=== PATIENT | male | born 1965 | race Caucasian/White ===

== ENCOUNTER 2021-12-31 11:11 | Inpatient (IN) ==
[2021-12-31] MEDS ORDERED: CEFEPIME 2,000 MG/20 ML VIAL IV STA (11:34)
[2021-12-31] MEDS ORDERED: VANCOMYCIN CONSULT ACTIVE PRN (11:34)
[2021-12-31] MEDS ORDERED: VANCOMYCIN HCL 2,750 MG in SODIUM CHLORIDE 0.9% 500 ML IV STA (11:34)
--- NOTE | 2021-12-31 11:44 | Emergency Department Note ---
History of Present Illness General Chief complaint: Leg Injury/Pain Stated complaint: FEVER, INFECTION IN L LEG Time Seen by Provider: 12/31/21 11:21 History of Present Illness This 56-year-old male patient with significant past medical history of hypertension and sleep apnea presents to the emergency department today for evaluation of redness and infection of the left leg. Patient's states 2 days ago, she noticed some redness in the left extremity and he had an elevated temperature of 99.9 F. He took 2 Advil and symptoms seem to improve. Yesterday, he developed worsening pain and she noticed increased redness, pain, and firmness in the posterior aspect of the left calf. Patient denies any shor tness of breath. He states he has had a mild dry cough for the past 2 days. No known exposures to COVID-19. He is fully vaccinated and boostered. He does not normally wear oxygen but does use a CPAP machine at night for sleep apnea. He denies any associated pain. No chest pain. No open wounds, discharge, or bleeding. Home Medications Medication Instructions Recorded Confirmed Type amlodipine 5 mg tablet 5 mg PO QAM 09/28/19 12/31/21 History aspirin 81 mg tablet,delayed 81 mg PO DAILY 12/31/21 12/31/21 History release atorvastatin 20 mg tablet 20 mg PO QAM 12/31/21 12/31/21 History finasteride 5 mg tablet 5 mg PO QPM 12/31/21 12/31/21 History lisinopril 20 mg tablet 20 mg PO QAM 12/31/21 12/31/21 History tamsulosin 0.4 mg capsule 0.4 mg PO QPM 12/31/21 12/31/21 History Allergies Allergy/AdvReac Type Severity Reaction Status Date / Time No Known Allergies Allergy Unknown NONE Verified 12/31/21 16:17 Past Med/Surg History Medical History (Updated 12/31/21 @ 19:05 by Anisha Preston PA-C) Hypertension Sleep apnea CPAP Surgical History History of colonoscopy Family History Grandmother (Paternal) Family history of diabetes mellitus Social History Smoking Status: Former smoker Cigarettes Per Day: 20; Smoking End Date: 12/30/2021; Second Hand Exposure: Yes (PARENTS SMOKED); Do You Dip or Chew Tobacco: No; Hx Alcohol Use: No Hx Substance Use: No Preferred Language: Maori Communication Ability: Effective Extension Service Agent Required: No Beliefs That Will Affect Care: None Current Living Situation: Spouse Current Living Situation Comment: lives in 2 story home with Feels Safe at Home: Yes Safety Concerns: Feels Safe At This Time Assistive Devices: None Review of Systems A total of 10 systems reviewed and were otherwise negative Physical Exam Vital Signs Vital Signs - 24 hr 12/31/21 11:15 12/31/21 11:25 12/31/21 11:41 Temperature 36.2 C L Temperature Source Temporal Artery Scan Pulse Rate 108 H Pulse Rate [Apical] 100 H Pulse Rate from SpO2 Sensor Pulse Rhythm Regular Pulse Strength Normal Respiratory Rate 20 23 Respiratory Effort / Characteristics Non-Labored Spontaneous Non-Labored Spontaneous Non-Labored Spontaneous Respiratory Depth Normal Normal Respiratory Pattern Regular Blood Pressure 99/57 L Blood Pressure [Right Arm] 105/65 Blood Pressure Mean 71 Blood Pressure Mean [Right Arm] 78 Blood Pressure Position Sitting Blood Pressure Position [Right Arm] Sitting Pulse Oximetry 70 L 93 94 Oxygen Delivery Method Room Air Nasal Cannula Nasal Cannula Oxygen Flow Rate 5 5 Sepsis Recent Fever Within 48 Hours No Sepsis New/Unexplained Change in Mental Status N/A Sepsis Action Taken by Nursing No Action Required 12/31/21 11:42 12/31/21 12:00 12/31/21 12:15 Temperature Temperature Source Pulse Rate Pulse Rate [Apical] 101 H 102 H Pulse Rate from SpO2 Sensor Pulse Rhythm Pulse Strength Respiratory Rate 22 20 Respiratory Effort / Characteristics Non-Labored Spontaneous Non-Labored Spontaneous Respiratory Depth Normal Normal Respiratory Pattern Blood Pressure Blood Pressure [Right Arm] 112/66 100/67 Blood Pressure Mean Blood Pressure Mean [Right Arm] 81 78 Blood Pressure Position Blood Pressure Position [Right Arm] Sitting Pulse Oximetry 94 95 94 Oxygen Delivery Method Nasal Cannula Nasal Cannula Nasal Cannula Oxygen Flow Rate 5 5 5 Sepsis Recent Fever Within 48 Hours Sepsis New/Unexplained Change in Mental Status Sepsis Action Taken by Nursing 12/31/21 12:30 12/31/21 13:00 12/31/21 13:30 Temperature Temperature Source Pulse Rate Pulse Rate [Apical] 110 H 103 H 100 H Pulse Rate from SpO2 Sensor Pulse Rhythm Pulse Strength Respiratory Rate 20 19 18 Respiratory Effort / Characteristics Non-Labored Spontaneous Non-Labored Spontaneous Non-Labored Spontaneous Respiratory Depth Normal Normal Normal Respiratory Pattern Blood Pressure Blood Pressure [Right Arm] 120/70 111/70 Blood Pressure Mean Blood Pressure Mean [Right Arm] 86 83 Blood Pressure Position Blood Pressure Position [Right Arm] Pulse Oximetry 98 97 95 Oxygen Delivery Method Nasal Cannula Nasal Cannula Oxymask Oxygen Flow Rate 6 6 6 Sepsis Recent Fever Within 48 Hours Sepsis New/Unexplained Change in Mental Status Sepsis Action Taken by Nursing 12/31/21 13:45 12/31/21 14:00 12/31/21 14:30 Temperature Temperature Source Pulse Rate Pulse Rate [Apical] 99 H 100 H Pulse Rate from SpO2 Sensor Pulse Rhythm Pulse Strength Respiratory Rate 26 H 14 Respiratory Effort / Characteristics Non-Labored Spontaneous Non-Labored Spontaneous Non-Labored Spontaneous Respiratory Depth Normal Normal Respiratory Pattern Blood Pressure Blood Pressure [Right Arm] 109/63 119/71 Blood Pressure Mean Blood Pressure Mean [Right Arm] 78 87 Blood Pressure Position Blood Pressure Position [Right Arm] Pulse Oximetry 95 99 Oxygen Delivery Method Oxymask Room Air Oxygen Flow Rate 6 Sepsis Recent Fever Within 48 Hours Sepsis New/Unexplained Change in Mental Status Sepsis Action Taken by Nursing 12/31/21 15:21 12/31/21 15:22 12/31/21 15:30 Temperature Temperature Source Pulse Rate 100 H 102 H 102 H Pulse Rate [Apical] Pulse Rate from SpO2 Sensor 103 H 102 H Pulse Rhythm Pulse Strength Respiratory Rate 22 24 20 Respiratory Effort / Characteristics Respiratory Depth Respiratory Pattern Blood Pressure 127/85 119/76 Blood Pressure [Right Arm] Blood Pressure Mean 99 90 Blood Pressure Mean [Right Arm] Blood Pressure Position Blood Pressure Position [Right Arm] Pulse Oximetry 97 99 Oxygen Delivery Method Oxygen Flow Rate Sepsis Recent Fever Within 48 Hours Sepsis New/Unexplained Change in Mental Status Sepsis Action Taken by Nursing 12/31/21 15:45 12/31/21 16:00 12/31/21 16:15 Temperature Temperature Source Pulse Rate 103 H 90 107 H Pulse Rate [Apical] Pulse Rate from SpO2 Sensor 103 H 92 H 107 H Pulse Rhythm Pulse Strength Respiratory Rate 22 22 24 Respiratory Effort / Characteristics Respiratory Depth Respiratory Pattern Blood Pressure 148/88 H 114/64 148/90 H Blood Pressure [Right Arm] Blood Pressure Mean 108 80 109 Blood Pressure Mean [Right Arm] Blood Pressure Position Blood Pressure Position [Right Arm] Pulse Oximetry 99 99 95 Oxygen Delivery Method Oxymask Oxygen Flow Rate 6 Sepsis Recent Fever Within 48 Hours Sepsis New/Unexplained Change in Mental Status Sepsis Action Taken by Nursing 12/31/21 16:30 12/31/21 16:45 Temperature Temperature Source Pulse Rate 108 H 110 H Pulse Rate [Apical] Pulse Rate from SpO2 Sensor 124 H Pulse Rhythm Pulse Strength Respiratory Rate 24 26 H Respiratory Effort / Characteristics Respiratory Depth Respiratory Pattern Blood Pressure 137/80 142/98 H Blood Pressure [Right Arm] Blood Pressure Mean 99 112 Blood Pressure Mean [Right Arm] Blood Pressure Position Blood Pressure Position [Right Arm] Pulse Oximetry Oxygen Delivery Method Oxygen Flow Rate Sepsis Recent Fever Within 48 Hours Sepsis New/Unexplained Change in Mental Status Sepsis Action Taken by Nursing VITALS: Vitals are noted on the nurse's note and reviewed by myself. Vital signs stable. GENERAL: This is a 56-year-old obese white male, in no acute distress, nondiaphoretic, well-developed well-nourished. SKIN: Erythema and edema of the left lower extremity extending from the toes to the proximal thigh. No open wounds or active discharge at this time. The skin was otherwise without rashes, or bruising. There is no tenting of the skin. Capillary refill less than 2 seconds. HEAD: Normocephalic atraumatic. EYES: Conjunctivae without injection, sclerae without icterus. NECK: Supple without nuchal rigidity. No lymphadenopathy. Cervical spine is nontender. No JVD. HEART: Regular rate and rhythm without murmurs gallops or rubs. LUNGS: Clear to auscultation bilaterally without wheezes, rales or rhonchi. No retractions or accessory muscle use. ABDOMEN: Positive bowel sounds x 4. Soft, nontender, without masses or organomegaly. No guarding or rebound tenderness. MUSCULOSKELETAL: No muscle atrophy, erythema, or edema noted. Full range of motion without joint tenderness in all extremities. No tenderness to palpation. Normal gait. Strength 5/5 throughout. NEURO: Patient was alert and oriented to person place and time. No focal neurological deficits. Course Course The patient was seen and evaluated as above. Patient was started on vancomycin and cefepime. Hydrated with IV fluids. An order was placed for continuous cardiac monitoring. The monitor shows a normal sinus rhythm at a rate of 67 bpm. IV access obtained, labs drawn. Labs reviewed by myself. Imaging performed and reviewed by myself and radiologist as noted. I discussed the findings with the patient at bedside. I recommended admission. The patient was agreeable I discussed the case with my attending. He did see and evaluate the patient. I did discuss case with the agronomy location manager. I spoke with GREG Childers with [facility] group. She did agree to see and evaluate the patient for inpatient management. Administered Medications Discontinued Medications Vancomycin HCl 2,750 mg/ (Sodium Chloride) 555 mls @ 200 mls/hr IV NOW STA Stop: 12/31/21 14:32 Last Infusion: 12/31/21 16:48 Dose: 0 mls/hr Documented by: [id number] Admin: 12/31/21 13:13 Dose: 200 mls/hr Documented by: [id number] Sodium Chloride (Nss 1000ml) 1,000 mls @ 999 mls/hr IV .[id number] HERMAN Stop: 12/31/21 12:45 Last Infusion: 12/31/21 13:40 Dose: 0 mls/hr Documented by: [id number] Admin: 12/31/21 12:18 Dose: 999 mls/hr Documented by: [id number] Cefepime HCl (Maxipime) 2,000 mg in 20 mls @ 5 mls/min IV NOW STA; Protocol Stop: 12/31/21 11:37 Last Admin: 12/31/21 12:18 Dose: 5 mls/min Documented by: [id number] Ioversol (Optiray 320 125ml) 120 ml IV ONCE ONE Stop: 12/31/21 14:06 Last Admin: 12/31/21 14:06 Dose: 120 ml Documented by: [id number] Medical Decision Making Differential Diagnosis Cellulitis, abscess, MRSA infection, DVT, necrotizing fasciitis, dermatitis, drug eruption, allergic reaction, CHF, cardiac etiology, pulmonary etiology, pneumonia, PE, as well as other pathologies. Medical Records Attestation: I reviewed the patient's medical records. Home Medications Current Medication List: was personally reviewed by me Laboratory Data Attestation: I reviewed the patient's lab results. Leukocytosis of 16,000. Mild anemia with a hemoglobin of 13.5. No thrombocytopenia. Procalcitonin elevated at 1.26. Influenza, COVID-19, RSV testing negative. INR 1.1. Lactic acid 0.8. Renal, hepatic function and electrolytes without significant abnormality. BNP 84. Result diagrams: 12/31/21 12:00 12/31/21 12:00 Lab Results 12/31/21 12/31/21 12/31/21 Range/Units 11:57 12:00 12:00 WBC 16.01 H (4.8-10.8) K/uL RBC 4.58 L (4.7-6.1) M/uL Hgb 13.5 L (14.0-18.0) g/dL Hct 44.2 (42-52) % MCV 96.5 (80-100) fL MCH 29.5 (25-34) pg MCHC 30.5 L (32-36) g/dL RDW Std Deviation 55.0 H (36.4-46.3) fL RDW Coeff of Azul 15.5 H (11.5-14.5) % Plt Count 216 (130-400) K/uL MPV 10.5 H (7.4-10.4) fL Immature Gran % (Auto) 0.3 % Neut % (Auto) 88.7 % Lymph % (Auto) 9.1 % Guthrie % (Auto) 1.8 % Eos % (Auto) 0.0 % Baso % (Auto) 0.1 % Neut # (Auto) 14.21 H (1.4-6.5) K/uL Lymph # (Auto) 1.45 (1.2-3.4) K/uL Guthrie # (Auto) 0.29 (0.11-0.59) K/uL Eos # (Auto) 0.00 (0-0.5) K/uL Baso # (Auto) 0.01 (0-0.2) K/uL Immature Gran # (Auto) 0.05 H (0.00-0.02) K/uL PT (9.0-12.0) Seconds INR (0.9-1.1) APTT (21.0-31.0) Seconds PTT Ratio Sodium (136-145) mmol/L Potassium (3.5-5.1) mmol/L Chloride (98-107) mmol/L Carbon Dioxide (21-32) mmol/L Anion Gap (3-11) BUN (6-23) mg/dl Creatinine (0.6-1.4) mg/dl Est Cr Clr Drug Dosing ml/min Est GFR ( Amer) ml/min Est GFR (Non-Af Amer) ml/min BUN/Creatinine Ratio (10-20) Glucose (70-99(Fasting)) mg/dl Lactate (0.4-2.0) mmol/L Calcium (8.5-10.1) mg/dl Magnesium (1.7-2.4) mg/dl Total Bilirubin (0.2-1.0) mg/dl AST (13-39) U/L ALT (7-52) U/L Alkaline Phosphatase (34-104) U/L Troponin I High Sens (0-20) pg/ml B-Natriuretic Peptide (0-100) pg/ml Total Protein (6.0-8.3) gm/dl Albumin (3.4-5.0) gm/dl Globulin (2.5-4.0) gm/dl Albumin/Globulin Ratio (0.9-2) Procalcitonin 1.26 H (0-0.5) ng/ml SARS-CoV-2 (PCR) NEGATIVE (Negative) Influenza Type A (PCR) Negative (Neg) Influenza Type B (PCR) Negative (Neg) RSV (RT-PCR) Negative (Neg) 12/31/21 12/31/21 12/31/21 Range/Units 12:00 12:00 12:00 WBC (4.8-10.8) K/uL RBC (4.7-6.1) M/uL Hgb (14.0-18.0) g/dL Hct (42-52) % MCV (80-100) fL MCH (25-34) pg MCHC (32-36) g/dL RDW Std Deviation (36.4-46.3) fL RDW Coeff of Azul (11.5-14.5) % Plt Count (130-400) K/uL MPV (7.4-10.4) fL Immature Gran % (Auto) % Neut % (Auto) % Lymph % (Auto) % Guthrie % (Auto) % Eos % (Auto) % Baso % (Auto) % Neut # (Auto) (1.4-6.5) K/uL Lymph # (Auto) (1.2-3.4) K/uL Guthrie # (Auto) (0.11-0.59) K/uL Eos # (Auto) (0-0.5) K/uL Baso # (Auto) (0-0.2) K/uL Immature Gran # (Auto) (0.00-0.02) K/uL PT 11.2 (9.0-12.0) Seconds INR 1.1 (0.9-1.1) APTT 30.1 (21.0-31.0) Seconds PTT Ratio 1.1 Sodium 140 (136-145) mmol/L Potassium 4.1 (3.5-5.1) mmol/L Chloride 102 (98-107) mmol/L Carbon Dioxide 33 H (21-32) mmol/L Anion Gap 5 (3-11) BUN 24 H (6-23) mg/dl Creatinine 1.33 (0.6-1.4) mg/dl Est Cr Clr Drug Dosing 97.1 ml/min Est GFR ( Amer) 68.3 ml/min Est GFR (Non-Af Amer) 58.9 ml/min BUN/Creatinine Ratio 18.0 (10-20) Glucose 154 H (70-99(Fasting)) mg/dl Lactate 0.8 (0.4-2.0) mmol/L Calcium 9.1 (8.5-10.1) mg/dl Magnesium 2.1 (1.7-2.4) mg/dl Total Bilirubin 0.7 (0.2-1.0) mg/dl AST 25 (13-39) U/L ALT 36 (7-52) U/L Alkaline Phosphatase 50 (34-104) U/L Troponin I High Sens 27.5 H (0-20) pg/ml B-Natriuretic Peptide (0-100) pg/ml Total Protein 6.9 (6.0-8.3) gm/dl Albumin 3.5 (3.4-5.0) gm/dl Globulin 3.4 (2.5-4.0) gm/dl Albumin/Globulin Ratio 1.0 (0.9-2) Procalcitonin (0-0.5) ng/ml SARS-CoV-2 (PCR) (Negative) Influenza Type A (PCR) (Neg) Influenza Type B (PCR) (Neg) RSV (RT-PCR) (Neg) 12/31/21 Range/Units 12:29 WBC (4.8-10.8) K/uL RBC (4.7-6.1) M/uL Hgb (14.0-18.0) g/dL Hct (42-52) % MCV (80-100) fL MCH (25-34) pg MCHC (32-36) g/dL RDW Std Deviation (36.4-46.3) fL RDW Coeff of Azul (11.5-14.5) % Plt Count (130-400) K/uL MPV (7.4-10.4) fL Immature Gran % (Auto) % Neut % (Auto) % Lymph % (Auto) % Guthrie % (Auto) % Eos % (Auto) % Baso % (Auto) % Neut # (Auto) (1.4-6.5) K/uL Lymph # (Auto) (1.2-3.4) K/uL Guthrie # (Auto) (0.11-0.59) K/uL Eos # (Auto) (0-0.5) K/uL Baso # (Auto) (0-0.2) K/uL Immature Gran # (Auto) (0.00-0.02) K/uL PT (9.0-12.0) Seconds INR (0.9-1.1) APTT (21.0-31.0) Seconds PTT Ratio Sodium (136-145) mmol/L Potassium (3.5-5.1) mmol/L Chloride (98-107) mmol/L Carbon Dioxide (21-32) mmol/L Anion Gap (3-11) BUN (6-23) mg/dl Creatinine (0.6-1.4) mg/dl Est Cr Clr Drug Dosing ml/min Est GFR ( Amer) ml/min Est GFR (Non-Af Amer) ml/min BUN/Creatinine Ratio (10-20) Glucose (70-99(Fasting)) mg/dl Lactate (0.4-2.0) mmol/L Calcium (8.5-10.1) mg/dl Magnesium (1.7-2.4) mg/dl Total Bilirubin (0.2-1.0) mg/dl AST (13-39) U/L ALT (7-52) U/L Alkaline Phosphatase (34-104) U/L Troponin I High Sens (0-20) pg/ml B-Natriuretic Peptide 84 (0-100) pg/ml Total Protein (6.0-8.3) gm/dl Albumin (3.4-5.0) gm/dl Globulin (2.5-4.0) gm/dl Albumin/Globulin Ratio (0.9-2) Procalcitonin (0-0.5) ng/ml SARS-CoV-2 (PCR) (Negative) Influenza Type A (PCR) (Neg) Influenza Type B (PCR) (Neg) RSV (RT-PCR) (Neg) Imaging Data Radiologist's Impression: Venous Doppler Study 12/31/21 11:34 US venous doppler LE LT CLINICAL HISTORY: Left leg pain, redness, swelling COMPARISON: None available at the time of this dictation. TECHNIQUE: Left lower extremity real-time compression venous ultrasound with Color Doppler imaging. Utilizing real-time ultrasonic imaging multiple real time high-resolution ultrasonic images with compression and noncompression maneuvers of the deep venous system in addition to color doppler imaging were performed from the common femoral vein through the proximal calf veins. FINDINGS: Currently there is normal compressibility of the deep venous system from the common femoral vein through the proximal calf veins. No current evidence of acute thrombosis is identified. There is an enlarged lymph node in the left groin measuring 4.5 x 1.5 x 3.8 cm. Impression: No evidence of deep venous thrombus. Enlarged left groin lymph node. ACT 112: Negative or not required by law. Electronically signed by: David Ruggiero M.D. 12/31/2021 3:20 PM Chest X-Ray 12/31/21 11:36 XR chest 1V portable CLINICAL HISTORY: SEPSIS. COMPARISON STUDY: No previous studies for comparison. TECHNIQUE: 1 view of the chest FINDINGS: Single frontal view of the chest demonstrates the heart to be enlarged. There is a large confluent alveolar opacity involving the right lower lobe. The findings are characteristic of pneumonia versus mass. CT of the chest with contrast is recommended for further evaluation. The remainder of the lungs are clear of alveolar opacities. There is suspicion of right pleural effusion. No definite left pleural effusion is seen. There is no evidence for vascular congestion. There is no acute osseous pathology. IMPRESSION: 1. Large confluent alveolar opacity the right lung base characteristic of pneumonia versus mass. There is evidence for associated right pleural effusion as well. CT of the chest with contrast is recommended for further evaluation. ACT 112: Negative or not required by law. Electronically signed by: David Ruggiero M.D. 12/31/2021 12:26 PM Chest CTA 12/31/21 11:54 CT ANGIOGRAPHY OF THE CHEST, PULMONARY EMBOLUS PROTOCOL CLINICAL HISTORY: Lower extremity edema, hypoxia COMPARISON STUDY: Chest radiograph performed earlier today. TECHNIQUE: Following IV administration of 120 mL of Optiray, helical axial images of the chest were obtained utilizing the pulmonary embolus protocol. Maximal intensity projections and sagittal and coronal reformats were viewed on an independent 3D workstation. IV contrast was administered without complication. Automated exposure control was utilized for the study. A dose lowering technique was utilized adhering to the principles of ALARA. CT DOSE: 898.42 mGy.cm FINDINGS: No pulmonary emboli are identified although the segmental and subsegmental pulmonary arteries are suboptimally assessed due to respiratory motion and quantum mottle artifact. There is no thoracic aortic dissection. Mild cardiomegaly is noted. There is mild dilatation of the central pulmonary arteries. Moderate coronary artery calcification is noted. Elevation of the right hemidiaphragm is noted. Subpleural opacity represents atelectasis. This accounts for the finding on chest radiograph performed earlier today. No consolidation to suggest pneumonia is present. The central airways are patent. There is no pneumothorax or pleural effusion. Hepatic steatosis is noted. IMPRESSION: 1. No pulmonary emboli identified although segmental and subsegmental pulmonary arteries suboptimally assessed due to artifact, as described above. 2. Elevation of the right hemidiaphragm with adjacent atelectasis which accounts for the finding on prior chest radiograph. 3. Mild cardiomegaly. Mild dilatation of the central pulmonary arteries which raises the possibility of pulmonary arterial hypertension. 4. Hepatic steatosis. ACT 112: Negative or not required by law. Electronically signed by: Hudson Alex M.D. 12/31/2021 2:35 PM ECG Data Attestation: I personally reviewed and interpreted this ECG as follows: Indication: + SOB/dyspnea Rate (beats per minute): 102 Rhythm: + sinus tachycardia ECG Pelzer: + Left axis deviation ECG ST segments: no ST depression, no ST elevation or no T-wave inversions Comparison ECG Date: no prior available Change: no significant change Blood Pressure Blood Pressure Findings: Normal blood pressure MDM Narrative This 56-year-old male patient presents to the emergency department today for evaluation of left lower extremity cellulitis. Upon arrival to the ED, the patient was found to be hypoxic with an O2 saturation of 70% on room air. This did seem to improve with a nasal cannula and subsequently 6 L/min via oxime mask . The patient is not experiencing any chest pain. He did have a dry cough which began about 2 days ago. Labs are consistent with cellulitis with a leukocytosis of 16,000. Initial chest x-ray was concerning for infiltrate versus mass in the right lung, however CT imaging was consistent with elevation of the right hemidiaphragm with adjacent atelectasis. Given the patient's findings on examination, hypoxia, and left lower extremity cellulitis, I did recommend admission to the hospitalist service. The patient will be admitted to the [facility] hospitalist service. He was started on cefepime and vancomycin while here in the emergency department. Please see hospitalist dictation regarding ongoing management care of this patient. The chart was completed utilizing [employer] Speech voice recognition software. Grammatical errors, random word insertions, pronoun errors, and incomplete sentences are an occasional consequence of this system due to software limitations, ambient noise, and hardware issues. Any formal questions or concerns about the content, text, or information contained within the body of this dictation should be directly addressed to the provider for clarification. Impression & Plan Cellulitis of left lower extremity, Hypoxia Discharge Plan Visit Data Chief Complaint: Leg Injury/Pain Stated Complaint: FEVER, INFECTION IN L LEG ED Provider: Ronak Walden ED Midlevel Provider: Anisha Preston Discharge Problem: Cellulitis of left lower extremity, Hypoxia Patient Disposition: Admitted As Inpatient Discharge Instructions Interventions: ED Discharge Assessment Last Done: 12/31/21 18:15
[2021-12-31] MEDS ORDERED: SODIUM CHLORIDE 0.9% 1000ML 1,000 ML IV SCH (11:45)
--- NOTE | 2021-12-31 12:27 | XRay Report ---
XR chest 1V portable CLINICAL HISTORY: SEPSIS. COMPARISON STUDY: No previous studies for comparison. TECHNIQUE: 1 view of the chest FINDINGS: Single frontal view of the chest demonstrates the heart to be enlarged. There is a large confluent al veolar opacity involving the right lower lobe. The findings are characteristic of pneumonia versus ma ss. CT of the chest with contrast is recommended for further evaluation. The remainder of the lungs are clear of alveolar opacities. There is suspicion of right pleural effu sunitha. No definite left pleural effusion is seen. There is no evidence for vascular congestion. There is no acute osseous pathology. IMPRESSION: 1. Large confluent alveolar opacity the right lung base characteristic of pneumonia versus mass. Ther e is evidence for associated right pleural effusion as well. CT of the chest with contrast is recomme nded for further evaluation. ACT 112: Negative or not required by law. Electronically signed by: David Ruggiero M.D. 12/31/2021 12:26 PM
[2021-12-31 12:35] LABS: Basophils # (auto) 0.01 K/uL (0-0.2); Basophils % (auto) 0.1 %; Hematocrit (blood only) 44.2 % (42-52); Hemoglobin 13.5 g/dL (14.0-18.0); Immature Granulocytes # (auto) 0.05 K/uL (0.00-0.02); Immature Granulocytes % (auto) 0.3 %; Lymphocytes # (auto) 1.45 K/uL (1.2-3.4); Lymphocytes % (auto) 9.1 %; Mean Corpuscular Hemoglobin 29.5 pg (25-34); Mean Corpuscular Hgb Conc 30.5 g/dL (32-36); Mean Corpuscular Volume 96.5 fL (80-100); Mean Platelet Volume 10.5 fL (7.4-10.4); Monocytes # (auto) 0.29 K/uL (0.11-0.59); Monocytes % (auto) 1.8 %; Neutrophils # (auto) 14.21 K/uL (1.4-6.5); Neutrophils % (auto) 88.7 %; Platelet Count 216 K/uL (130-400); RDW Coefficient of Variation 15.5 % (11.5-14.5); Red Blood Count 4.58 M/uL (4.7-6.1); White Blood Count 16.01 K/uL (4.8-10.8)
[2021-12-31 12:52] LABS: INR 1.1 (0.9-1.1); Partial Thromboplastin Ratio 1.1; Partial Thromboplastin Time 30.1 Seconds (21.0-31.0); Prothrombin Time 11.2 Seconds (9.0-12.0)
[2021-12-31 13:06] LABS: Influenza A virus by PCR Negative (Neg); Influenza B virus by PCR Negative (Neg); RSV by PCR Negative (Neg); SARS CoV2 RNA(COVID-19) InHosp NEGATIVE (Negative)
[2021-12-31 13:12] LABS: Troponin I High Sensitivity 27.5 pg/ml (0-20)
[2021-12-31 13:21] LABS: Albumin Level 3.5 gm/dl (3.4-5.0); Bilirubin,Total 0.7 mg/dl (0.2-1.0); Calcium 9.1 mg/dl (8.5-10.1); Creatinine Clr Calc Pharmacy 97.1 ml/min; Est GFR (African American) 68.3 ml/min; Est GFR (Non-African American) 58.9 ml/min; Globulin 3.4 gm/dl (2.5-4.0); Magnesium 2.1 mg/dl (1.7-2.4); Potassium 4.1 mmol/L (3.5-5.1); Total Protein 6.9 gm/dl (6.0-8.3)
--- NOTE | 2021-12-31 13:48 | Emergency Department Note ---
ED Visit Note Physician Evaluation Note: Patient was seen in conjunction with the physician print shop assistant. Please see the physician print shop assistant note for full details of the visit. I have personally evaluated and examined this patient. I performed a substantive portion of the patient visit including medical decision making and interpretation of diagnostic studies. On my examination the patient is in no acute distress now on oxime mask for presenting hypoxia. He is also noted to have some cellulitic changes to left lower extremity which he states started just recently. Blood cultures were ordered, patient was started on broad-spectrum antibiotics given significant leukocytosis on CBC, he is noted to have cellulitic changes to left lower extremity on my exam, he has an obese body habitus and there may be an element of obesity hypoventilation syndrome and his presentation. CT imaging of the chest does not show any evidence of pulmonary embolism, no evidence of any obvious pleural effusion. There is elevation of the right hemidiaphragm. Patient will be admitted to the hospitalist service for further management of both his hypoxia and his left lower extremity cellulitis with significant leukocytosis. Blood cultures were drawn in the ED. Patient is in agreement for admission and he was admitted in stable condition. I agree with assessment and plan of VICENTA Jaquez DO .
[2021-12-31] MEDS ORDERED: OPTIRAY 320 125ml IV ONE (14:05)
--- NOTE | 2021-12-31 14:27 | Electrocardiogram Report ---
Test Reason : Blood Pressure : / mmHG Vent. Rate : 102 BPM Atrial Rate : 102 BPM P-R Int : 162 ms QRS Dur : 106 ms QT Int : 328 ms P-R-T Axes : 039 -42 047 degrees QTc Int : 427 ms Sinus tachycardia Left axis deviation Inferior infarct , age undetermined Poor R wave progression, consider anterior IA vs. lead placement vs. LVH Abnormal ECG No previous ECGs available Confirmed by Lexa Langston ([id number]) on 12/31/2021 2:26:58 PM Referred By: Oscar Gutierrez Confirmed By:Lexa Langston
--- NOTE | 2021-12-31 14:36 | CT Scan Report ---
CT ANGIOGRAPHY OF THE CHEST, PULMONARY EMBOLUS PROTOCOL CLINICAL HISTORY: Lower extremity edema, hypoxia COMPARISON STUDY: Chest radiograph performed earlier today. TECHNIQUE: Following IV administration of 120 mL of Optiray, helical axial images of the chest were o btained utilizing the pulmonary embolus protocol. Maximal intensity projections and sagittal and cor onal reformats were viewed on an independent 3D workstation. IV contrast was administered without co mplication. Automated exposure control was utilized for the study. A dose lowering technique was ut ilized adhering to the principles of ALARA. CT DOSE: 898.42 mGy.cm FINDINGS: No pulmonary emboli are identified although the segmental and subsegmental pulmonary arter ies are suboptimally assessed due to respiratory motion and quantum mottle artifact. There is no thor acic aortic dissection. Mild cardiomegaly is noted. There is mild dilatation of the central pulmonary arteries. Moderate coronary artery calcification is noted. Elevation of the right hemidiaphragm is n oted. Subpleural opacity represents atelectasis. This accounts for the finding on chest radiograph pe rformed earlier today. No consolidation to suggest pneumonia is present. The central airways are clark nt. There is no pneumothorax or pleural effusion. Hepatic steatosis is noted. IMPRESSION: 1. No pulmonary emboli identified although segmental and subsegmental pulmonary arteries suboptimally assessed due to artifact, as described above. 2. Elevation of the right hemidiaphragm with adjacent atelectasis which accounts for the finding on p rior chest radiograph. 3. Mild cardiomegaly. Mild dilatation of the central pulmonary arteries which raises the possibility of pulmonary arterial hypertension. 4. Hepatic steatosis. ACT 112: Negative or not required by law. Electronically signed by: Hudson Alex M.D. 12/31/2021 2:35 PM
--- NOTE | 2021-12-31 15:21 | Ultrasound Report ---
US venous doppler LE LT CLINICAL HISTORY: Left leg pain, redness, swelling COMPARISON: None available at the time of this dictation. TECHNIQUE: Left lower extremity real-time compression venous ultrasound with Color Doppler imaging. Utilizing real-time ultrasonic imaging multiple real time high-resolution ultrasonic images with comp ression and noncompression maneuvers of the deep venous system in addition to color doppler imaging w ere performed from the common femoral vein through the proximal calf veins. FINDINGS: Currently there is normal compressibility of the deep venous system from the common femoral vein thro ugh the proximal calf veins. No current evidence of acute thrombosis is identified. There is an enlarged lymph node in the left groin measuring 4.5 x 1.5 x 3.8 cm. Impression: No evidence of deep venous thrombus. Enlarged left groin lymph node. ACT 112: Negative or not required by law. Electronically signed by: David Ruggiero M.D. 12/31/2021 3:20 PM
[2021-12-31] MEDS ORDERED: ACETAMINOPHEN 325 MG TAB PO PRN (18:36)
[2021-12-31 18:49] LABS: Appearance Urine Clear (Clear); Bacteria Urine Automated Negative (Negative); Bilirubin Urine Negative (Negative); Blood Urine 1+ (Negative); Color Urine Yellow; Epithelial Cell Urine Auto 20-30 /lpf (0-5); Glucose Urine UA Negative (Negative); Ketones Urine Negative (Negative); Leukocyte Esterase Urine Negative (Negative); Nitrite Urine Negative (Negative); Protein Urine 1+ (Negative); Specific Gravity Urine > 1.045 (1.000-1.030); Urobilinogen Urine Negative (Negative)
--- NOTE | 2021-12-31 20:04 | History & Physical Report ---
Date of Service December 31, 2021 Assessment & Plan (1) Sepsis: (2) Cellulitis of left lower extremity: Plan: Admit to [facility] with telemetry Patient presenting from home with reports of LLE redness and low-grade fever In the ED, found to have significant erythema extending from the foot up to the mid thigh Meets sepsis criteria with WBC 16 K, tachycardia. Currently afebrile, BP stable, normal lactic acid. Procal 1.26 Suspect strep infection given rapid progression of erythema S/p cefepime and Vanco in the ED, will continue with ceftriaxone Continue IVF resuscitation Doppler negative for DVT Follow blood cultures (3) Hypoxia: Plan: Upon presentation, patient was 70% on room air, currently requiring 6 L via oxy mask CTA chest negative for pulmonary embolism and other acute findings Patient has been complaining of HANSON for the past few months, underwent DSE that was negative for inducible ischemia Likely multifactorial due to morbid obesity, deconditioning, tobacco abuse Initial HS trop 27.5, EKG without acute ST changes. Continue to trend. Wean O2 as able, may need two-step before discharge (4) Hypertension: Plan: Lisinopril had been discontinued due to hyperkalemia however was resumed on 12/29 K+ acceptable at 4.1 today Continue lisinopril, monitor K+ levels (5) Sleep apnea: Plan: CPAP as per home settings (6) Morbid obesity with BMI of 60.0-69.9, adult: Plan: BMI 68.9 Follows with [facility] nutrition and weight management (7) DVT prophylaxis: Plan: SQ Lovenox Admission and Anticipated Discharge Date Admission Date: December 31, 2021 History of Present Illness Chief Complaint: Left leg redness, fever Primary Care Provider: Oscar Gutierrez DO 56-year-old male with PMH of morbid obesity, prediabetes, SARAH on CPAP, nocturnal hypoxemia, tobacco abuse, and other problems listed below who presents the ED for evaluation of left leg redness and fever. Patient's is at the bedside who provides much of the history. States that yesterday she noted the patient's navarrete to be mildly red. Patient also had a low-grade fever. He had taken some Advil and the fever resolved. This morning, the redness extended up to the thigh and it was very warm to touch. Patient also again had a low-grade fever. Patient was then brought to the ED for further evaluation. Patient developed a couple of small blisters on his left anterior navarrete that subsequently opened. No purulent drainage reported. Patient reports shortness of breath with minimal exertion. No chest pain or palpitations. Denies lightheadedness, dizziness, diaphoresis, syncopal events. No abdominal pain, nausea, vomiting, diarrhea. Has been having some urinary issues which will be discussed below. Upon arrival to the ED, patient was found to be hypoxic on room air at 70%, currently requiring oxygen mask at 6 L. CTA chest negative for pulmonary embolism and signs of pneumonia or volume overload. L LE Doppler negative for DVT. Labs show WBC 16 K, procalcitonin 1.26. HS trop mildly elevated 27.5. EKG without acute ST changes. Patient was given IV cefepime, IV Vanco, IVF. Recent medical history: Patient treated for RLE cellulitis 09/2021 with a course of cephalexin. Patient also evaluated by cardiology for complaints of dyspnea on exertion. Underwent dobutamine stress test that was negative for inducible ischemia. Was noted to have mild hyperkalemia and lisinopril was reduced from 20 mg to 10 mg daily and eventually discontinued due to persistent mild hyperkalemia. Patient was also started on Lasix 20 mg daily however developed urinary incontinence and this was subsequently discontinued. Patient treated for UTI twice with courses of Cipro and Macrobid. Urine culture from 11/22/2021 grew Aerococcus urinate and urine culture from 12/14/2021 had no growth. Due to complaints of urinary hesitancy, patient was started on tamsulosin and was referred to urology. Patient felt that his urinary symptoms correlated with the time that the lisinopril was discontinued, therefore PCP resumed lisinopril on 12/29/2021. Allergies Allergy/AdvReac Type Severity Reaction Status Date / Time No Known Allergies Allergy Unknown NONE Verified 12/31/21 16:17 Home Medications Medication Instructions Recorded Confirmed Type amlodipine 5 mg tablet 5 mg PO QAM 09/28/19 12/31/21 History aspirin 81 mg tablet,delayed 81 mg PO DAILY 12/31/21 12/31/21 History release atorvastatin 20 mg tablet 20 mg PO QAM 12/31/21 12/31/21 History finasteride 5 mg tablet 5 mg PO QPM 12/31/21 12/31/21 History lisinopril 20 mg tablet 20 mg PO QAM 12/31/21 12/31/21 History tamsulosin 0.4 mg capsule 0.4 mg PO QPM 12/31/21 12/31/21 History Past Med/Surg History Medical History (Updated 12/31/21 @ 20:19 by GREG Childers) Hypertension Morbid obesity with BMI of 60.0-69.9, adult Nocturnal hypoxemia Prediabetes Sleep apnea CPAP Surgical History History of colonoscopy Family History Grandmother (Paternal) Family history of diabetes mellitus Social History Smoking Status: Former smoker Cigarettes Per Day: 20; Smoking End Date: 12/30/2021; Second Hand Exposure: Yes (PARENTS SMOKED); Do You Dip or Chew Tobacco: No; Hx Alcohol Use: No Hx Substance Use: No Preferred Language: Syrian Communication Ability: Effective Video Coordinator Required: No Beliefs That Will Affect Care: None Current Living Situation: Spouse Current Living Situation Comment: lives in 2 story home with Feels Safe at Home: Yes Safety Concerns: Feels Safe At This Time Assistive Devices: None Review of Systems Review of Systems: ROS per HPI, all other systems reviewed and negative Physical Exam Constitutional: WD/WN, vitals as above + morbidly obese Eyes: PERRL, conjunctivae normal, anicteric sclerae ENMT: external ear and nose normal, oropharynx normal Respiratory: normal respiratory effort; no respiratory distress Auscultation: + diminished lung sounds Cardiovascular: Rate/Rhythm: regular rhythm and + tachycardic Vessels: normal peripheral pulses Extremities: + edema (+2 edema BLE) Gastrointestinal (Abdomen): normal bowel sounds, soft, nontender, no hepatosplenomegaly Musculoskeletal: no cyanosis or clubbing, extremities motor strength 5/5 Skin: no rashes, warm and dry LLE erythema extending from left foot up to the mid thigh, leg warm to touch, a few small scabs noted to left anterior navarrete, no drainage noted Neurologic: PERRL, EOMI, accommodation nl, no face palsy, no dysarthria Psychiatric: A+Ox3, euthymic affect Results & Data Results & Data ([facility]) Vital Signs (Past 12 Hours) Vital Signs Temp Pulse Pulse Pulse Resp BP BP 12/31/21 19:07 124 H 12/31/21 18:36 36.8 C 67 18 109/63 12/31/21 18:01 133 H 23 153/99 H 12/31/21 18:00 135 H 30 H 12/31/21 17:45 114 H 22 161/103 H 12/31/21 17:30 115 H 27 H 160/103 H 12/31/21 17:15 112 H 22 151/88 H 12/31/21 17:00 109 H 26 H 152/98 H 12/31/21 16:45 110 H 26 H 142/98 H 12/31/21 16:30 108 H 24 137/80 12/31/21 16:15 107 H 24 148/90 H 12/31/21 16:00 90 22 114/64 12/31/21 15:45 103 H 22 148/88 H 12/31/21 15:30 102 H 20 119/76 12/31/21 15:22 102 H 24 127/85 12/31/21 15:21 100 H 22 12/31/21 14:30 100 H 14 119/71 12/31/21 13:45 99 H 26 H 109/63 12/31/21 13:30 100 H 18 12/31/21 13:00 103 H 19 111/70 12/31/21 12:30 110 H 20 120/70 12/31/21 12:15 102 H 20 100/67 12/31/21 12:00 101 H 22 112/66 12/31/21 11:42 12/31/21 11:41 12/31/21 11:25 100 H 23 105/65 12/31/21 11:15 36.2 C L 108 H 20 99/57 L Pulse Ox 12/31/21 19:07 12/31/21 18:36 93 12/31/21 18:01 79 L 12/31/21 18:00 93 12/31/21 17:45 99 12/31/21 17:30 99 12/31/21 17:15 98 12/31/21 17:00 12/31/21 16:45 12/31/21 16:30 12/31/21 16:15 95 12/31/21 16:00 99 12/31/21 15:45 99 12/31/21 15:30 99 12/31/21 15:22 97 12/31/21 15:21 12/31/21 14:30 99 12/31/21 13:45 95 12/31/21 13:30 95 12/31/21 13:00 97 12/31/21 12:30 98 12/31/21 12:15 94 12/31/21 12:00 95 12/31/21 11:42 94 12/31/21 11:41 94 12/31/21 11:25 93 12/31/21 11:15 70 L Laboratory Results Short CBC 12/31/21 12/31/21 12/31/21 Range/Units 12:00 12:00 18:44 WBC 16.01 H (4.8-10.8) K/uL Hgb 13.5 L (14.0-18.0) g/dL Hct 44.2 (42-52) % Plt Count 216 (130-400) K/uL Troponin I High Sens 27.5 H Cancelled (0-20) pg/ml BMP 12/31/21 12:00 Sodium 140 Potassium 4.1 Chloride 102 Carbon Dioxide 33 H BUN 24 H Creatinine 1.33 Glucose 154 H Calcium 9.1 Liver Function 12/31/21 Range/Units 12:00 Total Bilirubin 0.7 (0.2-1.0) mg/dl AST 25 (13-39) U/L ALT 36 (7-52) U/L Alkaline Phosphatase 50 (34-104) U/L Albumin 3.5 (3.4-5.0) gm/dl Urine 12/31/21 Range/Units 15:15 Urine Color Yellow Urine Appearance Clear (Clear) Urine pH 5.0 (4.5-7.5) Ur Specific [place] > 1.045 H (1.000-1.030) Urine Protein 1+ H (Negative) Urine Glucose (UA) Negative (Negative) Diagnostic Findings Venous Doppler Study 12/31/21 11:34 US venous doppler LE LT CLINICAL HISTORY: Left leg pain, redness, swelling COMPARISON: None available at the time of this dictation. TECHNIQUE: Left lower extremity real-time compression venous ultrasound with Color Doppler imaging. Utilizing real-time ultrasonic imaging multiple real time high-resolution ultr asonic images with compression and noncompression maneuvers of the deep venous system in addition to color doppler imaging were performed from the common femoral vein through the proximal calf veins. FINDINGS: Currently there is normal compressibility of the deep venous system from the common femoral vein through the proximal calf veins. No current evidence of acute thrombosis is identified. There is an enlarged lymph node in the left groin measuring 4.5 x 1.5 x 3.8 cm. Impression: No evidence of deep venous thrombus. Enlarged left groin lymph node. ACT 112: Negative or not required by law. Electronically signed by: David Ruggiero M.D. 12/31/2021 3:20 PM Chest X-Ray 12/31/21 11:36 XR chest 1V portable CLINICAL HISTORY: SEPSIS. COMPARISON STUDY: No previous studies for comparison. TECHNIQUE: 1 view of the chest FINDINGS: Single frontal view of the chest demonstrates the heart to be enlarged. There is a large confluent alveolar opacity involving the right lower lobe. The findings are characteristic of pneumonia versus mass. CT of the chest with contrast is recommended for further evaluation. The remainder of the lungs are clear of alveolar opacities. There is suspicion of right pleural effusion. No definite left pleural effusion is seen. There is no evidence for vascular congestion. There is no acute osseous pathology. IMPRESSION: 1. Large confluent alveolar opacity the right lung base characteristic of pneumonia versus mass. There is evidence for associated right pleural effusion as well. CT of the chest with contrast is recommended for further evaluation. ACT 112: Negative or not required by law. Electronically signed by: David Ruggiero M.D. 12/31/2021 12:26 PM Chest CTA 12/31/21 11:54 CT ANGIOGRAPHY OF THE CHEST, PULMONARY EMBOLUS PROTOCOL CLINICAL HISTORY: Lower extremity edema, hypoxia COMPARISON STUDY: Chest radiograph performed earlier today. TECHNIQUE: Following IV administration of 120 mL of Optiray, helical axial images of the chest were obtained utilizing the pulmonary embolus protocol. Maximal intensity projections and sagittal and coronal reformats were viewed on an independent 3D workstation. IV contrast was administered without complication. Automated exposure control was utilized for the study. A dose lowering technique was utilized adhering to the principles of ALARA. CT DOSE: 898.42 mGy.cm FINDINGS: No pulmonary emboli are identified although the segmental and subsegmental pulmonary arteries are suboptimally assessed due to respiratory motion and quantum mottle artifact. There is no thoracic aortic dissection. Mild cardiomegaly is noted. There is mild dilatation of the central pulmonary arteries. Moderate coronary artery calcification is noted. Elevation of the right hemidiaphragm is noted. Subpleural opacity represents atelectasis. This accounts for the finding on chest radiograph performed earlier today. No consolidation to suggest pneumonia is present. The central airways are patent. There is no pneumothorax or pleural effusion. Hepatic steatosis is noted. IMPRESSION: 1. No pulmonary emboli identified although segmental and subsegmental pulmonary arteries suboptimally assessed due to artifact, as described above. 2. Elevation of the right hemidiaphragm with adjacent atelectasis which accounts for the finding on prior chest radiograph. 3. Mild cardiomegaly. Mild dilatation of the central pulmonary arteries which raises the possibility of pulmonary arterial hypertension. 4. Hepatic steatosis. ACT 112: Negative or not required by law. Electronically signed by: Hudson Alex M.D. 12/31/2021 2:35 PM Code Status & VTE Plan Code Status Patient is a full code as per my discussion with him. VTE Prophylaxis Plan VTE Prophylaxis will be ordered: Yes Supervising Physician Co-Signing Physician Notes I have seen and examined the patient and have discussed the case with the provider above. I agree with the assessment and plan as stated. 56 yo morbidly obese patient presents with sepsis 2/2 LLE cellulitis that developed in 24 hours. No overt wound. Patient is very deconditioned and easily winded. Workup reveals leukocytosis with left shift, elevated procalcitonin and normal lactic acid. He is tachycardic and normotensive with some hypoxia. CXR is c lear and CTA chest without evidence of PE. No DVT on lower extremity doppler. Likely strep pathogen given clinical history. Agree with empiric coverage with Rocephin (check with pharmacy for correct dosing given morbid obesity) and continue pending clinical improvement and culture results. Of note, we did discuss the importance of changing his lifestyle to achieve a lower percent body fat and a higher lean muscle mass for overall good health. He verbalized understanding with intent to comply and informed me that he also quit smoking yesterday. He was praised for this and declines nicotine patch at this time. [place],
[2021-12-31] MEDS: cefTRIAXone SODIUM 2,000 MG in DEXTROSE 5% 50 ML IV SCH (20:23)
[2021-12-31] MEDS: SODIUM CHLORIDE 0.9% 1000ML 1,000 ML IV SCH (20:23)
[2021-12-31] MEDS: FINASTERIDE 5 MG TAB PO SCH (20:33)
[2021-12-31] MEDS: TAMSULOSIN HCL 0.4 MG CAP PO SCH (20:33)
[2021-12-31] MEDS: ENOXAPARIN INJ 40 MG/0.4 ML SYR SQ SCH (20:34)
[2022-01-01] MEDS: SODIUM CHLORIDE 0.9% 1000ML 1,000 ML IV SCH (05:40)
[2022-01-01] MEDS: ENOXAPARIN INJ 40 MG/0.4 ML SYR SQ SCH (06:23)
[2022-01-01] MEDS: ASPIRIN 81 MG ECTAB PO SCH (09:00)
[2022-01-01] MEDS ORDERED: lisinopril 20 MG TAB PO SCH (09:00)
[2022-01-01] MEDS ORDERED: amLODIPine BESYLATE 5 MG TAB PO SCH (09:00)
[2022-01-01] MEDS: ATORVASTATIN 20 MG TAB PO SCH (09:00)
[2022-01-01 09:24] LABS: Hemoglobin 13.7 g/dL (14.0-18.0); Mean Corpuscular Hgb Conc 29.1 g/dL (32-36); Mean Corpuscular Volume 99.4 fL (80-100); Mean Platelet Volume 10.4 fL (7.4-10.4); Platelet Count 152 K/uL (130-400); RDW Coefficient of Variation 15.9 % (11.5-14.5); RDW Standard Deviation 58.1 fL (36.4-46.3); Red Blood Count 4.73 M/uL (4.7-6.1); White Blood Count 14.47 K/uL (4.8-10.8)
[2022-01-01 09:38] LABS: Anion Gap 6 (3-11); BUN Creatinine Ratio 23.9 (10-20); Blood Urea Nitrogen 37 mg/dl (6-23); Calcium 8.6 mg/dl (8.5-10.1); Carbon Dioxide 30 mmol/L (21-32); Chloride 104 mmol/L (98-107); Creatinine Clr Calc Pharmacy 83.8 ml/min; Est GFR (African American) 56.8 ml/min; Glucose 114 mg/dl (70-99(Fasting)); Sodium 140 mmol/L (136-145)
[2022-01-01] MEDS ORDERED: SODIUM CHLORIDE 0.9% 1000ML 1,000 ML IV ONE (11:45)
--- NOTE | 2022-01-01 11:48 | Hospitalist Progress Note ---
Date of Service January 01, 2022 Assessment & Plan (1) Sepsis: Plan: resuscitated, however, now in afib so tachycardic. Plan as outlined below. (2) Cellulitis of left lower extremity: Plan: Admit to [facility] with telemetry Patient presenting from home with reports of LLE redness and low-grade fever In the ED, found to have significant erythema extending from the foot up to the mid thigh Meets sepsis criteria with WBC 16 K, tachycardia. Currently afebrile, BP stable, normal lactic acid. Procal 1.26 Suspect strep infection given rapid progression of erythema S/p cefepime and Vanco in the ED, will continue with ceftriaxone Improved today, IVF held in setting of pulm vascular congestion on CXR and persistent hypoxia. Doppler negative for DVT (3) New onset atrial fibrillation: Plan: Cardiology consulted and started heparin drip and amiodarone. Patient and rapid ventricular response. Small amount of fluid given. Later evaluated and was hypotensive with heart rates into the 120s and 130s. Discussed with canine service teacher who will give digoxin for some heart rate control overnight. Limited on additional fluid we can give because of pulmonary vascular congestion on chest x-ray and persistent hypoxia. Continue to monitor in PCU. (4) PRIYANKA (acute kidney injury): (5) Hypoxia: Plan: Upon presentation, patient was 70% on room air, currently requiring 6 L via oxy mask CTA chest negative for pulmonary embolism and other acute findings Patient has been complaining of HANSON for the past few months, underwent DSE that was negative for inducible ischemia Likely multifactorial due to morbid obesity, deconditioning, tobacco abuse, now pulm vascular congestion 2/2 IVF resuscitation in sepsis. Held IVF. Initial HS trop 27.5, EKG without acute ST changes. Continue to trend. Wean O2 as able, may need two-step before discharge (6) Hypertension: Plan: Lisinopril had been discontinued due to hyperkalemia by cardiology, however, was resumed on 12/29 by PCP. Held in setting of PRIYANKA. (7) Sleep apnea: Plan: CPAP as per home settings (8) Morbid obesity with BMI of 60.0-69.9, adult: Plan: BMI 68.9 Follows with [facility] nutrition and weight management Counseled on the importance of weight loss and quitting smoking. (9) Smoking: Plan: 1ppd smoker, quit on admission. Contemplative phase. Declined nicotine patch. (10) DVT prophylaxis: Plan: SQ Lovenox Admission and Anticipated Discharge Date Admission Date: December 31, 2021 Subjective 56-year-old man presents with sepsis secondary to left lower extremity cellulitis Patient went into atrial fibrillation with RVR this is new onset Denies chest pain or shortness of breath but still hypoxic with 6 L/min via oxygen mask Repeat chest x-ray reveals pulmonary vascular congestion and IV fluids were stopped Amiodarone started per cardiology Heparin started Patient transferred to PCU Reassessed patient around 8:30 PM. Last vitals were 89/53 heart rate 123. Patient reports feeling well with no shortness of breath or chest pain. Discussed plan with nurse at bedside. Review of Systems Review of Systems: All systems reviewed negative except as indicated above. Physical Exam Physical Exam: CONSTITUTIONAL: morbid obesity, vitals as above, generally we ll-appearing, NAD EYES: normal conjunctivae, no scleral icterus ENT: external ear and nose normal, NECK: trachea midline, RESPIRATORY: clear to auscultation bilaterally, no crackles, rales or wheezes, normal respiratory effort CARDIOVASCULAR: regular rate and rhythm, S1 and 2 heard without murmurs, gallops or rubs, no JVD, no peripheral edema, CHEST: inspection of chest was normal GASTROINTESTINAL: , soft, nontender, no hepatomegaly, no guarding MUSCULOSKELETAL: generalized weakness without focal deficit. Head is normocephalic and atraumatic, neck supple, normal palpation of chest wall without tenderness SKIN: warm and dry, no rashes NEUROLOGIC: patellar DTRs 2+ bilat. PERRL, EOMI, no facial palsy, no dysarthria. Touch, pain and proprioception normal. CN 2-12 grossly intact, no sensory deficit, normal cognition, normal speech, no tremor PSYCHIATRIC: alert cooperative and oriented to person, place and time. Euthymic mood, makes good eye contact, language grossly intact, recent and remote memory grossly intact. LYMPHATIC: no LAD Results & Data Results & Data ([facility]) Vital Signs (Past 12 Hours) Vital Signs Temp Pulse Pulse Resp BP BP Pulse Ox 01/01/22 11:33 99 H 18 98/59 L 96 01/01/22 07:30 36.2 C L 94 H 18 106/69 95 01/01/22 07:17 97 H 01/01/22 03:18 36.7 C 79 20 102/67 92 01/01/22 03:10 90 27 H 90 01/01/22 01:15 91 H 25 H 95 01/01/22 00:26 38.9 C H 118 H 24 143/76 H 90 Laboratory Results Short CBC 01/01/22 01/01/22 Range/Units 08:47 14:36 WBC 14.47 H 12.54 H (4.8-10.8) K/uL Hgb 13.7 L 13.4 L (14.0-18.0) g/dL Hct 47.0 45.4 (42-52) % Plt Count 152 169 (130-400) K/uL BMP 01/01/22 01/01/22 08:47 10:11 Sodium 140 Potassium TNP 5.3 H D Chloride 104 Carbon Dioxide 30 BUN 37 H Creatinine 1.55 H Glucose 114 H Calcium 8.6 Diagnostic Findings Chest X-Ray 01/01/22 13:26 XR chest 1V portable CLINICAL HISTORY: Hypoxia. COMPARISON STUDY: Chest radiograph and chest CT December 31, 2021. FINDINGS: This exam is compromised by suboptimal penetration. Cardiomegaly is noted. There is persistent pulmonary vascular congestion. Elevation of the right hemidiaphragm is noted. There is persistent right basilar opacity. Trace left pleural effusion. IMPRESSION: 1. Elevation of the right hemidiaphragm. Adjacent airspace opacity likely reflects atelectasis although pneumonia could appear similar. 2. Cardiomegaly. Pulmonary vascular congestion. ACT 112: Negative or not required by law. Electronically signed by: Hudson Alex M.D. 01/01/2022 1:46 PM Medications Administered Current Inpatient Medications Acetaminophen (Acetaminophen 325 Mg Tab) 650 mg PO Q4H PRN PRN Reason: pain/fever Stop: 01/30/22 18:35 Last Admin: 12/31/21 23:49 Dose: 650 mg Documented by: Amlodipine Besylate (Amlodipine Besylate 5 Mg Tab) 5 mg PO QAM [facility] Stop: 01/31/22 08:59 Last Admin: 01/01/22 09:00 Dose: 5 mg Documented by: Aspirin (Aspirin 81 Mg Ectab) 81 mg PO DAILY [facility] Stop: 01/31/22 08:59 Last Admin: 01/01/22 09:00 Dose: 81 mg Documented by: Atorvastatin Calcium (Atorvastatin 20 Mg Tab) 20 mg PO QAM [facility] Stop: 01/31/22 08:59 Last Admin: 01/01/22 09:00 Dose: 20 mg Documented by: Finasteride (Finasteride 5 Mg Tab) 5 mg PO QPM [facility]MAN Stop: 01/30/22 20:59 Last Admin: 12/31/21 20:33 Dose: 5 mg Documented by: Ceftriaxone Sodium 2,000 mg/ (Dextrose) 70 mls @ 100 mls/hr IV Q24H HERMAN; Protocol Stop: 01/07/22 19:59 Last Infusion: 12/31/21 21:06 Dose: Infused Documented by: Heparin Sodium/Dextrose (Heparin Sodium/Dextrose) 25,000 units in 500 mls @ 41 mls/hr IV .[id number] HERMAN; Protocol Stop: 01/31/22 13:29 Last Admin: 01/01/22 17:17 Dose: 2,050 units/hr, 41 mls/hr Documented by: Amiodarone HCl/Dextrose (Nexterone / D5w) 360 mg in 200 mls @ 16.667 mls/hr IV .Q12H HERMAN Stop: 01/31/22 19:14 Tamsulosin HCl (Tamsulosin Hcl 0.4 Mg Cap) 0.4 mg PO QPM HERMAN Stop: 01/30/22 20:59 Last Admin: 12/31/21 20:33 Dose: 0.4 mg Documented by:
--- NOTE | 2022-01-01 12:27 | Cardiology Consultation ---
Date of Consultation January 01, 2022 Assessment & Plan (1) New onset atrial fibrillation: (2) Sepsis: (3) Hypertension: (4) Morbid obesity with BMI of 60.0-69.9, adult: (5) Hyperkalemia: Patient developed new onset afib RVR this morning in setting of sepsis, cellulitis. Start IV heparin for anticoagulation. D/C SQ lovenox BP has been borderline low. Stop amlodipine. Stop lisinopril. Start IV amiodarone to hopefully convert to NSR. Normal LFT's on admission. TSH is pending Continue to monitor on telemetry. Recommend discontinuation of lisinopril due to hyperkalemia. He had recurrent hyperkalemia as an outpatient and lisinopril had been stopped. Continue antibiotics for cellulitis and sepsis. Prelim blood cultures are negative Recommend compliance with CPAP therapy. He had a dobutamine stress echo 2 months ago as an outpatient without acute findings. No indication to repeat echo at this time unless blood cultures return positive. Case discussed with Dr. Zavala. Will follow. Supervising Physician Co-Signing Physician Notes Patient seen and examined with Geetha Isbell PA-C. Agree with findings and assessment as above. Patient lapsed into atrial fibrillation while on telemetry monitoring. We will attempt chemical cardioversion with IV amiodarone. Continue to monitor on telemetry. Other recommendations as above. History of Present Illness Reason for Consultation: New onset afib; Sepsis Requesting Physician: Dr. Guthrie Attending Physician: Dr. Zavala History of Present Illness Patient is a 56 year old male who was admitted with left lower extremity cellulitis with sepsis. Also found to be hypoxic on arrival. Chest CT limited due to body habitus but no evidence of PE. New onset atrial fibrillation noted this morning. Cardiology was consulted for evaluation and treatment of afib. Patient recently evaluated in Cardiology clinic in September [address] Ware for evaluation of SOB with activity. He was started on low dose furosemide at that time to aid with edema/SOB. However, per patient/, furosemide was stopped due to urination issues. He was found to have recurrent hyperkalemia and lisinopril dose was reduced and then stopped. Patient reports he recently was told to resume lisinopril. He underwent dobutamine stress echo in October 2021 as an outpatient which was negative for inducible ischemia. He failed to keep f/u appt. Patient reports worsening LE edema, left leg erythema and drainage and increased SOB, lethargy and chills x several days. No chest pain. No palpitations. Came to ER. Started on antibiotics, High flow oxygen mask. Around 8:30 this morning, patient developed afib RVR with rates ranging 120-140's. He has been mildly hypotensive as well. At time of consult, patient resting out of bed comfortably. Wearing oxygen mask. He is unaware of palpitations or tachypalpitations. Denies chest pain. No dizziness or lightheadedness. No history of anemia or GI bleeding. He denies history of PAF or other cardiac issues. History includes: 1. Hypertension 2. dyslipidemia 3. Morbid obesity 4. Hyperkalemia 5. SARAH Allergies Allergy/AdvReac Type Severity Reaction Status Date / Time No Known Allergies Allergy Unknown NONE Verified 12/31/21 16:17 Home Medications Medication Instructions Recorded Confirmed Type amlodipine 5 mg tablet 5 mg PO QAM 09/28/19 12/31/21 History aspirin 81 mg tablet,delayed 81 mg PO DAILY 12/31/21 12/31/21 History release atorvastatin 20 mg tablet 20 mg PO QAM 12/31/21 12/31/21 History finasteride 5 mg tablet 5 mg PO QPM 12/31/21 12/31/21 History lisinopril 20 mg tablet 20 mg PO QAM 12/31/21 12/31/21 History tamsulosin 0.4 mg capsule 0.4 mg PO QPM 12/31/21 12/31/21 History Patient History Medical History (Updated 01/01/22 @ 20:48 by Roxana Guthrie DO) Hypertension Morbid obesity with BMI of 60.0-69.9, adult Nocturnal hypoxemia Prediabetes Sleep apnea CPAP Surgical History History of colonoscopy Family History Grandmother (Paternal) Family history of diabetes mellitus Social History Smoking Status: Former smoker Cigarettes Per Day: 20; Smoking End Date: 12/30/2021; Second Hand Exposure: Yes (PARENTS SMOKED); Do You Dip or Chew Tobacco: No; Hx Alcohol Use: No Hx Substance Use: No Preferred Language: Wolof Communication Ability: Effective Outboard Technician Required: No Beliefs That Will Affect Care: None Current Living Situation: Spouse Current Living Situation Comment: lives in 2 story home with Feels Safe at Home: Yes Safety Concerns: Feels Safe At This Time Assistive Devices: CPAP and Glasses Review of Systems Review of Systems: All systems reviewed & are unremarkable except as noted in HPI & below Physical Exam Constitutional: WD/WN, vitals as above + morbidly obese Neck: + thick neck Respiratory: normal respiratory effort Auscultation: + diminished lung sounds Cardiovascular: Rate/Rhythm: + tachycardic and + irregularly irregular Heart Sounds: + murmur (No audible murmur. distant heart sounds) Extremities: + edema (2+ edema b/l with chronic stasis changes, ulceration on the left leg ) Neurologic: PERRL, EOMI, accommodation nl, no face palsy, no dysarthria Psychiatric: A+Ox3, euthymic affect Results & Data ([facility]) Vital Signs (Past 12 Hours) Vital Signs Temp Pulse Pulse Resp BP BP Pulse Ox 01/01/22 11:33 99 H 18 98/59 L 96 01/01/22 07:30 36.2 C L 94 H 18 106/69 95 01/01/22 07:17 97 H 01/01/22 03:18 36.7 C 79 20 102/67 92 01/01/22 03:10 90 27 H 90 01/01/22 01:15 91 H 25 H 95 01/01/22 00:26 38.9 C H 118 H 24 143/76 H 90 Laboratory Results Cardiac Enzymes 12/31/21 12/31/21 12/31/21 Range/Units 12:00 12:29 18:44 AST 25 (13-39) U/L Troponin I High Sens 27.5 H Cancelled (0-20) pg/ml B-Natriuretic Peptide 84 (0-100) pg/ml 12/31/21 01/01/22 Range/Units 19:51 00:34 AST (13-39) U/L Troponin I High Sens 19.1 D 22.2 H (0-20) pg/ml B-Natriuretic Peptide (0-100) pg/ml Coagulation 12/31/21 12/31/21 Range/Units 12:00 12:29 PT 11.2 (9.0-12.0) Seconds APTT 30.1 (21.0-31.0) Seconds B-Natriuretic Peptide 84 (0-100) pg/ml CBC 12/31/21 01/01/22 Range/Units 12:00 08:47 WBC 16.01 H 14.47 H (4.8-10.8) K/uL RBC 4.58 L 4.73 (4.7-6.1) M/uL Hgb 13.5 L 13.7 L (14.0-18.0) g/dL Hct 44.2 47.0 (42-52) % Plt Count 216 152 (130-400) K/uL Neut # (Auto) 14.21 H (1.4-6.5) K/uL Lymph # (Auto) 1.45 (1.2-3.4) K/uL [place] # (Auto) 0.29 (0.11-0.59) K/uL Eos # (Auto) 0.00 (0-0.5) K/uL Baso # (Auto) 0.01 (0-0.2) K/uL Comprehensive Metabolic Panel 12/31/21 01/01/22 01/01/22 Range/Units 12:00 08:47 10:11 Sodium 140 140 (136-145) mmol/L Potassium 4.1 TNP 5.3 H D (3.5-5.1) mmol/L Chloride 102 104 (98-107) mmol/L Carbon Dioxide 33 H 30 (21-32) mmol/L BUN 24 H 37 H (6-23) mg/dl Creatinine 1.33 1.55 H (0.6-1.4) mg/dl Glucose 154 H 114 H (70-99(Fasting)) mg/dl Calcium 9.1 8.6 (8.5-10.1) mg/dl AST 25 (13-39) U/L ALT 36 (7-52) U/L Alkaline Phosphatase 50 (34-104) U/L Total Protein 6.9 (6.0-8.3) gm/dl Albumin 3.5 (3.4-5.0) gm/dl Intake and Output 12/31/21 01/01/22 01/01/22 22:59 06:59 14:59 Intake Total 625 / 2813.333 1188.333 / 2813.333 Output Total 550 / 550 Balance 625 / 2263.333 638.333 / 2263.333 Intake: IV 625 / 2553.333 928.333 / 2553.333 Sodium Chloride 0.9% 1000ML 1, 928.333 / 928.333 000 ml @ 100 mls/hr IV .Q10H [facility] Rx#:[id number] Vancomycin HCl 2,750 mg In 555 / 555 Sodium Chloride 0.9% 500 ml @ 200 mls/hr IV NOW STA Rx#: [id number] cefTRIAXone SODIUM 2,000 mg In 70 / 70 Dextrose 5% 50 ml @ 100 mls/hr IV Q24H [facility] Rx#:[id number] Oral 260 / 260 Output: Urine 550 / 550 Other: # Unmeasured Voids 1 Weight 187.8 kg 189.4 kg 189.4 kg Weight Measurement Method [facility] Built in [facility] Patient Weight 01/02/22 06:59 Weight 189.4 kg Diagnostic Findings telemetry reviewed - New on set atrial fibrillation with RVR, starting around 8:36 AM EKG reviewed from admission: sinus tachycardia at 102 bpm Left axis deviation Inferior infarct , age undetermined Poor R wave progression, consider anterior DC vs. lead placement vs. LVH repeat EKG from 01/01/22; Atrial fibrillation with rapid ventricular response Inferior infarct (cited on or before 31-DEC-2021) When compared with ECG of 31-DEC-2021 11:55, Atrial fibrillation has replaced Sinus rhythm Dobutamine stress echo report reviewed dated September 2021: Interpretation Summary The examination is adequate to evaluate the referral indication. Images without Definity contrast were limited in quality The stress echo is negative for inducible ischemia. There was an adequate an appropriate heart rate response to the dobutamine/atropine stress protocol. Peak blood pressure response was diminished secondary to hyperdynamic function and improved with metoprolol post-stress. The stress EKG response was normal. The left ventricular wall motion is normal. The left ventricular wall motion with stress is normal. The left ventricular ejection fraction increases normally with stress. The left ventricular systolic function is normal. The qualitative LV ejection fraction is 60-64% (normal). The left ventricular diastolic function is mildly abnormal (grade I). Moderate aortic valve sclerosis is present. WBC 14.47 K/uL (4.8-10.8) H 01/01/22 08:47 RBC 4.73 M/uL (4.7-6.1) 01/01/22 08:47 Hgb 13.7 g/dL (14.0-18.0) L 01/01/22 08:47 Hct 47.0 % (42-52) 01/01/22 08:47 MCV 99.4 fL (80-100) 01/01/22 08:47 MCH 29.0 pg (25-34) 01/01/22 08:47 MCHC 29.1 g/dL (32-36) L 01/01/22 08:47 RDW Std Deviation 58.1 fL (36.4-46.3) H 01/01/22 08:47 RDW Coeff of Azul 15.9 % (11.5-14.5) H 01/01/22 08:47 Plt Count 152 K/uL (130-400) 01/01/22 08:47 MPV 10.4 fL (7.4-10.4) 01/01/22 08:47 Immature Gran % (Auto) 0.3 % 12/31/21 12:00 Neut % (Auto) 88.7 % 12/31/21 12:00 Lymph % (Auto) 9.1 % 12/31/21 12:00 [place] % (Auto) 1.8 % 12/31/21 12:00 Eos % (Auto) 0.0 % 12/31/21 12:00 Baso % (Auto) 0.1 % 12/31/21 12:00 Neut # (Auto) 14.21 K/uL (1.4-6.5) H 12/31/21 12:00 Lymph # (Auto) 1.45 K/uL (1.2-3.4) 12/31/21 12:00 [place] # (Auto) 0.29 K/uL (0.11-0.59) 12/31/21 12:00 Eos # (Auto) 0.00 K/uL (0-0.5) 12/31/21 12:00 Baso # (Auto) 0.01 K/uL (0-0.2) 12/31/21 12:00 Immature Gran # (Auto) 0.05 K/uL (0.00-0.02) H 12/31/21 12:00 PT 11.2 Seconds (9.0-12.0) 12/31/21 12:00 INR 1.1 (0.9-1.1) 12/31/21 12:00 APTT 30.1 Seconds (21.0-31.0) 12/31/21 12:00 PTT Ratio 1.1 12/31/21 12:00 Sodium 140 mmol/L (136-145) 01/01/22 08:47 Potassium 5.3 mmol/L (3.5-5.1) H D 01/01/22 10:11 Chloride 104 mmol/L (98-107) 01/01/22 08:47 Carbon Dioxide 30 mmol/L (21-32) 01/01/22 08:47 Anion Gap 6 (3-11) 01/01/22 08:47 BUN 37 mg/dl (6-23) H 01/01/22 08:47 Creatinine 1.55 mg/dl (0.6-1.4) H 01/01/22 08:47 Est Cr Clr Drug Dosing 83.8 ml/min 01/01/22 08:47 Est GFR ( Amer) 56.8 ml/min 01/01/22 08:47 Est GFR (Non-Af Amer) 49.0 ml/min 01/01/22 08:47 BUN/Creatinine Ratio 23.9 (10-20) H 01/01/22 08:47 Glucose 114 mg/dl (70-99(Fasting)) H 01/01/22 08:47 Lactate 0.8 mmol/L (0.4-2.0) 12/31/21 12:00 Calcium 8.6 mg/dl (8.5-10.1) 01/01/22 08:47 Magnesium 2.1 mg/dl (1.7-2.4) 12/31/21 12:00 Total Bilirubin 0.7 mg/dl (0.2-1.0) 12/31/21 12:00 AST 25 U/L (13-39) 12/31/21 12:00 ALT 36 U/L (7-52) 12/31/21 12:00 Alkaline Phosphatase 50 U/L (34-104) 12/31/21 12:00 Troponin I High Sens 22.2 pg/ml (0-20) H 01/01/22 00:34 B-Natriuretic Peptide 84 pg/ml (0-100) 12/31/21 12:29 Total Protein 6.9 gm/dl (6.0-8.3) 12/31/21 12:00 Albumin 3.5 gm/dl (3.4-5.0) 12/31/21 12:00 Globulin 3.4 gm/dl (2.5-4.0) 12/31/21 12:00 Albumin/Globulin Ratio 1.0 (0.9-2) 12/31/21 12:00 Procalcitonin 1.26 ng/ml (0-0.5) H 12/31/21 12:00 Urine Color Yellow 12/31/21 15:15 Urine Appearance Clear (Clear) 12/31/21 15:15 Urine pH 5.0 (4.5-7.5) 12/31/21 15:15 Ur Specific [place] > 1.045 (1.000-1.030) H 12/31/21 15:15 Urine Protein 1+ (Negative) H 12/31/21 15:15 Urine Glucose (UA) Negative (Negative) 12/31/21 15:15 Urine Ketones Negative (Negative) 12/31/21 15:15 Urine Blood 1+ (Negative) H 12/31/21 15:15 Urine Nitrite Negative (Negative) 12/31/21 15:15 Urine Bilirubin Negative (Negative) 12/31/21 15:15 Urine Urobilinogen Negative (Negative) 12/31/21 15:15 Ur Leukocyte Esterase Negative (Negative) 12/31/21 15:15 Urine WBC (Auto) 5-10 /hpf (0-5) H 12/31/21 15:15 Urine RBC (Auto) 5-10 /hpf (0-4) H 12/31/21 15:15 U Hyaline Cast (Auto) 1-5 /lpf (0-5) 12/31/21 15:15 U Epithel Cells (Auto) 20-30 /lpf (0-5) H 12/31/21 15:15 Urine Bacteria (Auto) Negative (Negative) 12/31/21 15:15 SARS-CoV-2 (PCR) NEGATIVE (Negative) 12/31/21 11:57 Influenza Type A (PCR) Negative (Neg) 12/31/21 11:57 Influenza Type B (PCR) Negative (Neg) 12/31/21 11:57 RSV (RT-PCR) Negative (Neg) 12/31/21 11:57 Impressions Venous Doppler Study 12/31/21 11:34 US venous doppler LE LT CLINICAL HISTORY: Left leg pain, redness, swelling COMPARISON: None available at the time of this dictation. TECHNIQUE: Left lower extremity real-time compression venous ultrasound with Color Doppler imaging. Utilizing real-time ultrasonic imaging multiple real time high-resolution ultrasonic images with compression and noncompression maneuvers of the deep venous system in addition to color doppler imaging were performed from the common femoral vein through the proximal calf veins. FINDINGS: Currently there is normal compressibility of the deep venous system from the common femoral vein through the proximal calf veins. No current evidence of acute thrombosis is identified. There is an enlarged lymph node in the left groin measuring 4.5 x 1.5 x 3.8 cm. Impression: No evidence of deep venous thrombus. Enlarged left groin lymph node. ACT 112: Negative or not required by law. Electronically signed by: David Ruggiero M.D. 12/31/2021 3:20 PM Chest CTA 12/31/21 11:54 CT ANGIOGRAPHY OF THE CHEST, PULMONARY EMBOLUS PROTOCOL CLINICAL HISTORY: Lower extremity edema, hypoxia COMPARISON STUDY: Chest radiograph performed earlier today. TECHNIQUE: Following IV administration of 120 mL of Optiray, helical axial images of the chest were obtained utilizing the pulmonary embolus protocol. Maximal intensity projections and sagittal and coronal reformats were viewed on an independent 3D workstation. IV contrast was administered without complication. Automated exposure control was utilized for the study. A dose lowering technique was utilized adhering to the principles of ALARA. CT DOSE: 898.42 mGy.cm FINDINGS: No pulmonary emboli are identified although the segmental and subsegmental pulmonary arteries are suboptimally assessed due to respiratory motion and quantum mottle artifact. There is no thoracic aortic dissection. Mild cardiomegaly is noted. There is mild dilatation of the central pulmonary arteries. Moderate coronary artery calcification is noted. Elevation of the right hemidiaphragm is noted. Subpleural opacity represents atelectasis. This accounts for the finding on chest radiograph performed earlier today. No consolidation to suggest pneumonia is present. The central airways are patent. There is no pneumothorax or pleural effusion. Hepatic steatosis is noted. IMPRESSION: 1. No pulmonary emboli identified although segmental and subsegmental pulmonary arteries suboptimally assessed due to artifact, as described above. 2. Elevation of the right hemidiaphragm with adjacent atelectasis which accounts for the finding on prior chest radiograph. 3. Mild cardiomegaly. Mild dilatation of the central pulmonary arteries which raises the possibility of pulmonary arterial hypertension. 4. Hepatic steatosis. ACT 112: Negative or not required by law. Electronically signed by: Hudson Alex M.D. 12/31/2021 2:35 PM Chest X-Ray 01/01/22 13:26 XR chest 1V portable CLINICAL HISTORY: Hypoxia. COMPARISON STUDY: Chest radiograph and chest CT December 31, 2021. FINDINGS: This exam is compromised by suboptimal penetration. Cardiomegaly is noted. There is persistent pulmonary vascular congestion. Elevation of the right hemidiaphragm is noted. There is persistent right basilar opacity. Trace left pleural effusion. IMPRESSION: 1. Elevation of the right hemidiaphragm. Adjacent airspace opacity likely refl ects atelectasis although pneumonia could appear similar. 2. Cardiomegaly. Pulmonary vascular congestion. ACT 112: Negative or not required by law. Electronically signed by: Hudson Alex M.D. 01/01/2022 1:46 PM Medications Administered Current Inpatient Medications Acetaminophen (Acetaminophen 325 Mg Tab) 650 mg PO Q4H PRN PRN Reason: pain/fever Stop: 01/30/22 18:35 Last Admin: 12/31/21 23:49 Dose: 650 mg Documented by: Amlodipine Besylate (Amlodipine Besylate 5 Mg Tab) 5 mg PO QAM [facility] Stop: 01/31/22 08:59 Last Admin: 01/01/22 09:00 Dose: 5 mg Documented by: Aspirin (Aspirin 81 Mg Ectab) 81 mg PO DAILY [facility] Stop: 01/31/22 08:59 Last Admin: 01/01/22 09:00 Dose: 81 mg Documented by: Atorvastatin Calcium (Atorvastatin 20 Mg Tab) 20 mg PO QAM [facility] Stop: 01/31/22 08:59 Last Admin: 01/01/22 09:00 Dose: 20 mg Documented by: Finasteride (Finasteride 5 Mg Tab) 5 mg PO QPM [facility] Stop: 01/30/22 20:59 Last Admin: 12/31/21 20:33 Dose: 5 mg Documented by: Ceftriaxone Sodium 2,000 mg/ (Dextrose) 70 mls @ 100 mls/hr IV Q24H [facility]; Protocol Stop: 01/07/22 19:59 Last Infusion: 12/31/21 21:06 Dose: Infused Documented by: Heparin Sodium/Dextrose (Heparin Sodium/Dextrose) 25,000 units in 500 mls @ 41 mls/hr IV .[id number] [facility]; Protocol Stop: 01/31/22 13:29 Amiodarone HCl/Dextrose (Nexterone / D5w) 360 mg in 200 mls @ 33.333 mls/hr IV ONE ONE Stop: 01/01/22 19:10 Amiodarone HCl/Dextrose (Nexterone / D5w) 360 mg in 200 mls @ 16.667 mls/hr IV .Q12H [facility] Stop: 01/31/22 19:14 Tamsulosin HCl (Tamsulosin Hcl 0.4 Mg Cap) 0.4 mg PO QPM [facility] Stop: 01/30/22 20:59 Last Admin: 12/31/21 20:33 Dose: 0.4 mg Documented by:
[2022-01-01] MEDS ORDERED: STAT IV Infusion **Titration per Protocol STA (13:00)
[2022-01-01] MEDS ORDERED: AMIODARONE IV BOLUS & DRIP IV STA (13:00)
[2022-01-01] MEDS ORDERED: 0.2 MICRON FILTER SET 1 EA IV ONE ×2 (13:00→13:30)
[2022-01-01] MEDS ORDERED: AMIODARONE / D5W 150 MG/100 ML BAG IV STA (13:00)
[2022-01-01] MEDS ORDERED: AMIODARONE / D5W 360 MG/200 ML BAG IV ONE (13:11)
[2022-01-01] MEDS ORDERED: Heparin IV Adult Wt-Based Standard WITH Bolus Protocol IV SCH (13:15)
[2022-01-01] MEDS ORDERED: HEPARIN SOD (PORCINE) 1000 UNIT/ML IV ONE (13:30)
--- NOTE | 2022-01-01 13:47 | XRay Report ---
XR chest 1V portable CLINICAL HISTORY: Hypoxia. COMPARISON STUDY: Chest radiograph and chest CT December 31, 2021. FINDINGS: This exam is compromised by suboptimal penetration. Cardiomegaly is noted. There is persist ent pulmonary vascular congestion. Elevation of the right hemidiaphragm is noted. There is persistent right basilar opacity. Trace left pleural effusion. IMPRESSION: 1. Elevation of the right hemidiaphragm. Adjacent airspace opacity likely reflects atelectasis althou gh pneumonia could appear similar. 2. Cardiomegaly. Pulmonary vascular congestion. ACT 112: Negative or not required by law. Electronically signed by: Hudson Alex M.D. 01/01/2022 1:46 PM
--- NOTE | 2022-01-01 14:23 | Electrocardiogram Report ---
Test Reason : Blood Pressure : / mmHG Vent. Rate : 124 BPM Atrial Rate : 108 BPM P-R Int : 000 ms QRS Dur : 094 ms QT Int : 300 ms P-R-T Axes : 000 -28 042 degrees QTc Int : 431 ms Atrial fibrillation with rapid ventricular response Inferior infarct (cited on or before 31-DEC-2021) Abnormal ECG When compared with ECG of 31-DEC-2021 11:55, Atrial fibrillation has replaced Sinus rhythm Criteria for Anterior infarct are no longer Present Confirmed by Lexa Langston ([id number]) on 01/01/2022 2:22:42 PM Referred By: Oscar Gutierrez Confirmed By:Lexa Langston
[2022-01-01 15:03] LABS: Basophils # (auto) 0.01 K/uL (0-0.2); Basophils % (auto) 0.1 %; Eosinophils # (auto) 0.01 K/uL (0-0.5); Eosinophils % (auto) 0.1 %; Hematocrit (blood only) 45.4 % (42-52); Hemoglobin 13.4 g/dL (14.0-18.0); Immature Granulocytes # (auto) 0.06 K/uL (0.00-0.02); Immature Granulocytes % (auto) 0.5 %; Lymphocytes # (auto) 0.56 K/uL (1.2-3.4); Lymphocytes % (auto) 4.5 %; Mean Corpuscular Hemoglobin 29.3 pg (25-34); Mean Corpuscular Volume 99.1 fL (80-100); Mean Platelet Volume 10.5 fL (7.4-10.4); Monocytes # (auto) 1.13 K/uL (0.11-0.59); Neutrophils # (auto) 10.77 K/uL (1.4-6.5); Neutrophils % (auto) 85.8 %; Nucleated RBC # (auto) 0.03 K/uL (0-0); Nucleated RBC % (auto) 0.2 %; Platelet Count 169 K/uL (130-400); RDW Coefficient of Variation 15.9 % (11.5-14.5); RDW Standard Deviation 57.3 fL (36.4-46.3); Red Blood Count 4.58 M/uL (4.7-6.1); White Blood Count 12.54 K/uL (4.8-10.8)
[2022-01-01 15:26] LABS: INR 0.9 (0.9-1.1); Partial Thromboplastin Time 28.1 Seconds (21.0-31.0); Prothrombin Time 10.1 Seconds (9.0-12.0)
[2022-01-01 15:34] LABS: Mean Corpuscular Hgb Conc 29.5 g/dL (32-36)
[2022-01-01] MEDS: HEPARIN SODIUM/DEXTROSE 25,000 UNITS/500 ML BAG IV SCH (17:17)
[2022-01-01] MEDS ORDERED: DIGOXIN 250 MCG in SYRINGE 9 ML IV STA (20:47)
--- NOTE | 2022-01-01 20:50 | Communication Note ---
Date of Service: January 01, 2022 Made aware of uncontrolled A. fib rate, cardiac rate 110s to 120s SBP 90s. AP Rapid A. fib on IV amiodarone Hypotension Additional digoxin dose Add doxycycline to ceftriaxone for MRSA coverage for cellulitis IV albumin 1 dose for hypotension (colloid preferred over crystalloid pulmonary congestion on CXR)
[2022-01-01] MEDS ORDERED: DOXYCYCLINE HYCLATE 100 MG in DEXTROSE 5% 100 ML IV STA (20:54)
[2022-01-01] MEDS ORDERED: ALBUMIN 25% 12.5 GM/50 ML VIAL IV ONE (21:00)
[2022-01-01] MEDS: AMIODARONE / D5W 360 MG/200 ML BAG IV SCH (21:38)
[2022-01-01] MEDS: TAMSULOSIN HCL 0.4 MG CAP PO SCH (22:16)
[2022-01-01] MEDS: cefTRIAXone SODIUM 2,000 MG in DEXTROSE 5% 50 ML IV SCH (22:16)
[2022-01-01] MEDS: FINASTERIDE 5 MG TAB PO SCH (22:16)
[2022-01-01 22:38] LABS: BUN Creatinine Ratio 17.9 (10-20); Calcium 8.7 mg/dl (8.5-10.1); Creatinine Clr Calc Pharmacy 43.9 ml/min; Est GFR (Non-African American) 22.4 ml/min; Magnesium 2.5 mg/dl (1.7-2.4); Potassium 4.6 mmol/L (3.5-5.1)
[2022-01-02] MEDS ORDERED: DIGOXIN 250 MCG in SYRINGE 9 ML IV STA (00:04)
[2022-01-02 00:14] LABS: Partial Thromboplastin Time 53.9 Seconds (21.0-31.0)
[2022-01-02] MEDS: HEPARIN SODIUM/DEXTROSE 25,000 UNITS/500 ML BAG IV SCH ×2 (04:18→17:37)
[2022-01-02 06:57] LABS: Hematocrit (blood only) 42.8 % (42-52); Hemoglobin 12.7 g/dL (14.0-18.0); Mean Corpuscular Hemoglobin 29.3 pg (25-34); Mean Corpuscular Hgb Conc 29.7 g/dL (32-36); Mean Corpuscular Volume 98.6 fL (80-100); Mean Platelet Volume 10.7 fL (7.4-10.4); Nucleated RBC # (auto) 0.04 K/uL (0-0); Nucleated RBC % (auto) 0.3 %; Platelet Count 219 K/uL (130-400); RDW Coefficient of Variation 15.9 % (11.5-14.5); RDW Standard Deviation 57.8 fL (36.4-46.3); Red Blood Count 4.34 M/uL (4.7-6.1)
[2022-01-02 07:21] LABS: BUN Creatinine Ratio 19.7 (10-20); Calcium 8.4 mg/dl (8.5-10.1); Creatinine Clr Calc Pharmacy 41.2 ml/min; Est GFR (African American) 24.1 ml/min; Est GFR (Non-African American) 20.8 ml/min; Potassium 4.7 mmol/L (3.5-5.1)
[2022-01-02 07:35] LABS: Partial Thromboplastin Ratio 1.6; Partial Thromboplastin Time 44.7 Seconds (21.0-31.0)
[2022-01-02] MEDS: DOXYCYCLINE HYCLATE 100 MG CAP PO SCH ×2 (09:33→20:17)
[2022-01-02] MEDS: ASPIRIN 81 MG ECTAB PO SCH (09:33)
--- NOTE | 2022-01-02 10:01 | Cardiology Progress Note ---
Date of Service January 02, 2022 Assessment & Plan (1) New onset atrial fibrillation: (2) Sepsis: (3) Hypertension: (4) Morbid obesity with BMI of 60.0-69.9, adult: (5) Hyperkalemia: (6) Hypoxia: (7) PRIYANKA (acute kidney injury): Plan: Patient developed new onset afib RVR during this admission in setting of sepsis, cellulitis, hypoxia. IV heparin initiated for stroke prophylaxis. 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 He is not a candidate for DOAC given morbid obesity with BMI close to 70. he would need to be anticoagulated with Coumadin but I question his compliance upon discharge for INR. CHADSVASC score of 2 (hypertension, likely HFpEF). However he is also high risk for likely DVT/PE given obesity and sedentary lifestyle so may benefit from anticoagulation as well from that standpoint. Currently he is NSR, converting last evening. Stop IV amiodarone and transition to oral amiodarone 400 mg BID for now. Repeat EKG this morning, pending. Unfortunately his creatinine is rising > 3.0 with PRIYANKA likely multifactorial with sepsis, hypotension, and multifactorial volume overload. IV Fluids were stopped yesterday with the exception of IV heparin and antibiotic therapy He would likely benefit from diuretic therapy given significant edema/hypoxia on exam. Per nursing staff, patient has poor urine output. ? Obstructive Consult nephrology for PRIYANKA. May need to consult urology as well. BP remains low. Remain off lisinopril (due to history of hyperkalemia) Amlodipine discontinued as well due to LE edema and hypotension. Would benefit from alternative antihypertensive if needed. Consider carvedilol vs metoprolol as BP allows. Continue antibiotics for cellulitis and sepsis. Prelim blood cultures are negative Recommend compliance with CPAP therapy. He had a dobutamine stress echo 2 months ago as an outpatient without acute findings. No indication to repeat echo at this time unless blood cultures return positive. Case discussed with Dr. Zavala. Will follow. Admission and Anticipated Discharge Date Admission Date: December 31, 2021 Supervising Physician Co-Signing Physician Notes Patient seen and examined with Geetha Isbell PA-C. Agree with findings and assessment as above. Patient lapsed into atrial fibrillation while on telemetry monitoring and was successfully converted to normal sinus rhythm. Patient is not a candidate for direct oral anticoagulant given his renal function and elevated BMI. We will need to determine candidacy for Coumadin therapy with need for outpatient INR monitoring. Subjective Patient resting out of bed comfortably. Denies symptoms, but has conversational dyspnea and still requiring high flow oxy mask. IV fluids stopped yesterday. Still has significant edema b/l with seeping b/l. He denies chest pain. No palpitations. No dizziness. Converted to NSR around 2:35 AM. Review of Systems Review of Systems: All systems reviewed & are unremarkable except as noted in HPI & below Physical Exam Constitutional: WD/WN, vitals as above + morbidly obese Neck: + thick neck Respiratory: normal respiratory effort Auscultation: + diminished lung sounds Cardiovascular: Rate/Rhythm: regular rate and regular rhythm Heart Sounds: no murmur (No audible murmur. Distant heart sounds) Extremities: + edema (2+ edema b/l with chronic stasis changes, seeping/drainage b/l ) Gastrointestinal (Abdomen): normal bowel sounds, soft, nontender, no hepatosplenomegaly Neurologic: PERRL, EOMI, accommodation nl, no face palsy, no dysarthria Psychiatric: A+Ox3, euthymic affect Results & Data ([facility]) Vital Signs (Past 12 Hours) Vital Signs Temp Pulse Pulse Resp BP Pulse Ox 01/02/22 04:00 37.0 C 72 24 94/64 L 96 01/02/22 00:30 115 H 01/01/22 23:39 110 H 24 95 01/01/22 23:37 117 H 01/01/22 23:12 36.8 C 103 H 20 93/46 L 96 Laboratory Results Coagulation 01/01/22 01/01/22 01/02/22 Range/Units 14:36 22:55 06:17 PT 10.1 (9.0-12.0) Seconds APTT 28.1 53.9 H* 44.7 H (21.0-31.0) Seconds CBC 01/01/22 01/02/22 Range/Units 14:36 06:17 WBC 12.54 H 13.60 H (4.8-10.8) K/uL RBC 4.58 L 4.34 L (4.7-6.1) M/uL Hgb 13.4 L 12.7 L (14.0-18.0) g/dL Hct 45.4 42.8 (42-52) % Plt Count 169 219 (130-400) K/uL Neut # (Auto) 10.77 H (1.4-6.5) K/uL Lymph # (Auto) 0.56 L (1.2-3.4) K/uL [place] # (Auto) 1.13 H (0.11-0.59) K/uL Eos # (Auto) 0.01 (0-0.5) K/uL Baso # (Auto) 0.01 (0-0.2) K/uL Comprehensive Metabolic Panel 01/01/22 01/01/22 01/02/22 Range/Units 10:11 21:17 06:17 Sodium 137 135 L (136-145) mmol/L Potassium 5.3 H D 4.6 4.7 (3.5-5.1) mmol/L Chloride 100 98 (98-107) mmol/L Carbon Dioxide 32 31 (21-32) mmol/L BUN 53 H 62 H (6-23) mg/dl Creatinine 2.96 H D 3.15 H (0.6-1.4) mg/dl Glucose 134 H 126 H (70-99(Fasting)) mg/dl Calcium 8.7 8.4 L (8.5-10.1) mg/dl Intake and Output 01/01/22 01/02/22 01/02/22 22:59 06:59 14:59 Intake Total 300 / 2666.683 681.683 / 2666.683 Output Total 100 / 100 Balance 300 / 2566.683 581.683 / 2566.683 Intake: IV 300 / 2666.683 681.683 / 2666.683 Albumin 25% 12.5 gm In 50 ml @ 50 / 50 50 mls/hr IV 2100 ONE Rx#: [id number] Amiodarone / D5w 150 mg In 100 100 / 100 ml @ 600 mls/hr IV NOW STA Rx#: [id number] Amiodarone / D5w 360 mg In 200 200 / 200 ml @ 33.333 mls/hr IV ONE ONE Rx#:[id number] Doxycycline Hyclate 100 mg In 110 / 110 Dextrose 5% 100 ml @ 50 mls/hr IV NOW STA Rx#:[id number] Heparin Sodium/Dextrose 25,000 451.683 / 451.683 units In 500 ml @ 2,050 UNITS/ HR 41 mls/hr IV .[id number] [facility] Rx #:[id number] cefTRIAXone SODIUM 2,000 mg In 70 / 70 Dextrose 5% 50 ml @ 100 mls/hr IV Q24H [facility] Rx#:[id number] Output: Urine 100 / 100 Diagnostic Findings Telemetry reviewed: Currently NSR, converting from afib at 2:35 AM. EKG pending Medications Administered Current Inpatient Medications Acetaminophen (Acetaminophen 325 Mg Tab) 650 mg PO Q4H PRN PRN Reason: pain/fever Stop: 01/30/22 18:35 Last Admin: 12/31/21 23:49 Dose: 650 mg Documented by: Amiodarone HCl (Amiodarone 200 Mg Tab) 400 mg PO BIDM [facility] Stop: 02/01/22 09:29 Amlodipine Besylate (Amlodipine Besylate 5 Mg Tab) 5 mg PO QAM [facility] Stop: 01/31/22 08:59 Last Admin: 01/01/22 09:00 Dose: 5 mg Documented by: Aspirin (Aspirin 81 Mg Ectab) 81 mg PO DAILY [facility] Stop: 01/31/22 08:59 Last Admin: 01/02/22 09:33 Dose: 81 mg Documented by: Atorvastatin Calcium (Atorvastatin 20 Mg Tab) 20 mg PO QAM [facility] Stop: 01/31/22 08:59 Last Admin: 01/01/22 09:00 Dose: 20 mg Documented by: Doxycycline Hyclate (Doxycycline Hyclate 100 Mg Cap) 100 mg PO BID [facility] Stop: 01/09/22 08:59 Last Admin: 01/02/22 09:33 Dose: 100 mg Documented by: Finasteride (Finasteride 5 Mg Tab) 5 mg PO QPM [facility] Stop: 01/30/22 20:59 Last Admin: 01/01/22 22:16 Dose: 5 mg Documented by: Ceftriaxone Sodium 2,000 mg/ (Dextrose) 70 mls @ 100 mls/hr IV Q24H [facility]; Protocol Stop: 01/07/22 19:59 Last Infusion: 01/01/22 23:06 Dose: Infused Documented by: Heparin Sodium/Dextrose (Heparin Sodium/Dextrose) 25,000 units in 500 mls @ 41 mls/hr IV .[id number] [facility]; Protocol Stop: 01/31/22 13:29 Last Admin: 01/02/22 04:18 Dose: 2,050 units/hr, 41 mls/hr Documented by: Tamsulosin HCl (Tamsulosin Hcl 0.4 Mg Cap) 0.4 mg PO QPM [facility] Stop: 01/30/22 20:59 Last Admin: 01/01/22 22:16 Dose: 0.4 mg Documented by:
[2022-01-02] MEDS: ATORVASTATIN 20 MG TAB PO SCH (10:18)
[2022-01-02] MEDS: AMIODARONE 200 MG TAB PO SCH ×2 (10:18→17:43)
[2022-01-02] MEDS: AMIODARONE / D5W 360 MG/200 ML BAG IV SCH (10:30)
--- NOTE | 2022-01-02 11:07 | Nephrology Consultation ---
Date of Consultation January 02, 2022 Assessment & Plan (1) PRIYANKA (acute kidney injury): Patient with acute renal failure likely due to contrast-induced nephropathy and sepsis. Patient also with the rapid A. fib and hypotension. Patient is now anuric. He also has tenuous respiratory status. Patient will need dialysis. He will hopefully recover renal function but is going to need dialysis in the meantime. He has consented to dialysis. We will run him for 3 hours with target UF of 2 L after he gets a temporary dialysis catheter. (2) Cellulitis of left lower extremity: He will continue ceftriaxone renally dosed per primary team. (3) Hypoxia: Likely multifactorial including volume overload, sepsis and possibly CHF. Echo is pending. We will attempt fluid removal with dialysis. History of Present Illness Reason for Consultation: Acute renal failure Requesting Physician: Roxana Guthrie DO Attending Physician: Roxana Guthrie DO History of Present Illness This is 56-year-old morbidly obese male with history of hypertension, obstructive sleep apnea on CPAP, smoking, new onset A. fib who was admitted on 12/31/2021 with left leg cellulitis and sepsis. He has had hypotension throughout hospital course. He had CTA PE protocol admission. Admission creatinine was 1.3 which is baseline. The next day creatinine increased to 2.9 and today is up to 3.2. Patient is now anuric with urine output of 100 mL in 24 hours. He complains of shortness of breath and is requiring up to 6 L of oxygen. He has leg swelling. No nausea or vomiting. Patient is on amiodarone d rip for A. fib with RVR. Chest x-ray showed cardiomegaly and pulmonary congestion. UA showed 5-10 RBCs per high-power field. Patient's older sister is on dialysis for the past 4 years. Allergies Allergy/AdvReac Type Severity Reaction Status Date / Time No Known Allergies Allergy Unknown NONE Verified 12/31/21 16:17 Home Medications Medication Instructions Recorded Confirmed Type amlodipine 5 mg tablet 5 mg PO QAM 09/28/19 12/31/21 History aspirin 81 mg tablet,delayed 81 mg PO DAILY 12/31/21 12/31/21 History release atorvastatin 20 mg tablet 20 mg PO QAM 12/31/21 12/31/21 History finasteride 5 mg tablet 5 mg PO QPM 12/31/21 12/31/21 History lisinopril 20 mg tablet 20 mg PO QAM 12/31/21 12/31/21 History tamsulosin 0.4 mg capsule 0.4 mg PO QPM 12/31/21 12/31/21 History Patient History Medical History (Updated 01/01/22 @ 20:48 by Roxana Guthrie, DO) Hypertension Morbid obesity with BMI of 60.0-69.9, adult Nocturnal hypoxemia Prediabetes Sleep apnea CPAP Surgical History History of colonoscopy Family History Grandmother (Paternal) Family history of diabetes mellitus Social History Smoking Status: Former smoker Cigarettes Per Day: 20; Smoking End Date: 12/30/2021; Second Hand Exposure: Yes (PARENTS SMOKED); Do You Dip or Chew Tobacco: No; Hx Alcohol Use: No Hx Substance Use: No Preferred Language: Malay Communication Ability: Effective Tag Machine Operator Required: No Beliefs That Will Affect Care: None Current Living Situation: Spouse Current Living Situation Comment: lives in 2 story home with Feels Safe at Home: Yes Safety Concerns: Feels Safe At This Time Assistive Devices: CPAP and Glasses Review of Systems Review of Systems: All other systems were reviewed and negative except as noted in HPI Physical Exam Physical Exam: General exam: Appears comfortable, no acute distress HEENT: Pupils are equal and reactive to light Neck: No JVD, neck is supple trachea is midline Respiratory system: wheezing bilaterally. Gastrointestinal: Abdomen is soft, non distended, non tender, bowel sounds are present CVS: Regular rate and rhythm. No murmurs, rubs or gallops Musculoskeletal: No joint or muscle tenderness Extremities: left leg swollen and erythematous, 1+ edema Neuro: Oriented, no tremors, no focal neurological deficits Skin: No rashes Results & Data ([facility]) Vital Signs (Past 12 Hours) Vital Signs Temp Pulse Pulse Resp BP Pulse Ox 01/02/22 08:00 85 01/02/22 04:00 37.0 C 72 24 94/64 L 96 01/02/22 00:30 115 H 01/01/22 23:39 110 H 24 95 01/01/22 23:37 117 H 01/01/22 23:12 36.8 C 103 H 20 93/46 L 96 Laboratory Results 01/02/22 06:17 01/01/22 01/02/22 14:36 06:17 WBC 12.54 H 13.60 H RBC 4.58 L 4.34 L MCV 99.1 98.6 MCH 29.3 29.3 MCHC 29.5 L 29.7 L RDW Std Deviation 57.3 H 57.8 H RDW Coeff of Azul 15.9 H 15.9 H Plt Count 169 219 MPV 10.5 H 10.7 H
--- NOTE | 2022-01-02 12:23 | Consultation ---
Date of Consultation January 02, 2022 Assessment & Plan (1) PRIYANKA (acute kidney injury): Pt admitted with new onset a fib/sepsis, and now with PRIYANKA requiring HD. At nephrology's request, planning on temporary HD line placement this afternoon. Procedure, risks, benefits, and alternatives discussed with pt and at Dr Acevedo's request. Pt wished his , Lyudmila, to sign his consent form. History of Present Illness Reason for Consultation: PRIYANKA, need HD access Attending Physician: Roxana Guthrie DO History of Present Illness 56 yo m with multiple medical problems, including morbid obesity, HTN, SARAH, BPH, hyperlipidemia, admitted with new onset a fib and sepsis, seen in consultation today for placement of temporary HD catheter for HD initiation d/t PRIYANKA/anuria. Pt sitting in chair and is sleepy. Answers questions, but only simple questions. Admits HANSON, edema, orthopnea. Denies COHEN, fever, chest pain, SOB at rest(on oxygen), abd pain, N/V, rest pain, claudication, other complaints. present today as well. Allergies Allergy/AdvReac Type Severity Reaction Status Date / Time No Known Allergies Allergy Unknown NONE Verified 12/31/21 16:17 Home Medications Medication Instructions Recorded Confirmed Type amlodipine 5 mg tablet 5 mg PO QAM 09/28/19 12/31/21 History aspirin 81 mg tablet,delayed 81 mg PO DAILY 12/31/21 12/31/21 History release atorvastatin 20 mg tablet 20 mg PO QAM 12/31/21 12/31/21 History finasteride 5 mg tablet 5 mg PO QPM 12/31/21 12/31/21 History lisinopril 20 mg tablet 20 mg PO QAM 12/31/21 12/31/21 History tamsulosin 0.4 mg capsule 0.4 mg PO QPM 12/31/21 12/31/21 History Patient History Medical History Hypertension Morbid obesity with BMI of 60.0-69.9, adult Nocturnal hypoxemia Prediabetes Sleep apnea CPAP Surgical History History of colonoscopy Family History Grandmother (Paternal) Family history of diabetes mellitus Social History Smoking Status: Former smoker Cigarettes Per Day: 20; Smoking End Date: 12/30/2021; Second Hand Exposure: Yes (PARENTS SMOKED); Do You Dip or Chew Tobacco: No; Hx Alcohol Use: No Hx Substance Use: No Preferred Language: Icelandic Communication Ability: Effective 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 Beliefs That Will Affect Care: None Current Living Situation: Spouse Current Living Situation Comment: lives in 2 story home with Feels Safe at Home: Yes Safety Concerns: Feels Safe At This Time Assistive Devices: CPAP and Glasses Review of Systems Review of Systems: All systems reviewed & are unremarkable except as noted in HPI & below (but difficult to elicit d/t cognitive status) Physical Exam Constitutional: + ill appearing, + morbidly obese, cooperative and comfortable; not in distress ENMT: Ears: no hearing impairment Neck: trachea midline Respiratory: normal respiratory effort (on 6L O2) Auscultation: + diminished lung sounds and + rales (basilar) Cardiovascular: Rate/Rhythm: + irregularly irregular Vessels: dorsalis pedis pulses present and radial pulses present; + abnormal peripheral pulses Extremities: normal capillary refill and + edema Gastrointestinal (Abdomen): Inspection/Auscultation: abdomen normal to inspection and + significant pannus Musculoskeletal: no cyanosis or clubbing, extremities motor strength 5/5 Skin: no rashes, warm and dry Neurologic: moves all extremities, awake and + confused (mildly confused, sleepy); no focal motor deficits Psychiatric: Orientation: alert, oriented x 3 and cooperative Affect: + blunted affect Results & Data ([facility]) Vital Signs (Past 12 Hours) Vital Signs Temp Pulse Pulse Resp BP Pulse Ox 01/02/22 11:35 36.6 C 85 22 114/71 95 01/02/22 08:00 85 01/02/22 04:00 37.0 C 72 24 94/64 L 96 01/02/22 00:30 115 H
--- NOTE | 2022-01-02 12:45 | Electrocardiogram Report ---
Test Reason : Blood Pressure : / mmHG Vent. Rate : 072 BPM Atrial Rate : 072 BPM P-R Int : 170 ms QRS Dur : 124 ms QT Int : 370 ms P-R-T Axes : 025 -35 049 degrees QTc Int : 405 ms Poor data quality, interpretation may be adversely affected Normal sinus rhythm Left axis deviation Inferior infarct (cited on or before 31-DEC-2021) Abnormal ECG When compared with ECG of 01-JAN-2022 11:22, Sinus rhythm has replaced Atrial fibrillation Vent. rate has decreased BY 52 BPM Confirmed by Lexa Langston ([id number]) on 01/02/2022 12:44:35 PM Referred By: Oscar Gutierrez Confirmed By:Lexa Langston
--- NOTE | 2022-01-02 13:14 | Hospitalist Progress Note ---
Date of Service January 02, 2022 Assessment & Plan (1) Sepsis: Plan: resuscitated, plan as outlined below. (2) Cellulitis of left lower extremity: Plan: Admit to [facility] with telemetry Patient presenting from home with reports of LLE redness and low-grade fever In the ED, found to have significant erythema extending from the foot up to the mid thigh Meets sepsis criteria with WBC 16 K, tachycardia. Currently afebrile, BP stable, normal lactic acid. Procal 1.26 Suspect strep infection given rapid progression of erythema S/p cefepime and Vanco in the ED, Continued improvement on ceftriaxone monotherapy for two days in a row. Overnight became more hypervolemic, kidney function worsened and no needs TDC for temporary dialysis. Doxycycline was added overnight. (3) New onset atrial fibrillation: Plan: Cardiology consulted and started heparin drip and amiodarone. Patient and rapid ventricular response. Small amount of fluid given. Later evaluated and was hypotensive with heart rates into the 120s and 130s. Discussed with industrial chemistry teacher who will give digoxin for some heart rate control overnight. Limited on additional fluid we can give because of pulmonary vascular congestion on chest x-ray and persistent hypoxia. Continue to monitor in PCU. (4) PRIYANKA (acute kidney injury): Plan: worsening overnight--nephrology consulted and recommends dialysis. TDC to be placed by vascular today/tmrw. (5) Hypoxia: Plan: Upon presentation, patient was 70% on room air, currently requiring 6 L via oxy mask CTA chest negative for pulmonary embolism and other acute findings Patient has been complaining of HANSON for the past few months, underwent DSE that was negative for inducible ischemia Likely multifactorial due to morbid obesity, deconditioning, tobacco abuse, now pulm vascular congestion 2/2 IVF resuscitation in sepsis. Held IVF. Hemodialysis to ensue today/tomorrow. Initial HS trop 27.5, EKG without acute ST changes. Continue to trend. Wean O2 as able, may need two-step before discharge (6) Hypertension: Plan: Lisinopril had been discontinued due to hyperkalemia by cardiology, however, was resumed on 12/29 by PCP. Held in setting of PRIYANKA. (7) Sleep apnea: Plan: CPAP as per home settings (8) Morbid obesity with BMI of 60.0-69.9, adult: Plan: BMI 68.9 Follows with Sarah nutrition and weight management Counseled on the importance of weight loss and quitting smoking. (9) Smoking: Plan: 1ppd smoker, quit on admission. Contemplative phase. Declined nicotine patch. (10) DVT prophylaxis: Plan: heparin drip Full Code Dispo-remains in PCU. DO Sarah Geronimo Hospitalist Admission and Anticipated Discharge Date Admission Date: December 31, 2021 Subjective 56-year-old man presents with sepsis secondary to left lower extremity cellulitis Patient went into atrial fibrillation with RVR this is new onset-->converted back to sinus overnight with amiodarone. Received digoxin for heart rate control prior to that. Fluid overloaded today and renal function has worsened Needs temporary hemodialysis and catheter being placed by vascular team given patient size. Denies chest pain or shortness of breath but still hypoxic with 6 L/min via oxygen mask He reports his bottom is hurting and he would like to get up and move around somewhat. some confusion this am per nurse Review of Systems Review of Systems: All systems reviewed negative except as indicated above. Physical Exam Physical Exam: CONSTITUTIONAL: morbid obesity, vitals as above, generally well-appearing, NAD EYES: normal conjunctivae, no scleral icterus ENT: external ear and nose normal, NECK: trachea midline, RESPIRATORY: clear to auscultation bilaterally, no crackles, rales or wheezes, normal respiratory effort CARDIOVASCULAR: regular rate and rhythm, S1 and 2 heard without murmurs, gallops or rubs, no JVD, 1+ pitting edema peripherally, CHEST: inspection of chest was normal GASTROINTESTINAL: , soft, nontender, no hepatomegaly, no guarding MUSCULOSKELETAL: generalized weakness without focal deficit. Head is normocephalic and atraumatic, SKIN: warm and dry, no rashes NEUROLOGIC: CN 2-12 grossly intact, no sensory deficit, normal cognition, normal speech, no tremor PSYCHIATRIC: alert cooperative and oriented to person, place and time. Euthymic mood, makes good eye contact, language grossly intact, recent and remote memory grossly intact. Results & Data Results & Data ([facility]) Vital Signs (Past 12 Hours) Vital Signs Temp Pulse Pulse Resp BP Pulse Ox 01/02/22 11:35 36.6 C 85 22 114/71 95 01/02/22 08:00 85 01/02/22 04:00 37.0 C 72 24 94/64 L 96 Laboratory Results Short CBC 01/01/22 01/02/22 Range/Units 14:36 06:17 WBC 12.54 H 13.60 H (4.8-10.8) K/uL Hgb 13.4 L 12.7 L (14.0-18.0) g/dL Hct 45.4 42.8 (42-52) % Plt Count 169 219 (130-400) K/uL BMP 01/01/22 01/02/22 21:17 06:17 Sodium 137 135 L Potassium 4.6 4.7 Chloride 100 98 Carbon Dioxide 32 31 BUN 53 H 62 H Creatinine 2.96 H D 3.15 H Glucose 134 H 126 H Calcium 8.7 8.4 L Medications Administered Current Inpatient Medications Acetaminophen (Acetaminophen 325 Mg Tab) 650 mg PO Q4H PRN PRN Reason: pain/fever Stop: 01/30/22 18:35 Last Admin: 12/31/21 23:49 Dose: 650 mg Documented by: Amiodarone HCl (Amiodarone 200 Mg Tab) 400 mg PO BIDM [facility] Stop: 02/01/22 09:29 Last Admin: 01/02/22 10:18 Dose: 400 mg Documented by: Aspirin (Aspirin 81 Mg Ectab) 81 mg PO DAILY [facility] Stop: 01/31/22 08:59 Last Admin: 01/02/22 09:33 Dose: 81 mg Documented by: Atorvastatin Calcium (Atorvastatin 20 Mg Tab) 20 mg PO QAM [facility] Stop: 01/31/22 08:59 Last Admin: 01/02/22 10:18 Dose: 20 mg Documented by: Doxycycline Hyclate (Doxycycline Hyclate 100 Mg Cap) 100 mg PO BID [facility] Stop: 01/09/22 08:59 Last Admin: 01/02/22 09:33 Dose: 100 mg Documented by: Finasteride (Finasteride 5 Mg Tab) 5 mg PO QPM [facility] Stop: 01/30/22 20:59 Last Admin: 01/01/22 22:16 Dose: 5 mg Documented by: Ceftriaxone Sodium 2,000 mg/ (Dextrose) 70 mls @ 100 mls/hr IV Q24H [facility]; Protocol Stop: 01/07/22 19:59 Last Infusion: 01/01/22 23:06 Dose: Infused Documented by: Heparin Sodium/Dextrose (Heparin Sodium/Dextrose) 25,000 units in 500 mls @ 41 mls/hr IV .[id number] [facility]; Protocol Stop: 01/31/22 13:29 Last Admin: 01/02/22 04:18 Dose: 2,050 units/hr, 41 mls/hr Documented by: Tamsulosin HCl (Tamsulosin Hcl 0.4 Mg Cap) 0.4 mg PO QPM [facility] Stop: 01/30/22 20:59 Last Admin: 01/01/22 22:16 Dose: 0.4 mg Documented by:
[2022-01-02] MEDS ORDERED: HEPARIN SOD (PORCINE) 5,000 UNITS/ML VIAL ONE (15:14)
[2022-01-02] MEDS ORDERED: MIDAZOLAM HCL 1 MG/ML 2ML VIAL ONE ×2 (15:33)
--- NOTE | 2022-01-02 15:37 | Anesthesiology Consultation ---
Date of Service January 02, 2022 Assessment & Plan (1) Encounter for pre-operative examination: Chart Review Chart Review: Acceptable Risk for Surgery History Surgery Operation Date: 01/02/22 13:35 Proposed Procedures p Insertion Temporary Dialysis Catheter. - Sherman Acevedo MD Height/Weight Height: 5 ft 5 in Weight: 189.4 kg Allergies Allergy/AdvReac Type Severity Reaction Status Date / Time No Known Allergies Allergy Unknown NONE Verified 12/31/21 16:17 Medications Home Medications Medication Instructions Recorded Confirmed Last Taken amlodipine 5 mg tablet 5 mg PO QAM 09/28/19 12/31/21 11/22/19 16:00 aspirin 81 mg tablet,delayed 81 mg PO DAILY 12/31/21 12/31/21 Unknown release atorvastatin 20 mg tablet 20 mg PO QAM 12/31/21 12/31/21 Unknown finasteride 5 mg tablet 5 mg PO QPM 12/31/21 12/31/21 Unknown lisinopril 20 mg tablet 20 mg PO QAM 12/31/21 12/31/21 Unknown tamsulosin 0.4 mg capsule 0.4 mg PO QPM 12/31/21 12/31/21 Unknown Active Medications Generic Name Dose Route Start Last Admin Trade Name Freq PRN Reason Stop Dose Admin Acetaminophen 650 mg 12/31/21 18:36 12/31/21 23:49 Acetaminophen 325 Mg Tab PO 01/30/22 18:35 650 mg Q4H PRN Administration pain/fever Amiodarone HCl 400 mg 01/02/22 09:30 01/02/22 10:18 Amiodarone 200 Mg Tab PO 02/01/22 09:29 400 mg BIDM HERMAN Administration Aspirin 81 mg 01/01/22 09:00 01/02/22 09:33 Aspirin 81 Mg Ectab PO 01/31/22 08:59 81 mg DAILY HERMAN Administration Atorvastatin Calcium 20 mg 01/01/22 09:00 01/02/22 10:18 Atorvastatin 20 Mg Tab PO 01/31/22 08:59 20 mg QAM HERMAN Administration Doxycycline Hyclate 100 mg 01/02/22 09:00 01/02/22 09:33 Doxycycline Hyclate 100 Mg Cap PO 01/09/22 08:59 100 mg BID HERMAN Administration Finasteride 5 mg 12/31/21 21:00 01/01/22 22:16 Finasteride 5 Mg Tab PO 01/30/22 20:59 5 mg QPM HERMAN Administration Ceftriaxone Sodium 2,000 mg/ 70 mls @ 100 mls/hr 12/31/21 20:00 01/01/22 23:06 Dextrose IV 01/07/22 19:59 Infused Q24H HERMAN Infusion Protocol Heparin Sodium/Dextrose 25,000 units in 500 mls @ 41 mls/hr 01/01/22 13:30 01/02/22 04:18 Heparin Sodium/Dextrose IV 01/31/22 13:29 2,050 units/hr .[id number] HERMAN 41 mls/hr Administration Protocol 2,050 UNITS/HR Tamsulosin HCl 0.4 mg 12/31/21 21:00 01/01/22 22:16 Tamsulosin Hcl 0.4 Mg Cap PO 01/30/22 20:59 0.4 mg QPM HERMAN Administration NPO Date Last Intake of Fluids: 01/02/22 Time Last Intake of Fluids: 09:00 Date Last Intake of Solids: 01/02/22 Time Last Intake of Solids: 09:00 Past Medical History Medical History Hypertension Morbid obesity with BMI of 60.0-69.9, adult Nocturnal hypoxemia Prediabetes Sleep apnea CPAP Exercise / Class Metabolic Activity IV < 2 Limit ADL/Bedbound Past Family History Family History Grandmother (Paternal) Family history of diabetes mellitus Past Surgical History Surgical History History of colonoscopy Past Anesthesia History Difficult Airway History of PONV No Hx of PONV and No Hx of Motion Sickness Social History Smoking Status: Former smoker tobacco type: cigarettes Smoking cigarettes per day: 20 Do You Dip or Chew Tobacco: No Smoking End Date: 12/30/2021 Hx Alcohol Use: No Hx Substance Use: No substance use type: does not use Physical Exam Vital Signs Last Vital Signs Temp 36.8 C 01/02/22 15:21 Pulse 87 01/02/22 15:21 Resp 24 01/02/22 15:21 BP 104/60 01/02/22 15:21 Pulse Ox 95 01/02/22 15:21 Testing Laboratory Results 01/02/22 06:17 01/02/22 06:17 PT 10.1 Seconds (9.0-12.0) 01/01/22 14:36 INR 0.9 (0.9-1.1) 01/01/22 14:36 APTT 44.7 Seconds (21.0-31.0) H 01/02/22 06:17 Urine Color Yellow 12/31/21 15:15 Urine Appearance Clear (Clear) 12/31/21 15:15 Urine pH 5.0 (4.5-7.5) 12/31/21 15:15 Ur Specific [place] > 1.045 (1.000-1.030) H 12/31/21 15:15 Urine Protein 1+ (Negative) H 12/31/21 15:15 Urine Glucose (UA) Negative (Negative) 12/31/21 15:15 Urine Ketones Negative (Negative) 12/31/21 15:15 Urine Nitrite Negative (Negative) 12/31/21 15:15 Ur Leukocyte Esterase Negative (Negative) 12/31/21 15:15 Urine WBC (Auto) 5-10 /hpf (0-5) H 12/31/21 15:15 Urine RBC (Auto) 5-10 /hpf (0-4) H 12/31/21 15:15 U Hyaline Cast (Auto) 1-5 /lpf (0-5) 12/31/21 15:15 U Epithel Cells (Auto) 20-30 /lpf (0-5) H 12/31/21 15:15 Urine Bacteria (Auto) Negative (Negative) 12/31/21 15:15 12/31/21 12:29 Aerobic Blood Culture - Preliminary Blood No growth in Aerobic bottle after 48 hours. Anaerobic Blood Culture - Preliminary No growth in Anaerobic bottle after 48 hours. 12/31/21 12:00 Aerobic Blood Culture - Preliminary Blood No growth in Aerobic bottle after 48 hours. Anaerobic Blood Culture - Preliminary No growth in Anaerobic bottle after 48 hours. 12/31/21 22:28 Urine Culture - Preliminary Urine,Clean Catch No growth - Less than 1,000 colonies/mL, Final report to follow.
[2022-01-02] MEDS ORDERED: ATROPINE SULFATE 0.1 MG/ML 10ML SYR IV PRN (15:39)
[2022-01-02] MEDS ORDERED: ONDANSETRON INJ 2 MG/ML 2 ML VIAL IV PRN (15:39)
--- NOTE | 2022-01-02 16:18 | Operative Report ---
Post Operative Report Pre & Post Diagnosis Operation Date: 01/02/22 13:35 Pre-Op Diagnosis: Acute Kidney Injury Post-Op Diagnosis: Acute Kidney Injury I identified the patient and participated in the time-out.: Yes Procedure Operation Date: 01/02/22 13:35 Actual Procedures p Insertion Temporary Dialysis Catheter Right Internal Jugular Approach, Ultrasound Localization of RIght Internal Jugular Vein, FLuroscopy for Positioning(Right) - Sherman Acevedo MD Surgeon Sherman Acevedo MD Funeral Sales Manager none Estimated Blood Loss 10 Findings Consistent with Post-Op Diagnosis Specimens none Anesthesia Type MAC Complications none Disposition Accompanied Patient To Recovery: No Disposition: Recovery Room Indications This is a 56yo male with acute kidney injury in need of dialysis. A temporary dialysis catheter was recommended. I have discussed the risks options and benefits of the procedure with the patient's . The patient's understands the risks options and benefits and agrees to the procedure. Description of Procedure Patient was taken to the angio suite and placed in the supine position. The right side of the neck was prepped and draped in a sterile manner. The patient was identified and a timeout performed. Local anesthesia was then administered to the appropriate area of the neck. Ultrasound was then used to locate the right internal jugular vein. The vein compressed easily, had no filing defects, and was patent. The vein was then punctured under direct ultrasound imaging. A guidewire was then passed centrally under fluoroscopic imaging. The 24cm temporary dialysis catheter was then inserted to a central position in the distal superior vena cava. The catheter was then sutured in place using nylon sutures. Both ports aspirated and flushed easily and were then packed with heparin. A sterile dressing was applied to the catheter. The patient left the operation room in satisfactory condition and tolerated the procedure well. All needle and sponge counts were correct at the end of the procedure. I attest to the content of the Intraoperative Record and any orders documented therein. Any exceptions are noted below.
[2022-01-02] MEDS ORDERED: LIDOCAINE 1% LOCAL 20 ML VIAL INJ ONE (16:31)
--- NOTE | 2022-01-02 17:04 | Anesthesiology Progress Note ---
Date of Service January 02, 2022 Anesthesia Post Procedure Vital Signs Vital Signs: Temp Pulse Pulse Pulse Resp BP BP 01/02/22 16:40 89 18 102/64 01/02/22 16:30 90 20 123/73 01/02/22 16:22 36.6 C 94 H 15 109/67 01/02/22 16:00 87 01/02/22 15:21 36.8 C 87 85 24 104/60 01/02/22 14:49 37.2 C 82 24 103/57 L 01/02/22 11:35 36.6 C 85 22 114/71 01/02/22 08:00 85 01/02/22 04:00 37.0 C 72 24 94/64 L 01/02/22 00:30 115 H 01/01/22 23:39 110 H 24 01/01/22 23:37 117 H 01/01/22 23:12 36.8 C 103 H 20 93/46 L 01/01/22 19:48 37.2 C 123 H 24 89/53 L 01/01/22 17:30 24 87/49 L Pulse Ox 01/02/22 16:40 96 01/02/22 16:30 94 01/02/22 16:22 96 01/02/22 16:00 01/02/22 15:21 95 01/02/22 14:49 95 01/02/22 11:35 95 01/02/22 08:00 01/02/22 04:00 96 01/02/22 00:30 01/01/22 23:39 95 01/01/22 23:37 01/01/22 23:12 96 01/01/22 19:48 95 01/01/22 17:30 93 Transfer of Care Handoff Completed per policy Notes Mental Status: alert / awake / arousable Patient Amnestic to Procedure: Yes Nausea / Vomiting: adequately controlled Pain: adequately controlled Airway Patency, RR, SpO2: stable & adequate BP & HR: stable & adequate Hydration State: stable & adequate Anesthetic Complications: no major complications apparent
[2022-01-02] MEDS: TAMSULOSIN HCL 0.4 MG CAP PO SCH (20:17)
[2022-01-02] MEDS: FINASTERIDE 5 MG TAB PO SCH (20:17)
[2022-01-02] MEDS: cefTRIAXone SODIUM 2,000 MG in DEXTROSE 5% 50 ML IV SCH (21:22)
[2022-01-02] MEDS ORDERED: OLANZapine 10 MG/2.1 ML SDV IM STA (23:58)
[2022-01-03] MEDS ORDERED: OLANZapine 10 MG/2.1 ML SDV IM STA (02:16)
[2022-01-03] MEDS ORDERED: XOPENEX/ATROVENT 1.25mg/0.5MG NEB COMBO NEB STA (02:21)
[2022-01-03] MEDS ORDERED: LEVALBUTEROL 1.25MG/0.5ML NEB INH STA (02:34)
[2022-01-03] MEDS ORDERED: IPRATROPIUM BROMIDE NEB SOLN 0.02% 2.5 ML VIAL INH STA (02:34)
[2022-01-03] MEDS ORDERED: diphenhydrAMINE 50 MG/ML VIAL IV STA (02:42)
[2022-01-03 03:31] LABS: Appearance Urine Turbid (Clear); Bilirubin Urine Negative (Negative); Blood Urine Negative (Negative); Color Urine Dark Yellow; Epithelial Cell Urine Auto >30 /lpf (0-5); Glucose Urine UA Negative (Negative); Ketones Urine Trace (Negative); Leukocyte Esterase Urine Trace (Negative); Nitrite Urine Negative (Negative); Protein Urine 1+ (Negative); RBC Urine Automated 0-4 /hpf (0-4); Specific Gravity Urine 1.017 (1.000-1.030); Urobilinogen Urine Negative (Negative)
[2022-01-03 04:10] LABS: Basophils # (auto) 0.02 K/uL (0-0.2); Basophils % (auto) 0.1 %; Eosinophils # (auto) 0.01 K/uL (0-0.5); Eosinophils % (auto) 0.1 %; Hematocrit (blood only) 41.3 % (42-52); Hemoglobin 12.6 g/dL (14.0-18.0); Immature Granulocytes # (auto) 0.22 K/uL (0.00-0.02); Immature Granulocytes % (auto) 1.5 %; Lymphocytes # (auto) 0.61 K/uL (1.2-3.4); Lymphocytes % (auto) 4.2 %; Mean Corpuscular Hgb Conc 30.5 g/dL (32-36); Mean Corpuscular Volume 98.3 fL (80-100); Mean Platelet Volume 10.6 fL (7.4-10.4); Monocytes # (auto) 1.66 K/uL (0.11-0.59); Monocytes % (auto) 11.3 %; Neutrophils # (auto) 12.11 K/uL (1.4-6.5); Neutrophils % (auto) 82.8 %; Nucleated RBC # (auto) 0.06 K/uL (0-0); Nucleated RBC % (auto) 0.4 %; Platelet Count 224 K/uL (130-400); RDW Coefficient of Variation 15.3 % (11.5-14.5); RDW Standard Deviation 55.7 fL (36.4-46.3); White Blood Count 14.63 K/uL (4.8-10.8)
[2022-01-03 04:28] LABS: Partial Thromboplastin Ratio 1.6; Partial Thromboplastin Time 44.4 Seconds (21.0-31.0)
[2022-01-03 04:29] LABS: Albumin Level 3.5 gm/dl (3.4-5.0); BUN Creatinine Ratio 25.5 (10-20); Bilirubin,Total 0.4 mg/dl (0.2-1.0); Calcium 8.2 mg/dl (8.5-10.1); Creatinine Clr Calc Pharmacy 60.8 ml/min; Est GFR (African American) 38.9 ml/min; Est GFR (Non-African American) 33.5 ml/min; Globulin 3.6 gm/dl (2.5-4.0); Magnesium 2.1 mg/dl (1.7-2.4); Potassium 4.7 mmol/L (3.5-5.1); Total Protein 7.1 gm/dl (6.0-8.3)
[2022-01-03 04:32] LABS: Bacteria Urine Automated 1+ (Negative); Cast Urine Automated >30 /lpf (0-5)
[2022-01-03 04:33] LABS: Granular Casts Urine 20-30 /lpf (0)
[2022-01-03] MEDS ORDERED: LEVALBUTEROL HCL 1.25 MG/3 ML NEB ONE (04:35)
[2022-01-03 04:42] LABS: iSTAT Allen Test Pass; iSTAT Art Bld Gas pCO2 Correct 91 mmHg (35-46); iSTAT Art Bld Gas pH Corrected 7.142 (7.35-7.45); iSTAT Arterial Blood Gas HCO3 31 meg/L (19-24); iSTAT Arterial Blood Gas pCO2 91 mmHg (35-46); iSTAT Arterial Blood Gas pH 7.14 (7.35-7.45); iSTAT Arterial Blood Gas pO2 71 mmHg (80-95); iSTAT Arterial Blood Gas pO2 C 71; iSTAT Carbon Dioxide 34 mmol/L (24-31); iSTAT Hematocrit 41 % (42-52); iSTAT Hemoglobin 13.9 g/dl (14.0-18.0); iSTAT Potassium 4.7 mmol/L (3.3-5.0); iSTAT Site R Radial; iSTAT Sodium 136 mmol/L (135-144)
[2022-01-03 04:56] LABS: Calcium Oxalate Crystals Urine Present (None Prsent)
[2022-01-03] MEDS ORDERED: FUROSEMIDE 40 MG/4 ML VIAL IV STA (05:07)
[2022-01-03] MEDS ORDERED: ALBUMIN 25% 12.5 GM/50 ML VIAL IV ONE (05:07)
[2022-01-03] MEDS: HEPARIN SODIUM/DEXTROSE 25,000 UNITS/500 ML BAG IV SCH ×3 (05:19→20:41)
[2022-01-03] MEDS ORDERED: ETOMIDATE 2 MG/ML 20 ML VIAL IV ONE (06:22)
[2022-01-03] MEDS ORDERED: SODIUM BICARB 8.4% INJ 50 MEQ/50 ML SYR IV ONE (06:22)
[2022-01-03] MEDS ORDERED: SUCCINYLCHOLINE CHLORIDE 20 MG/ML 10 ML VIAL IV ONE (06:22)
--- NOTE | 2022-01-03 06:25 | Communication Note ---
Date of Service: January 03, 2022 Overnight developments 01/02 1155PM Patient agitated and confused as per RN, trying to get out of bed. Bladder residual of greater than 450 cc as per RN. AP Agitation, urinary retention Zyprexa as needed agitation Rutledge catheter placement 01/03 220 AM Patient still restless and agitated. Breathing not looking great as per RN. Patient denies chest pain, SOB, headache, abdominal pain PPE Disoriented, restless Bilateral chemosis Decreased breath sounds, occasional expiratory wheezes Chest x-ray as per my interpretation : atelectasis, congestion, cardiomegaly ABG pH 7.1, PCO2 92, pO2 71, O2 sats 87% on 6 L AP Hypoxemic hypercapnic respiratory failure Underlying SARAH Cardiorenal syndrome Bilateral chemosis ? Hypersensitivity reaction BiPAP Recheck ABG Lasix albumin, neb treatment Benadryl 1 dose for bilateral chemosis possible allergic reaction 6:15 AM Made aware by RT that i-STAT isnt running patient's repeat ABG specimen (pH of 6.9, PCO2 greater than 130 on one determination as per RT) Patient more obtunded as per RT. AP Worsening hypercapnic respiratory failure ICU transfer for possible endotracheal intubation to facilitate mechanical ventilation. Patient updated of developments over the phone. Will relay to AM provider.
[2022-01-03] MEDS ORDERED: RAPID SEQUENCE INDUCTION BAG ONE (06:26)
[2022-01-03] MEDS ORDERED: PROPOFOL IV EMULSION 10 MG/ML 100 ML VIAL IV ONE ×2 (06:40)
--- NOTE | 2022-01-03 06:44 | Emergency Department Note ---
ED Visit Note Called to the ICU by the ICU physician assistant professor of forestry for emergent intubation. This patient is in respiratory failure due to hypercarbic respiratory failure as a class IV airway is significantly large neck. Initial visualization was done without sedation with a glide scope and I could visualize the cords. The procedure then was accomplished using RSI medications Endotracheal Intubation Indication respiratory failure. The patient was on 100% oxygen via NRB prior to the procedure. Suction, airway equipment, RSI drugs, respiratory equipment, and appropriate personnel were prepared prior to the initiation of the procedure. A time out was taken. Induction was performed with etomidate and succinylcholine. After observing the clinical benefit of the medications, the airway was easily visualized utilizing a 4 glide scope. A 7.5 size ETT tube was placed atraumatically to 22 cm using standard technique. The cuff inflated without signs of malfunction. There were bilateral breath sounds, positive colormetric change, no gastric sounds, a good capnography waveform, and post procedure pulse oximetry was 91%. . There were no complications. .
[2022-01-03] MEDS ORDERED: PROPOFOL BOLUS FROM BAG IV PRN (06:50)
[2022-01-03] MEDS ORDERED: STAT IV Infusion **Titration per Protocol STA ×4 (06:50→08:52)
[2022-01-03] MEDS ORDERED: ICU PROTOCOL FOR HYPERGLYCEMIA PRN (06:52)
[2022-01-03] MEDS ORDERED: propofoL 1,000 MG/100 ML VIAL IV SCH (07:00)
--- NOTE | 2022-01-03 07:04 | XRay Report ---
XR chest 1V portable supine CLINICAL HISTORY: intubation COMPARISON STUDY: Chest CT December 31, 2021. Chest radiograph January 03, 2022 at 2:37 AM. FINDINGS: On the initial image obtained at 6:45 AM, the tip of endotracheal tube is at the abigail. On the second image, obtained at 6:47 AM, tip of endotracheal tube is approximately 1.7 cm above the ca lynne. Exam is compromised by portable technique and suboptimal penetration. There is no pneumothorax on supine exam. Elevation of the right hemidiaphragm is noted. Perihilar and bibasilar opacities have increased. Interstitial thickening has progressed. Cardiomegaly is unchanged. Right internal jugular introducer is in place. IMPRESSION: 1. Tip of endotracheal tube approximately 1.7 cm above the abigail. Exam compromised by suboptimal pen etration. 2. Progression of perihilar and bibasilar airspace opacities which could reflect pneumonia, alveolar edema or atelectasis. 2. Increase in interstitial thickening suggestive of pulmonary edema. ACT 112: Negative or not required by law. Electronically signed by: Hudson Alex M.D. 01/03/2022 7:01 AM
[2022-01-03] MEDS ORDERED: fentaNYL citrate 2,500 MCG/250 ML BAG IV ONE (07:28)
--- NOTE | 2022-01-03 07:35 | XRay Report ---
XR chest 1V portable CLINICAL HISTORY: low o2 TECHNIQUE: Single frontal radiograph of the chest was obtained. Comparison: Comparison is made to chest radiograph 01/01/2022 FINDINGS: No lines and tubes are seen. Cardiomegaly is noted. Elevation of the right hemidiaphragm is seen. The re is prominence of pulmonary vasculature. No evidence of pleural effusion or pneumothorax. IMPRESSION: Mild pulmonary edema. Stable cardiomegaly. Redemonstration of right hemidiaphragmatic elevation with associated atelectasis. ACT 112: Negative or not required by law. Electronically signed by: Zohaib Lagos M.D. 01/03/2022 7:34 AM
[2022-01-03] MEDS ORDERED: VECURONIUM BROMIDE 10 MG VIAL IV ONE (07:37)
[2022-01-03] MEDS ORDERED: VECURONIUM BROMIDE 10 MG VIAL IV STA (08:00)
[2022-01-03] MEDS: fentaNYL citrate 2,500 MCG/250 ML BAG IV SCH (08:00)
--- NOTE | 2022-01-03 08:09 | Procedure Note ---
Procedure Note Date of Service January 03, 2022 Note ARTERIAL LINE PROCEDURE NOTE: Procedure: Arterial Line Placement Indication: Monitoring on Pressors Anesthesia: Continuous propofol and fentanyl infusing/5 mL lidocaine 1% Procedure was done emergently due to need for hemodynamic monitoring and unreliable noninvasive blood pressures. A time-out was completed verifying correct patient, procedure, site, positioning, and implant(s) or special equipment if applicable. Patients right wrist was prepped and draped in the usual sterile fashion. Ultrasound guidance was used to aid needle placement. A 20g Arrow arterial line was introduced into the right radial artery. Catheter was threaded, and the needle was removed with appropriate blood return. Good waveform was observed. The patient tolerated the procedure well. Blood Loss: Minimal Complications: None Coding CPT Codes Tubes, Drains, and Vasc Access - Tubes, Drains, and Vasc Access: [id number] Ultrasound Guidance For Vascular ([id number]) Tubes, Drains, and Vasc Access - Tubes, Drains, and Vasc Access: [id number] Insertion Catheter, Artery ([id number]) [facility] [place] Procedure Codes (Charges) Tubes, Drains, and Vasc Access Procedure 1: Tubes, Drains, and Vasc Access: [id number] Ultrasound Guidance For Vascular Procedure 2: Tubes, Drains, and Vasc Access: [id number] Insertion Catheter, Artery
--- NOTE | 2022-01-03 08:14 | Critical Care Consultation ---
Date of Consultation January 03, 2022 History of Present Illness Reason for Consultation: Acute hypoxemic and hypercapnic respiratory failure requiring intubation Attending Physician: Roxana Guthrie DO History of Present Illness 56-year-old male with a past medical history of morbid obesity, obstructive sleep apnea, tobacco abuse and new onset A. fib who was admitted on 12/31/2021 du e to cellulitis in his left leg and sepsis. He was hypotensive earlier this hospital course. He had worsening renal failure. He had a CTA of his chest to rule out PE. His creatinine has been steadily increasing and he was found to be anuric. He underwent placement of a dialysis catheter yesterday afternoon by vascular surgery and subsequently underwent hemodialysis with removal of 2 L of fluid. Overnight, he became progressively hypoxemic and blood gases also revealed acute hypercapnic respiratory failure. He was ultimately moved to the ICU early this morning and intubated by the anesthesia staff. He was hypotensive this morning postintubation and I urgently placed a right radial arterial line. He was also found to be profoundly hypoxemic and is requiring a PEEP of 16 FiO2 of 75%. He received a dose of 10 mg vecuronium. He is currently on propofol, Versed and fentanyl. I discussed the case with patient's technical services rep who is going to place orders for urgent dialysis given his hypoxemia and volume overload. Allergies Allergy/AdvReac Type Severity Reaction Status Date / Time No Known Allergies Allergy Unknown NONE Verified 12/31/21 16:17 Home Medications Medication Instructions Recorded Confirmed Type amlodipine 5 mg tablet 5 mg PO QAM 09/28/19 12/31/21 History aspirin 81 mg tablet,delayed 81 mg PO DAILY 12/31/21 12/31/21 History release atorvastatin 20 mg tablet 20 mg PO QAM 12/31/21 12/31/21 History finasteride 5 mg tablet 5 mg PO QPM 12/31/21 12/31/21 History lisinopril 20 mg tablet 20 mg PO QAM 12/31/21 12/31/21 History tamsulosin 0.4 mg capsule 0.4 mg PO QPM 12/31/21 12/31/21 History Patient History Medical History Hypertension Morbid obesity with BMI of 60.0-69.9, adult Nocturnal hypoxemia Prediabetes Sleep apnea CPAP Surgical History History of colonoscopy Family History Grandmother (Paternal) Family history of diabetes mellitus Social History Smoking Status: Former smoker Cigarettes Per Day: 20; Second Hand Exposure: Yes (PARENTS SMOKED); Hx Alcohol Use: No Hx Substance Use: No Preferred Language: [place] Communication Ability: Effective Solid Waste Engineer Required: No Beliefs That Will Affect Care: None Current Living Situation: Spouse Current Living Situation Comment: lives in 2 story home with Feels Safe at Home: Yes Assistive Devices: CPAP and Glasses Review of Systems Review of Systems: Unobtainable due to cognitive status and Unobtainable due to endotracheal tube Physical Exam Physical Exam: 56-year-old with a past medical history of morbid obesity, hypertension, SARAH on CPAP abuse presenting to the hospital due to sepsis, cellulitis now presenting to the ICU due to acute hypoxemic and hypercapnic respiratory failure. Neurologic: Will transition patient off propofol to Versed given his hypertension. Continue fentanyl for pain control. We will utilize as needed paralytics for refractory hypoxemia. Pulmonary: Patient presenting with ARDS. We will continue lung anticoagulation strategy. Suspect that dialysis will help with your fluid and improve oxygenation. Patient with also significant atelectasis with right hemidiaphragm elevation which is causing intrapulmonary shunt. Cardiovascular: Maintain mean arterial pressures above 65 mmHg. Hold antihypertensives. Currently on heparin infusion due to atrial fibrillation earlier this admission. Patient also on amiodarone. Gastrointestinal: NPO. OG tube placed. Will initiate pantoprazole. Renal: Acute renal failure likely due to ischemic ATN. Patient states undergoing dialysis this morning due to hypervolemia. Infectious disease: Patient with extensive cellulitis of the lower extremity. Blood cultures negative. Urine cultures unremarkable. Patient currently on Rocephin and doxycycline. Hematologic: Hemoglobin and platelets stable. Continue heparin infusion at this time. Endocrine: Maintain euglycemia. TSH checked 01/01 within normal limits Lines and tubes: Right tunneled HD catheter placed in the IJ 01/02/2022. Peripheral IVs in place. Rutledge catheter in place. ET tube placed 01/03 VTE prophylaxis: Heparin infusion CODE STATUS: Full code Family at bedside: Not available bedside Disposition: ICU I have personally spent 59 minutes of critical care time in the direct management of this patient. This is a life/limb threatening event. This includes time spent evaluating patient, direct bedside care, chart review, placing orders, interpretation of diagnostic studies, discussion with consultants, patient, and family members, as well as other required patient management activities. This time is exclusive of all separately billable procedures, and teaching time and separate from and in addition to any other critical care service time. Thank you for allowing us to participate in the care of this patient. Results & Data Results & Data ([facility]) Vital Signs (Past 12 Hours) Vital Signs Temp Pulse Pulse Resp BP BP BP 01/03/22 04:38 97 H 25 H 01/03/22 03:22 106 H 22 01/03/22 02:57 37.0 C 101 H 20 102/71 01/02/22 23:59 95 H 01/02/22 23:00 36.8 C 98 H 22 123/59 L 01/02/22 21:22 94 H 22 90/63 L 01/02/22 21:05 36.6 C 90 22 104/81 01/02/22 21:00 91 H 99/55 L 01/02/22 20:30 92 H 111/55 L Pulse Ox 01/03/22 04:38 90 01/03/22 03:22 92 01/03/22 02:57 91 01/02/22 23:59 01/02/22 23:00 93 01/02/22 21:22 93 01/02/22 21:05 93 01/02/22 21:00 01/02/22 20:30 Coding Level of Care Code Critical Care 1st 30-74 mins Time Spent (min) 59
[2022-01-03] MEDS: MIDAZOLAM HCL 125 MG/250 ML BAG IV SCH (08:18)
[2022-01-03] MEDS ORDERED: Nursing to Pharmacy Communication SCH ×2 (08:30→19:15)
[2022-01-03 08:42] LABS: iSTAT Art Bld Gas pCO2 Correct 70 mmHg (35-46); iSTAT Art Bld Gas pH Corrected 7.254 (7.35-7.45); iSTAT Arterial Blood Gas HCO3 31 meg/L (19-24); iSTAT Arterial Blood Gas pCO2 70 mmHg (35-46); iSTAT Arterial Blood Gas pH 7.25 (7.35-7.45); iSTAT Arterial Blood Gas pO2 70 mmHg (80-95); iSTAT Arterial Blood Gas pO2 C 70; iSTAT Carbon Dioxide 33 mmol/L (24-31); iSTAT FiO2 100 %; iSTAT Hematocrit 37 % (42-52); iSTAT Hemoglobin 12.6 g/dl (14.0-18.0); iSTAT Potassium 4.7 mmol/L (3.3-5.0); iSTAT Site Art Line; iSTAT Sodium 135 mmol/L (135-144)
[2022-01-03] MEDS ORDERED: NOREPINEPHRINE/D5W 4 MG/250 ML IV ONE (08:52)
--- NOTE | 2022-01-03 08:54 | XRay Report ---
XR KUB/Abdomen 1 view CLINICAL HISTORY: confirm OGT placement. COMPARISON STUDY: No previous studies for comparison. TECHNIQUE: Single upright view was obtained of the upper abdomen FINDINGS: The bowel gas pattern is within normal limits without evidence for dilatation or obstruction. The dis elham end of an OG tube is noted extending just past the GE junction into the gastric fundus. It should be further advanced. There is no evidence for organomegaly or gross intra-abdominal mass. No abnorma l calcifications are seen along the course of the urinary tracts bilaterally. No acute osseous pathol ogy. IMPRESSION: 1. No acute intra-abdominal abnormality. 2. Tip of OG tube extends just past the GE junction into the gastric fundus and should be advanced. ACT 112: Negative or not required by law. Electronically signed by: David Ruggiero M.D. 01/03/2022 8:53 AM
[2022-01-03] MEDS: NOREPINEPHRINE/D5W 4 MG/250 ML PLCT IV SCH ×2 (09:05→17:35)
[2022-01-03] MEDS: CISATRACURIUM BESYLATE 40 MG in DEXTROSE 5% 80 ML IV SCH ×9 (09:05→22:38)
--- NOTE | 2022-01-03 09:44 | Cardiology Progress Note ---
Date of Service January 03, 2022 Assessment & Plan (1) New onset atrial fibrillation: (2) Sepsis: (3) Hypertension: (4) Morbid obesity with BMI of 60.0-69.9, adult: (5) Hyperkalemia: (6) Hypoxia: (7) PRIYANKA (acute kidney injury): (8) Acute hypercapnic respiratory failure: Plan: Patient developed new onset afib RVR during this admission in setting of sepsis, cellulitis, hypoxia. IV heparin initiated for stroke prophylaxis. Will need to discuss detention anticoagulation prior to discharge. He is not a candidate for DOAC given morbid obesity with BMI close to 70. he would need to be anticoagulated with Coumadin but I question his compliance upon discharge for INR. CHADSVASC score of 2 (hypertension, likely HFpEF). However he is also high risk for likely DVT/PE given obesity and sedentary lifestyle so may benefit from anticoagulation as well from that standpoint. Currently he is NSR. Continue amiodarone and IV heparin for now. Unfortunately yesterday he developed ARF with anuria requiring urgent dialysis. He also developed acute hypercapnic respiratory failure and now intubated and in the ICU. Currently receiving dialysis. Appreciate nephrology consult. Hold antihypertensives. Remain off lisinopril (due to history of hyperkalemia) Amlodipine discontinued as well due to LE edema and hypotension. Would benefit from alternative antihypertensive if needed. Consider carvedilol vs metoprolol as BP allows in the future. Continue antibiotics for cellulitis and sepsis. He had a dobutamine stress echo 2 months ago as an outpatient without acute findings. Case discussed with Dr. Zavala. Will follow. Admission and Anticipated Discharge Date Admission Date: December 31, 2021 Supervising Physician Co-Signing Physician Notes Patient seen and examined with Geetha Isbell PA-C. Agree with findings and assessment as above. Patient lapsed into atrial fibrillation while on telemetry monitoring and was successfully converted to normal sinus rhythm. Patient is not a candidate for direct oral anticoagulant given his renal function and elevated BMI. We will need to determine candidacy for Coumadin therapy with need for outpatient INR monitoring. Events of last p.m. reviewed with bedside nursing. No further cardiac testing or invention necessary at this time. Subjective Patient admitted for sepsis/cellulitis, developed afib RVR. Converted to NSR on amiodarone. Started on IV heparin. Received IV fluids on admission. Yesterday developed PRIYANKA with anuria. Nephrology consulted and he underwent placement of a dialysis catheter with subsequent hemodialysis with removal of 2 L of fluid. Unfortunately last night he became progressively hypoxemic and blood gases demonstrated hypercapnic respiratory failure. He was transferred to the ICU and intubated. Receiving dialysis this morning. Review of Systems Review of Systems: Unobtainable due to endotracheal tube Physical Exam Constitutional: WD/WN, vitals as above + morbidly obese Neck: + thick neck Respiratory: Patient mechanically ventilated. Cardiovascular: Rate/Rhythm: regular rate and regular rhythm Heart Sounds: no murmur (No audible murmur. Distant heart sounds) Extremities: + edema (2+ edema b/l with chronic stasis changes, seeping/drainage b/l ) Results & Data ([facility]) Vital Signs (Past 12 Hours) Vital Signs Temp Pulse Pulse Resp BP BP Pulse Ox 01/03/22 09:00 66 120/58 L 01/03/22 08:45 36.5 C 67 01/03/22 08:20 68 31 H 90 01/03/22 04:38 97 H 25 H 90 01/03/22 03:22 106 H 22 92 01/03/22 02:57 37.0 C 101 H 20 102/71 91 01/02/22 23:59 95 H 01/02/22 23:00 36.8 C 98 H 22 123/59 L 93 Laboratory Results Cardiac Enzymes 01/03/22 Range/Units 03:57 AST 22 (13-39) U/L Coagulation 01/03/22 Range/Units 03:57 APTT 44.4 H (21.0-31.0) Seconds CBC 01/03/22 Range/Units 03:57 WBC 14.63 H (4.8-10.8) K/uL RBC 4.20 L (4.7-6.1) M/uL Hgb 12.6 L (14.0-18.0) g/dL Hct 41.3 L (42-52) % Plt Count 224 (130-400) K/uL Neut # (Auto) 12.11 H (1.4-6.5) K/uL Lymph # (Auto) 0.61 L (1.2-3.4) K/uL Rock # (Auto) 1.66 H (0.11-0.59) K/uL Eos # (Auto) 0.01 (0-0.5) K/uL Baso # (Auto) 0.02 (0-0.2) K/uL Comprehensive Metabolic Panel 01/03/22 Range/Units 03:57 Sodium 134 L (136-145) mmol/L Potassium 4.7 (3.5-5.1) mmol/L Chloride 99 (98-107) mmol/L Carbon Dioxide 30 (21-32) mmol/L BUN 54 H (6-23) mg/dl Creatinine 2.12 H D (0.6-1.4) mg/dl Glucose 142 H (70-99(Fasting)) mg/dl Calcium 8.2 L (8.5-10.1) mg/dl AST 22 (13-39) U/L ALT 37 (7-52) U/L Alkaline Phosphatase 56 (34-104) U/L Total Protein 7.1 (6.0-8.3) gm/dl Albumin 3.5 (3.4-5.0) gm/dl Intake and Output 01/02/22 01/03/22 01/03/22 22:59 06:59 14:59 Intake Total 620 / 1251.134 531.134 / 1251.134 160.390 / 160.390 Output Total 10 / 385 375 / 385 Balance 610 / 866.134 156.134 / 866.134 160.390 / 160.390 Intake: IV 570 / 1201.134 531.134 / 1201.134 160.390 / 160.390 Albumin 25% 12.5 gm In 50 ml @ 50 / 50 50 mls/hr IV ONE ONE Rx#: [id number] Heparin Sodium/Dextrose 25,000 500 / 981.134 481.134 / 981.134 128.283 / 128.283 units In 500 ml @ 2,150 UNITS/ HR 43 mls/hr IV .[id number] [facility] Rx #:[id number] cefTRIAXone SODIUM 2,000 mg In 70 / 70 Dextrose 5% 50 ml @ 100 mls/hr IV Q24H [facility] Rx#:[id number] propofoL 1,000 mg In 100 ml @ 32.107 / 32.107 20 MCG/KG/MIN 22.44 mls/hr IV . Q4H28M [facility] Rx#:[id number] IV Perioperative 50 / 50 Output: Estimated Blood Loss 10 10 Urine Amount (Catheter) 375 / 375 [place]/Indwelling 375 / 375 Other: Hemodialysis Ultrafiltration 2,000 Amount # Unmeasured Voids 0 Weight 187.4 kg 187 kg 187 kg Weight Measurement Method Built in [facility] Built in [facility] Built in [facility] Patient Weight 01/04/22 06:59 Weight 187 kg Diagnostic Findings Telemetry reviewed: NSR in the 60-80 bpm. No recurrent afib noted. Chest X-Ray 01/03/22 06:50 XR chest 1V portable supine CLINICAL HISTORY: intubation COMPARISON STUDY: Chest CT December 31, 2021. Chest radiograph January 03, 2022 at 2:37 AM. FINDINGS: On the initial image obtained at 6:45 AM, the tip of endotracheal tube is at the abigail. On the second image, obtained at 6:47 AM, tip of endotracheal tube is approximately 1.7 cm above the abigail. Exam is compromised by portable technique and suboptimal penetration. There is no pneumothorax on supine exam. Elevation of the right hemidiaphragm is noted. Perihilar and bibasilar opacities have increased. Interstitial thickening has progressed. Cardiomegaly is unch anged. Right internal jugular introducer is in place. IMPRESSION: 1. Tip of endotracheal tube approximately 1.7 cm above the abigail. Exam compromised by suboptimal penetration. 2. Progression of perihilar and bibasilar airspace opacities which could reflect pneumonia, alveolar edema or atelectasis. 2. Increase in interstitial thickening suggestive of pulmonary edema. ACT 112: Negative or not required by law. Medications Administered Current Inpatient Medications Acetaminophen (Acetaminophen 325 Mg Tab) 650 mg PO Q4H PRN PRN Reason: pain/fever Stop: 01/30/22 18:35 Last Admin: 12/31/21 23:49 Dose: 650 mg Documented by: Amiodarone HCl (Amiodarone 200 Mg Tab) 400 mg PO BIDM [facility] Stop: 02/01/22 09:29 Last Admin: 01/02/22 17:43 Dose: 400 mg Documented by: Aspirin (Aspirin 81 Mg Ectab) 81 mg PO DAILY [facility] Stop: 01/31/22 08:59 Last Admin: 01/02/22 09:33 Dose: 81 mg Documented by: Atorvastatin Calcium (Atorvastatin 20 Mg Tab) 20 mg PO QAM [facility] Stop: 01/31/22 08:59 Last Admin: 01/02/22 10:18 Dose: 20 mg Documented by: Doxycycline Hyclate (Doxycycline Hyclate 100 Mg Cap) 100 mg PO BID [facility] Stop: 01/09/22 08:59 Last Admin: 01/02/22 20:17 Dose: 100 mg Documented by: Fentanyl Citrate (Fentanyl Bolus From Bag) 50 mcg IV Q60M PRN PRN Reason: Pain or Agitation Stop: 01/17/22 07:59 Finasteride (Finasteride 5 Mg Tab) 5 mg PO QPM [facility] Stop: 01/30/22 20:59 Last Admin: 01/02/22 20:17 Dose: 5 mg Documented by: Ceftriaxone Sodium 2,000 mg/ (Dextrose) 70 mls @ 100 mls/hr IV Q24H [facility]; Protocol Stop: 01/07/22 19:59 Last Infusion: 01/02/22 22:24 Dose: Infused Documented by: Heparin Sodium/Dextrose (Heparin Sodium/Dextrose) 25,000 units in 500 mls @ 43 mls/hr IV .[id number] [facility]; Protocol Stop: 01/31/22 13:29 Last Titration: 01/03/22 08:18 Dose: 0 units/hr, 0 mls/hr Documented by: Propofol (Diprivan) 1,000 mg in 100 mls @ 22.44 mls/hr IV .Q4H28M [facility]; Protocol Stop: 01/06/22 06:59 Last Titration: 01/03/22 08:28 Dose: 0 mcg/kg/min, 0 mls/hr Documented by: Midazolam HCl (Versed) 125 mg in 250 mls @ 2 mls/hr IV .Q96H [facility]; Protocol Stop: 02/02/22 07:59 Last Admin: 01/03/22 08:18 Dose: 1 mg/hr, 2 mls/hr Documented by: Fentanyl Citrate (Fentanyl Citrate) 2,500 mcg in 250 mls @ 5 mls/hr IV .Q50H [facility]; Protocol Stop: 01/17/22 07:59 Last Admin: 01/03/22 08:00 Dose: 50 mcg/hr, 5 mls/hr Documented by: Cisatracurium Besylate 40 mg/ (Dextrose) 100 mls @ 9.225 mls/hr IV .[id number] [facility]; Protocol Stop: 02/02/22 08:44 Last Admin: 01/03/22 09:05 Dose: 1 mcg/kg/min, 9.2 mls/hr Documented by: Pantoprazole Sodium 40 mg/ (Syringe) 10 mls @ 5 mls/min IV DAILY@1100 [facility] Stop: 02/02/22 10:59 Norepinephrine Bitartrate (Levophed/D5w) 4 mg in 250 mls @ 35.063 mls/hr IV .Q7H8M [facility]; Protocol Stop: 02/02/22 08:59 Last Admin: 01/03/22 09:05 Dose: 0.05 mcg/kg/min, 35.1 mls/hr Documented by: Midazolam HCl (Midazolam Bolus From Bag) 2 mg IV Q60M PRN PRN Reason: Sedation Stop: 02/02/22 07:59 Miscellaneous (Icu Protocol For Hyperglycemia) 1 ea N/A PRN PRN; Protocol PRN Reason: Hyperglycemia Protocol Stop: 01/05/22 06:51 Multi-Ingredient Cream (Artificial Tears Op Oint 3.5 Gm Tube) 1 appln OP Q4H [facility] Stop: 02/02/22 08:44 Propofol (Propofol Bolus From Bag) 20 mg IV Q5M PRN PRN Reason: Sedation Stop: 01/06/22 06:49 Tamsulosin HCl (Tamsulosin Hcl 0.4 Mg Cap) 0.4 mg PO QPM [facility] Stop: 01/30/22 20:59 Last Admin: 01/02/22 20:17 Dose: 0.4 mg Documented by:
--- NOTE | 2022-01-03 10:29 | Nephrology Progress Note ---
Date of Service January 03, 2022 Assessment & Plan (1) PRIYANKA (acute kidney injury): Plan: Patient with acute renal failure likely due to contrast-induced nephropathy and sepsis. Patient also with the rapid A. fib and hypotension. Patient is now anuric. Patient is now intubated on mechanical ventilation. He is also in shock requiring pressors. Patient was dialyzed yesterday for 3 hours and target UF 2 L. Patient is being dialyzed today for 3 hours and target UF 3 L. will assess tomorrow for possible isolated UF (2) Cellulitis of left lower extremity: Plan: Patient is now septic requiring pressors and IV antibiotics per ICU team. (3) Hypoxia: Plan: Likely multifactorial including volume overload, sepsis and possibly CHF. Echo is pending. We will attempt fluid removal with dialysis. Admission and Anticipated Discharge Date Admission Date: December 31, 2021 Subjective Seen for acute renal failure on dialysis. Patient was seen and examined while on dialysis. Patient is now intubated on mechanical ventilation. He is hypotensive on pressors. Patient is unable to give history Review of Systems Review of Systems: Unable to obtain due to intubation Physical Exam Physical Exam: General exam: Intubated and sedated, no acute distress HEENT: Pupils are equal and reactive to light Neck: No JVD, neck is supple trachea is midline Respiratory system: wheezing bilaterally. Gastrointestinal: Abdomen is soft, non distended, non tender, bowel sounds are present CVS: Regular rate and rhythm. No murmurs, rubs or gallops Musculoskeletal: No joint or muscle tenderness Extremities: left leg swollen and erythematous, 1+ edema Neuro: Sedated, no tremors, no focal neurological deficits Skin: No rashes Results & Data ([facility]) Vital Signs (Past 12 Hours) Vital Signs Temp Pulse Pulse Resp BP BP Pulse Ox 01/03/22 09:30 69 166/77 H 01/03/22 09:00 66 120/58 L 01/03/22 08:45 36.5 C 67 01/03/22 08:20 68 31 H 90 01/03/22 04:38 97 H 25 H 90 01/03/22 03:22 106 H 22 92 01/03/22 02:57 37.0 C 101 H 20 102/71 91 01/02/22 23:59 95 H 01/02/22 23:00 36.8 C 98 H 22 123/59 L 93 Laboratory Results 01/03/22 03:57 01/03/22 01/03/22 03:57 03:57 WBC 14.63 H RBC 4.20 L MCV 98.3 MCH 30.0 MCHC 30.5 L RDW Std Deviation 55.7 H RDW Coeff of Azul 15.3 H Plt Count 224 MPV 10.6 H Albumin 3.5
[2022-01-03 10:52] LABS: Partial Thromboplastin Ratio 1.1; Partial Thromboplastin Time 31.3 Seconds (21.0-31.0)
[2022-01-03] MEDS ORDERED: PANTOprazole 40 MG in SYRINGE 0 ML IV SCH (11:00)
[2022-01-03] MEDS: DOXYCYCLINE HYCLATE 100 MG in DEXTROSE 5% 100 ML IV SCH ×2 (11:31→22:37)
[2022-01-03] MEDS: ASPIRIN 81 MG ECTAB PO SCH (11:54)
[2022-01-03] MEDS: DOXYCYCLINE HYCLATE 100 MG CAP PO SCH (11:54)
--- NOTE | 2022-01-03 12:39 | XRay Report ---
XR KUB/Abdomen 1 view CLINICAL HISTORY: Confirm OGT placement after advancement TECHNIQUE: 1 view of the abdomen was obtained. Comparison: Comparison is made to abdomen radiograph 01/03/2022 at 0833 hours FINDINGS: The enteric tube has been advanced, the side-port now projects over the presumed location of the stom ach. IMPRESSION: Satisfactory position of the enteric tube status post advancement. ACT 112: Negative or not required by law. Electronically signed by: Zohaib Lagos M.D. 01/03/2022 12:37 PM
[2022-01-03 13:28] LABS: iSTAT Art Bld Gas pCO2 Correct 45 mmHg (35-46); iSTAT Art Bld Gas pH Corrected 7.398 (7.35-7.45); iSTAT Arterial Blood Gas HCO3 28 meg/L (19-24); iSTAT Arterial Blood Gas pCO2 44 mmHg (35-46); iSTAT Arterial Blood Gas pO2 37 mmHg (80-95); iSTAT Arterial Blood Gas pO2 C 38; iSTAT Carbon Dioxide 29 mmol/L (24-31); iSTAT FiO2 50 %; iSTAT Hematocrit 37 % (42-52); iSTAT Hemoglobin 12.6 g/dl (14.0-18.0); iSTAT Potassium 3.7 mmol/L (3.3-5.0); iSTAT Site Art Line; iSTAT Sodium 136 mmol/L (135-144)
[2022-01-03 13:29] LABS: iSTAT Arterial Blood Gas HCO3 26 meg/L (19-24); iSTAT Arterial Blood Gas pCO2 44 mmHg (35-46); iSTAT Arterial Blood Gas pH 7.39 (7.35-7.45); iSTAT Arterial Blood Gas pO2 42 mmHg (80-95); iSTAT Carbon Dioxide 28 mmol/L (24-31); iSTAT FiO2 50 %; iSTAT Site Art Line
[2022-01-03] MEDS: ARTIFICIAL TEARS OP OINT 3.5 GM TUBE OP SCH ×4 (13:31→19:36)
[2022-01-03] MEDS: AMIODARONE 200 MG TAB PO SCH ×2 (13:39→19:36)
[2022-01-03] MEDS: ASPIRIN 81 MG CHEW PO SCH (13:48)
[2022-01-03] MEDS: ATORVASTATIN 20 MG TAB PO SCH (13:48)
[2022-01-03 16:24] LABS: Partial Thromboplastin Ratio 1.4; Partial Thromboplastin Time 38.2 Seconds (21.0-31.0)
--- NOTE | 2022-01-03 17:37 | Hospitalist Progress Note ---
Date of Service January 03, 2022 Assessment & Plan (1) Acute hypercapnic respiratory failure: Plan: smoker with morbid obesity Upon presentation, patient was 70% on room air, and re 6 L via oxy mask initially CTA chest negative for pulmonary embolism and other acute findings Patient has been complaining of HANSON for the past few months, underwent DSE that was negative for inducible ischemia volume overload after IVF for sepsis resuscitation. Now intubated and in ICU, undergoing hemodialysis for acute hypervolemia. (2) Sepsis: Plan: resuscitated, plan as outlined below. (3) Cellulitis of left lower extremity: Plan: Admit to [facility] with telemetry Patient presenting from home with reports of LLE redness and low-grade fever In the ED, found to have significant erythema extending from the foot up to the mid thigh Meets sepsis criteria with WBC 16 K, tachycardia. Initially he was afebrile, BP stable, normal lactic acid. Procal 1.26 Suspect strep infection given rapid progression of erythema S/p cefepime and Vanco in the ED, Continued improvement on ceftriaxone monotherapy for two days in a row. Overnight became more hypervolemic, kidney function worsened and no needs TDC for temporary dialysis. Doxycycline was added overnight. Cont current abx (4) New onset atrial fibrillation: Plan: Cardiology consulted and started heparin drip and amiodarone. Patient and rapid ventricular response. Small amount of fluid given. Later evaluated and was hypotensive with heart rates into the 120s and 130s. \ Limited on additional fluid we can give because of pulmonary vascular congestion on chest x-ray and persistent hypoxia. digoxin for some heart rate control overnight. heparin drip per cardiology placed on iv amio, now on PO amio (5) PRIYANKA (acute kidney injury): Plan: pt had contrast with poss ATN from sepsis kidneys expected to recover and have improved, however, there is fluid overload that is severe TDC to be placed by vascular on 01/02 with first HD session performed then additional session this am with 4L fluid removed cont daily sessions under nephrology guidance renally dose meds as needed. (6) Hypertension: Plan: chronic, controlled, Lisinopril had been discontinued due to hyperkalemia by cardiology, however, was resumed on 12/29 by PCP. Held in setting of PRIYANKA. (7) Sleep apnea: Plan: CPAP as per home settings (8) Morbid obesity with BMI of 60.0-69.9, adult: Plan: BMI 68.9 Follows with [facility] nutrition and weight management Counseled on the importance of weight loss and quitting smoking. (9) Smoking: Plan: 1ppd smoker, quit on admission. Contemplative phase. Declined nicotine patch. (10) DVT prophylaxis: Plan: heparin drip Full Code Dispo-remains in PCU. DO [facility] Hospital[facility] Admission and Anticipated Discharge Date Admission Date: December 31, 2021 Subjective 56 yo M presented wt sepsis 2/2 LLE cellulitis given IVF for resuscitation with improvement in LLE cellultiis developed hypervolemia and acute respiratory failure with subsequent intubation overnight TDC placed yesterday and he continues on HD sessions, yeseterday and again this morning, requiring pressors during htis morning's session On cisatricurium and sedated. at bedside and case was reviewed with her--all questions were answered Review of Systems Review of Systems: Unobtainable due to endotracheal tube Physical Exam Physical Exam: CONSTITUTIONAL: morbid obesity, vitals as above, intubated, sedated, paralyzed EYES: normal conjunctivae, no scleral icterus ENT: external ear and nose normal, NECK: trachea midline, RESPIRATORY: clear to auscultation bilaterally, no crackles, rales or wheezes, normal respiratory effort CARDIOVASCULAR: regular rate and rhythm, S1 and 2 heard without murmurs, gallops or rubs, no JVD, 1+ pitting edema peripherally, CHEST: inspection of chest was normal GASTROINTESTINAL: , soft, nontender, ND, no guarding MUSCULOSKELETAL: generalized weakness without focal deficit. Head is normocephalic and atraumatic, SKIN: warm and dry, NEUROLOGIC: CN 2-12 grossly intact, no sensory deficit, normal cognition, normal speech, no tremor PSYCHIATRIC: alert cooperative and oriented to person, place and time. Euthymic mood, makes good eye contact, language grossly intact, recent and remote memory grossly intact. Results & Data Results & Data ([facility]) Vital Signs (Past 12 Hours) Vital Signs Temp Pulse Pulse Resp BP BP Pulse Ox 01/03/22 15:08 77 26 H 94 01/03/22 12:05 36.6 C 78 114/62 01/03/22 11:30 77 125/60 06/23/22 11:05 80 30 H 91 01/03/22 11:00 79 114/57 L 01/03/22 10:30 81 151/70 H 01/03/22 10:00 70 165/76 H 01/03/22 09:30 69 166/77 H 01/03/22 09:00 66 120/58 L 01/03/22 08:45 36.5 C 67 01/03/22 08:20 68 31 H 90 Laboratory Results Short CBC 01/03/22 Range/Units 03:57 WBC 14.63 H (4.8-10.8) K/uL Hgb 12.6 L (14.0-18.0) g/dL Hct 41.3 L (42-52) % Plt Count 224 (130-400) K/uL BMP 01/03/22 03:57 Sodium 134 L Potassium 4.7 Chloride 99 Carbon Dioxide 30 BUN 54 H Creatinine 2.12 H D Glucose 142 H Calcium 8.2 L Liver Function 01/03/22 Range/Units 03:57 Total Bilirubin 0.4 (0.2-1.0) mg/dl AST 22 (13-39) U/L ALT 37 (7-52) U/L Alkaline Phosphatase 56 (34-104) U/L Albumin 3.5 (3.4-5.0) gm/dl Urine 01/03/22 Range/Units Unknown Urine Color Dark Yellow Urine Appearance Turbid A (Clear) Urine pH 5.0 (4.5-7.5) Ur Specific [place] 1.017 (1.000-1.030) Urine Protein 1+ H (Negative) Urine Glucose (UA) Negative (Negative) Diagnostic Findings Chest X-Ray 01/03/22 02:19 XR chest 1V portable CLINICAL HISTORY: low o2 TECHNIQUE: Single frontal radiograph of the chest was obtained. Comparison: Comparison is made to chest radiograph 01/01/2022 FINDINGS: No lines and tubes are seen. Cardiomegaly is noted. Elevation of the right hemidiaphragm is seen. There is prominence of pulmonary vasculature. No evidence of pleural effusion or pneumothorax. IMPRESSION: Mild pulmonary edema. Stable cardiomegaly. Redemonstration of right hemidiaphragmatic elevation with associated atelectasis. ACT 112: Negative or not required by law. Electronically signed by: Zohaib Lagos M.D. 01/03/2022 7:34 AM Chest X-Ray 01/03/22 06:50 XR chest 1V portable supine CLINICAL HISTORY: intubation COMPARISON STUDY: Chest CT December 31, 2021. Chest radiograph January 03, 2022 at 2:37 AM. FINDINGS: On the initial image obtained at 6:45 AM, the tip of endotracheal tube is at the abigail. On the second image, obtained at 6:47 AM, tip of endotracheal tube is approximately 1.7 cm above the abigail. Exam is compromised by portable technique and suboptimal penetration. There is no pneumothorax on supine exam. Elevation of the right hemidiaphragm is noted. Perihilar and bibasilar opacities have increased. Interstitial thickening has progressed. Cardiomegaly is unchanged. Right internal jugular introducer is in place. IMPRESSION: 1. Tip of endotracheal tube approximately 1.7 cm above the abigail. Exam compromised by suboptimal penetration. 2. Progression of perihilar and bibasilar airspace opacities which could reflect pneumonia, alveolar edema or atelectasis. 2. Increase in interstitial thickening suggestive of pulmonary edema. ACT 112: Negative or not required by law. Electronically signed by: Hudson Alex M.D. 01/03/2022 7:01 AM KUB X-Ray 01/03/22 08:21 XR KUB/Abdomen 1 view CLINICAL HISTORY: confirm OGT placement. COMPARISON STUDY: No previous studies for comparison. TECHNIQUE: Single upright view was obtained of the upper abdomen FINDINGS: The bowel gas pattern is within normal limits without evidence for dilatation or obstruction. The distal end of an OG tube is noted extending just past the GE junction into the gastric fundus. It should be further advanced. There is no evidence for organomegaly or gross intra-abdominal mass. No abnormal calcifications are seen along the course of the urinary tracts bilaterally. No acute osseous pathology. IMPRESSION: 1. No acute intra-abdominal abnormality. 2. Tip of OG tube extends just past the GE junction into the gastric fundus and should be advanced. ACT 112: Negative or not required by law. Electronically signed by: David Ruggiero M.D. 01/03/2022 8:53 AM KUB X-Ray 01/03/22 11:51 XR KUB/Abdomen 1 view CLINICAL HISTORY: Confirm OGT placement after advancement TECHNIQUE: 1 view of the abdomen was obtained. Comparison: Comparison is made to abdomen radiograph 01/03/2022 at 0833 hours FINDINGS: The enteric tube has been advanced, the side-port now projects over the presumed location of the stomach. IMPRESSION: Satisfactory position of the enteric tube status post advancement. ACT 112: Negative or not required by law. Electronically signed by: Zohaib Lagos M.D. 01/03/2022 12:37 PM Medications Administered Current Inpatient Medications Acetaminophen (Acetaminophen 325 Mg Tab) 650 mg PO Q4H PRN PRN Reason: pain/fever Stop: 01/30/22 18:35 Last Admin: 12/31/21 23:49 Dose: 650 mg Documented by: Amiodarone HCl (Amiodarone 200 Mg Tab) 400 mg PO BIDM [facility] Stop: 02/01/22 09:29 Last Admin: 01/03/22 13:39 Dose: 400 mg Documented by: Aspirin (Aspirin 81 Mg Chew) 81 mg PO DAILY [facility] Stop: 02/02/22 10:59 Last Admin: 01/03/22 13:48 Dose: 81 mg Documented by: Atorvastatin Calcium (Atorvastatin 20 Mg Tab) 20 mg PO QAM [facility] Stop: 01/31/22 08:59 Last Admin: 01/03/22 13:48 Dose: 20 mg Documented by: Fentanyl Citrate (Fentanyl Bolus From Bag) 50 mcg IV Q60M PRN PRN Reason: Pain or Agitation Stop: 01/17/22 07:59 Finasteride (Finasteride 5 Mg Tab) 5 mg PO QPM [facility] Stop: 01/30/22 20:59 Last Admin: 01/02/22 20:17 Dose: 5 mg Documented by: Ceftriaxone Sodium 2,000 mg/ (Dextrose) 70 mls @ 100 mls/hr IV Q24H [facility]; Protocol Stop: 01/07/22 19:59 Last Infusion: 01/02/22 22:24 Dose: Infused Documented by: Heparin Sodium/Dextrose (Heparin Sodium/Dextrose) 25,000 units in 500 mls @ 45 mls/hr IV .Q11H7M [facility]; Protocol Stop: 01/31/22 13:29 Last Admin: 01/03/22 17:13 Dose: Not Given Documented by: Midazolam HCl (Versed) 125 mg in 250 mls @ 6 mls/hr IV .[id number] [facility]; Protocol Stop: 02/02/22 07:59 Last Titration: 01/03/22 11:05 Dose: 3 mg/hr, 6 mls/hr Documented by: Fentanyl Citrate (Fentanyl Citrate) 2,500 mcg in 250 mls @ 12.5 mls/hr IV .Q20H [facility]; Protocol Stop: 01/17/22 07:59 Last Titration: 01/03/22 11:05 Dose: 125 mcg/hr, 12.5 mls/hr Documented by: Cisatracurium Besylate 40 mg/ (Dextrose) 100 mls @ 55.35 mls/hr IV .Q1H49M [facility]; Protocol Stop: 02/02/22 08:44 Last Admin: 01/03/22 16:53 Dose: 6 mcg/kg/min, 55.4 mls/hr Documented by: Pantoprazole Sodium 40 mg/ (Syringe) 10 mls @ 5 mls/min IV DAILY@1100 [facility] Stop: 02/02/22 10:59 Last Admin: 01/03/22 13:48 Dose: 5 mls/min Documented by: Norepinephrine Bitartrate (Levophed/D5w) 4 mg in 250 mls @ 35.063 mls/hr IV .Q7H8M [facility]; Protocol Stop: 02/02/22 08:59 Last Titration: 01/03/22 11:04 Dose: 0 mcg/kg/min, 0 mls/hr Documented by: Doxycycline Hyclate 100 mg/ (Dextrose) 110 mls @ 55 mls/hr IV Q12H [facility] Stop: 01/09/22 10:59 Last Infusion: 01/03/22 13:35 Dose: Infused Documented by: Midazolam HCl (Midazolam Bolus From Bag) 2 mg IV Q60M PRN PRN Reason: Sedation Stop: 02/02/22 07:59 Miscellaneous (Icu Protocol For Hyperglycemia) 1 ea N/A PRN PRN; Protocol PRN Reason: Hyperglycemia Protocol Stop: 01/05/22 06:51 Multi-Ingredient Cream (Artificial Tears Op Oint 3.5 Gm Tube) 1 appln OP Q4H [facility] Stop: 02/02/22 08:44 Last Admin: 01/03/22 13:48 Dose: 1 appln Documented by: Tamsulosin HCl (Tamsulosin Hcl 0.4 Mg Cap) 0.4 mg PO QPM [facility] Stop: 01/30/22 20:59 Last Admin: 01/02/22 20:17 Dose: 0.4 mg Documented by:
[2022-01-03] MEDS: cefTRIAXone SODIUM 2,000 MG in DEXTROSE 5% 50 ML IV SCH (19:36)
[2022-01-03 23:45] LABS: Partial Thromboplastin Ratio 1.7
[2022-01-04] MEDS: CISATRACURIUM BESYLATE 40 MG in DEXTROSE 5% 80 ML IV SCH ×8 (00:54→12:13)
[2022-01-04] MEDS: fentaNYL citrate 2,500 MCG/250 ML BAG IV SCH ×6 (02:07→18:45)
[2022-01-04] MEDS: ARTIFICIAL TEARS OP OINT 3.5 GM TUBE OP SCH ×6 (02:07→22:01)
[2022-01-04] MEDS: NOREPINEPHRINE/D5W 4 MG/250 ML PLCT IV SCH ×4 (04:13→22:01)
[2022-01-04 04:49] LABS: iSTAT Art Bld Gas pCO2 Correct 45 mmHg (35-46); iSTAT Art Bld Gas pH Corrected 7.414 (7.35-7.45); iSTAT Arterial Blood Gas HCO3 29 meg/L (19-24); iSTAT Arterial Blood Gas pCO2 45 mmHg (35-46); iSTAT Arterial Blood Gas pH 7.42 (7.35-7.45); iSTAT Arterial Blood Gas pO2 66 mmHg (80-95); iSTAT Arterial Blood Gas pO2 C 68; iSTAT Carbon Dioxide 30 mmol/L (24-31); iSTAT FiO2 60 %; iSTAT Hematocrit 35 % (42-52); iSTAT Hemoglobin 11.9 g/dl (14.0-18.0); iSTAT Potassium 3.5 mmol/L (3.3-5.0); iSTAT Site Art Line; iSTAT Sodium 135 mmol/L (135-144)
[2022-01-04 06:11] LABS: Partial Thromboplastin Ratio 1.7
[2022-01-04 06:14] LABS: BUN Creatinine Ratio 29.5 (10-20); Calcium 7.9 mg/dl (8.5-10.1); Creatinine Clr Calc Pharmacy 76.5 ml/min; Est GFR (African American) 52.2 ml/min; Est GFR (Non-African American) 45.1 ml/min; Phosphorus 1.5 mg/dl (2.5-4.9); Potassium 3.5 mmol/L (3.5-5.1)
[2022-01-04 06:19] LABS: Partial Thromboplastin Time 47.6 Seconds (21.0-31.0)
[2022-01-04 06:30] LABS: Basophils # (auto) 0.03 K/uL (0-0.2); Basophils % (auto) 0.3 %; Eosinophils # (auto) 0.06 K/uL (0-0.5); Eosinophils % (auto) 0.5 %; Hemoglobin 11.3 g/dL (14.0-18.0); Immature Granulocytes # (auto) 0.43 K/uL (0.00-0.02); Immature Granulocytes % (auto) 3.9 %; Lymphocytes # (auto) 1.62 K/uL (1.2-3.4); Lymphocytes % (auto) 14.6 %; Mean Corpuscular Hemoglobin 28.5 pg (25-34); Mean Corpuscular Hgb Conc 31.4 g/dL (32-36); Mean Corpuscular Volume 90.9 fL (80-100); Mean Platelet Volume 10.2 fL (7.4-10.4); Monocytes # (auto) 1.09 K/uL (0.11-0.59); Monocytes % (auto) 9.8 %; Neutrophils # (auto) 7.88 K/uL (1.4-6.5); Neutrophils % (auto) 70.9 %; Platelet Count 219 K/uL (130-400); RDW Coefficient of Variation 15.1 % (11.5-14.5); RDW Standard Deviation 50.7 fL (36.4-46.3); Red Blood Count 3.96 M/uL (4.7-6.1); White Blood Count 11.11 K/uL (4.8-10.8)
[2022-01-04] MEDS: HEPARIN SODIUM/DEXTROSE 25,000 UNITS/500 ML BAG IV SCH ×2 (06:48→18:27)
--- NOTE | 2022-01-04 07:48 | XRay Report ---
XR chest 1V portable HISTORY: 56 years-old Male f/u up acute respiratory failure COMPARISON: Chest radiograph 01/03/2022 TECHNIQUE: Portable semiupright AP view of the chest FINDINGS: Endotracheal tube overlies the midline, 3.5 cm superior to the abigail. Right IJ dual-lumen hemodialys is catheter is noted with distal tip not well visualized, likely overlying the distal SVC or right at rium. An enteric tube is present with distal tip extending outside the lmeto-er-mona, likely extendin g into the stomach. The study is limited secondary to patient body habitus. Cardiomegaly. No pneumothorax identified. Left greater than right layering pleural effusions with pul monary vascular congestion. There is progressively worsened opacification of the left lung with persi stent right basilar predominant opacities. Bones appear grossly intact. IMPRESSION: 1. Lines and tubes as above. 2. Cardiomegaly with pulmonary edema. 3. Left greater than right pleural effusions with progressive volume loss/consolidation of the left l catracho. ACT 112: Negative or not required by law. The above report was generated using voice recognition software. It may contain grammatical, syntax o r spelling errors. Electronically signed by: Simón Woods M.D. 01/04/2022 7:45 AM
[2022-01-04] MEDS ORDERED: SODIUM PHOSPHATE 3 MMOL/1 ML 5 ML VIAL IV ONE (07:55)
--- NOTE | 2022-01-04 08:47 | Critical Care Progress Note ---
Date of Service January 04, 2022 Assessment & Plan (1) Acute hypercapnic respiratory failure: (2) Morbid obesity: (3) New onset atrial fibrillation: (4) PRIYANKA (acute kidney injury): (5) Hypervolemia: Plan: 56-year-old with a past medical history of morbid obesity, hypertension, SARAH on CPAP abuse presenting to the hospital due to sepsis, cellulitis now presenting to the ICU due to acute hypoxemic and hypercapnic respiratory failure. Neurologic: Continue Versed and fentanyl to maintain RASS of -1. We will start to wean Nimbex and try to utilize as needed paralytics. Pulmonary: Patient presenting with ARDS. We will continue lung protective strategy. There is a significant element of CHF/volume overload. Patient with also significant atelectasis with right hemidiaphragm elevation which is causing intrapulmonary shunt. We will discontinue amiodarone due to concerns of pulmonary toxicity. We will also start patient on prednisone 40 mg daily. Cardiovascular: Maintain mean arterial pressures above 65 mmHg. Hold antihypertensives. Currently on heparin infusion due to atrial fibrillation earlier this admission. Patient also on amiodarone. Echo ordered. Trop ordered. Gastrointestinal: NPO. OG tube placed. Continue pantoprazole. Start docusate, senna and MiraLAX daily. LFTs to be checked given that he is on amiodarone. Renal: Acute renal failure likely due to ischemic ATN. Patient will need an additional dialysis session today to remove excess volume. He has a tunneled dialysis catheter on the right upper chest wall. Infectious disease: Patient with extensive cellulitis of the lower extremity. Blood cultures negative. Urine cultures unremarkable. Antibiotics escalated to cefepime today. MRSA screen negative. Continue doxycycline sputum cultures ordered. Hematologic: Mild decrease in hemoglobin. Continue to monitor. Continue heparin infusion at this time. Endocrine: Maintain euglycemia. TSH checked 01/01 within normal limits Lines and tubes: Right tunneled HD catheter placed in the IJ 01/02/2022. Peripheral IVs in place. Rutledge catheter in place. ET tube placed 01/03 VTE prophylaxis: Heparin infusion CODE STATUS: Full code Family at bedside: Not available at bedside currently Disposition: ICU I have personally spent 46 minutes of critical care time in the direct management of this patient. This is a life/limb threatening event. This includes time spent evaluating patient, direct bedside care, chart review, placing orders, interpretation of diagnostic studies, discussion with consultants, patient, and family members, as well as other required patient management activities. This time is exclusive of all separately billable procedures, and teaching time and separate from and in addition to any other critical care service time. Thank you for allowing us to participate in the care of this patient. Admission and Anticipated Discharge Date Admission Date: December 31, 2021 Subjective Patient seen and examined. Remains on Versed, fentanyl and Nimbex. Unresponsive to commands as expected. Hemodynamically stable and not requiring pressors. Remains profoundly hypoxic requiring a PEEP of 14 and FiO2 60%. Review of Systems Review of Systems: Unobtainable due to cognitive status and Unobtainable due to endotracheal tube Physical Exam Constitutional: Intubated and sedated Eyes: PERRL, conjunctivae normal, anicteric sclerae ENMT: Endotracheal tube in place Neck: Neck neck Respiratory: Coarse breath sounds bilaterally. No wheezes. Cardiovascular: Regular rate and rhythm. 2-3+ pitting edema in the lower extremities bilaterally. Gastrointestinal (Abdomen): normal bowel sounds, soft, nontender, no hepatosplenomegaly Musculoskeletal: no cyanosis or clubbing, extremities motor strength 5/5 Skin: Large area of cellulitis noted in the left lower extremity extending from mid thigh to the foot. Neurologic: Unable to assess Psychiatric: Unable to assess Results & Data Results & Data ([facility]) Vital Signs (Past 12 Hours) Vital Signs Temp Pulse Resp BP Pulse Ox 01/04/22 08:25 87 27 H 92 01/04/22 06:11 73 26 H 147/55 H 95 01/04/22 06:06 75 26 H 137/68 95 01/04/22 06:01 73 26 H 135/68 96 01/04/22 06:00 73 26 H 96 01/04/22 05:56 71 26 H 132/68 96 01/04/22 05:51 73 26 H 137/69 95 01/04/22 05:46 70 26 H 134/68 95 01/04/22 05:41 72 26 H 124/64 96 01/04/22 05:36 73 26 H 118/66 95 01/04/22 05:31 70 26 H 131/50 L 96 01/04/22 05:30 71 26 H 96 01/04/22 05:26 72 26 H 125/63 96 01/04/22 05:21 73 26 H 136/48 L 93 01/04/22 05:16 71 26 H 122/62 96 01/04/22 05:11 73 26 H 126/49 L 96 01/04/22 05:06 74 26 H 130/65 92 01/04/22 05:01 75 26 H 127/67 93 01/04/22 05:00 72 26 H 93 01/04/22 04:56 73 26 H 124/63 92 01/04/22 04:51 73 26 H 122/67 93 01/04/22 04:46 75 23 132/50 L 89 L 01/04/22 04:41 76 26 H 126/52 L 89 L 01/04/22 04:36 74 26 H 134/54 L 91 01/04/22 04:31 73 23 136/48 L 93 01/04/22 04:30 71 26 H 94 01/04/22 04:26 72 26 H 130/68 95 01/04/22 04:21 67 26 H 110/57 L 96 01/04/22 04:00 37 C 64 27 H 104/46 L 96 01/04/22 03:56 67 26 H 109/60 96 01/04/22 03:51 67 26 H 118/61 96 01/04/22 03:50 65 26 H 97 01/04/22 03:46 67 26 H 129/64 100 01/04/22 03:41 64 26 H 112/62 97 01/04/22 03:36 65 26 H 109/57 L 97 01/04/22 03:31 64 26 H 110/58 L 97 01/04/22 03:30 64 26 H 97 01/04/22 03:26 65 26 H 108/57 L 97 01/04/22 03:21 66 26 H 110/58 L 97 01/04/22 03:16 66 26 H 107/57 L 97 01/04/22 03:11 66 26 H 106/60 97 01/04/22 03:06 66 26 H 106/57 L 96 01/04/22 03:01 66 26 H 110/57 L 96 01/04/22 03:00 65 26 H 97 01/04/22 02:56 64 26 H 105/58 L 96 01/04/22 02:51 66 26 H 106/55 L 96 01/04/22 02:46 67 26 H 105/57 L 96 01/04/22 02:41 68 26 H 109/57 L 95 01/04/22 02:36 67 26 H 106/57 L 95 01/04/22 02:31 69 26 H 104/52 L 95 01/04/22 02:30 69 26 H 95 01/04/22 02:26 69 26 H 106/45 L 95 01/04/22 02:21 73 26 H 115/53 L 95 01/04/22 02:16 74 26 H 119/50 L 95 01/04/22 02:11 75 26 H 111/45 L 95 01/04/22 02:06 74 26 H 121/64 95 01/04/22 00:11 72 26 H 151/73 H 93 01/04/22 00:06 73 26 H 143/76 H 93 01/04/22 00:01 71 26 H 151/69 H 93 01/04/22 00:00 71 26 H 148/60 H 93 01/03/22 23:56 69 26 H 139/70 93 01/03/22 23:51 68 26 H 137/67 94 01/03/22 23:46 70 26 H 125/69 94 01/03/22 23:41 70 26 H 156/74 H 94 01/03/22 23:36 68 26 H 156/73 H 95 01/03/22 23:31 64 26 H 137/60 96 01/03/22 23:30 64 26 H 96 01/03/22 23:26 69 26 H 104/47 L 96 01/03/22 23:21 67 26 H 95/50 L 96 01/03/22 23:16 68 26 H 99/47 L 96 01/03/22 23:11 38.0 C H 69 26 H 108/47 L 96 01/03/22 23:06 68 26 H 94/53 L 96 01/03/22 23:01 68 26 H 100/58 L 98 01/03/22 23:00 69 26 H 98 01/03/22 22:55 66 26 H 116/62 98 01/03/22 22:50 69 26 H 99/60 L 98 01/03/22 22:46 68 26 H 94/52 L 98 01/03/22 22:41 70 26 H 108/55 L 97 01/03/22 22:36 67 26 H 98/46 L 97 01/03/22 22:31 67 26 H 105/47 L 97 01/03/22 22:30 67 26 H 97 01/03/22 22:26 69 26 H 105/52 L 97 01/03/22 22:21 68 26 H 101/53 L 97 Coding Level of Care Code Critical Care 1st 30-74 mins Diagnoses Acute hypercapnic respiratory failure J96.02 Morbid obesity E66.01 New onset atrial fibrillation I48.91 PRIYANKA (acute kidney injury) N17.9 Hypervolemia E87.70 Time Spent (min) 46
[2022-01-04] MEDS ORDERED: CEFEPIME 2,000 MG in SYRINGE 0 ML IV SCH (09:00)
[2022-01-04] MEDS ORDERED: SODIUM PHOSPHATE 30 MMOL in SODIUM CHLORIDE 0.9% 500 ML IV ONE (09:00)
[2022-01-04] MEDS: ATORVASTATIN 20 MG TAB PO SCH (09:09)
[2022-01-04] MEDS: MIDAZOLAM BOLUS FROM BAG IV PRN ×2 (09:19→10:30)
[2022-01-04] MEDS: POLYETHYLENE (MIRALAX) 17 GM PACK PO SCH (09:23)
[2022-01-04] MEDS: ASPIRIN 81 MG CHEW PO SCH (09:23)
[2022-01-04] MEDS: DOCUSATE SODIUM/SENNA 50/8.6MG TAB PO SCH (09:23)
[2022-01-04] MEDS: PANTOprazole 40 MG in SYRINGE 0 ML IV SCH ×2 (09:45→22:29)
[2022-01-04] MEDS: predniSONE 20 MG TAB PO SCH (09:45)
--- NOTE | 2022-01-04 10:08 | Cardiology Progress Note ---
Date of Service January 04, 2022 Assessment & Plan (1) New onset atrial fibrillation: (2) Sepsis: (3) Hypertension: (4) Morbid obesity with BMI of 60.0-69.9, adult: (5) Hyperkalemia: (6) Hypoxia: (7) PRIYANKA (acute kidney injury): (8) Acute hypercapnic respiratory failure: Plan: Patient admitted for sepsis, hypoxia, cellulitis and developed new onset afib RVR during admission. Converted to NSR on IV amiodarone, then transitioned to oral amiodarone. IV heparin initiated for stroke prophylaxis. Will need to discuss penitentiary anticoagulation prior to discharge. He is not a candidate for DOAC given morbid obesity with BMI close to 70. Unfortunately with fluid resuscitation from sepsis, patient developed worsening respiratory status with hypoxia, hypercapnia and required intubation. He also developed ARF and anuria and now requiring dialysis to aid with fluid removal. Overnight and this morning, worsening hypoxia noted and chest xray with worsening pulm edema. Concerns for pulm toxicity and amiodarone stopped. Currently maintaining NSR. Hold antihypertensives. Remain off lisinopril (due to history of hyperkalemia) Amlodipine discontinued as well due to LE edema and hypotension. Would benefit from alternative antihypertensive if needed. Consider carvedilol vs metoprolol as BP allows in the future. Continue antibiotics per critical care/hospitalist. He had a dobutamine stress echo 2 months ago as an outpatient without acute findings. Repeat echo was ordered and pending. Case discussed with Dr. Zavala. Will follow. Admission and Anticipated Discharge Date Admission Date: December 31, 2021 Supervising Physician Co-Signing Physician Notes Patient seen and examined with Geetha Isbell PA-C. Agree with findings and assessment as above. Patient remains in normal sinus rhythm. Amiodarone was discontinued given worsening chest x-ray. No further antiarrhythmics at this ti me. Subjective Patient sedated and mechanically ventilated. Maintaining NSR. Amiodarone discontinued due to worsening chest x-ray/hypoxia/pulmonary edema and concerns for pulmonary toxicity. Remains on IV heparin. Review of Systems Review of Systems: Unobtainable due to endotracheal tube Physical Exam Constitutional: WD/WN, vitals as above + morbidly obese Neck: + thick neck Respiratory: Auscultation: + rhonchi (coarse breath sounds) Cardiovascular: Rate/Rhythm: regular rate and regular rhythm Heart Sounds: no murmur (No audible murmur. Distant heart sounds) Extremities: + edema (2+ edema b/l with chronic stasis changes, seeping/drainage b/l ) Gastrointestinal (Abdomen): normal bowel sounds, soft, nontender, no hepatosplenomegaly Neurologic: PERRL, EOMI, accommodation nl, no face palsy, no dysarthria Psychiatric: A+Ox3, euthymic affect Results & Data ([facility]) Vital Signs (Past 12 Hours) Vital Signs Temp Pulse Resp BP Pulse Ox 01/04/22 08:25 87 27 H 92 01/04/22 06:11 73 26 H 147/55 H 95 01/04/22 06:06 75 26 H 137/68 95 01/04/22 06:01 73 26 H 135/68 96 01/04/22 06:00 73 26 H 96 01/04/22 05:56 71 26 H 132/68 96 01/04/22 05:51 73 26 H 137/69 95 01/04/22 05:46 70 26 H 134/68 95 01/04/22 05:41 72 26 H 124/64 96 01/04/22 05:36 73 26 H 118/66 95 01/04/22 05:31 70 26 H 131/50 L 96 01/04/22 05:30 71 26 H 96 01/04/22 05:26 72 26 H 125/63 96 01/04/22 05:21 73 26 H 136/48 L 93 01/04/22 05:16 71 26 H 122/62 96 01/04/22 05:11 73 26 H 126/49 L 96 01/04/22 05:06 74 26 H 130/65 92 01/04/22 05:01 75 26 H 127/67 93 01/04/22 05:00 72 26 H 93 01/04/22 04:56 73 26 H 124/63 92 01/04/22 04:51 73 26 H 122/67 93 01/04/22 04:46 75 23 132/50 L 89 L 01/04/22 04:41 76 26 H 126/52 L 89 L 01/04/22 04:36 74 26 H 134/54 L 91 01/04/22 04:31 73 23 136/48 L 93 01/04/22 04:30 71 26 H 94 01/04/22 04:26 72 26 H 130/68 95 01/04/22 04:21 67 26 H 110/57 L 96 01/04/22 04:00 37 C 64 27 H 104/46 L 96 01/04/22 03:56 67 26 H 109/60 96 01/04/22 03:51 67 26 H 118/61 96 01/04/22 03:50 65 26 H 97 01/04/22 03:46 67 26 H 129/64 100 01/04/22 03:41 64 26 H 112/62 97 01/04/22 03:36 65 26 H 109/57 L 97 01/04/22 03:31 64 26 H 110/58 L 97 01/04/22 03:30 64 26 H 97 01/04/22 03:26 65 26 H 108/57 L 97 01/04/22 03:21 66 26 H 110/58 L 97 01/04/22 03:16 66 26 H 107/57 L 97 01/04/22 03:11 66 26 H 106/60 97 01/04/22 03:06 66 26 H 106/57 L 96 01/04/22 03:01 66 26 H 110/57 L 96 01/04/22 03:00 65 26 H 97 01/04/22 02:56 64 26 H 105/58 L 96 01/04/22 02:51 66 26 H 106/55 L 96 01/04/22 02:46 67 26 H 105/57 L 96 01/04/22 02:41 68 26 H 109/57 L 95 01/04/22 02:36 67 26 H 106/57 L 95 01/04/22 02:31 69 26 H 104/52 L 95 01/04/22 02:30 69 26 H 95 01/04/22 02:26 69 26 H 106/45 L 95 01/04/22 02:21 73 26 H 115/53 L 95 01/04/22 02:16 74 26 H 119/50 L 95 01/04/22 02:11 75 26 H 111/45 L 95 01/04/22 02:06 74 26 H 121/64 95 01/04/22 00:11 72 26 H 151/73 H 93 01/04/22 00:06 73 26 H 143/76 H 93 01/04/22 00:01 71 26 H 151/69 H 93 01/04/22 00:00 71 26 H 148/60 H 93 01/03/22 23:56 69 26 H 139/70 93 01/03/22 23:51 68 26 H 137/67 94 01/03/22 23:46 70 26 H 125/69 94 01/03/22 23:41 70 26 H 156/74 H 94 01/03/22 23:36 68 26 H 156/73 H 95 01/03/22 23:31 64 26 H 137/60 96 01/03/22 23:30 64 26 H 96 01/03/22 23:26 69 26 H 104/47 L 96 01/03/22 23:21 67 26 H 95/50 L 96 01/03/22 23:16 68 26 H 99/47 L 96 01/03/22 23:11 38.0 C H 69 26 H 108/47 L 96 01/03/22 23:06 68 26 H 94/53 L 96 01/03/22 23:01 68 26 H 100/58 L 98 01/03/22 23:00 69 26 H 98 01/03/22 22:55 66 26 H 116/62 98 01/03/22 22:50 69 26 H 99/60 L 98 01/03/22 22:46 68 26 H 94/52 L 98 01/03/22 22:41 70 26 H 108/55 L 97 01/03/22 22:36 67 26 H 98/46 L 97 01/03/22 22:31 67 26 H 105/47 L 97 01/03/22 22:30 67 26 H 97 01/03/22 22:26 69 26 H 105/52 L 97 01/03/22 22:21 68 26 H 101/53 L 97 Laboratory Results Coagulation 01/03/22 01/03/22 01/03/22 Range/Units 10:28 15:51 23:10 APTT 31.3 H 38.2 H 48.0 H* (21.0-31.0) Seconds 01/04/22 Range/Units 05:33 APTT 47.6 H* (21.0-31.0) Seconds CBC 01/04/22 Range/Units 05:33 WBC 11.11 H (4.8-10.8) K/uL RBC 3.96 L (4.7-6.1) M/uL Hgb 11.3 L (14.0-18.0) g/dL Hct 36.0 L (42-52) % Plt Count 219 (130-400) K/uL Neut # (Auto) 7.88 H (1.4-6.5) K/uL Lymph # (Auto) 1.62 (1.2-3.4) K/uL Menard # (Auto) 1.09 H (0.11-0.59) K/uL Eos # (Auto) 0.06 (0-0.5) K/uL Baso # (Auto) 0.03 (0-0.2) K/uL Comprehensive Metabolic Panel 01/04/22 Range/Units 05:33 Sodium 135 L (136-145) mmol/L Potassium 3.5 D (3.5-5.1) mmol/L Chloride 100 (98-107) mmol/L Carbon Dioxide 27 (21-32) mmol/L BUN 49 H (6-23) mg/dl Creatinine 1.66 H D (0.6-1.4) mg/dl Glucose 112 H (70-99(Fasting)) mg/dl Calcium 7.9 L (8.5-10.1) mg/dl Intake and Output 01/03/22 01/04/22 01/04/22 22:59 06:59 14:59 Intake Total 998.053 / 2738.459 1201.790 / 2738.459 346.521 / 346.521 Output Total 225 / 400 75 / 400 325 / 325 Balance 773.053 / 2338.459 1126.790 / 2338.459 21.521 / 21.521 Intake: IV 968.053 / 2708.459 1201.790 / 2708.459 316.521 / 316.521 Cisatracurium Besylate 40 mg In 377.486 / 911.226 367.613 / 911.226 120.313 / 120.313 Dextrose 5% 80 ml @ 5 MCG/KG/ MIN 46.125 mls/hr IV .Q2H11M [facility] Rx#:[id number] Doxycycline Hyclate 100 mg In 110 / 220 Dextrose 5% 100 ml @ 55 mls/hr IV Q12H [facility] Rx#:[id number] Heparin Sodium/Dextrose 25,000 371.717 / 955.250 455.25 / 955.250 12 / 12 units In 500 ml @ 2,250 UNITS/ HR 45 mls/hr IV .Q11H7M [facility] Rx# :[id number] Midazolam HCl 125 mg In 250 ml 47.6 / 57.167 80.5 / 80.5 @ 4 MG/HR 8 mls/hr IV .U09H33M [facility] Rx#:[id number] Norepinephrine/D5w 4 mg In 250 0 / 250.000 180.385 / 250.000 ml @ 0.05 MCG/KG/MIN 35.063 mls /hr IV .Q7H8M [facility] Rx#:[id number] cefTRIAXone SODIUM 2,000 mg In 70 / 70 Dextrose 5% 50 ml @ 100 mls/hr IV Q24H [facility] Rx#:[id number] fentaNYL citrate 2,500 mcg In 101.250 / 212.709 88.542 / 212.709 103.708 / 103.708 250 ml @ 150 MCG/HR 15 mls/hr IV .[id number] [facility] Rx#:[id number] Oral 0 / 0 0 / 0 Tube Irrigant 30 / 30 30 / 30 Output: Urine Amount (Catheter) 225 / 400 75 / 400 325 / 325 Rutledge/Indwelling 225 / 400 75 / 400 325 / 325 Other: Weight 183 kg Weight Measurement Method Built in [facility] Diagnostic Findings Telemetry reviewed - Maintaining NSR, no afib. Chest X-Ray 01/04/22 07:00 XR chest 1V portable HISTORY: 56 years-old Male f/u up acute respiratory failure COMPARISON: Chest radiograph 01/03/2022 TECHNIQUE: Portable semiupright AP view of the chest FINDINGS: Endotracheal tube overlies the midline, 3.5 cm superior to the abigail. Right IJ dual-lumen hemodialysis catheter is noted with distal tip not well visualized, likely overlying the distal SVC or right atrium. An enteric tube is present with distal tip extending outside the [id number], likely extending into the stomach. The study is limited secondary to patient body habitus. Cardiomegaly. No pneumothorax identified. Left greater than right layering pleural effusions with pulmonary vascular congestion. There is progressively worsened opacification of the left lung with persistent right basilar predominant opacities. Bones appear grossly intact. IMPRESSION: 1. Lines and tubes as above. 2. Cardiomegaly with pulmonary edema. 3. Left greater than right pleural effusions with progressive volume loss/consolidation of the left lung. ACT 112: Negative or not required by law. The above report was generated using voice recognition software. It may contain grammatical, syntax or spelling errors. Electronically signed by: Simón Woods M.D. 01/04/2022 7:45 AM Medications Administered Current Inpatient Medications Acetaminophen (Acetaminophen 325 Mg Tab) 650 mg PO Q4H PRN PRN Reason: pain/fever Stop: 01/30/22 18:35 Last Admin: 12/31/21 23:49 Dose: 650 mg Documented by: Aspirin (Aspirin 81 Mg Chew) 81 mg PO DAILY [facility] Stop: 02/02/22 10:59 Last Admin: 01/04/22 09:23 Dose: 81 mg Documented by: Atorvastatin Calcium (Atorvastatin 20 Mg Tab) 20 mg PO QAM [facility] Stop: 01/31/22 08:59 Last Admin: 01/04/22 09:09 Dose: 20 mg Documented by: Fentanyl Citrate (Fentanyl Bolus From Bag) 50 mcg IV Q60M PRN PRN Reason: Pain or Agitation Stop: 01/17/22 07:59 Last Admin: 01/04/22 09:19 Dose: 50 mcg Documented by: Finasteride (Finasteride 5 Mg Tab) 5 mg PO QPM [facility] Stop: 01/30/22 20:59 Last Admin: 01/02/22 20:17 Dose: 5 mg Documented by: Heparin Sodium/Dextrose (Heparin Sodium/Dextrose) 25,000 units in 500 mls @ 45 mls/hr IV .Q11H7M [facility]; Protocol Stop: 01/31/22 13:29 Last Titration: 01/04/22 07:04 Dose: 2,250 units/hr, 45 mls/hr Documented by: Midazolam HCl (Versed) 125 mg in 250 mls @ 8 mls/hr IV .[id number] [facility]; Protocol Stop: 02/02/22 07:59 Last Titration: 01/04/22 08:26 Dose: 4 mg/hr, 8 mls/hr Documented by: Fentanyl Citrate (Fentanyl Citrate) 2,500 mcg in 250 mls @ 15 mls/hr IV .[id number] [facility]; Protocol Stop: 01/17/22 07:59 Last Titration: 01/04/22 10:05 Dose: 175 mcg/hr, 17.5 mls/hr Documented by: Cisatracurium Besylate 40 mg/ (Dextrose) 100 mls @ 18.45 mls/hr IV .Q5H26M [facility]; Protocol Stop: 02/02/22 08:44 Last Titration: 01/04/22 09:43 Dose: 2 mcg/kg/min, 18.5 mls/hr Documented by: Norepinephrine Bitartrate (Levophed/D5w) 4 mg in 250 mls @ 35.063 mls/hr IV .Q7H8M [facility]; Protocol Stop: 02/02/22 08:59 Last Admin: 01/04/22 08:59 Dose: Not Given Documented by: Doxycycline Hyclate 100 mg/ (Dextrose) 110 mls @ 55 mls/hr IV Q12H [facility] Stop: 01/09/22 10:59 Last Infusion: 01/04/22 00:37 Dose: Infused Documented by: Cefepime HCl 2,000 mg/ Syringe 20 mls @ 5.5 mls/min IV Q8H [facility]; Protocol Stop: 01/11/22 08:59 Last Admin: 01/04/22 09:07 Dose: 5.5 mls/min Documented by: Sodium Phosphate 30 mmol/ (Sodium Chloride) 510 mls @ 88 mls/hr IV ONE ONE Stop: 01/04/22 14:47 Last Admin: 01/04/22 09:07 Dose: 88 mls/hr Documented by: Pantoprazole Sodium 40 mg/ (Syringe) 10 mls @ 5 mls/min IV BID [facility] Stop: 02/02/22 10:59 Last Admin: 01/04/22 09:45 Dose: 5 mls/min Documented by: Midazolam HCl (Midazolam Bolus From Bag) 2 mg IV Q60M PRN PRN Reason: Sedation Stop: 02/02/22 07:59 Last Admin: 01/04/22 09:19 Dose: 2 mg Documented by: Miscellaneous (Icu Protocol For Hyperglycemia) 1 ea N/A PRN PRN; Protocol PRN Reason: Hyperglycemia Protocol Stop: 01/05/22 06:51 Multi-Ingredient Cream (Artificial Tears Op Oint 3.5 Gm Tube) 1 appln OP Q4H [facility] Stop: 02/02/22 08:44 Last Admin: 01/04/22 09:20 Dose: 1 appln Documented by: Polyethylene Glycol (Polyethylene (Miralax) 17 Gm Pack) 17 gm PO DAILY [facility] Stop: 02/03/22 08:59 Last Admin: 01/04/22 09:23 Dose: 17 gm Documented by: Prednisone (Prednisone 20 Mg Tab) 40 mg PO DAILY [facility] Stop: 02/03/22 08:59 Last Admin: 01/04/22 09:45 Dose: 40 mg Documented by: Senna/Docusate Sodium (Docusate Sodium/Senna 50/8.6mg Tab) 1 tab PO QAM [facility] Stop: 02/03/22 08:59 Last Admin: 01/04/22 09:23 Dose: 1 tab Documented by: Tamsulosin HCl (Tamsulosin Hcl 0.4 Mg Cap) 0.4 mg PO QPM [facility] Stop: 01/30/22 20:59 Last Admin: 01/02/22 20:17 Dose: 0.4 mg Documented by: Vecuronium Jupiter (Vecuronium Jupiter 10 Mg Vial) 6 mg IV Q2H PRN PRN Reason: REFRACTORY HYPOXIA Stop: 02/03/22 09:35
[2022-01-04 10:39] LABS: Troponin I High Sensitivity 9.5 pg/ml (0-20)
[2022-01-04 10:42] LABS: Albumin Level 2.9 gm/dl (3.4-5.0); Bilirubin Direct 0.1 mg/dl (0-0.2); Bilirubin,Total 0.6 mg/dl (0.2-1.0)
[2022-01-04] MEDS: AMIODARONE 200 MG TAB PO SCH (10:43)
[2022-01-04] MEDS: VECURONIUM BROMIDE 10 MG VIAL IV PRN ×2 (11:20→14:29)
[2022-01-04] MEDS: DOXYCYCLINE HYCLATE 100 MG in DEXTROSE 5% 100 ML IV SCH ×2 (11:45→23:10)
[2022-01-04 11:46] LABS: HBSAG NON-REACTIVE (NON-REACTIVE); Hepatitis B Surface Ab, Quant <5 mIU/mL (> OR = 10)
--- NOTE | 2022-01-04 12:54 | Nephrology Progress Note ---
Date of Service January 04, 2022 Assessment & Plan (1) PRIYANKA (acute kidney injury): Plan: Patient with acute renal failure likely due to contrast-induced nephropathy and sepsis. Patient also with the rapid A. fib and hypotension. Patient is anuric. Patient is now intubated on mechanical ventilation. He is off pressors. Patient was dialyzed yesterday for 3 hours and target UF 4 L. Patient is being dialyzed today for 3 hours and target UF 4 L. will assess daily for dialysis (2) Cellulitis of left lower extremity: Plan: Patient is IV antibiotics per ICU team. Renally dose antibiotics for GFR less than 25 mL/min while on dialysis (3) Hypoxia: Plan: Likely multifactorial including volume overload, sepsis and CHF. We will attempt fluid removal with dialysis. Admission and Anticipated Discharge Date Admission Date: December 31, 2021 Subjective Seen for acute renal failure. He remains intubated and unable to give history. Patient was seen and examined while on dialysis. Review of Systems Review of Systems: Unable to obtain due to intubation Physical Exam Physical Exam: General exam: Intubated and sedated, no acute distress HEENT: Pupils are equal and reactive to light Neck: No JVD, neck is supple trachea is midline Respiratory system: wheezing bilaterally. Gastrointestinal: Abdomen is soft, non distended, non tender, bowel sounds are present CVS: Regular rate and rhythm. No murmurs, rubs or gallops Musculoskeletal: No joint or muscle tenderness Extremities: left leg swollen and erythematous, 1+ edema Neuro: Sedated, no tremors, no focal neurological deficits Skin: No rashes Results & Data ([facility]) Vital Signs (Past 12 Hours) Vital Signs Temp Pulse Pulse Resp BP Pulse Ox 01/04/22 12:30 77 139/59 L 01/04/22 12:15 75 139/58 L 01/04/22 12:00 75 126/50 L 01/04/22 11:45 75 119/43 L 01/04/22 11:30 76 135/50 L 01/04/22 11:22 76 197/72 H 01/04/22 11:19 73 26 H 90 01/04/22 11:09 37.1 C 74 01/04/22 08:25 87 27 H 92 01/04/22 06:11 73 26 H 147/55 H 95 01/04/22 06:06 75 26 H 137/68 95 01/04/22 06:01 73 26 H 135/68 96 01/04/22 06:00 73 26 H 96 01/04/22 05:56 71 26 H 132/68 96 01/04/22 05:51 73 26 H 137/69 95 01/04/22 05:46 70 26 H 134/68 95 01/04/22 05:41 72 26 H 124/64 96 01/04/22 05:36 73 26 H 118/66 95 01/04/22 05:31 70 26 H 131/50 L 96 01/04/22 05:30 71 26 H 96 01/04/22 05:26 72 26 H 125/63 96 01/04/22 05:21 73 26 H 136/48 L 93 01/04/22 05:16 71 26 H 122/62 96 01/04/22 05:11 73 26 H 126/49 L 96 01/04/22 05:06 74 26 H 130/65 92 01/04/22 05:01 75 26 H 127/67 93 01/04/22 05:00 72 26 H 93 01/04/22 04:56 73 26 H 124/63 92 01/04/22 04:51 73 26 H 122/67 93 01/04/22 04:46 75 23 132/50 L 89 L 01/04/22 04:41 76 26 H 126/52 L 89 L 01/04/22 04:36 74 26 H 134/54 L 91 01/04/22 04:31 73 23 136/48 L 93 01/04/22 04:30 71 26 H 94 01/04/22 04:26 72 26 H 130/68 95 01/04/22 04:21 67 26 H 110/57 L 96 01/04/22 04:00 37 C 64 27 H 104/46 L 96 01/04/22 03:56 67 26 H 109/60 96 01/04/22 03:51 67 26 H 118/61 96 01/04/22 03:50 65 26 H 97 01/04/22 03:46 67 26 H 129/64 100 01/04/22 03:41 64 26 H 112/62 97 01/04/22 03:36 65 26 H 109/57 L 97 01/04/22 03:31 64 26 H 110/58 L 97 01/04/22 03:30 64 26 H 97 06/24/22 03:26 65 26 H 108/57 L 97 01/04/22 03:21 66 26 H 110/58 L 97 01/04/22 03:16 66 26 H 107/57 L 97 01/04/22 03:11 66 26 H 106/60 97 01/04/22 03:06 66 26 H 106/57 L 96 01/04/22 03:01 66 26 H 110/57 L 96 01/04/22 03:00 65 26 H 97 01/04/22 02:56 64 26 H 105/58 L 96 01/04/22 02:51 66 26 H 106/55 L 96 01/04/22 02:46 67 26 H 105/57 L 96 01/04/22 02:41 68 26 H 109/57 L 95 01/04/22 02:36 67 26 H 106/57 L 95 01/04/22 02:31 69 26 H 104/52 L 95 01/04/22 02:30 69 26 H 95 01/04/22 02:26 69 26 H 106/45 L 95 01/04/22 02:21 73 26 H 115/53 L 95 01/04/22 02:16 74 26 H 119/50 L 95 01/04/22 02:11 75 26 H 111/45 L 95 01/04/22 02:06 74 26 H 121/64 95 Laboratory Results 01/04/22 05:33 01/04/22 01/04/22 01/04/22 05:33 05:33 09:55 WBC 11.11 H RBC 3.96 L MCV 90.9 D MCH 28.5 MCHC 31.4 L RDW Std Deviation 50.7 H RDW Coeff of Azul 15.1 H Plt Count 219 MPV 10.2 Phosphorus 1.5 L* Albumin 2.9 L
[2022-01-04] MEDS: MIDAZOLAM HCL 125 MG/250 ML BAG IV SCH (14:59)
[2022-01-04] MEDS: TUBE FEEDING WATER FLUSH OG SCH ×3 (14:59→23:10)
[2022-01-04] MEDS ORDERED: CEFEPIME 1,000 MG in SYRINGE 0 ML IV SCH (16:00)
[2022-01-04] MEDS ORDERED: AMIODARONE 200 MG TAB PO SCH (17:00)
[2022-01-04] MEDS: CEFEPIME 1,000 MG in SYRINGE 0 ML IV SCH (17:25)
--- NOTE | 2022-01-04 19:29 | Hospitalist Progress Note ---
Date of Service January 04, 2022 Assessment & Plan (1) Acute hypercapnic respiratory failure: Plan: smoker with morbid obesity Upon presentation, patient was 70% on room air, and re 6 L via oxy mask initially CTA chest negative for pulmonary embolism and other acute findings Patient has been complaining of HANSON for the past few months, underwent DSE that was negative for inducible ischemia volume overload after IVF for sepsis resuscitation. Now intubated and in ICU, undergoing hemodialysis for acute hypervolemia. (2) Sepsis: Plan: resuscitated, plan as outlined below. (3) Cellulitis of left lower extremity: Plan: Admit to [facility] with telemetry Patient presenting from home with reports of LLE redness and low-grade fever In the ED, found to have significant erythema extending from the foot up to the mid thigh Meets sepsis criteria with WBC 16 K, tachycardia. Initially he was afebrile, BP stable, normal lactic acid. Procal 1.26 Suspect strep infection given rapid progression of erythema S/p cefepime and Vanco in the ED, Continued improvement on ceftriaxone monotherapy for two days in a row. Overnight became more hypervolemic, kidney function worsened and no needs TDC for temporary dialysis. Doxycycline was added to regimen Cont current abx (4) New onset atrial fibrillation: Plan: Cardiology consulted and started heparin drip and amiodarone. Patient and rapid ventricular response. Small amount of fluid given. Later evaluated and was hypotensive with heart rates into the 120s and 130s. \ Limited on additional fluid we can give because of pulmonary vascular congestion on chest x-ray and persistent hypoxia. digoxin for some heart rate control overnight. heparin drip per cardiology placed on iv amio, now on PO amio Not a candidate for DOAC given morbid obesity. (5) PRIYANKA (acute kidney injury): Plan: pt had contrast adding to current nephropathy, also with possible ATN from sepsis Temporary dialysis started for acute hypervolemia TDC to be placed by vascular on 01/02 with first HD session performed then cont daily sessions under nephrology guidance renally dose meds as needed. Starting to see an increase in urine output today (6) Hypertension: Plan: chronic, controlled, Lisinopril had been discontinued due to hyperkalemia by cardiology, however, was resumed on 12/29 by PCP. Held in setting of PRIYANKA. (7) Sleep apnea: Plan: CPAP as per home settings, currently intubated (8) Morbid obesity with BMI of 60.0-69.9, adult: Plan: BMI 68.9 Follows with [facility] Counseled on the importance of weight loss and quitting smoking. (9) Smoking: Plan: 1ppd smoker, quit on admission. Contemplative phase. Declined nicotine patch. (10) DVT prophylaxis: Plan: heparin drip Full Code Dispo-remains in ICU DO Sarah Geronimo Hospitalist Admission and Anticipated Discharge Date Admission Date: December 31, 2021 Subjective 56 yo M presented [facility] sepsis 2/2 LLE cellulitis Ariella intubated and sedated Weaning off paralytic hemodialysis again this am. Review of Systems Review of Systems: Unable to obtain due to intubation Physical Exam Physical Exam: CONSTITUTIONAL: morbid obesity, vitals as above, intubated, sedated EYES: normal conjunctivae, no scleral icterus ENT: external ear and nose normal, NECK: trachea midline, RESPIRATORY: clear to auscultation bilaterally, no crackles, rales or wheezes, normal respiratory effort CARDIOVASCULAR: regular rate and rhythm, S1 and 2 heard without murmurs, gallops or rubs, no JVD, 1+ pitting edema peripherally, CHEST: inspection of chest was normal GASTROINTESTINAL: , soft, nontender, ND, no guarding MUSCULOSKELETAL: generalized weakness without focal deficit. Head is normocephalic and atraumatic, SKIN: warm and dry, erythema seen in the left lower leg with improvement in cellulitis. Residual erythema thought secondary to pressure from hypervolemia and edema in this area NEUROLOGIC: CN 2-12 grossly intact, no sensory deficit, normal cognition, normal speech, no tremor PSYCHIATRIC: alert cooperative and oriented to person, place and time. Euthymic mood, makes good eye contact, language grossly intact, recent and remote memory grossly intact. Results & Data Results & Data ([facility]) Vital Signs (Past 12 Hours) Vital Signs Temp Pulse Pulse Resp BP BP Pulse Ox 01/04/22 16:00 68 01/04/22 14:28 68 26 H 93 01/04/22 14:25 36.5 C 71 118/57 L 01/04/22 14:00 76 116/51 L 01/04/22 13:30 79 26 H 127/56 L 91 01/04/22 13:15 76 26 H 121/57 L 91 01/04/22 13:00 76 26 H 132/57 L 91 01/04/22 12:45 78 31 H 120/61 88 L 01/04/22 12:30 73 26 H 103/69 92 01/04/22 12:15 74 26 H 117/57 L 93 01/04/22 12:00 75 26 H 108/43 L 89 L 01/04/22 11:45 75 26 H 98/41 L 90 01/04/22 11:31 75 26 H 105/48 L 89 L 01/04/22 11:30 74 26 H 135/50 L 89 L 01/04/22 11:22 76 197/72 H 01/04/22 11:19 73 26 H 90 01/04/22 11:09 37.1 C 74 01/04/22 11:00 66 26 H 88 L 01/04/22 10:51 71 26 H 186/63 H 83 L 01/04/22 10:46 68 26 H 166/73 H 93 01/04/22 10:41 63 26 H 176/68 H 94 01/04/22 10:31 65 26 H 105/56 L 91 01/04/22 10:30 63 26 H 91 01/04/22 10:26 63 26 H 106/57 L 91 01/04/22 10:21 63 26 H 110/61 90 01/04/22 10:16 66 26 H 110/59 L 94 01/04/22 10:11 65 26 H 113/59 L 90 01/04/22 10:06 67 26 H 118/63 90 01/04/22 10:01 67 23 122/61 90 01/04/22 10:00 65 26 H 90 01/04/22 09:56 67 26 H 112/57 L 90 01/04/22 09:51 67 26 H 110/56 L 89 L 01/04/22 09:46 65 26 H 121/61 91 01/04/22 09:41 37.1 C 67 26 H 116/61 92 01/04/22 08:25 87 27 H 92 01/04/22 08:00 77 139/59 L Laboratory Results Short CBC 01/04/22 Range/Units 05:33 WBC 11.11 H (4.8-10.8) K/uL Hgb 11.3 L (14.0-18.0) g/dL Hct 36.0 L (42-52) % Plt Count 219 (130-400) K/uL BMP 01/04/22 05:33 Sodium 135 L Potassium 3.5 D Chloride 100 Carbon Dioxide 27 BUN 49 H Creatinine 1.66 H D Glucose 112 H Calcium 7.9 L Liver Function 01/04/22 Range/Units 09:55 Total Bilirubin 0.6 (0.2-1.0) mg/dl Direct Bilirubin 0.1 (0-0.2) mg/dl AST 12 L (13-39) U/L ALT 28 (7-52) U/L Alkaline Phosphatase 41 (34-104) U/L Albumin 2.9 L (3.4-5.0) gm/dl Diagnostic Findings Chest X-Ray 01/04/22 07:00 XR chest 1V portable HISTORY: 56 years-old Male f/u up acute respiratory failure COMPARISON: Chest radiograph 01/03/2022 TECHNIQUE: Portable semiupright AP view of the chest FINDINGS: Endotracheal tube overlies the midline, 3.5 cm superior to the abigail. Right IJ dual-lumen hemodialysis catheter is noted with distal tip not well visualized, likely overlying the distal SVC or right atrium. An enteric tube is present with distal tip extending outside the [id number], likely extending into the stomach. The study is limited secondary to patient body habitus. Cardiomegaly. No pneumothorax identified. Left greater than right layering pleural effusions with pulmonary vascular congestion. There is progressively worsened opacification of the left lung with persistent right basilar predominant opacities. Bones appear grossly intact. IMPRESSION: 1. Lines and tubes as above. 2. Cardiomegaly with pulmonary edema. 3. Left greater than right pleural effusions with progressive volume loss/consolidation of the left lung. ACT 112: Negative or not required by law. The above report was generated using voice recognition software. It may contain grammatical, syntax or spelling errors. Electronically signed by: Simón Woods M.D. 01/04/2022 7:45 AM Medications Administered Current Inpatient Medications Acetaminophen (Acetaminophen 325 Mg Tab) 650 mg PO Q4H PRN PRN Reason: pain/fever Stop: 01/30/22 18:35 Last Admin: 12/31/21 23:49 Dose: 650 mg Documented by: Aspirin (Aspirin 81 Mg Chew) 81 mg PO DAILY [facility] Stop: 02/02/22 10:59 Last Admin: 01/04/22 09:23 Dose: 81 mg Documented by: Atorvastatin Calcium (Atorvastatin 20 Mg Tab) 20 mg PO QAM [facility] Stop: 01/31/22 08:59 Last Admin: 01/04/22 09:09 Dose: 20 mg Documented by: Fentanyl Citrate (Fentanyl Bolus From Bag) 50 mcg IV Q60M PRN PRN Reason: Pain or Agitation Stop: 01/17/22 07:59 Last Admin: 01/04/22 09:19 Dose: 50 mcg Documented by: Finasteride (Finasteride 5 Mg Tab) 5 mg PO QPM [facility] Stop: 01/30/22 20:59 Last Admin: 01/02/22 20:17 Dose: 5 mg Documented by: Heparin Sodium/Dextrose (Heparin Sodium/Dextrose) 25,000 units in 500 mls @ 45 mls/hr IV .Q11H7M HERMAN; Protocol Stop: 01/31/22 13:29 Last Titration: 01/04/22 19:15 Dose: 2,250 units/hr, 45 mls/hr Documented by: Midazolam HCl (Versed) 125 mg in 250 mls @ 8 mls/hr IV .[id number] [facility]MAN; Protocol Stop: 02/02/22 07:59 Last Titration: 01/04/22 19:15 Dose: 4 mg/hr, 8 mls/hr Documented by: Fentanyl Citrate (Fentanyl Citrate) 2,500 mcg in 250 mls @ 17.5 mls/hr IV .[id number] HERMAN; Protocol Stop: 01/17/22 07:59 Last Titration: 01/04/22 19:15 Dose: 175 mcg/hr, 17.5 mls/hr Documented by: Cisatracurium Besylate 40 mg/ (Dextrose) 100 mls @ 0 mls/hr IV .Q0M HERMAN; Protocol Stop: 02/02/22 08:44 Last Admin: 01/04/22 12:13 Dose: Not Given Documented by: Norepinephrine Bitartrate (Levophed/D5w) 4 mg in 250 mls @ 35.063 mls/hr IV .Q7H8M [facility]; Protocol Stop: 02/02/22 08:59 Last Admin: 01/04/22 13:26 Dose: Not Given Documented by: Doxycycline Hyclate 100 mg/ (Dextrose) 110 mls @ 55 mls/hr IV Q12H [facility] Stop: 01/09/22 10:59 Last Infusion: 01/04/22 14:17 Dose: Infused Documented by: Pantoprazole Sodium 40 mg/ (Syringe) 10 mls @ 5 mls/min IV BID [facility] Stop: 02/02/22 10:59 Last Admin: 01/04/22 09:45 Dose: 5 mls/min Documented by: Cefepime HCl 1,000 mg/ Syringe 11.3 mls @ 5.5 mls/min IV Q24H [facility] Stop: 01/11/22 16:59 Last Admin: 01/04/22 17:25 Dose: 5.5 mls/min Documented by: Midazolam HCl (Midazolam Bolus From Bag) 2 mg IV Q60M PRN PRN Reason: Sedation Stop: 02/02/22 07:59 Last Admin: 01/04/22 10:30 Dose: 2 mg Documented by: Miscellaneous (Icu Protocol For Hyperglycemia) 1 ea N/A PRN PRN; Protocol PRN Reason: Hyperglycemia Protocol Stop: 01/05/22 06:51 Multi-Ingredient Cream (Artificial Tears Op Oint 3.5 Gm Tube) 1 appln OP Q4H [facility] Stop: 02/02/22 08:44 Last Admin: 01/04/22 17:22 Dose: 1 appln Documented by: Nutritional Formula (Peptamen Intense Vhp 1.0 Mark 1,000 Ml Bag) 1,000 ml OG UD [facility]; Protocol Stop: 02/03/22 14:44 Polyethylene Glycol (Polyethylene (Miralax) 17 Gm Pack) 17 gm PO DAILY [facility] Stop: 02/03/22 08:59 Last Admin: 01/04/22 09:23 Dose: 17 gm Documented by: Prednisone (Prednisone 20 Mg Tab) 40 mg PO DAILY [facility] Stop: 02/03/22 08:59 Last Admin: 01/04/22 09:45 Dose: 40 mg Documented by: Senna/Docusate Sodium (Docusate Sodium/Senna 50/8.6mg Tab) 1 tab PO QAM [facility] Stop: 02/03/22 08:59 Last Admin: 01/04/22 09:23 Dose: 1 tab Documented by: Sterile Water (Tube Feeding Water Flush) 30 ml OG Q4H [facility] Stop: 02/03/22 14:44 Last Admin: 01/04/22 17:24 Dose: 30 ml Documented by: Tamsulosin HCl (Tamsulosin Hcl 0.4 Mg Cap) 0.4 mg PO QPM [facility] Stop: 01/30/22 20:59 Last Admin: 01/02/22 20:17 Dose: 0.4 mg Documented by: Vecuronium [place] (Vecuronium [place] 10 Mg Vial) 6 mg IV Q2H PRN PRN Reason: REFRACTORY HYPOXIA Stop: 02/03/22 09:35 Last Admin: 01/04/22 14:29 Dose: 6 mg Documented by:
[2022-01-05] MEDS: ARTIFICIAL TEARS OP OINT 3.5 GM TUBE OP SCH ×6 (01:59→20:23)
[2022-01-05] MEDS: TUBE FEEDING WATER FLUSH OG SCH ×6 (02:45→22:45)
[2022-01-05] MEDS: HEPARIN SODIUM/DEXTROSE 25,000 UNITS/500 ML BAG IV SCH ×5 (04:25→16:38)
[2022-01-05] MEDS: fentaNYL citrate 2,500 MCG/250 ML BAG IV SCH ×3 (04:25→16:38)
[2022-01-05 04:49] LABS: iSTAT Art Bld Gas pCO2 Correct 43 mmHg (35-46); iSTAT Art Bld Gas pH Corrected 7.432 (7.35-7.45); iSTAT Arterial Blood Gas HCO3 29 meg/L (19-24); iSTAT Arterial Blood Gas pCO2 43 mmHg (35-46); iSTAT Arterial Blood Gas pH 7.43 (7.35-7.45); iSTAT Arterial Blood Gas pO2 71 mmHg (80-95); iSTAT Arterial Blood Gas pO2 C 71; iSTAT Carbon Dioxide 30 mmol/L (24-31); iSTAT FiO2 70 %; iSTAT Hematocrit 33 % (42-52); iSTAT Hemoglobin 11.2 g/dl (14.0-18.0); iSTAT Potassium 3.9 mmol/L (3.3-5.0); iSTAT Site Art Line; iSTAT Sodium 134 mmol/L (135-144)
[2022-01-05 05:26] LABS: Hematocrit (blood only) 34.9 % (42-52); Mean Corpuscular Hemoglobin 28.4 pg (25-34); Mean Corpuscular Hgb Conc 31.5 g/dL (32-36); Mean Corpuscular Volume 90.2 fL (80-100); Mean Platelet Volume 10.1 fL (7.4-10.4); Platelet Count 229 K/uL (130-400); RDW Coefficient of Variation 15.3 % (11.5-14.5); RDW Standard Deviation 50.3 fL (36.4-46.3); Red Blood Count 3.87 M/uL (4.7-6.1); White Blood Count 10.35 K/uL (4.8-10.8)
[2022-01-05 05:54] LABS: BUN Creatinine Ratio 29.9 (10-20); Calcium 7.9 mg/dl (8.5-10.1); Creatinine Clr Calc Pharmacy 85.4 ml/min; Est GFR (African American) 60.5 ml/min; Est GFR (Non-African American) 52.2 ml/min; Phosphorus 2.9 mg/dl (2.5-4.9); Potassium 3.8 mmol/L (3.5-5.1)
[2022-01-05 06:19] LABS: Basophils # (auto) 0.02 K/uL (0-0.2); Basophils % (auto) 0.2 %; Eosinophils # (auto) 0.03 K/uL (0-0.5); Eosinophils % (auto) 0.3 %; Immature Granulocytes # (auto) 0.68 K/uL (0.00-0.02); Immature Granulocytes % (auto) 6.6 %; Lymphocytes # (auto) 1.34 K/uL (1.2-3.4); Lymphocytes % (auto) 12.9 %; Monocytes % (auto) 8.7 %; Neutrophils # (auto) 7.38 K/uL (1.4-6.5); Neutrophils % (auto) 71.3 %
[2022-01-05] MEDS: NOREPINEPHRINE/D5W 4 MG/250 ML PLCT IV SCH ×3 (06:28→17:46)
--- NOTE | 2022-01-05 07:34 | XRay Report ---
XR chest 1V portable HISTORY: 56 years-old Male f/u up acute respiratory failure COMPARISON: 01/04/2022 TECHNIQUE: Portable AP view of the chest FINDINGS: Cardiac silhouette is enlarged. Endotracheal tube overlies the midline, 2.6 cm superior to the abigail . Unchanged positioning of the right IJ central venous catheter. Enteric tube courses below the diaph ragm with distal tip outside the [id number]. The study is limited secondary to patient body habitu s and technique. There is progressive now complete opacification of the left hemithorax with associat ed volume loss and mild leftward shift. There is improved aeration of the right lung with persistent right basilar opacities and possible small right pleural effusion. The bones appear grossly intact. IMPRESSION: 1. Lines and tubes as above. 2. Progressive now complete opacification of the left hemithorax. 3. Improved aeration of the right lung. ACT 112: Negative or not required by law. The above report was generated using voice recognition software. It may contain grammatical, syntax o r spelling errors. Electronically signed by: Simón Woods M.D. 01/05/2022 7:33 AM
[2022-01-05] MEDS: VECURONIUM BROMIDE 10 MG VIAL IV PRN (07:42)
[2022-01-05] MEDS: MIDAZOLAM HCL 125 MG/250 ML BAG IV SCH ×2 (07:43→16:38)
[2022-01-05 07:46] LABS: Partial Thromboplastin Ratio 2.3
[2022-01-05 07:48] LABS: Partial Thromboplastin Time 63.9 Seconds (21.0-31.0)
[2022-01-05] MEDS ORDERED: Nursing to Pharmacy Communication SCH ×2 (08:00→09:15)
--- NOTE | 2022-01-05 08:42 | Procedure Note ---
Procedure Note: Bronchoscopy Procedure Consent was obtained from the patient's over the phone as the patient is currently sedated and sedated and not able to give consent. She understands the benefits and the risks of the procedure. She wished for us to proceed. The chest x-ray was reviewed which demonstrated a left lung white out with mucous plugging. The patient was preoxygenated with 100% oxygen. The bronchoscope was inserted via the endotracheal tube. Yi appeared sharp. No obvious endobronchial lesions noted. Bilateral tracheobronchial tree inspection was performed. Thick white impacted secretions were noted emanating from the left mainstem bronchus. These were aspirated clear. I performed a washout of the left lower lobe with 60 cc of saline. Proximately 30 cc of fluid aspirated back and this will be sent to the lab for culture and analysis. Patient tolerated the procedure well. The scope was then withdrawn. Recommendations: Follow cultures from the [facility] [place]. Follow cell counts and cytology. [facility] Procedure Codes (Charges) Pulmonary/Thoracic Procedure 1: Pulmonary and Thoracic: 10799 Dx bronchoscopy/wash
--- NOTE | 2022-01-05 08:48 | Critical Care Progress Note ---
Date of Service January 05, 2022 Assessment & Plan (1) Acute hypercapnic respiratory failure: (2) Morbid obesity: (3) New onset atrial fibrillation: (4) PRIYANKA (acute kidney injury): (5) Hypervolemia: Plan: 56-year-old with a past medical history of morbid obesity, hypertension, SARAH on CPAP abuse presenting to the hospital due to sepsis, cellulitis now presenting to the ICU due to acute hypoxemic and hypercapnic respiratory failure. Neurologic: Continue Versed and fentanyl to maintain RASS of -1. Continue every 2 hours as needed vecuronium for ventilator dyssynchrony. Pulmonary: Patient presenting with ARDS. We will continue lung protective strategy. There is a significant element of CHF/volume overload. Patient with also significant atelectasis with right hemidiaphragm elevation which is causing intrapulmonary shunt. We will discontinue amiodarone due to concerns of pulmonary toxicity. Continue prednisone 40 mg daily. Chest x-ray today reviewed with extensive mucus plugging and atelectasis of the left lung. Patient is post bronchoscopy with aspiration of mucous plugs. Repeat chest x-ray pending. Bronchial wash sample sent for culture, cytology and cell counts. Cardiovascular: Maintain mean arterial pressures above 65 mmHg. Hold antihypertensives. Currently on heparin infusion due to atrial fibrillation earlier this admission. Amiodarone discontinued due to concerns of pulmonary toxicity. Echo was a limited study but LVEF was normal. Right ventricular systolic function normal as well. Troponin not elevated. Gastrointestinal: NPO. OG tube placed. Continue pantoprazole. Continue docusate, senna and MiraLAX daily. LFTs unremarkable. Renal: Acute renal failure likely due to ischemic ATN improved with dialysis. Nephrology on board and assisting with dialysis sessions. Infectious disease: Patient with extensive cellulitis of the lower extremity. Blood cultures negative. Urine cultures unremarkable. Antibiotics escalated to cefepime 01/04. MRSA screen negative. Continue doxycycline. Bronchoscopy culture sent. Hematologic: Mild decrease in hemoglobin. Continue to monitor. Continue heparin infusion at this time. Endocrine: Maintain euglycemia. TSH checked 01/01 within normal limits Lines and tubes: Right tunneled HD catheter placed in the IJ 01/02/2022. Peripheral IVs in place. Rutledge catheter in place. ET tube placed 01/03 VTE prophylaxis: Heparin infusion CODE STATUS: Full code Family at bedside: Updated over the phone today. Disposition: ICU I have personally spent 51 minutes of critical care time in the direct management of this patient. This is a life/limb threatening event. This includes time spent evaluating patient, direct bedside care, chart review, placing orders, interpretation of diagnostic studies, discussion with consultants, patient, and family members, as well as other required patient management activities. This time is exclusive of all separately billable procedures, and teaching time and separate from and in addition to any other critical care service time. Thank you for allowing us to participate in the care of this patient. Admission and Anticipated Discharge Date Admission Date: December 31, 2021 Subjective Patient seen and examined. He remains on Versed and fentanyl. He is received. Doses of meconium overnight. Review of Systems Review of Systems: Unobtainable due to cognitive status and Unobtainable due to endotracheal tube Physical Exam Constitutional: Intubated and sedated Eyes: PERRL, conjunctivae normal, anicteric sclerae ENMT: Endotracheal tube in place Neck: Neck neck Respiratory: Coarse breath sounds bilaterally. No wheezes. Cardiovascular: Regular rate and rhythm. 2-3+ pitting edema in the lower extremities bilaterally. Gastrointestinal (Abdomen): normal bowel sounds, soft, nontender, no hepatosplenomegaly Musculoskeletal: no cyanosis or clubbing, extremities motor strength 5/5 Skin: Large area of cellulitis noted in the left lower extremity extending from mid thigh to the foot. Neurologic: Unable to assess Psychiatric: Unable to assess Results & Data Results & Data ([facility]) Vital Signs (Past 12 Hours) Vital Signs Pulse Resp BP Pulse Ox 01/05/22 04:00 95/48 L 01/05/22 03:35 51 L 26 H 95 01/05/22 03:01 52 L 27 H 118/53 L 98 01/05/22 03:00 52 L 28 H 99 01/05/22 02:45 52 L 26 H 107/50 L 96 01/05/22 02:30 53 L 26 H 107/47 L 97 01/05/22 02:15 52 L 23 103/51 L 97 01/05/22 02:00 54 L 23 101/46 L 93 01/05/22 01:45 52 L 23 102/48 L 95 01/05/22 01:30 53 L 23 103/47 L 96 01/05/22 01:15 53 L 23 104/49 L 95 01/05/22 01:00 54 L 26 H 108/50 L 97 01/05/22 00:45 52 L 26 H 107/47 L 96 01/05/22 00:30 54 L 26 H 107/49 L 95 01/05/22 00:15 54 L 26 H 106/50 L 94 01/05/22 00:00 55 L 26 H 106/48 L 94 01/04/22 23:45 56 L 23 108/49 L 94 01/04/22 23:30 55 L 26 H 110/49 L 95 01/04/22 23:15 55 L 26 H 111/49 L 96 01/04/22 23:00 56 L 21 109/50 L 94 01/04/22 22:31 49 L 26 H 142/64 H 95 01/04/22 22:15 57 L 23 113/52 L 92 01/04/22 22:00 58 L 28 H 114/50 L 95 01/04/22 21:45 61 26 H 113/50 L 93 01/04/22 21:30 61 26 H 120/51 L 95 01/04/22 21:15 62 26 H 119/49 L 94 01/04/22 21:00 61 26 H 117/50 L 93 01/04/22 20:46 63 26 H 88 L Coding Level of Care Code Critical Care 1st 30-74 mins Diagnoses Acute hypercapnic respiratory failure J96.02 Morbid obesity E66.01 New onset atrial fibrillation I48.91 PRIYANKA (acute kidney injury) N17.9 Hypervolemia E87.70 Time Spent (min) 51
--- NOTE | 2022-01-05 09:22 | XRay Report ---
XR chest 1V portable HISTORY: 56 years-old Male post brocnh acute shortness of breath COMPARISON: Chest radiograph of same day at 6:39 AM TECHNIQUE: Portable AP view of the chest FINDINGS: Endotracheal tube overlies the midline, 3.1 cm superior to the abigail. Enteric tube courses below the diaphragm, distal tip not well-visualized. Study is limited secondary to patient body habitus. Azygo s lobe and fissure. Pulmonary vascular congestion. Trace right pleural effusion with right basilar op acities. Near complete opacification of left hemithorax with mildly improved aeration of the left upp er lung. The bones appear grossly intact. IMPRESSION: 1. Endotracheal and enteric tube placement as above. No pneumothorax. 2. Partial opacification of the left hemithorax with mildly improved aeration of the left upper lung. 3. Cardiomegaly with pulmonary vascular congestion. 4. Probable small right pleural effusion with right basilar opacities. ACT 112: Negative or not required by law. The above report was generated using voice recognition software. It may contain grammatical, syntax o r spelling errors. Electronically signed by: Simón Woods M.D. 01/05/2022 9:21 AM
[2022-01-05] MEDS: PANTOprazole 40 MG in SYRINGE 0 ML IV SCH ×2 (09:35→20:23)
[2022-01-05] MEDS: ATORVASTATIN 20 MG TAB PO SCH (09:36)
[2022-01-05] MEDS: DOCUSATE SODIUM/SENNA 50/8.6MG TAB PO SCH (09:36)
[2022-01-05] MEDS: POLYETHYLENE (MIRALAX) 17 GM PACK PO SCH (09:37)
[2022-01-05] MEDS: ASPIRIN 81 MG CHEW PO SCH (09:37)
[2022-01-05] MEDS: predniSONE 20 MG TAB PO SCH (09:37)
--- NOTE | 2022-01-05 09:48 | Nephrology Progress Note ---
Date of Service January 05, 2022 Assessment & Plan (1) PRIYANKA (acute kidney injury): Plan: Patient with acute renal failure likely due to contrast-induced nephropathy and sepsis. Patient also with the rapid A. fib and hypotension. Patient is anuric. Patient is now intubated on mechanical ventilation. He is off pressors. Patient was dialyzed yesterday for 3 hours and target UF 4 L. Electrolytes are stable and no indication for dialysis today. -Monitor renal function with daily BMP -Next dialysis likely Friday if no significant urine output (2) Cellulitis of left lower extremity: Plan: Patient is IV antibiotics per ICU team. Renally dose antibiotics for GFR less than 25 mL/min while on dialysis (3) Hypoxia: Plan: Likely multifactorial including volume overload, sepsis and CHF. We will attempt fluid removal with dialysis. Admission and Anticipated Discharge Date Admission Date: December 31, 2021 Subjective Seen for acute renal failure requiring dialysis. Patient remains intubated and unable to give history. He is now making urine. Blood pressure is soft. Review of Systems Review of Systems: Unable to obtain due to intubation Physical Exam Physical Exam: General exam: Intubated and sedated, no acute distress HEENT: Pupils are equal and reactive to light Neck: No JVD, neck is supple trachea is midline Respiratory system: wheezing bilaterally. Gastrointestinal: Abdomen is soft, non distended, non tender, bowel sounds are present CVS: Regular rate and rhythm. No murmurs, rubs or gallops Musculoskeletal: No joint or muscle tenderness Extremities: left leg swollen and erythematous, 1+ edema Neuro: Sedated, no tremors, no focal neurological deficits Skin: No rashes Results & Data ([facility]) Vital Signs (Past 12 Hours) Vital Signs Pulse Resp BP Pulse Ox 01/05/22 04:00 95/48 L 01/05/22 03:35 51 L 26 H 95 01/05/22 03:01 52 L 27 H 118/53 L 98 01/05/22 03:00 52 L 28 H 99 01/05/22 02:45 52 L 26 H 107/50 L 96 01/05/22 02:30 53 L 26 H 107/47 L 97 01/05/22 02:15 52 L 23 103/51 L 97 01/05/22 02:00 54 L 23 101/46 L 93 01/05/22 01:45 52 L 23 102/48 L 95 01/05/22 01:30 53 L 23 103/47 L 96 01/05/22 01:15 53 L 23 104/49 L 95 01/05/22 01:00 54 L 26 H 108/50 L 97 01/05/22 00:45 52 L 26 H 107/47 L 96 01/05/22 00:30 54 L 26 H 107/49 L 95 01/05/22 00:15 54 L 26 H 106/50 L 94 01/05/22 00:00 55 L 26 H 106/48 L 94 01/04/22 23:45 56 L 23 108/49 L 94 01/04/22 23:30 55 L 26 H 110/49 L 95 01/04/22 23:15 55 L 26 H 111/49 L 96 01/04/22 23:00 56 L 21 109/50 L 94 01/04/22 22:31 49 L 26 H 142/64 H 95 01/04/22 22:15 57 L 23 113/52 L 92 01/04/22 22:00 58 L 28 H 114/50 L 95 01/04/22 21:45 61 26 H 113/50 L 93 Laboratory Results 01/05/22 05:10 01/04/22 01/05/22 01/05/22 09:55 05:10 05:10 WBC 10.35 RBC 3.87 L MCV 90.2 MCH 28.4 MCHC 31.5 L RDW Std Deviation 50.3 H RDW Coeff of Azul 15.3 H Plt Count 229 MPV 10.1 Phosphorus 2.9 D Albumin 2.9 L
[2022-01-05] MEDS: DOXYCYCLINE HYCLATE 100 MG in DEXTROSE 5% 100 ML IV SCH ×2 (11:56→23:49)
[2022-01-05] MEDS: CEFEPIME 1,000 MG in SYRINGE 0 ML IV SCH (16:46)
[2022-01-05 17:10] LABS: Basophil Body Fluid Man 1 %; Eosinophil Body Fluid Man 3 %; Fluid Mono/Macrophage 20 %; Lymphocyte Body Fluid Man 12 %; Neutrophil Body Fluid Man 64 %
[2022-01-05 17:52] LABS: iSTAT Arterial Blood Gas HCO3 32 meg/L (19-24); iSTAT Arterial Blood Gas pCO2 54 mmHg (35-46); iSTAT Arterial Blood Gas pH 7.38 (7.35-7.45); iSTAT Arterial Blood Gas pO2 61 mmHg (80-95); iSTAT Carbon Dioxide 34 mmol/L (24-31); iSTAT FiO2 70 %; iSTAT Site Art Line
--- NOTE | 2022-01-05 20:06 | Hospitalist Progress Note ---
Date of Service January 05, 2022 Assessment & Plan (1) Acute hypercapnic respiratory failure: Plan: smoker with morbid obesity Upon presentation, patient was 70% on room air, and re 6 L via oxy mask initially suspected obesity hypoventilation syndrome. CTA chest negative for pulmonary embolism and other acute findings Patient has been complaining of HANSON for the past few months, underwent dobutamine stress echo that was negative for inducible ischemia volume overload after IVF for sepsis resuscitation. Now intubated and in ICU, undergoing hemodialysis for acute hypervolemia. Worsened CXR today, suspect ARDS development. Amio stopped out of concern for pulmonary toxicity. Cont mech ventilation post bronch this am and repeat cxr in am. (2) Sepsis: Plan: resuscitated, plan as outlined below. remains critically ill in the icu. (3) Cellulitis of left lower extremity: Plan: cont abx, worsened blistering and drainage after compression stockings applied. There is alot of third spacing in this leg. Cont abx and supportive care. (4) New onset atrial fibrillation: Plan: Cardiology consulted and started heparin drip and amiodarone. Patient and rapid ventricular response. Small amount of fluid given. Later evaluated and was hypotensive with heart rates into the 120s and 130s. \ Limited on additional fluid we can give because of pulmonary vascular congestion on chest x-ray and persistent hypoxia. digoxin for some heart rate control overnight. heparin drip per cardiology placed on iv amio, then transitioned to PO amio which was stopped 01/05 Not a candidate for DOAC given morbid obesity. (5) PRIYANKA (acute kidney injury): Plan: pt had contrast adding to current nephropathy, also with possible ATN from sepsis Temporary dialysis started for acute hypervolemia TDC to be placed by vascular on 01/02 with first HD session performed then cont daily sessions under nephrology guidance renally dose meds as needed. No HD today and renal function is improving. Management per nephrology (6) Hypertension: Plan: chronic, controlled, Lisinopril had been discontinued due to hyperkalemia by cardiology, however, was resumed on 12/29 by PCP. Held in setting of PRIYANKA. (7) Sleep apnea: Plan: CPAP as per home settings, currently intubated (8) Morbid obesity with BMI of 60.0-69.9, adult: Plan: BMI 68.9 Follows with [facility] nutrition and weight management Counseled on the importance of weight loss and quitting smoking. (9) Smoking: Plan: 1 ppd smoker, quit on admission. Contemplative phase. Declined nicotine patch. (10) DVT prophylaxis: Plan: heparin drip Full Code Dispo-remains in ICU DO Sarah Geronimo Hospitalist Admission and Anticipated Discharge Date Admission Date: December 31, 2021 Subjective 56 yo M presented wtih sepsis 2/2 LLE cellulitis remains intubated and sedated bronch this am with worsened CXR appearance and ARDS amiodarone was stopped 2/2 pulmonary toxicity no HD today good urine output. at bedside and discussed care plan with her. Review of Systems Review of Systems: Unobtainable due to cognitive status and Unobtainable due to endotracheal tube Physical Exam Physical Exam: CONSTITUTIONAL: morbid obesity, vitals as above, intubated, sedated EYES: normal conjunctivae, no scleral icterus ENT: external ear and nose normal, NECK: trachea midline, RESPIRATORY: clear to auscultation bilaterally, no crackles, rales or wheezes, normal respiratory effort CARDIOVASCULAR: regular rate and rhythm, S1 and 2 heard without murmurs, gallops or rubs, no JVD, 1+ pitting edema peripherally, CHEST: inspection of chest was normal GASTROINTESTINAL: , soft, nontender, ND, no guarding MUSCULOSKELETAL: sedated and cannot assess. Head is normocephalic and atraumatic, SKIN: warm and dry, erythema seen in the left lower leg with improvement in cellulitis. Residual erythema thought secondary to pressure from hypervolemia and edema in this area. There is now some superficial blistering of the skin on the posterior calf and drainage of serous fluid from the lower leg generally. NEUROLOGIC: sedated and cannot assess. Results & Data Results & Data ([facility]) Vital Signs (Past 12 Hours) Vital Signs Pulse Resp Pulse Ox 01/05/22 15:00 58 L 26 H 92 01/05/22 13:00 59 L 26 H 91 01/05/22 12:30 60 26 H 90 01/05/22 12:00 59 L 26 H 73 L 01/05/22 11:30 60 21 92 01/05/22 11:20 59 L 27 H 94 01/05/22 11:00 59 L 26 H 94 01/05/22 10:30 63 26 H 92 01/05/22 10:00 70 26 H 89 L 01/05/22 09:30 74 26 H 75 L 01/05/22 09:00 70 26 H 87 L 01/05/22 08:30 78 23 84 L Laboratory Results Short CBC 01/05/22 Range/Units 05:10 WBC 10.35 (4.8-10.8) K/uL Hgb 11.0 L (14.0-18.0) g/dL Hct 34.9 L (42-52) % Plt Count 229 (130-400) K/uL BMP 01/05/22 05:10 Sodium 133 L Potassium 3.8 Chloride 100 Carbon Dioxide 26 BUN 44 H Creatinine 1.47 H Glucose 114 H Calcium 7.9 L Medications Administered Current Inpatient Medications Acetaminophen (Acetaminophen 325 Mg Tab) 650 mg PO Q4H PRN PRN Reason: pain/fever Stop: 01/30/22 18:35 Last Admin: 12/31/21 23:49 Dose: 650 mg Documented by: Aspirin (Aspirin 81 Mg Chew) 81 mg PO DAILY [facility] Stop: 02/02/22 10:59 Last Admin: 01/05/22 09:37 Dose: 81 mg Documented by: Atorvastatin Calcium (Atorvastatin 20 Mg Tab) 20 mg PO QAM [facility] Stop: 01/31/22 08:59 Last Admin: 01/05/22 09:36 Dose: 20 mg Documented by: Fentanyl Citrate (Fentanyl Bolus From Bag) 50 mcg IV Q60M PRN PRN Reason: Pain or Agitation Stop: 01/17/22 07:59 Last Admin: 01/04/22 09:19 Dose: 50 mcg Documented by: Finasteride (Finasteride 5 Mg Tab) 5 mg PO QPM [facility] Stop: 01/30/22 20:59 Last Admin: 01/02/22 20:17 Dose: 5 mg Documented by: Heparin Sodium/Dextrose (Heparin Sodium/Dextrose) 25,000 units in 500 mls @ 45 mls/hr IV .Q11H7M [facility]; Protocol Stop: 01/31/22 13:29 Last Titration: 01/05/22 19:12 Dose: 2,250 units/hr, 45 mls/hr Documented by: Midazolam HCl (Versed) 125 mg in 250 mls @ 8 mls/hr IV .[id number] [facility]; Protocol Stop: 02/02/22 07:59 Last Titration: 01/05/22 19:12 Dose: 4 mg/hr, 8 mls/hr Documented by: Fentanyl Citrate (Fentanyl Citrate) 2,500 mcg in 250 mls @ 17.5 mls/hr IV .[id number] [facility]; Protocol Stop: 01/17/22 07:59 Last Titration: 01/05/22 19:12 Dose: 175 mcg/hr, 17.5 mls/hr Documented by: Cisatracurium Besylate 40 mg/ (Dextrose) 100 mls @ 0 mls/hr IV .Q0M [facility]; Protocol Stop: 02/02/22 08:44 Last Admin: 01/04/22 12:13 Dose: Not Given Documented by: Norepinephrine Bitartrate (Levophed/D5w) 4 mg in 250 mls @ 35.063 mls/hr IV .Q7H8M [facility]; Protocol Stop: 02/02/22 08:59 Last Admin: 01/05/22 17:46 Dose: Not Given Documented by: Doxycycline Hyclate 100 mg/ (Dextrose) 110 mls @ 55 mls/hr IV Q12H [facility] Stop: 01/09/22 10:59 Last Infusion: 01/05/22 14:01 Dose: Infused Documented by: Pantoprazole Sodium 40 mg/ (Syringe) 10 mls @ 5 mls/min IV BID [facility] Stop: 02/02/22 10:59 Last Admin: 01/05/22 20:23 Dose: 5 mls/min Documented by: Cefepime HCl 1,000 mg/ Syringe 11.3 mls @ 5.5 mls/min IV Q24H [facility]; Protocol Stop: 01/11/22 16:59 Last Admin: 01/05/22 16:46 Dose: 5.5 mls/min Documented by: Midazolam HCl (Midazolam Bolus From Bag) 2 mg IV Q60M PRN PRN Reason: Sedation Stop: 02/02/22 07:59 Last Admin: 01/04/22 10:30 Dose: 2 mg Documented by: Multi-Ingredient Cream (Artificial Tears Op Oint 3.5 Gm Tube) 1 appln OP Q4H [facility] Stop: 02/02/22 08:44 Last Admin: 01/05/22 20:23 Dose: 1 appln Documented by: Nutritional Formula (Peptamen Intense Vhp 1.0 Mark 1,000 Ml Bag) 1,000 ml OG UD [facility]; Protocol Stop: 02/03/22 14:44 Polyethylene Glycol (Polyethylene (Miralax) 17 Gm Pack) 17 gm PO DAILY [facility] Stop: 02/03/22 08:59 Last Admin: 01/05/22 09:37 Dose: 17 gm Documented by: Prednisone (Prednisone 20 Mg Tab) 40 mg PO DAILY [facility] Stop: 02/03/22 08:59 Last Admin: 01/05/22 09:37 Dose: 40 mg Documented by: Senna/Docusate Sodium (Docusate Sodium/Senna 50/8.6mg Tab) 1 tab PO QAM [facility] Stop: 02/03/22 08:59 Last Admin: 01/05/22 09:36 Dose: 1 tab Documented by: Sterile Water (Tube Feeding Water Flush) 30 ml OG Q4H [facility] Stop: 02/03/22 14:44 Last Admin: 01/05/22 20:22 Dose: 30 ml Documented by: Tamsulosin HCl (Tamsulosin Hcl 0.4 Mg Cap) 0.4 mg PO QPM [facility] Stop: 01/30/22 20:59 Last Admin: 01/02/22 20:17 Dose: 0.4 mg Documented by: Vecuronium [place] (Vecuronium [place] 10 Mg Vial) 6 mg IV Q2H PRN PRN Reason: REFRACTORY HYPOXIA Stop: 02/03/22 09:35 Last Admin: 01/05/22 07:42 Dose: 10 mg Documented by:
[2022-01-06] MEDS: TUBE FEEDING WATER FLUSH OG SCH ×6 (02:45→23:50)
[2022-01-06] MEDS: fentaNYL citrate 2,500 MCG/250 ML BAG IV SCH ×2 (04:20→16:02)
[2022-01-06] MEDS: ARTIFICIAL TEARS OP OINT 3.5 GM TUBE OP SCH ×6 (04:21→21:47)
[2022-01-06] MEDS: HEPARIN SODIUM/DEXTROSE 25,000 UNITS/500 ML BAG IV SCH ×4 (04:21→17:17)
[2022-01-06] MEDS: NOREPINEPHRINE/D5W 4 MG/250 ML PLCT IV SCH ×4 (04:22→23:50)
[2022-01-06 05:41] LABS: Hematocrit (blood only) 35.9 % (42-52); Hemoglobin 11.4 g/dL (14.0-18.0); Mean Corpuscular Hemoglobin 29.6 pg (25-34); Mean Corpuscular Hgb Conc 31.8 g/dL (32-36); Mean Corpuscular Volume 93.2 fL (80-100); Mean Platelet Volume 10.6 fL (7.4-10.4); Platelet Count 251 K/uL (130-400); RDW Coefficient of Variation 15.3 % (11.5-14.5); RDW Standard Deviation 51.7 fL (36.4-46.3); Red Blood Count 3.85 M/uL (4.7-6.1); White Blood Count 9.21 K/uL (4.8-10.8)
[2022-01-06 05:48] LABS: BUN Creatinine Ratio 34.6 (10-20); Calcium 8.6 mg/dl (8.5-10.1); Creatinine Clr Calc Pharmacy 96.8 ml/min; Est GFR (African American) 68.3 ml/min; Est GFR (Non-African American) 58.9 ml/min; Magnesium 2.4 mg/dl (1.7-2.4); Phosphorus 3.6 mg/dl (2.5-4.9); Potassium 4.1 mmol/L (3.5-5.1)
[2022-01-06 05:55] LABS: Partial Thromboplastin Ratio 2.7
[2022-01-06 06:10] LABS: Partial Thromboplastin Time 74.8 Seconds (21.0-31.0)
[2022-01-06 06:11] LABS: Basophils # (auto) 0.02 K/uL (0-0.2); Basophils % (auto) 0.2 %; Eosinophils # (auto) 0.06 K/uL (0-0.5); Eosinophils % (auto) 0.7 %; Immature Granulocytes # (auto) 0.69 K/uL (0.00-0.02); Immature Granulocytes % (auto) 7.5 %; Lymphocytes # (auto) 1.41 K/uL (1.2-3.4); Lymphocytes % (auto) 15.3 %; Monocytes # (auto) 0.81 K/uL (0.11-0.59); Monocytes % (auto) 8.8 %; Neutrophils # (auto) 6.22 K/uL (1.4-6.5); Neutrophils % (auto) 67.5 %
[2022-01-06 06:16] LABS: iSTAT Allen Test Pass; iSTAT Art Bld Gas pCO2 Correct 52 mmHg (35-46); iSTAT Art Bld Gas pH Corrected 7.365 (7.35-7.45); iSTAT Arterial Blood Gas HCO3 30 meg/L (19-24); iSTAT Arterial Blood Gas pCO2 52 mmHg (35-46); iSTAT Arterial Blood Gas pH 7.37 (7.35-7.45); iSTAT Arterial Blood Gas pO2 67 mmHg (80-95); iSTAT Arterial Blood Gas pO2 C 67; iSTAT Carbon Dioxide 31 mmol/L (24-31); iSTAT FiO2 70 %; iSTAT Hematocrit 35 % (42-52); iSTAT Hemoglobin 11.9 g/dl (14.0-18.0); iSTAT Potassium 4.1 mmol/L (3.3-5.0); iSTAT Site L Radial; iSTAT Sodium 135 mmol/L (135-144)
[2022-01-06] MEDS: DOCUSATE SODIUM/SENNA 50/8.6MG TAB PO SCH (07:58)
[2022-01-06] MEDS: POLYETHYLENE (MIRALAX) 17 GM PACK PO SCH (07:58)
[2022-01-06] MEDS: ATORVASTATIN 20 MG TAB PO SCH (07:58)
[2022-01-06] MEDS: PANTOprazole 40 MG in SYRINGE 0 ML IV SCH ×2 (07:58→21:47)
[2022-01-06] MEDS: predniSONE 20 MG TAB PO SCH (07:59)
[2022-01-06] MEDS: ASPIRIN 81 MG CHEW PO SCH (08:01)
[2022-01-06] MEDS ORDERED: VECURONIUM BROMIDE 10 MG VIAL IV PRN (08:49)
--- NOTE | 2022-01-06 08:53 | Critical Care Progress Note ---
Date of Service January 06, 2022 Assessment & Plan (1) Acute hypercapnic respiratory failure: (2) Morbid obesity: (3) New onset atrial fibrillation: (4) PRIYANKA (acute kidney injury): (5) Hypervolemia: Plan: 56-year-old with a past medical history of morbid obesity, hypertension, SARAH on CPAP abuse presenting to the hospital due to sepsis, cellulitis now presenting to the ICU due to acute hypoxemic and hypercapnic respiratory failure. Neurologic: Continue Versed and fentanyl to maintain RASS of -1. Continue every 2 hours as needed vecuronium for ventilator dyssynchrony. Pulmonary: Patient presenting with ARDS. We will continue lung protective strategy. There is a significant element of CHF/volume overload. We will discontinue amiodarone due to concerns of pulmonary toxicity. Continue prednisone 40 mg daily. We will see clinical response and consider taper over the next 1 to 2-weeks. Chest x-ray today reviewed with extensive mucus plugging and atelectasis of the left lung 01/05 with almost complete white out. Patient is post bronchoscopy with aspiration of mucous plugs. Bronchial wash sample sent for culture, cytology and cell counts. Cardiovascular: Maintain mean arterial pressures above 65 mmHg. Hold antihypertensives. Currently on heparin infusion due to atrial fibrillation earlier this admission. Amiodarone discontinued due to concerns of pulmonary toxicity. Echo was a limited study but LVEF was normal. Right ventricular systolic function normal as well. Troponin not elevated. Gastrointestinal: NPO. OG tube placed. Continue tube feeds. Continue pantoprazole. Continue docusate, senna and MiraLAX daily. LFTs unremarkable. Renal: Acute renal failure likely due to ischemic ATN improved with dialysis. Nephrology on board and assisting with dialysis sessions. BUN, creatinine and electrolytes stable today. Infectious disease: Patient with extensive cellulitis of the lower extremity. Blood cultures negative. Urine cultures unremarkable. Antibiotics escalated to cefepime 01/04. MRSA screen negative. Continue doxycycline. Bronchoscopy culture sent. Hematologic: Hemoglobin stable. Continue to monitor. Continue heparin infusion at this time. Endocrine: Maintain euglycemia. TSH checked 01/01 within normal limits Lines and tubes: Right tunneled HD catheter placed in the IJ 01/02/2022. Peripheral IVs in place. Rutledge catheter in place. ET tube placed 01/03 VTE prophylaxis: Heparin infusion CODE STATUS: Full code Family at bedside: at bedside. Disposition: ICU I have personally spent 41 minutes of critical care time in the direct management of this patient. This is a life/limb threatening event. This includes time spent evaluating patient, direct bedside care, chart review, placing orders, interpretation of diagnostic studies, discussion with consultants, patient, and family members, as well as other required patient management activities. This time is exclusive of all separately billable procedures, and teaching time and separate from and in addition to any other critical care service time. Thank you for allowing us to participate in the care of this patient. Admission and Anticipated Discharge Date Admission Date: December 31, 2021 Subjective Patient seen and examined. Remains on high dose of sedation. High vent requirements at this time. No significant events overnight. Review of Systems Review of Systems: Unobtainable due to cognitive status and Unobtainable due t o endotracheal tube Physical Exam Constitutional: Intubated and sedated Eyes: PERRL, conjunctivae normal, anicteric sclerae ENMT: Endotracheal tube in place Neck: Neck neck Respiratory: Coarse breath sounds bilaterally. No wheezes. Cardiovascular: Regular rate and rhythm. 2-3+ pitting edema in the lower extremities bilaterally. Gastrointestinal (Abdomen): normal bowel sounds, soft, nontender, no hepatosplenomegaly Musculoskeletal: no cyanosis or clubbing, extremities motor strength 5/5 Skin: Large area of cellulitis noted in the left lower extremity extending from mid thigh to the foot. Neurologic: Unable to assess Psychiatric: Unable to assess Results & Data Results & Data ([facility]) Vital Signs (Past 12 Hours) Vital Signs Pulse Resp BP Pulse Ox 01/06/22 04:24 46 L 22 95 01/06/22 00:00 109/55 L 01/05/22 23:16 48 L 22 95 Coding Level of Care Code Critical Care 1st 30-74 mins Diagnoses Acute hypercapnic respiratory failure J96.02 Morbid obesity E66.01 New onset atrial fibrillation I48.91 PRIYANKA (acute kidney injury) N17.9 Hypervolemia E87.70 Time Spent (min) 41
--- NOTE | 2022-01-06 11:06 | XRay Report ---
XR chest 1V portable CLINICAL HISTORY: Dyspnea TECHNIQUE: Single frontal radiograph of the chest was obtained. Comparison: Comparison is made to chest radiograph 01/05/2022 FINDINGS: Lines and tubes are stable. Cardiomegaly is noted. Prominence and cephalization of the vasculature is seen. Left lung opacification has slightly improved from prior exam. Linear densities are seen in th e right lower lung. Mild improvement in moderate left pleural effusion. IMPRESSION: 1. Cardiomegaly and mild pulmonary edema. 2. Interval improvement in moderate left pleural effusion and left lung opacification which may repr esent atelectasis, pneumonia, and/or aspiration. ACT 112: Negative or not required by law. Electronically signed by: Zohaib Lagos M.D. 01/06/2022 11:05 AM
--- NOTE | 2022-01-06 11:19 | Nephrology Progress Note ---
Date of Service January 06, 2022 Assessment & Plan (1) PRIYANKA (acute kidney injury): Plan: Patient with acute renal failure likely due to contrast-induced nephropathy and sepsis. Patient is now making urine. Patient is now intubated on mechanical ventilation. He is off pressors. Electrolytes are stable and no indication for dialysis today. -Monitor renal function with daily BMP -Okay to use diuretics if needed for volume management (2) Cellulitis of left lower extremity: Plan: Patient is IV antibiotics per ICU team. Renally dose antibiotics for GFR less than 25 mL/min while on dialysis (3) Hypoxia: Plan: Likely multifactorial including volume overload, sepsis and CHF. Okay to start Lasix if needed Admission and Anticipated Discharge Date Admission Date: December 31, 2021 Subjective Seen for acute renal failure. Patient remains intubated but awake. He is now making urine Review of Systems Review of Systems: Unable to obtain due to intubation Physical Exam Physical Exam: General exam: Intubated but awake, no acute distress HEENT: Pupils are equal and reactive to light Neck: No JVD, Respiratory system: wheezing bilaterally. Gastrointestinal: Abdomen is soft, non distended, non tender, bowel sounds are p resent CVS: Regular rate and rhythm. No murmurs, rubs or gallops Musculoskeletal: No joint or muscle tenderness Extremities: left leg swollen and erythematous, 1+ edema Neuro: Awake, no tremors, no focal neurological deficits Skin: No rashes Results & Data ([facility]) Vital Signs (Past 12 Hours) Vital Signs Pulse Resp BP Pulse Ox 01/06/22 10:00 81 28 H 86 L 01/06/22 09:01 62 15 110/58 L 91 01/06/22 09:00 58 L 11 L 92 01/06/22 08:02 59 L 18 104/53 L 88 L 01/06/22 08:00 74 20 87 L 01/06/22 07:55 18 01/06/22 07:10 50 L 22 92 01/06/22 07:00 48 L 22 94 01/06/22 04:24 46 L 22 95 01/06/22 00:00 109/55 L Laboratory Results 01/06/22 04:53 01/06/22 01/06/22 04:53 04:53 WBC 9.21 RBC 3.85 L MCV 93.2 MCH 29.6 MCHC 31.8 L RDW Std Deviation 51.7 H RDW Coeff of Azul 15.3 H Plt Count 251 MPV 10.6 H Phosphorus 3.6
[2022-01-06] MEDS: DOXYCYCLINE HYCLATE 100 MG in DEXTROSE 5% 100 ML IV SCH ×2 (11:35→23:55)
--- NOTE | 2022-01-06 12:21 | Hospitalist Progress Note ---
Date of Service January 06, 2022 Assessment & Plan (1) Acute hypercapnic respiratory failure: Plan: 56-year-old male with PMH of morbid obesity, prediabetes, SARAH on CPAP, nocturnal hypoxemia, tobacco abuse presented to the ED 12/31 for evaluation of left leg redness upto midthigh and low-grade fever a/w development of few blisters in left anterior navarrete that subsequently opened. No purulence noted at presentation per HnP. Pt reported SOB w/ minimal exertion. Upon presentation to ED, he was hypoxic on RA at 70% and required 6L NC O2 then. Of note, pt treated for RLE cellulitis 09/2021 w/ cephalexin. Pt was recently evaluated by cardio for HANSON, negative dobutamine stress test. Pt was started on lasix 20 mg daily but dcd d/t subsequent urinary incontinence. Was treated for UTI twice w/ cipro and macrobid. He is being managed for the following: #. Acute hypoxic hypercapnic respiratory failure #. ARDS Smoker with morbid obesity, reported shortness of breath with minimal exertion for the past few months, underwent dobutamine stress echo that was negative. Upon presentation, patient was 70% on room air, and re 6 L via oxy mask initially At presentation, LLE Doppler negative for DVT, CTA chest with no evidence of PE, CXR chest with large confluent alveolar opacity at the right lung base suggestive of atelectasis versus pneumonia versus mass. Follow-up chest x-rays progressively worsening leading to complete opacification of the left hemithorax 01/05. 01/05 status post bronchoscopy, impacted secretions in the left mainstream bronchus which were aspirated clear. Washout of LLL with 60 cc of saline performed. Follow-up with [facility] [place] culture/cell count/cytology. Concern for volume overload after IVF for sepsis resuscitation on the background of Suspected obesity hypoventilation syndrome. Now intubated and in ICU, undergoing hemodialysis for acute hypervolemia. Management per ICU #. Sepsis POA #. Cellulitis of left lower extremity At admission, met sepsis criteria with WBC 16 K, tachycardia. Pro-Mark 1.26. LLE Doppler negative for DVT at presentation. Cellulitis w/ worsened blistering and drainage after compression stockings applied. Continue with antibiotics, currently on Cefepime and doxycycline. #. New onset A. fib Cardiology consulted and started heparin drip and amiodarone. Patient had rapid ventricular response.Trop not elevated. TSH wnl. 01/04 ECHO limited, LV size and fxn grossly normal. Placed on iv amio, then transitioned to PO amio which was stopped 01/05. Amio stopped out of concern for pulmonary toxicity - per manager configuration. heparin drip per cardiology Not a candidate for DOAC given morbid obesity. #. PRIYANKA Patient had contrast on top of likely ATN from sepsis. Temporary dialysis started for acute hypokalemia. TDC placed by vascular on 01/02. BUN remains elevated, creatinine normal. Daily BMP, nephrology on board, appreciate recommendation. #. Other chronic medical conditions: HTN, sleep apnea, morbid obesity with BMI 60-69.9, smoking Blood pressure on the lower side, hold antihypertensive. Resume as able. Of note, Lisinopril had been discontinued due to hyperkalemia by cardiology, however, was resumed on 12/29 by PCP. Patient currently intubated/mechanically ventilated, when able CPAP as per home settings. For obesity, patient follows with [facility] nutrition and weight management. Tobacco [place] [employer] on importance of weight loss and smoking cessation when able. Patient smokes 1 packs/day, per prior attending declined nicotine patch. #. DVT prophylaxis: Heparin drip Full Code Dispo-remains in ICU Admission and Anticipated Discharge Date Admission Date: December 31, 2021 Subjective Patient seen and examined at bedside as a follow-up of sepsis, currently cellulitis, new onset A. fib, PRIYANKA and acute hypercapnic respiratory failure. Patient was lying in bed, intubated/mechanically ventilated, on heparin drip/fentanyl/midazolam/tube feed. ROS n/a due to intubated/sedated status. Physical Exam Physical Exam: GENERAL: Morbid obesity, intubated, sedated HEENT: No pallor, no icterus. Pupils equal, round and reactive to light. Oral mucosa dry. NECK: No JVD, no neck masses. HEART: S1 and S2 heard. Bradycardia. No murmur, no gallop. RESPIRATORY SYSTEM: Normal AP diameter. No accessory muscle use. No wheezing, no crackles. Decreased breath sounds. ABDOMEN: Soft, bowel sounds present, no facial grimacing noted on deep pa lpation, no distention. CENTRAL NERVOUS SYSTEM: No facial droop. Speech is clear. Obeys simple commands. Moves extremities. EXTREMITIES: LLE with erythema up to mid thigh, BLE 2+ edema. Results & Data Results & Data ([facility]) Vital Signs (Past 12 Hours) Vital Signs Temp Pulse Resp BP Pulse Ox 01/06/22 11:10 50 L 18 92 01/06/22 10:00 81 28 H 86 L 01/06/22 09:01 62 15 110/58 L 91 01/06/22 09:00 58 L 11 L 92 01/06/22 08:02 59 L 18 104/53 L 88 L 01/06/22 08:00 36.5 C 74 20 87 L 01/06/22 07:55 18 01/06/22 07:10 50 L 22 92 01/06/22 07:00 48 L 22 94 01/06/22 04:24 46 L 22 95
[2022-01-06] MEDS: CEFEPIME 2,000 MG in SYRINGE 0 ML IV SCH (12:43)
[2022-01-06 13:28] LABS: Partial Thromboplastin Ratio 2.5
[2022-01-06 13:54] LABS: Partial Thromboplastin Time 69.7 Seconds (21.0-31.0)
[2022-01-06] MEDS: MIDAZOLAM HCL 125 MG/250 ML BAG IV SCH (16:03)
[2022-01-06 20:48] LABS: Partial Thromboplastin Time 54.8 Seconds (21.0-31.0)
[2022-01-07] MEDS: CEFEPIME 2,000 MG in SYRINGE 0 ML IV SCH ×2 (00:22→12:13)
[2022-01-07] MEDS: ARTIFICIAL TEARS OP OINT 3.5 GM TUBE OP SCH ×6 (03:30→20:45)
[2022-01-07] MEDS: TUBE FEEDING WATER FLUSH OG SCH ×6 (03:30→22:50)
[2022-01-07] MEDS: HEPARIN SODIUM/DEXTROSE 25,000 UNITS/500 ML BAG IV SCH ×2 (03:33→11:52)
[2022-01-07 05:23] LABS: Hematocrit (blood only) 36.6 % (42-52); Hemoglobin 11.4 g/dL (14.0-18.0); Mean Corpuscular Hemoglobin 29.4 pg (25-34); Mean Corpuscular Hgb Conc 31.1 g/dL (32-36); Mean Corpuscular Volume 94.3 fL (80-100); Mean Platelet Volume 10.1 fL (7.4-10.4); Platelet Count 256 K/uL (130-400); RDW Coefficient of Variation 15.5 % (11.5-14.5); RDW Standard Deviation 53.3 fL (36.4-46.3); Red Blood Count 3.88 M/uL (4.7-6.1); White Blood Count 9.65 K/uL (4.8-10.8)
[2022-01-07] MEDS: fentaNYL citrate 2,500 MCG/250 ML BAG IV SCH ×2 (05:28→13:15)
[2022-01-07 05:43] LABS: Basophils # (auto) 0.02 K/uL (0-0.2); Basophils % (auto) 0.2 %; Eosinophils # (auto) 0.02 K/uL (0-0.5); Eosinophils % (auto) 0.2 %; Immature Granulocytes % (auto) 6.2 %; Lymphocytes # (auto) 1.17 K/uL (1.2-3.4); Lymphocytes % (auto) 12.1 %; Monocytes # (auto) 0.97 K/uL (0.11-0.59); Monocytes % (auto) 10.1 %; Neutrophils # (auto) 6.87 K/uL (1.4-6.5); Neutrophils % (auto) 71.2 %
[2022-01-07 05:46] LABS: BUN Creatinine Ratio 37.2 (10-20); Calcium 9.1 mg/dl (8.5-10.1); Est GFR (African American) 83.2 ml/min; Est GFR (Non-African American) 71.8 ml/min; Magnesium 2.7 mg/dl (1.7-2.4); Phosphorus 4.1 mg/dl (2.5-4.9)
[2022-01-07 05:48] LABS: iSTAT Allen Test Pass; iSTAT Art Bld Gas pCO2 Correct 65 mmHg (35-46); iSTAT Art Bld Gas pH Corrected 7.313 (7.35-7.45); iSTAT Arterial Blood Gas HCO3 33 meg/L (19-24); iSTAT Arterial Blood Gas pCO2 62 mmHg (35-46); iSTAT Arterial Blood Gas pH 7.33 (7.35-7.45); iSTAT Arterial Blood Gas pO2 116 mmHg (80-95); iSTAT Arterial Blood Gas pO2 C 122; iSTAT Carbon Dioxide 35 mmol/L (24-31); iSTAT FiO2 80 %; iSTAT Hematocrit 34 % (42-52); iSTAT Hemoglobin 11.6 g/dl (14.0-18.0); iSTAT Potassium 4.8 mmol/L (3.3-5.0); iSTAT Site L Radial; iSTAT Sodium 136 mmol/L (135-144)
[2022-01-07] MEDS: NOREPINEPHRINE/D5W 4 MG/250 ML PLCT IV SCH ×2 (06:19→12:13)
--- NOTE | 2022-01-07 07:20 | XRay Report ---
XR chest 1V portable HISTORY: 56 years-old Male f/u acute respiratory failure COMPARISON: Chest radiograph 01/06/2022 TECHNIQUE: Portable AP view of the chest FINDINGS: The cardiac silhouette is enlarged. Endotracheal tube overlies the midline, 2.8 cm superior to the ca lynne. Enteric tube courses into the stomach with distal tip outside the [id number]. Right IJ centr al venous catheter distal tip overlies the expected location of the inferior SVC. There is no pneumothorax. Layering pleural effusions with bibasilar and left midlung consolidation re demonstrated. Pulmonary vascular congestion. Bones appear grossly intact. IMPRESSION: 1. Stable lines and tubes as above. 2. Cardiomegaly with pulmonary vascular congestion. 3. Unchanged layering pleural effusions with bibasilar and left midlung consolidation ACT 112: Negative or not required by law. The above report was generated using voice recognition software. It may contain grammatical, syntax o r spelling errors. Electronically signed by: Simón Woods M.D. 01/07/2022 7:19 AM
[2022-01-07 07:36] LABS: Partial Thromboplastin Ratio 2.5
[2022-01-07 07:53] LABS: Partial Thromboplastin Time 68.7 Seconds (21.0-31.0)
[2022-01-07 08:57] LABS: BUN Creatinine Ratio 39.4 (10-20); Calcium 9.1 mg/dl (8.5-10.1); Creatinine Clr Calc Pharmacy 123.8 ml/min; Est GFR (African American) 91.9 ml/min; Est GFR (Non-African American) 79.3 ml/min; Potassium 4.5 mmol/L (3.5-5.1)
[2022-01-07] MEDS: predniSONE 20 MG TAB PO SCH (09:09)
[2022-01-07] MEDS: DOCUSATE SODIUM/SENNA 50/8.6MG TAB PO SCH ×2 (09:09→20:50)
[2022-01-07] MEDS: ATORVASTATIN 20 MG TAB PO SCH (09:09)
[2022-01-07] MEDS: PANTOprazole 40 MG in SYRINGE 0 ML IV SCH ×2 (09:09→20:49)
[2022-01-07] MEDS: POLYETHYLENE (MIRALAX) 17 GM PACK PO SCH (09:09)
[2022-01-07] MEDS: ASPIRIN 81 MG CHEW PO SCH (09:11)
[2022-01-07] MEDS: MIDAZOLAM BOLUS FROM BAG IV PRN ×4 (09:42→18:35)
--- NOTE | 2022-01-07 10:04 | Critical Care Progress Note ---
Date of Service January 07, 2022 Assessment & Plan (1) Acute hypercapnic respiratory failure: (2) Morbid obesity: (3) New onset atrial fibrillation: (4) PRIYANKA (acute kidney injury): (5) Hypervolemia: (6) Bradycardia with 41-50 beats per minute: Plan: 56-year-old with a past medical history of morbid obesity, hypertension, SARAH on CPAP abuse presenting to the hospital due to sepsis, cellulitis now presenting to the ICU due to acute hypoxemic and hypercapnic respiratory failure. Neurologic: Continue Versed and fentanyl to maintain RASS of -1. Pulmonary: -ARDS. element of CHF/volume overload, diuresis per nephrology Discontinued amiodarone due to concerns of pulmonary toxicity. Prednisone 40 mg daily for 5 days then discontinue. -Mucoid impaction of bronchi - atelectasis of the left lung 01/05 with almost complete white out. Patient is post bronchoscopy with aspiration of mucous plugs. Cardiovascular: Hypotension: Resolved hold antihypertensives. Paroxysmal atrial fibrillation: Currently normal sinus rhythm -Echo was a limited study but LVEF was normal. Right ventricular systolic function normal as well. Troponin not elevated. Gastrointestinal: NPO. OG tube placed. Continue tube feeds. Continue pantoprazole. Continue docusate, senna and MiraLAX daily. LFTs unremarkable. Renal: Acute renal failure likely due to ischemic ATN improved with dialysis. Nephrology on board - No indication for dialysis, diuresis by nephrology Infectious disease: Patient with extensive cellulitis of the lower extremity. Blood cultures negative. Urine cultures unremarkable. Antibiotics escalated to cefepime 01/04: Day 4. MRSA screen negative. Continue doxycycline: Day 7, continue for 10 days. Hematologic: Hemoglobin stable. Continue to monitor. Continue heparin infusion at this time. DVT prophylaxis: 40 twice daily secondary to obesity -Patient normal sinus rhythm at this time, No strong indication for systemic anticoagulation Endocrine: Maintain euglycemia. TSH checked 01/01 within normal limits Lines and tubes: Right tunneled HD catheter placed in the IJ 01/02/2022. Peripheral IVs in place. Rutledge catheter in place. ET tube placed 01/03 VTE prophylaxis: Heparin infusion CODE STATUS: Full code Family at bedside: at bedside. Disposition: ICU Patient was discussed in multidisciplinary rounds I have personally spent 50 minutes of critical care time in the direct managem ent of this patient. This is a life/limb threatening event. This includes time spent evaluating patient, direct bedside care, chart review, placing orders, interpretation of diagnostic studies, discussion with consultants, patient, and family members, as well as other required patient management activities. This time is exclusive of all separately billable procedures, and teaching time and separate from and in addition to any other critical care service time. Admission and Anticipated Discharge Date Admission Date: December 31, 2021 Subjective Asymptomatic bradycardia into low 40's overnight Review of Systems Review of Systems: Unobtainable due to endotracheal tube Physical Exam Physical Exam: General: Sedated, however arouses easily nontoxic. Skin: Warm, dry, Head: Atraumatic Ears, nose, mouth and throat: airway obscured by endotracheal tube Cardiovascular: Normal peripheral perfusion Respiratory: Ventilator settings reviewed Gastrointestinal: Non distended Musculoskeletal: No deformity Results & Data Results & Data ([facility]) Vital Signs (Past 12 Hours) Vital Signs Temp Pulse Resp BP Pulse Ox 01/07/22 07:34 43 L 22 92 01/07/22 06:00 38 C H 48 L 22 93 01/07/22 05:30 55 L 22 92 01/07/22 05:01 43 L 18 95/54 L 96 01/07/22 05:00 45 L 18 96 01/07/22 04:55 22 01/07/22 04:30 48 L 18 96 01/07/22 04:01 48 L 18 96/54 L 95 01/07/22 04:00 47 L 18 95 01/07/22 03:30 47 L 16 95 01/07/22 03:27 53 L 18 95 01/07/22 03:01 44 L 18 92/55 L 95 01/07/22 03:00 42 L 18 96 01/07/22 02:30 44 L 18 96 01/07/22 02:01 44 L 18 93/57 L 94 01/07/22 02:00 42 L 18 94 01/07/22 01:30 44 L 18 95 01/07/22 01:01 44 L 18 90/54 L 96 01/07/22 01:00 43 L 18 96 01/07/22 00:30 45 L 18 94 01/07/22 00:01 44 L 18 94/56 L 94 01/07/22 00:00 45 L 18 95 01/06/22 23:30 45 L 18 95 01/06/22 23:01 46 L 16 92/54 L 95 01/06/22 23:00 45 L 18 93 01/06/22 22:51 46 L 18 96 01/06/22 22:30 46 L 18 95 01/06/22 22:01 46 L 16 91/54 L 95 01/06/22 22:00 47 L 18 95 Critical Care Results & Data Vital Signs (Past 12 Hours) Vital Signs Temp Pulse Resp BP Pulse Ox 01/07/22 07:34 43 L 22 92 01/07/22 06:00 38 C H 48 L 22 93 01/07/22 05:30 55 L 22 92 01/07/22 05:01 43 L 18 95/54 L 96 01/07/22 05:00 45 L 18 96 01/07/22 04:55 22 01/07/22 04:30 48 L 18 96 01/07/22 04:01 48 L 18 96/54 L 95 01/07/22 04:00 47 L 18 95 01/07/22 03:30 47 L 16 95 01/07/22 03:27 53 L 18 95 01/07/22 03:01 44 L 18 92/55 L 95 01/07/22 03:00 42 L 18 96 01/07/22 02:30 44 L 18 96 01/07/22 02:01 44 L 18 93/57 L 94 01/07/22 02:00 42 L 18 94 01/07/22 01:30 44 L 18 95 01/07/22 01:01 44 L 18 90/54 L 96 01/07/22 01:00 43 L 18 96 01/07/22 00:30 45 L 18 94 01/07/22 00:01 44 L 18 94/56 L 94 01/07/22 00:00 45 L 18 95 01/06/22 23:30 45 L 18 95 01/06/22 23:01 46 L 16 92/54 L 95 01/06/22 23:00 45 L 18 93 01/06/22 22:51 46 L 18 96 01/06/22 22:30 46 L 18 95 01/06/22 22:01 46 L 16 91/54 L 95 01/06/22 22:00 47 L 18 95 Lab & Micro Results (Past 24 Hours) RBC 3.88 M/uL (4.7-6.1) L 01/07/22 WBC 9.65 K/uL (4.8-10.8) 01/07/22 Hgb 11.4 g/dL (14.0-18.0) L 01/07/22 Hct 36.6 % (42-52) L 01/07/22 MCV 94.3 fL (80-100) 01/07/22 MCH 29.4 pg (25-34) 01/07/22 MCHC 31.1 g/dL (32-36) L 01/07/22 RDW Standard Deviation 53.3 fL (36.4-46.3) H 01/07/22 RDW Coefficient of Variation 15.5 % (11.5-14.5) H 01/07/22 Plt Count 256 K/uL (130-400) 01/07/22 MPV 10.1 fL (7.4-10.4) 01/07/22 Neutrophils (%) (Auto) 71.2 % 01/07/22 Lymphocytes (%) (Auto) 12.1 % 01/07/22 Monocytes # (Auto) 0.97 K/uL (0.11-0.59) H 01/07/22 Eosinophils # (Auto) 0.02 K/uL (0-0.5) 01/07/22 Immature Granulocyte % (Auto) 6.2 % 01/07/22 Neutrophils # (Auto) 6.87 K/uL (1.4-6.5) H 01/07/22 Lymphocytes # (Auto) 1.17 K/uL (1.2-3.4) L 01/07/22 Monocytes # (Auto) 0.97 K/uL (0.11-0.59) H 01/07/22 Eosinophils # (Auto) 0.02 K/uL (0-0.5) 01/07/22 Basophils # (Auto) 0.02 K/uL (0-0.2) 01/07/22 Immature Granulocyte # (Auto) 0.60 K/uL (0.00-0.02) H 01/07/22 Na 136 mmol/L (136-145) 01/07/22 K 4.5 mmol/L (3.5-5.1) 01/07/22 Cl 100 mmol/L (98-107) 01/07/22 CO2 31 mmol/L (21-32) 01/07/22 Anion Gap 5 (3-11) 01/07/22 BUN 41 mg/dl (6-23) H 01/07/22 Creatinine 1.04 mg/dl (0.6-1.4) 01/07/22 Estimated GFR ( Amer) 91.9 ml/min 01/07/22 Estimated GFR (Non-Af Amer) 79.3 ml/min 01/07/22 BUN/Creatinine Ratio 39.4 (10-20) H 01/07/22 Glu 105 mg/dl (70-99(Fasting)) H 01/07/22 Ca 9.1 mg/dl (8.5-10.1) 01/07/22 Phosphorus Level 4.1 mg/dl (2.5-4.9) 01/07/22 Mg 2.7 mg/dl (1.7-2.4) H 01/07/22 05:02 01/07/22 Calcium Level 9.1 mg/dl (8.5-10.1) 01/07/22 07:58 01/07/22 Jameel Test Pass 01/07/22 04:54 01/07/22 Microbiology 01/05/22 08:30 Gram Stain - Final Bronch Wash,Left Lower Lobe Bronchial Culture - Final Scant normal desi. 01/07/22 Unknown Gram Stain - Final Sputum,Vent Suction 01/05/22 08:30 Acid Fast Bacilli Smear - Final Bronch Wash,Left Lower Lobe 01/05/22 08:30 Fungal Smear - Final Bronch Wash,Left Lower Lobe Diagnostic Findings (Past 24 Hours) Chest X-Ray 01/06/22 07:00 XR chest 1V portable CLINICAL HISTORY: Dyspnea TECHNIQUE: Single frontal radiograph of the chest was obtained. Comparison: Comparison is made to chest radiograph 01/05/2022 FINDINGS: Lines and tubes are stable. Cardiomegaly is noted. Prominence and cephalization of the vasculature is seen. Left lung opacification has slightly improved from prior exam. Linear densities are seen in the right lower lung. Mild improvement in moderate left pleural effusion. IMPRESSION: 1. Cardiomegaly and mild pulmonary edema. 2. Interval improvement in moderate left pleural effusion and left lung opacification which may represent atelectasis, pneumonia, and/or aspiration. ACT 112: Negative or not required by law. Electronically signed by: Zohaib Lagos M.D. 01/06/2022 11:05 AM Chest X-Ray 01/07/22 07:00 XR chest 1V portable HISTORY: 56 years-old Male f/u acute respiratory failure COMPARISON: Chest radiograph 01/06/2022 TECHNIQUE: Portable AP view of the chest FINDINGS: The cardiac silhouette is enlarged. Endotracheal tube overlies the midline, 2.8 cm superior to the abigail. Enteric tube courses into the stomach with distal tip outside the [id number]. Right IJ central venous catheter distal tip overlies the expected location of the inferior SVC. There is no pneumothorax. Layering pleural effusions with bibasilar and left midlung consolidation redemonstrated. Pulmonary vascular congestion. Bones appear grossly intact. IMPRESSION: 1. Stable lines and tubes as above. 2. Cardiomegaly with pulmonary vascular congestion. 3. Unchanged layering pleural effusions with bibasilar and left midlung consolidation ACT 112: Negative or not required by law. The above report was generated using voice recognition software. It may contain grammatical, syntax or spelling errors. Electronically signed by: Simón Woods M.D. 01/07/2022 7:19 AM I & O Totals 24 Hours 01/06/22 01/07/22 01/08/22 06:59 06:59 06:59 Intake Total 2164.416 / 2164.416 1671.392 / 1671.392 317.941 / 317.941 Output Total 1675 / 1675 1999 Balance 489.416 / 489.416 -328.608 / -328.608 317.941 / 317.941 Cumulative 12/31/21 11:11 thru 01/07/22 08:05 Intake Total 46772.342 Output Total 6085 Balance 27755.342 RT Ventilator Mngmt (Last Documented) Ventilator Ordered Settings Ventilator Support Mode Assist Control 01/07/22 07:34 Respiratory Rate 22 01/07/22 07:34 Ventilator Tidal Volume 410 01/07/22 07:34 Setting Minute Ventilation 9.0 01/07/22 07:34 Positive End Expiratory 16 01/07/22 07:34 Pressure Fraction of Inspired Oxygen 60 01/07/22 08:09 Machine Comment FiO2 decreased to 60%, SpO2 93% 01/07/22 08:09 Ventilator - PT Measurements Respiratory Rate 22 Exhaled Tidal Volume 410 Minute Ventilation 9.0 Peak Inspiratory Airway 32 Pressure Plateau Pressure 29.2 Respiratory Cycle Inspiratory: 1:2.4 Expiratory Ratio Inspiratory Phase Time 0.8 End-Tidal CO2 35 Static Lung Compliance 31.06 Dynamic Lung Compliance 25.63 Normal Static Lung Compliance 47.00 Patient Measurements Comment Sputum is a very pale yellow at this time. Coding Level of Care Code Critical Care 1st 30-74 mins Diagnoses Acute hypercapnic respiratory failure J96.02 Morbid obesity E66.01 New onset atrial fibrillation I48.91 PRIYANKA (acute kidney injury) N17.9 Hypervolemia E87.70 Bradycardia with 41-50 beats per minute R00.1
--- NOTE | 2022-01-07 10:29 | Nephrology Progress Note ---
Date of Service January 07, 2022 Assessment & Plan (1) PRIYANKA (acute kidney injury): Plan: Patient with acute renal failure likely due to contrast-induced nephropathy and sepsis. Patient is now making urine. Patient is now intubated on mechanical ventilation. He is off pressors. Electrolytes are stable and no indication for dialysis today. -Monitor renal function with daily BMP -We will give Lasix 80 mg IV one-time (2) Cellulitis of left lower extremity: Plan: Patient is IV antibiotics per ICU team. Renally dose antibiotics for current GFR. (3) Hypoxia: Plan: Likely multifactorial including volume overload, sepsis and CHF. We will give Lasix 80 mg one-time and monitor response. Admission and Anticipated Discharge Date Admission Date: December 31, 2021 Subjective Seen for acute kidney injury. Patient is making urine now. He remains intubated and sedated Review of Systems Review of Systems: Unable to obtain due to intubation Physical Exam Physical Exam: General exam: Intubated, no acute distress HEENT: Pupils are equal and reactive to light Neck: No JVD, Respiratory system: wheezing bilaterally. Gastrointestinal: Abdomen is soft, non distended, non tender, bowel sounds are present CVS: Regular rate and rhythm. No murmurs, rubs or gallops Musculoskeletal: No joint or muscle tenderness Extremities: left leg swollen and erythematous, 1+ edema Neuro: Intubated no tremors, no focal neurological deficits Skin: No rashes Results & Data ([facility]) Vital Signs (Past 12 Hours) Vital Signs Temp Pulse Resp BP Pulse Ox 01/07/22 07:34 43 L 22 92 01/07/22 06:00 38 C H 48 L 22 93 01/07/22 05:30 55 L 22 92 01/07/22 05:01 43 L 18 95/54 L 96 01/07/22 05:00 45 L 18 96 01/07/22 04:55 22 01/07/22 04:30 48 L 18 96 01/07/22 04:01 48 L 18 96/54 L 95 01/07/22 04:00 47 L 18 95 01/07/22 03:30 47 L 16 95 01/07/22 03:27 53 L 18 95 01/07/22 03:01 44 L 18 92/55 L 95 01/07/22 03:00 42 L 18 96 01/07/22 02:30 44 L 18 96 01/07/22 02:01 44 L 18 93/57 L 94 01/07/22 02:00 42 L 18 94 01/07/22 01:30 44 L 18 95 01/07/22 01:01 44 L 18 90/54 L 96 01/07/22 01:00 43 L 18 96 01/07/22 00:30 45 L 18 94 01/07/22 00:01 44 L 18 94/56 L 94 01/07/22 00:00 45 L 18 95 01/06/22 23:30 45 L 18 95 01/06/22 23:01 46 L 16 92/54 L 95 01/06/22 23:00 45 L 18 93 01/06/22 22:51 46 L 18 96 01/06/22 22:30 46 L 18 95 Laboratory Results 01/07/22 07:58 01/07/22 01/07/22 05:02 05:02 WBC 9.65 RBC 3.88 L MCV 94.3 MCH 29.4 MCHC 31.1 L RDW Std Deviation 53.3 H RDW Coeff of Azul 15.5 H Plt Count 256 MPV 10.1 Phosphorus 4.1
[2022-01-07] MEDS: ENOXAPARIN INJ 40 MG/0.4 ML SYR SQ SCH ×2 (11:51→20:50)
[2022-01-07] MEDS: MIDAZOLAM HCL 125 MG/250 ML BAG IV SCH ×2 (11:53→13:15)
[2022-01-07] MEDS: DOXYCYCLINE HYCLATE 100 MG in DEXTROSE 5% 100 ML IV SCH (12:27)
[2022-01-07] MEDS ORDERED: FUROSEMIDE 40 MG/4 ML VIAL IV ONE (16:47)
--- NOTE | 2022-01-07 18:26 | Hospitalist Progress Note ---
Date of Service January 07, 2022 Assessment & Plan (1) Acute hypercapnic respiratory failure: Plan: 56-year-old male with PMH of morbid obesity, prediabetes, SARAH on CPAP, nocturnal hypoxemia, tobacco abuse presented to the ED 12/31 for evaluation of left leg redness upto midthigh and low-grade fever a/w development of few blisters in left anterior navarrete that subsequently opened. No purulence noted at presentation per HnP. Pt reported SOB w/ minimal exertion. Upon presentation to ED, he was hypoxic on RA at 70% and required 6L NC O2 then. Of note, pt treated for RLE cellulitis 09/2021 w/ cephalexin. Pt was recently evaluated by cardio for HANSON, negative dobutamine stress test. Pt was started on lasix 20 mg daily but dcd d/t subsequent urinary incontinence. Was treated for UTI twice w/ cipro and macrobid. He is being managed for the following: #. Acute hypoxic hypercapnic respiratory failure #. ARDS Smoker with morbid obesity, reported shortness of breath with minimal exertion for the past few months, underwent dobutamine stress echo that was negative. Upon presentation, patient was 70% on room air, and re 6 L via oxy mask initially At presentation, LLE Doppler negative for DVT, CTA chest with no evidence of PE, CXR chest with large confluent alveolar opacity at the right lung base suggestive of atelectasis versus pneumonia versus mass. Follow-up chest x-rays progressively worsening leading to complete opacification of the left hemithorax 01/05. 01/05 status post bronchoscopy, impacted secretions in the left mainstream bronchus which were aspirated clear. Washout of LLL with 60 cc of saline performed. Follow-up with [facility] [place] culture/cell count. Cytology neg for malignancy. Concern for volume overload after IVF for sepsis resuscitation on the background of Suspected obesity hypoventilation syndrome. Now intubated and in ICU, undergoing hemodialysis for acute hypervolemia. Management per ICU #. Sepsis POA #. Cellulitis of left lower extremity At admission, met sepsis criteria with WBC 16 K, tachycardia. Pro-Mark 1.26. LLE Doppler negative for DVT at presentation. Cellulitis w/ worsened blistering and drainage after compression stockings applied. Continue with antibiotics, currently on Cefepime D4 and doxycycline D7. #. New onset A. fib Cardiology consulted and started heparin drip and amiodarone. Patient had rapid ventricular response.Trop not elevated. TSH wnl. 01/04 ECHO limited, LV size and fxn grossly normal. Placed on iv amio, then transitioned to PO amio which was stopped 01/05. Amio stopped out of concern for pulmonary toxicity - per bathhouse attendant. Hep drip stopped 01/07 as Pt on NSR. Not a candidate for DOAC given morbid obesity. #. PRIYANKA Patient had contrast on top of likely ATN from sepsis. Temporary dialysis started for acute hypokalemia. TDC placed by vascular on 01/02. BUN remains elevated, creatinine normal. Daily BMP, nephrology on board, appreciate recommendation. #. Other chronic medical conditions: HTN, sleep apnea, morbid obesity with BMI 60-69.9, smoking Blood pressure on the lower side, hold antihypertensive. Resume as able. Of note, Lisinopril had been discontinued due to hyperkalemia by cardiology, however, was resumed on 12/29 by PCP. Patient currently intubated/mechanically ventilated, when able CPAP as per home settings. For obesity, patient follows with [facility] nutrition and weight management. Lapidarist on importance of weight loss and smoking cessation when able. Patient smokes 1 packs/day, per prior attending declined nicotine patch. #. DVT prophylaxis: Enoxaparin Full Code Dispo-remains in ICU Admission and Anticipated Discharge Date Admission Date: December 31, 2021 Subjective Patient seen and examined at bedside as a follow-up of sepsis, currently cellulitis, new onset A. fib, PRIYANKA and acute hypercapnic respiratory failure. Patient was lying in bed, intubated/mechanically ventilated, on heparin drip/fentanyl/midazolam/tube feed. ROS n/a due to intubated/sedated status. Physical Exam Physical Exam: GENERAL: Morbid obesity, intubated, sedated HEENT: No pallor, no icterus. Pupils equal, round and reactive to light. Oral mucosa dry. NECK: No JVD, no neck masses. HEART: S1 and S2 heard. Bradycardia. No murmur, no gallop. RESPIRATORY SYSTEM: Normal AP diameter. No accessory muscle use. No wheezing, no crackles. Decreased breath sounds. ABDOMEN: Soft, bowel sounds present, no facial grimacing noted on deep palpation, no distention. CENTRAL NERVOUS SYSTEM: No facial droop. Speech is clear. Obeys simple commands. Moves extremities. EXTREMITIES: LLE with erythema up to mid thigh, BLE 2+ edema. Results & Data Results & Data ([facility]) Vital Signs (Past 12 Hours) Vital Signs Temp Pulse Resp BP Pulse Ox 01/07/22 18:00 36.8 C 40 L 22 90 01/07/22 17:31 42 L 22 120/70 90 01/07/22 17:30 42 L 22 89 L 01/07/22 17:01 44 L 23 117/72 89 L 01/07/22 17:00 43 L 22 90 01/07/22 16:31 43 L 22 114/73 89 L 01/07/22 16:30 44 L 22 89 L 01/07/22 16:01 44 L 22 122/76 90 01/07/22 16:00 44 L 22 90 01/07/22 15:35 45 L 01/07/22 15:31 46 L 22 128/76 91 01/07/22 15:30 47 L 22 90 01/07/22 15:10 45 L 23 90 01/07/22 15:01 49 L 22 122/72 90 01/07/22 15:00 45 L 22 90 01/07/22 14:31 45 L 119/73 91 01/07/22 14:30 44 L 89 L 01/07/22 14:01 43 L 22 115/71 91 01/07/22 14:00 42 L 22 91 01/07/22 13:31 44 L 22 109/65 89 L 01/07/22 13:30 44 L 22 89 L 01/07/22 13:01 47 L 113/71 88 L 01/07/22 13:00 47 L 88 L 01/07/22 12:31 46 L 104/63 88 L 01/07/22 12:30 46 L 88 L 01/07/22 12:01 50 L 105/66 90 01/07/22 12:00 50 L 89 L 01/07/22 11:47 58 L 01/07/22 11:31 55 L 118/68 88 L 01/07/22 11:30 65 88 L 01/07/22 11:15 58 L 22 89 L 01/07/22 11:01 48 L 23 110/62 91 01/07/22 11:00 47 L 22 91 01/07/22 10:31 45 L 22 103/61 92 01/07/22 10:30 44 L 22 91 01/07/22 10:01 44 L 19 105/67 93 01/07/22 10:00 44 L 22 93 01/07/22 09:31 47 L 19 96/62 L 95 01/07/22 09:30 44 L 22 94 01/07/22 09:01 50 L 22 101/57 L 97 01/07/22 09:00 48 L 19 76 L 01/07/22 08:56 22 96/58 L 94 01/07/22 08:30 42 L 22 94 01/07/22 08:01 44 L 22 116/76 93 01/07/22 08:00 49 L 24 94 01/07/22 07:34 43 L 22 92 01/07/22 07:30 40 L 22 92 01/07/22 07:01 44 L 22 108/65 90 01/07/22 07:00 45 L 22 91 01/07/22 06:30 45 L 19 91
[2022-01-08] MEDS: fentaNYL citrate 2,500 MCG/250 ML BAG IV SCH ×5 (00:07→19:41)
[2022-01-08] MEDS: DOXYCYCLINE HYCLATE 100 MG in DEXTROSE 5% 100 ML IV SCH ×2 (00:07→10:52)
[2022-01-08] MEDS: ARTIFICIAL TEARS OP OINT 3.5 GM TUBE OP SCH ×6 (00:08→19:44)
[2022-01-08] MEDS: CEFEPIME 2,000 MG in SYRINGE 0 ML IV SCH ×2 (00:08→14:45)
[2022-01-08] MEDS: TUBE FEEDING WATER FLUSH OG SCH ×6 (02:57→19:44)
[2022-01-08 04:41] LABS: iSTAT Allen Test Pass; iSTAT Art Bld Gas pCO2 Correct 53 mmHg (35-46); iSTAT Art Bld Gas pH Corrected 7.398 (7.35-7.45); iSTAT Arterial Blood Gas HCO3 33 meg/L (19-24); iSTAT Arterial Blood Gas pCO2 53 mmHg (35-46); iSTAT Arterial Blood Gas pO2 71 mmHg (80-95); iSTAT Arterial Blood Gas pO2 C 70; iSTAT Carbon Dioxide 34 mmol/L (24-31); iSTAT FiO2 80 %; iSTAT Hematocrit 35 % (42-52); iSTAT Hemoglobin 11.9 g/dl (14.0-18.0); iSTAT Potassium 4.5 mmol/L (3.3-5.0); iSTAT Site L Radial; iSTAT Sodium 138 mmol/L (135-144)
[2022-01-08] MEDS: MIDAZOLAM HCL 125 MG/250 ML BAG IV SCH ×3 (05:19→19:42)
[2022-01-08 05:22] LABS: Basophils # (auto) 0.02 K/uL (0-0.2); Basophils % (auto) 0.2 %; Eosinophils # (auto) 0.03 K/uL (0-0.5); Eosinophils % (auto) 0.4 %; Hematocrit (blood only) 37.9 % (42-52); Hemoglobin 11.6 g/dL (14.0-18.0); Immature Granulocytes % (auto) 2.4 %; Lymphocytes % (auto) 15.9 %; Mean Corpuscular Hemoglobin 28.7 pg (25-34); Mean Corpuscular Hgb Conc 30.6 g/dL (32-36); Mean Corpuscular Volume 93.8 fL (80-100); Mean Platelet Volume 10.8 fL (7.4-10.4); Monocytes # (auto) 0.76 K/uL (0.11-0.59); Monocytes % (auto) 9.3 %; Neutrophils # (auto) 5.89 K/uL (1.4-6.5); Neutrophils % (auto) 71.8 %; Platelet Count 283 K/uL (130-400); RDW Coefficient of Variation 15.6 % (11.5-14.5); RDW Standard Deviation 53.8 fL (36.4-46.3); Red Blood Count 4.04 M/uL (4.7-6.1)
[2022-01-08 05:27] LABS: Partial Thromboplastin Time 26.2 Seconds (21.0-31.0)
[2022-01-08 05:33] LABS: BUN Creatinine Ratio 34.5 (10-20); Calcium 9.6 mg/dl (8.5-10.1); Creatinine Clr Calc Pharmacy 117.1 ml/min; Est GFR (African American) 85.9 ml/min; Est GFR (Non-African American) 74.1 ml/min; Magnesium 2.5 mg/dl (1.7-2.4); Potassium 4.8 mmol/L (3.5-5.1)
[2022-01-08] MEDS: MIDAZOLAM BOLUS FROM BAG IV PRN ×4 (07:30→16:40)
--- NOTE | 2022-01-08 07:37 | XRay Report ---
XR chest 1V portable HISTORY: 56 years-old Male f/u up acute respiratory failure COMPARISON: Chest radiograph 01/07/2022 TECHNIQUE: Portable AP view of the chest FINDINGS: The cardiac silhouette is enlarged. Endotracheal tube overlies the midline, 3.1 cm superior to the ca lynne. Enteric tube courses into the stomach. Right IJ central venous catheter is noted with distal ti p in the expected location of the SVC. Azygos lobe and fissure. No pneumothorax. Right hemidiaphragmatic elevation. There are suggestion of left greater than right pleural effusions. Left lung volume loss with progressive left lung opacities. Pulmonary vascular congestion. Linear ri ght basilar densities are again noted. Degenerative changes of the shoulders and spine. IMPRESSION: 1. Lines and tubes as above. 2. Cardiomegaly with pulmonary vascular congestion. 3. Progressive consolidation/volume loss of the left lung. 4. No pneumothorax. ACT 112: Negative or not required by law. The above report was generated using voice recognition software. It may contain grammatical, syntax o r spelling errors. Electronically signed by: Simón Woods M.D. 01/08/2022 7:35 AM
[2022-01-08] MEDS: ENOXAPARIN INJ 40 MG/0.4 ML SYR SQ SCH ×2 (08:22→19:43)
[2022-01-08] MEDS: POLYETHYLENE (MIRALAX) 17 GM PACK PO SCH (08:22)
[2022-01-08] MEDS: ATORVASTATIN 20 MG TAB PO SCH (08:22)
[2022-01-08] MEDS: predniSONE 20 MG TAB PO SCH (08:22)
[2022-01-08] MEDS: DOCUSATE SODIUM/SENNA 50/8.6MG TAB PO SCH ×2 (08:23→19:42)
[2022-01-08] MEDS: ASPIRIN 81 MG CHEW PO SCH (08:39)
[2022-01-08] MEDS: PANTOprazole 40 MG in SYRINGE 0 ML IV SCH ×2 (08:40→19:43)
--- NOTE | 2022-01-08 09:32 | Critical Care Progress Note ---
Date of Service January 08, 2022 Assessment & Plan (1) Acute hypercapnic respiratory failure: (2) Morbid obesity: (3) New onset atrial fibrillation: (4) PRIYANKA (acute kidney injury): (5) Hypervolemia: (6) Bradycardia with 41-50 beats per minute: Plan: 56-year-old with a past medical history of morbid obesity, hypertension, SARAH on CPAP abuse presenting to the hospital due to sepsis, cellulitis now presenting to the ICU due to acute hypoxemic and hypercapnic respiratory failure. Neurologic: Continue Versed and fentanyl to maintain RASS of -1. -Patient has large volume of distribution is likely accumulating metabolites, Precedex contraindicated secondary to bradycardia we will consider additional ketamine infusion for sedation Pulmonary: -ARDS. element of CHF/volume overload, diuresis per nephrology Discontinued amiodarone due to concerns of pulmonary toxicity. Prednisone 40 mg daily for 5 days then discontinue. -Mucoid impaction of bronchi - atelectasis of the left lung 01/05 with almost complete white out. Patient is post bronchoscopy with aspiration of mucous plugs. Cardiovascular: Hypotension: Resolved hold antihypertensives. Paroxysmal atrial fibrillation: Currently normal sinus rhythm -Echo was a limited study but LVEF was normal. Right ventricular systolic function normal as well. Troponin not elevated. Gastrointestinal: NPO. OG tube placed. Continue tube feeds. Continue pantoprazole. Continue docusate, senna and MiraLAX daily. LFTs unremarkable. Constipation: Last BM 01/02 -Increasing Senokot and lactulose 30 mils x1 Renal: Acute renal failure likely due to ischemic ATN improved with dialysis. Nephrology on board -40 mg Lasix daily for edema Infectious disease: Patient with extensive cellulitis of the lower extremity. Blood cultures negative. Urine cultures unremarkable. Antibiotics escalated to cefepime 01/04: Day 5/7. MRSA screen negative. Continue doxycycline: Day 8, continue for 10 days. Hematologic: Hemoglobin stable. Continue to monitor. Continue heparin infusion at this time. DVT prophylaxis: 40 twice daily secondary to obesity -Patient normal sinus rhythm at this time, No strong indication for systemic anticoagulation Endocrine: Maintain euglycemia. TSH checked 01/01 within normal limits Lines and tubes: Right tunneled HD catheter placed in the IJ 01/02/2022. Peripheral IVs in place. Rutledge catheter in place. ET tube placed 01/03 VTE prophylaxis: Heparin infusion CODE STATUS: Full code Disposition: ICU Patient was discussed in multidisciplinary rounds Admission and Anticipated Discharge Date Admission Date: December 31, 2021 Supervising Physician Co-Signing Physician Notes Patient was discussed on multidisciplinary rounds I have personally spent 45 minutes of critical care time in the direct management of this patient. This is a life/limb threatening event. This includes time spent evaluating patient, direct bedside care, chart review, placing orders, interpretation of diagnostic studies, discussion with consultants, patient, and/or family members regarding treatment decisions, as well as other required patient management activities. This time is exclusive of all separately billable procedures, and teaching time and separate from and in addition to any other critical care service time. Subjective No overnight events, no significant improvement in oxygenation actually increased his oxygen requirement slightly to 80% overnight. Review of Systems Review of Systems: Unobtainable due to endotracheal tube Physical Exam Physical Exam: General: Sedated. nontoxic. Arouses to stimuli Skin: Warm, dry, left lower extremity improving less bullae less redness Head: Atraumatic Ears, nose, mouth and throat: airway obscured by endotracheal tube Cardiovascular: Normal peripheral perfusion Respiratory: Ventilator settings reviewed Gastrointestinal: Non distended Musculoskeletal: No deformity Results & Data Results & Data ([facility]) Vital Signs (Past 12 Hours) Vital Signs Temp Pulse Resp BP Pulse Ox 01/08/22 08:27 36.4 C L 01/08/22 08:00 60 01/08/22 07:37 51 L 24 91 01/08/22 07:00 80 25 H 143/58 H 90 01/08/22 03:15 40 L 23 92 01/07/22 22:52 40 L 22 94 Critical Care Results & Data Vital Signs (Past 12 Hours) Vital Signs Temp Pulse Resp BP Pulse Ox 01/08/22 08:27 36.4 C L 01/08/22 08:00 60 01/08/22 07:37 51 L 24 91 01/08/22 07:00 80 25 H 143/58 H 90 01/08/22 03:15 40 L 23 92 01/07/22 22:52 40 L 22 94 Lab & Micro Results (Past 24 Hours) RBC 4.04 M/uL (4.7-6.1) L 01/08/22 WBC 8.20 K/uL (4.8-10.8) 01/08/22 Hgb 11.6 g/dL (14.0-18.0) L 01/08/22 Hct 37.9 % (42-52) L 01/08/22 MCV 93.8 fL (80-100) 01/08/22 MCH 28.7 pg (25-34) 01/08/22 MCHC 30.6 g/dL (32-36) L 01/08/22 RDW Standard Deviation 53.8 fL (36.4-46.3) H 01/08/22 RDW Coefficient of Variation 15.6 % (11.5-14.5) H 01/08/22 Plt Count 283 K/uL (130-400) 01/08/22 MPV 10.8 fL (7.4-10.4) H 01/08/22 Neutrophils (%) (Auto) 71.8 % 01/08/22 Lymphocytes (%) (Auto) 15.9 % 01/08/22 Monocytes # (Auto) 0.76 K/uL (0.11-0.59) H 01/08/22 Eosinophils # (Auto) 0.03 K/uL (0-0.5) 01/08/22 Immature Granulocyte % (Auto) 2.4 % 01/08/22 Neutrophils # (Auto) 5.89 K/uL (1.4-6.5) 01/08/22 Lymphocytes # (Auto) 1.30 K/uL (1.2-3.4) 01/08/22 Monocytes # (Auto) 0.76 K/uL (0.11-0.59) H 01/08/22 Eosinophils # (Auto) 0.03 K/uL (0-0.5) 01/08/22 Basophils # (Auto) 0.02 K/uL (0-0.2) 01/08/22 Immature Granulocyte # (Auto) 0.20 K/uL (0.00-0.02) H 01/08/22 Na 140 mmol/L (136-145) 01/08/22 K 4.8 mmol/L (3.5-5.1) 01/08/22 Cl 101 mmol/L (98-107) 01/08/22 CO2 34 mmol/L (21-32) H 01/08/22 Anion Gap 5 (3-11) 01/08/22 BUN 38 mg/dl (6-23) H 01/08/22 Creatinine 1.10 mg/dl (0.6-1.4) 01/08/22 Estimated GFR ( Amer) 85.9 ml/min 01/08/22 Estimated GFR (Non-Af Amer) 74.1 ml/min 01/08/22 BUN/Creatinine Ratio 34.5 (10-20) H 01/08/22 Glu 91 mg/dl (70-99(Fasting)) 01/08/22 Ca 9.6 mg/dl (8.5-10.1) 01/08/22 Phosphorus Level 3.0 mg/dl (2.5-4.9) 01/08/22 Mg 2.5 mg/dl (1.7-2.4) H 01/08/22 04:55 01/08/22 Calcium Level 9.6 mg/dl (8.5-10.1) 01/08/22 04:55 01/08/22 Jameel Test Pass 01/08/22 04:28 01/08/22 Microbiology 01/05/22 08:30 Gram Stain - Final Bronch Wash,Left Lower Lobe Bronchial Culture - Final Scant normal desi. 01/07/22 Unknown Gram Stain - Final Sputum,Vent Suction Diagnostic Findings (Past 24 Hours) Chest X-Ray 01/08/22 07:00 XR chest 1V portable HISTORY: 56 years-old Male f/u up acute respiratory failure COMPARISON: Chest radiograph 01/07/2022 TECHNIQUE: Portable AP view of the chest FINDINGS: The cardiac silhouette is enlarged. Endotracheal tube overlies the midline, 3.1 cm superior to the abigail. Enteric tube courses into the stomach. Right IJ central venous catheter is noted with distal tip in the expected location of the SVC. Azygos lobe and fissure. No pneumothorax. Right hemidiaphragmatic elevation. There are suggestion of left greater than right pleural effusions. Left lung volume loss with progressive left lung opacities. Pulmonary vascular congestion. Linear right basilar densities are again noted. Degenerative changes of the shoulders and spine. IMPRESSION: 1. Lines and tubes as above. 2. Cardiomegaly with pulmonary vascular congestion. 3. Progressive consolidation/volume loss of the left lung. 4. No pneumothorax. ACT 112: Negative or not required by law. The above report was generated using voice recognition software. It may contain grammatical, syntax or spelling errors. Electronically signed by: Simón Woods M.D. 01/08/2022 7:35 AM I & O Totals 24 Hours 01/07/22 01/08/22 01/09/22 06:59 06:59 06:59 Intake Total 1671.392 / 0328.041 7442.050 / 2047.050 295.275 / 295.275 Output Total 1999 / 1999 5000 / 5000 425 / 425 Balance -328.608 / -328.608 -2952.950 / -2952.950 -129.725 / -129.725 Cumulative 12/31/21 11:11 thru 01/08/22 08:19 Intake Total 33476.726 Output Total 04562 Balance 6725.726 RT Ventilator Mngmt (Last Documented) Ventilator Ordered Settings Ventilator Support Mode Assist Control 01/08/22 07:47 Respiratory Rate 24 01/08/22 07:37 Ventilator Tidal Volume 410 01/08/22 07:47 Setting Minute Ventilation 9.3 01/08/22 07:37 Positive End Expiratory 16 01/08/22 07:47 Pressure Fraction of Inspired Oxygen 70 01/08/22 07:47 Machine Comment FiO2 titrated to 80% 01/07/22 13:45 Ventilator - PT Measurements Respiratory Rate 24 Exhaled Tidal Volume 411 Minute Ventilation 9.3 Peak Inspiratory Airway 32 Pressure Plateau Pressure 21.7 Respiratory Cycle Inspiratory: 1:2.4 Expiratory Ratio Inspiratory Phase Time 0.8 End-Tidal CO2 40 Static Lung Compliance 72.11 Dynamic Lung Compliance 25.69 Normal Static Lung Compliance 47.00 Patient Measurements Comment Sputum is a very pale yellow at this time. Coding Level of Care Code Critical Care 1st 30-74 mins Diagnoses Acute hypercapnic respiratory failure J96.02 Morbid obesity E66.01 New onset atrial fibrillation I48.91 PRIYANKA (acute kidney injury) N17.9 Hypervolemia E87.70 Bradycardia with 41-50 beats per minute R00.1
[2022-01-08] MEDS ORDERED: LACTULOSE SYRUP 20 GM/30 ML UDC PO STA (09:53)
--- NOTE | 2022-01-08 10:46 | Nephrology Progress Note ---
Date of Service January 08, 2022 Assessment & Plan (1) PRIYANKA (acute kidney injury): Plan: Patient with acute renal failure likely due to contrast-induced nephropathy and sepsis. Patient is now making urine. Patient is now intubated on mechanical ventilation. He is off pressors. Electrolytes are stable and no indication for dialysis today. -Monitor renal function with daily BMP -Continue Lasix as needed to keep him net negative daily (2) Cellulitis of left lower extremity: Plan: Patient is IV antibiotics per ICU team. Renally dose antibiotics for current GFR. (3) Hypoxia: Plan: Likely multifactorial including volume overload, sepsis and CHF. We will continue Lasix as needed Admission and Anticipated Discharge Date Admission Date: December 31, 2021 Subjective Seen for acute kidney injury. Patient remains intubated but awake now. He is making urine and was net -3 L yesterday with Lasix Review of Systems Review of Systems: Unable to obtain due to intubation Physical Exam Physical Exam: General exam: Intubated, no acute distress HEENT: Pupils are equal and reactive to light Neck: No JVD, Respiratory system: wheezing bilaterally. Gastrointestinal: Abdomen is soft, non distended, non tender, bowel sounds are present CVS: Regular rate and rhythm. No murmurs, rubs or gallops Musculoskeletal: No joint or muscle tenderness Extremities: left leg swollen and erythematous, 1+ edema Neuro: Intubated no tremors, no focal neurological deficits Skin: No rashes Results & Data ([facility]) Vital Signs (Past 12 Hours) Vital Signs Temp Pulse Resp BP Pulse Ox 01/08/22 08:27 36.4 C L 01/08/22 08:00 60 01/08/22 07:37 51 L 24 91 01/08/22 07:00 80 25 H 143/58 H 90 01/08/22 03:15 40 L 23 92 01/07/22 22:52 40 L 22 94 Laboratory Results 01/08/22 04:55 01/08/22 01/08/22 04:55 04:55 WBC 8.20 RBC 4.04 L MCV 93.8 MCH 28.7 MCHC 30.6 L RDW Std Deviation 53.8 H RDW Coeff of Azul 15.6 H Plt Count 283 MPV 10.8 H Phosphorus 3.0 D
[2022-01-08] MEDS: FUROSEMIDE 40 MG/4 ML VIAL IV SCH (10:52)
--- NOTE | 2022-01-08 16:54 | Hospitalist Progress Note ---
Date of Service January 08, 2022 Assessment & Plan (1) Acute hypercapnic respiratory failure: Plan: 56-year-old male with PMH of morbid obesity, prediabetes, SARAH on CPAP, nocturnal hypoxemia, tobacco abuse presented to the ED 12/31 for evaluation of left leg redness upto midthigh and low-grade fever a/w development of few blisters in left anterior navarrete that subsequently opened. No purulence noted at presentation per HnP. Pt reported SOB w/ minimal exertion. Upon presentation to ED, he was hypoxic on RA at 70% and required 6L NC O2 then. Of note, pt treated for RLE cellulitis 09/2021 w/ cephalexin. Pt was recently evaluated by cardio for HANSON, negative dobutamine stress test. Pt was started on lasix 20 mg daily but dcd d/t subsequent urinary incontinence. Was treated for UTI twice w/ cipro and macrobid. He is being managed for the following: #. Acute hypoxic hypercapnic respiratory failure #. ARDS Smoker with morbid obesity, reported shortness of breath with minimal exertion for the past few months, underwent dobutamine stress echo that was negative. Upon presentation, patient was 70% on room air, and re 6 L via oxy mask initially At presentation, LLE Doppler negative for DVT, CTA chest with no evidence of PE, CXR chest with large confluent alveolar opacity at the right lung base suggestive of atelectasis versus pneumonia versus mass. Follow-up chest x-rays progressively worsening leading to complete opacification of the left hemithorax 01/05. 01/05 status post bronchoscopy, impacted secretions in the left mainstream bronchus which were aspirated clear. Washout of LLL with 60 cc of saline performed. Follow-up with [facility] [place] culture/cell count. Cytology neg for malignancy. Concern for volume overload after IVF for sepsis resuscitation on the background of Suspected obesity hypoventilation syndrome. Now intubated and in ICU, underwent hemodialysis for acute hypervolemia. Management per ICU #. Sepsis POA #. Cellulitis of left lower extremity At admission, met sepsis criteria with WBC 16 K, tachycardia. Pro-Mark 1.26. LLE Doppler negative for DVT at presentation. Cellulitis w/ worsened blistering and drainage after compression stockings applied ---> improving Continue with antibiotics, currently on Cefepime D5 and doxycycline D8. #. New onset A. fib Cardiology consulted and started heparin drip and amiodarone. Patient had rapid ventricular response.Trop not elevated. TSH wnl. 01/04 ECHO limited, LV size and fxn grossly normal. Placed on iv amio, then transitioned to PO amio which was stopped 01/05. 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 Hep drip stopped 01/07 as Pt on NSR. Not a candidate for DOAC given morbid obesity. c/w telemetry. #. PRIYANKA Patient had contrast on top of likely ATN from sepsis. Temporary dialysis started for acute hypokalemia. TDC placed by vascular on 01/02. BUN remains elevated, creatinine normal. Daily BMP, nephrology on board, appreciate recommendation. #. Other chronic medical conditions: HTN, sleep apnea, morbid obesity with BMI 60-69.9, smoking Blood pressure improving, still low normal. Resume as able. Of note, Lisinopril had been discontinued due to hyperkalemia by cardiology, however, was resumed on 12/29 by PCP. Patient currently intubated/mechanically ventilated, when able CPAP as per home settings. For obesity, patient follows with [facility] nutrition and weight management. 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 Patient smokes 1 packs/day, per prior attending declined nicotine patch. #. DVT prophylaxis: Enoxaparin Full Code Dispo-remains in ICU Admission and Anticipated Discharge Date Admission Date: December 31, 2021 Subjective Patient seen and examined at bedside as a follow-up of sepsis, currently cellulitis, new onset A. fib, PRIYANKA and acute hypercapnic respiratory failure. Patient was lying in bed, intubated/mechanically ventilated, on fentanyl/midazolam/tube feed. ROS n/a due to intubated/sedated status. Physical Exam Physical Exam: GENERAL: Morbid obesity, intubated, sedated HEENT: No pallor, no icterus. Pupils equal, round and reactive to light. Oral mucosa dry. NECK: No JVD, no neck masses. HEART: S1 and S2 heard. Bradycardia. No murmur, no gallop. RESPIRATORY SYSTEM: Normal AP diameter. No accessory muscle use. No wheezing, no crackles. Decreased breath sounds. ABDOMEN: Soft, bowel sounds present, no facial grimacing noted on deep palpation, no distention. CENTRAL NERVOUS SYSTEM: No facial droop. Speech is clear. Obeys simple commands. Moves extremities. EXTREMITIES: LLE with erythema up to mid thigh --> improving, BLE 2+ edema. UC w/ yellow urine collection noted. Results & Data Results & Data ([facility]) Vital Signs (Past 12 Hours) Vital Signs Temp Pulse Resp BP Pulse Ox 01/08/22 15:19 55 L 22 93 01/08/22 14:00 47 L 22 104/54 L 92 01/08/22 13:00 49 L 22 107/54 L 91 01/08/22 12:37 36.8 C 01/08/22 12:00 53 L 22 110/51 L 81 L 01/08/22 11:29 51 L 22 90 01/08/22 11:00 49 L 22 104/49 L 90 01/08/22 10:00 48 L 22 93/43 L 91 01/08/22 09:00 71 22 106/45 L 95 01/08/22 08:27 36.4 C L 01/08/22 08:00 61 22 121/53 L 93 01/08/22 07:42 73 22 120/93 92 01/08/22 07:37 51 L 24 91 01/08/22 07:31 59 L 22 123/57 L 91 01/08/22 07:00 80 25 H 143/58 H 90
[2022-01-09] MEDS: DOXYCYCLINE HYCLATE 100 MG in DEXTROSE 5% 100 ML IV SCH ×3 (00:25→22:47)
[2022-01-09] MEDS: CEFEPIME 2,000 MG in SYRINGE 0 ML IV SCH ×2 (00:26→10:55)
[2022-01-09] MEDS: ARTIFICIAL TEARS OP OINT 3.5 GM TUBE OP SCH ×6 (00:45→20:26)
[2022-01-09] MEDS: TUBE FEEDING WATER FLUSH OG SCH ×6 (02:44→22:46)
[2022-01-09 05:00] LABS: Basophils # (auto) 0.02 K/uL (0-0.2); Basophils % (auto) 0.2 %; Eosinophils # (auto) 0.03 K/uL (0-0.5); Eosinophils % (auto) 0.4 %; Hematocrit (blood only) 39.5 % (42-52); Immature Granulocytes # (auto) 0.14 K/uL (0.00-0.02); Immature Granulocytes % (auto) 1.7 %; Lymphocytes # (auto) 0.88 K/uL (1.2-3.4); Lymphocytes % (auto) 10.7 %; Mean Corpuscular Hgb Conc 30.4 g/dL (32-36); Mean Corpuscular Volume 95.4 fL (80-100); Mean Platelet Volume 10.8 fL (7.4-10.4); Monocytes # (auto) 0.49 K/uL (0.11-0.59); Neutrophils # (auto) 6.66 K/uL (1.4-6.5); Platelet Count 293 K/uL (130-400); RDW Coefficient of Variation 15.3 % (11.5-14.5); RDW Standard Deviation 53.5 fL (36.4-46.3); Red Blood Count 4.14 M/uL (4.7-6.1); White Blood Count 8.22 K/uL (4.8-10.8)
[2022-01-09 05:03] LABS: iSTAT Art Bld Gas pCO2 Correct 50 mmHg (35-46); iSTAT Art Bld Gas pH Corrected 7.407 (7.35-7.45); iSTAT Arterial Blood Gas HCO3 32 meg/L (19-24); iSTAT Arterial Blood Gas pCO2 51 mmHg (35-46); iSTAT Arterial Blood Gas pO2 57 mmHg (80-95); iSTAT Arterial Blood Gas pO2 C 56; iSTAT Carbon Dioxide 33 mmol/L (24-31); iSTAT Hematocrit 37 % (42-52); iSTAT Hemoglobin 12.6 g/dl (14.0-18.0); iSTAT Potassium 4.3 mmol/L (3.3-5.0); iSTAT Site R Radial; iSTAT Sodium 138 mmol/L (135-144)
[2022-01-09] MEDS: fentaNYL citrate 2,500 MCG/250 ML BAG IV SCH ×2 (05:09→14:52)
[2022-01-09 05:40] LABS: BUN Creatinine Ratio 40.4 (10-20); Calcium 9.3 mg/dl (8.5-10.1); Est GFR (African American) 103.9 ml/min; Est GFR (Non-African American) 89.6 ml/min; Magnesium 2.2 mg/dl (1.7-2.4); Phosphorus 2.9 mg/dl (2.5-4.9); Potassium 4.3 mmol/L (3.5-5.1)
--- NOTE | 2022-01-09 07:46 | Critical Care Progress Note ---
Date of Service January 09, 2022 Assessment & Plan (1) Acute hypercapnic respiratory failure: (2) Morbid obesity: (3) New onset atrial fibrillation: (4) PRIYANKA (acute kidney injury): (5) Hypervolemia: (6) Bradycardia with 41-50 beats per minute: Plan: 56-year-old with a past medical history of morbid obesity, hypertension, SARAH on CPAP abuse presenting to the hospital due to sepsis, cellulitis now presenting to the ICU due to acute hypoxemic and hypercapnic respiratory failure. Neurologic: Continue Versed and fentanyl to maintain RASS of -1. -Patient has large volume of distribution is likely accumulating metabolites, Precedex contraindicated secondary to bradycardia we will consider additional ketamine infusion for sedation Pulmonary: -ARDS. element of CHF/volume overload, diuresis per nephrology Discontinued amiodarone due to concerns of pulmonary toxicity. - Predinose 30 mg x 5 days then 20 mg x 5 days, then 10 mg x 5 days, then x 5 days. -Mucoid impaction of bronchi - atelectasis of the left lung 01/05 with almost complete white out. Patient is post bronchoscopy with aspiration of mucous plugs. Cardiovascular: Hypotension: Resolved hold antihypertensives. Paroxysmal atrial fibrillation: Currently normal sinus rhythm -Echo was a limited study but LVEF was normal. Right ventricular systolic function normal as well. Troponin not elevated. Gastrointestinal: NPO. OG tube placed. Continue tube feeds. Continue pantoprazole. Continue docusate, senna and MiraLAX daily. LFTs unremarkable. Constipation: Last BM 01/02 -Increasing Senokot and lactulose 30 mils x1 Renal: Acute renal failure likely due to ischemic ATN improved with dialysis. Nephrology on board -40 mg Lasix daily for edema Infectious disease: Patient with extensive cellulitis of the lower extremity. Blood cultures negative. Urine cultures unremarkable. Antibiotics escalated to cefepime 01/04: Day 5/7. MRSA screen negative. Continue doxycycline: Day 8, continue for 10 days. Hematologic: Hemoglobin stable. Continue to monitor. Continue heparin infusion at this time. DVT prophylaxis: 40 twice daily secondary to obesity -Patient normal sinus rhythm at this time, No strong indication for s ystemic anticoagulation Endocrine: Maintain euglycemia. TSH checked 01/01 within normal limits Lines and tubes: Right tunneled HD catheter placed in the IJ 01/02/2022. Peripheral IVs in place. Rutledge catheter in place. ET tube placed 01/03 VTE prophylaxis: Heparin infusion CODE STATUS: Full code Disposition: ICU Patient was discussed in multidisciplinary rounds updated the patient : discussion of prognosis and possible trach if unable to liberate from ventilator in next week Admission and Anticipated Discharge Date Admission Date: December 31, 2021 Supervising Physician Co-Signing Physician Notes I have personally spent 45 minutes of critical care time in the direct management of this patient. This is a life/limb threatening event. This includes time spent evaluating patient, direct bedside care, chart review, placing orders, interpretation of diagnostic studies, discussion with consultants, patient, and/or family members regarding treatment decisions, as well as other required patient management activities. This time is exclusive of all separately billable procedures, and teaching time and separate from and in addition to any other critical care service time. Subjective Overnight events Review of Systems Review of Systems: Unobtainable due to endotracheal tube Physical Exam Physical Exam: General: Sedated. nontoxic. Does move all 4 extremities with moderate to deep stimulation Skin: Warm, dry, Head: Atraumatic Ears, nose, mouth and throat: airway obscured by endotracheal tube Cardiovascular: Normal peripheral perfusion Respiratory: Ventilator settings reviewed Gastrointestinal: Non distended Musculoskeletal: No deformity Results & Data Results & Data ([facility]) Vital Signs (Past 12 Hours) Vital Signs Temp Pulse Resp BP Pulse Ox 01/09/22 06:00 37 C 47 L 22 90 01/09/22 05:00 41 L 22 95 01/09/22 04:00 45 L 22 94 01/09/22 03:30 44 L 24 95 01/09/22 03:01 42 L 22 128/73 91 01/09/22 03:00 42 L 22 91 01/09/22 02:00 41 L 22 92 01/09/22 01:00 42 L 24 92 01/09/22 00:01 59 L 24 112/70 92 01/09/22 00:00 46 L 19 93 01/08/22 23:23 45 L 22 93 01/08/22 23:00 44 L 22 92 01/08/22 22:01 52 L 18 109/65 94 01/08/22 22:00 44 L 22 94 01/08/22 21:00 46 L 22 93 01/08/22 20:10 45 L 22 92 01/08/22 20:00 49 L 22 93 Critical Care Results & Data Vital Signs (Past 12 Hours) Vital Signs Temp Pulse Resp BP Pulse Ox 01/09/22 06:00 37 C 47 L 22 90 01/09/22 05:00 41 L 22 95 01/09/22 04:00 45 L 22 94 01/09/22 03:30 44 L 24 95 01/09/22 03:01 42 L 22 128/73 91 01/09/22 03:00 42 L 22 91 01/09/22 02:00 41 L 22 92 01/09/22 01:00 42 L 24 92 01/09/22 00:01 59 L 24 112/70 92 01/09/22 00:00 46 L 19 93 01/08/22 23:23 45 L 22 93 01/08/22 23:00 44 L 22 92 01/08/22 22:01 52 L 18 109/65 94 01/08/22 22:00 44 L 22 94 01/08/22 21:00 46 L 22 93 01/08/22 20:10 45 L 22 92 01/08/22 20:00 49 L 22 93 Lab & Micro Results (Past 24 Hours) RBC 4.14 M/uL (4.7-6.1) L 01/09/22 WBC 8.22 K/uL (4.8-10.8) 01/09/22 Hgb 12.0 g/dL (14.0-18.0) L 01/09/22 Hct 39.5 % (42-52) L 01/09/22 MCV 95.4 fL (80-100) 01/09/22 MCH 29.0 pg (25-34) 01/09/22 MCHC 30.4 g/dL (32-36) L 01/09/22 RDW Standard Deviation 53.5 fL (36.4-46.3) H 01/09/22 RDW Coefficient of Variation 15.3 % (11.5-14.5) H 01/09/22 Plt Count 293 K/uL (130-400) 01/09/22 MPV 10.8 fL (7.4-10.4) H 01/09/22 Neutrophils (%) (Auto) 81.0 % 01/09/22 Lymphocytes (%) (Auto) 10.7 % 01/09/22 Monocytes # (Auto) 0.49 K/uL (0.11-0.59) 01/09/22 Eosinophils # (Auto) 0.03 K/uL (0-0.5) 01/09/22 Immature Granulocyte % (Auto) 1.7 % 01/09/22 Neutrophils # (Auto) 6.66 K/uL (1.4-6.5) H 01/09/22 Lymphocytes # (Auto) 0.88 K/uL (1.2-3.4) L 01/09/22 Monocytes # (Auto) 0.49 K/uL (0.11-0.59) 01/09/22 Eosinophils # (Auto) 0.03 K/uL (0-0.5) 01/09/22 Basophils # (Auto) 0.02 K/uL (0-0.2) 01/09/22 Immature Granulocyte # (Auto) 0.14 K/uL (0.00-0.02) H 01/09/22 Na 139 mmol/L (136-145) 01/09/22 K 4.3 mmol/L (3.5-5.1) 01/09/22 Cl 102 mmol/L (98-107) 01/09/22 CO2 34 mmol/L (21-32) H 01/09/22 Anion Gap 3 (3-11) 01/09/22 BUN 38 mg/dl (6-23) H 01/09/22 Creatinine 0.94 mg/dl (0.6-1.4) 01/09/22 Estimated GFR ( Amer) 103.9 ml/min 01/09/22 Estimated GFR (Non-Af Amer) 89.6 ml/min 01/09/22 BUN/Creatinine Ratio 40.4 (10-20) H 01/09/22 Glu 114 mg/dl (70-99(Fasting)) H 01/09/22 Ca 9.3 mg/dl (8.5-10.1) 01/09/22 Phosphorus Level 2.9 mg/dl (2.5-4.9) 01/09/22 Mg 2.2 mg/dl (1.7-2.4) 01/09/22 04:41 01/09/22 Calcium Level 9.3 mg/dl (8.5-10.1) 01/09/22 04:41 01/09/22 Jameel Test NA 01/09/22 04:22 01/09/22 Microbiology 01/07/22 Unknown Gram Stain - Final Sputum,Vent Suction Sputum Culture - Preliminary No growth I & O Totals 24 Hours 01/08/22 01/09/22 01/10/22 06:59 06:59 06:59 Intake Total 2047.050 / 2047.050 2437.642 / 2437.642 Output Total 5000 / 5000 4975 / 4975 Balance -2952.950 / -2952.950 -2537.358 / -2537.358 Cumulative 12/31/21 11:11 thru 01/09/22 06:00 Intake Total 67039.093 Output Total 94810 Balance 4318.093 RT Ventilator Mngmt (Last Documented) Ventilator Ordered Settings Ventilator Support Mode Assist Control 01/09/22 03:30 Respiratory Rate 22 01/09/22 06:00 Ventilator Tidal Volume 410 01/09/22 03:30 Setting Minute Ventilation 8.9 01/09/22 03:30 Positive End Expiratory 14 01/09/22 03:30 Pressure Fraction of Inspired Oxygen 80 01/09/22 04:25 Machine Comment PaO2 57 post ABG 01/09/22 04:25 Ventilator - PT Measurements Respiratory Rate 22 Exhaled Tidal Volume 409 Minute Ventilation 8.9 Peak Inspiratory Airway 42 Pressure Plateau Pressure 29.8 Respiratory Cycle Inspiratory: 1;2.9 Expiratory Ratio Inspiratory Phase Time 0.7 End-Tidal CO2 40 Static Lung Compliance 25.89 Dynamic Lung Compliance 14.61 Normal Static Lung Compliance 44.00 Patient Measurements Comment Ti changed due to long expiratory phase/ air trapping noted on vent waveform. Coding Level of Care Code Critical Care 1st 30-74 mins Diagnoses Acute hypercapnic respiratory failure J96.02 Morbid obesity E66.01 New onset atrial fibrillation I48.91 PRIYANKA (acute kidney injury) N17.9 Hypervolemia E87.70 Bradycardia with 41-50 beats per minute R00.1
[2022-01-09] MEDS: MIDAZOLAM HCL 125 MG/250 ML BAG IV SCH ×5 (07:55→20:19)
[2022-01-09] MEDS: ATORVASTATIN 20 MG TAB PO SCH (08:47)
[2022-01-09] MEDS: POLYETHYLENE (MIRALAX) 17 GM PACK PO SCH (08:48)
[2022-01-09] MEDS: ENOXAPARIN INJ 40 MG/0.4 ML SYR SQ SCH ×2 (08:48→20:27)
[2022-01-09] MEDS: PANTOprazole 40 MG in SYRINGE 0 ML IV SCH ×2 (08:48→20:24)
[2022-01-09] MEDS: DOCUSATE SODIUM/SENNA 50/8.6MG TAB PO SCH ×2 (08:48→20:39)
[2022-01-09] MEDS: FUROSEMIDE 40 MG/4 ML VIAL IV SCH (08:51)
[2022-01-09] MEDS: ASPIRIN 81 MG CHEW PO SCH (08:51)
--- NOTE | 2022-01-09 09:02 | XRay Report ---
XR chest 1V portable CLINICAL HISTORY: Respiratory failure TECHNIQUE: Single frontal radiograph of the chest was obtained. Comparison: Comparison is made to chest radiograph 01/08/2022 FINDINGS: Lines and tubes are stable. Exam is limited by underpenetration. Cardiomegaly is noted. There is sugg estion of left retrocardiac airspace opacity. The lungs are underinflated. Pulmonary vascular congest ion is seen. No evidence of pleural effusion or pneumothorax. IMPRESSION: Left retrocardiac airspace opacity which may represent atelectasis, pneumonia, and/or aspiration. Lik kevin mild pulmonary edema. ACT 112: Negative or not required by law. Electronically signed by: Zohaib Lagos M.D. 01/09/2022 9:00 AM
[2022-01-09] MEDS ORDERED: SODIUM CHLORIDE 0.9% IV ONE (09:37)
[2022-01-09] MEDS ORDERED: KETAMINE HCL IV ONE (09:37)
[2022-01-09] MEDS ORDERED: STAT IV Infusion **Titration per Protocol STA (10:02)
[2022-01-09] MEDS ORDERED: LACTULOSE SYRUP 30 GM/45 ML UDP PO STA (10:03)
[2022-01-09] MEDS: predniSONE 10 MG TABLET PO SCH (10:47)
[2022-01-09] MEDS: KETAMINE HCL / NSS 500 MG/500 ML BAG IV SCH ×2 (10:48→22:36)
--- NOTE | 2022-01-09 11:52 | Hospitalist Progress Note ---
Date of Service January 09, 2022 Assessment & Plan (1) Acute hypercapnic respiratory failure: Plan: 56-year-old male with PMH of morbid obesity, prediabetes, SARAH on CPAP, nocturnal hypoxemia, tobacco abuse presented to the ED 12/31 for evaluation of left leg redness upto midthigh and low-grade fever a/w development of few blisters in left anterior navarrete that subsequently opened. No purulence noted at presentation per HnP. Pt reported SOB w/ minimal exertion. Upon presentation to ED, he was hypoxic on RA at 70% and required 6L NC O2 then. Of note, pt treated for RLE cellulitis 09/2021 w/ cephalexin. Pt was recently evaluated by cardio for HANSON, negative dobutamine stress test. Pt was started on lasix 20 mg daily but dcd d/t subsequent urinary incontinence. Was treated for UTI twice w/ cipro and macrobid. He is being managed for the following: #. Acute hypoxic hypercapnic respiratory failure #. ARDS Smoker with morbid obesity, reported shortness of breath with minimal exertion for the past few months, underwent dobutamine stress echo that was negative. Upon presentation, patient was 70% on room air, and re 6 L via oxy mask initially At presentation, LLE Doppler negative for DVT, CTA chest with no evidence of PE, CXR chest with large confluent alveolar opacity at the right lung base suggestive of atelectasis versus pneumonia versus mass. Follow-up chest x-rays progressively worsening leading to complete opacification of the left hemithorax by 01/05. 01/05 status post bronchoscopy, impacted secretions in the left mainstream bronchus which were aspirated clear. Washout of LLL with 60 cc of saline performed. Follow-up with [facility] washing culture/cell count. Cytology neg for malignancy. Concern for volume overload after IVF for sepsis resuscitation on the background of Suspected obesity hypoventilation syndrome. Now intubated and in ICU, underwent hemodialysis for acute hypervolemia- last one 01/04, being diuresed now. Management per ICU - Pt on prednisone taper. #. Sepsis POA #. Cellulitis of left lower extremity At admission, met sepsis criteria with WBC 16 K, tachycardia. Pro-Mark 1.26. LLE Doppler negative for DVT at presentation. Cellulitis w/ worsened blistering and drainage after compression stockings applied ---> improving Continue with antibiotics, currently on Cefepime D6 and doxycycline D9. #. New onset A. fib Cardiology consulted and started heparin drip and amiodarone. Patient had rapid ventricular response.Trop not elevated. TSH wnl. 01/04 ECHO limited, LV size and fxn grossly normal. Placed on iv amio, then transitioned to PO amio which was stopped 01/05. Amio stopped out of concern for pulmonary toxicity - per spray machine loader. Hep drip stopped 01/07 as Pt on NSR. Not a candidate for DOAC given morbid obesity. c/w telemetry. #. PRIYANKA Patient had contrast on top of likely ATN from sepsis. Temporary dialysis started for acute hypokalemia. TDC placed by vascular on 01/02. BUN remains elevated, creatinine normal. Daily BMP, nephrology on board, appreciate recommendation. #. Other chronic medical conditions: HTN, sleep apnea, morbid obesity with BMI 60-69.9, smoking Blood pressure improving, still low normal. Resume as able. Of note, Lisinopril had been discontinued due to hyperkalemia by cardiology, however, was resumed on 12/29 by PCP. Patient currently intubated/mechanically ventilated, when able CPAP as per home settings. For obesity, patient follows with [facility] nutrition and weight management. Purchasing Administrator on importance of weight loss and smoking cessation when able. Patient smokes 1 packs/day, per prior attending declined nicotine patch. #. DVT prophylaxis: Enoxaparin Full Code Dispo-remains in ICU Admission and Anticipated Discharge Date Admission Date: December 31, 2021 Subjective Patient seen and examined at bedside as a follow-up of sepsis, currently cellulitis, new onset A. fib, PRIYANKA and acute hypercapnic respiratory failure. Patient was lying in bed, intubated/mechanically ventilated, on fentanyl/midazolam/tube feed. ROS n/a due to intubated/sedated status. Physical Exam Physical Exam: GENERAL: Morbid obesity, intubated, opens eyes on calling, mild restless at times. HEENT: No pallor, no icterus. Pupils equal, round and reactive to light. Oral mucosa moist. NECK: No JVD, no neck masses. HEART: S1 and S2 heard. Bradycardia. No murmur, no gallop. RESPIRATORY SYSTEM: Normal AP diameter. No accessory muscle use. No wheezing, no crackles. Decreased breath sounds. ABDOMEN: Soft, bowel sounds present, no facial grimacing noted on deep palpation, no distention. CENTRAL NERVOUS SYSTEM: No facial droop. Speech is clear. Obeys simple commands. Moves extremities. EXTREMITIES: LLE with erythema up to mid thigh --> improving, BLE 1+ edema. UC w/ yellow urine collection noted. Results & Data Results & Data ([facility]) Vital Signs (Past 12 Hours) Vital Signs Temp Pulse Resp BP Pulse Ox 01/09/22 11:40 50 L 23 92 01/09/22 07:24 62 22 92 01/09/22 06:00 37 C 47 L 22 90 01/09/22 05:00 41 L 22 95 01/09/22 04:00 45 L 22 94 01/09/22 03:30 44 L 24 95 01/09/22 03:01 42 L 22 128/73 91 01/09/22 03:00 42 L 22 91 01/09/22 02:00 41 L 22 92 01/09/22 01:00 42 L 24 92 01/09/22 00:01 59 L 24 112/70 92 01/09/22 00:00 46 L 19 93
[2022-01-09] MEDS ORDERED: Nursing to Pharmacy Communication SCH (16:15)
[2022-01-09 16:32] LABS: iSTAT Allen Test Pass; iSTAT Art Bld Gas pCO2 Correct 59 mmHg (35-46); iSTAT Arterial Blood Gas HCO3 33 meg/L (19-24); iSTAT Arterial Blood Gas pCO2 59 mmHg (35-46); iSTAT Arterial Blood Gas pH 7.36 (7.35-7.45); iSTAT Arterial Blood Gas pO2 53 mmHg (80-95); iSTAT Arterial Blood Gas pO2 C 53; iSTAT Carbon Dioxide 35 mmol/L (24-31); iSTAT FiO2 60 %; iSTAT Hematocrit 39 % (42-52); iSTAT Hemoglobin 13.3 g/dl (14.0-18.0); iSTAT Potassium 4.7 mmol/L (3.3-5.0); iSTAT Site R Radial; iSTAT Sodium 138 mmol/L (135-144)
[2022-01-09] MEDS: PEPTAMEN INTENSE VHP 1.0 CAL 1,000 ML BAG OG SCH (20:44)
--- NOTE | 2022-01-09 21:05 | Nephrology Progress Note ---
Date of Service January 09, 2022 Assessment & Plan (1) PRIYANKA (acute kidney injury): Plan: Patient with acute renal failure/ ischemic ATN due to contrast-induced nephropathy and sepsis. Patient is now making urine w/ post ATN polyuria/diuresis >> << also on 40 mgIV lasix daily as of 01/08. Patient is now intubated on mechanical ventilation. He is off pressors but needing aggressive sedation to tolerate ETT. Electrolytes are stable and no indication for dialysis today. -Monitor renal function with daily BMP -Continue Lasix as needed to keep him net negative daily -cont FW flushes (2) Cellulitis of left lower extremity: Plan: Patient is IV antibiotics per ICU team. Renally dose antibiotics for current GFR. (3) Hypoxia: Plan: Likely multifactorial including volume overload, sepsis and CHF. We will continue Lasix as needed Admission and Anticipated Discharge Date Admission Date: December 31, 2021 Subjective seen on rounds at 0900; critical care discussing timing/consideration of trach as he has been difficult to ventilate; Review of Systems Review of Systems: Unobtainable due to endotracheal tube Physical Exam Constitutional: well developed, well nourished and + mechanically ventilated; no acute distress Eyes: EOM intact bilaterally opens eyes w/ exam stimuli ENMT: Ears: no external ear abnormality Nose: no external nose abnormality Mouth: + dry oral mucous membranes Neck: no nuchal rigidity Respiratory: normal respiratory effort Auscultation: + diminished lung sounds Cardiovascular: Rate/Rhythm: regular rate and regular rhythm Extremities: + edema (2+) Gastrointestinal (Abdomen): Inspection/Auscultation: normal bowel sounds Percussion/Palpation: abdomen soft; abdomen nontender Musculoskeletal: Extremities: strength 5/5 throughout Skin: no rashes, warm and dry Neurologic: odell, some tremor; in restraints Genitourinary: mcgrath w/ ample dark yellow urine Results & Data ([facility]) Vital Signs (Past 12 Hours) Vital Signs Temp Pulse Resp BP Pulse Ox 01/09/22 19:13 48 L 22 90 01/09/22 18:01 54 L 22 115/57 L 92 01/09/22 18:00 59 L 22 92 01/09/22 17:30 52 L 22 91 01/09/22 17:01 50 L 22 114/58 L 91 01/09/22 17:00 52 L 22 91 01/09/22 16:00 37.0 C 50 L 22 90 01/09/22 15:49 23 01/09/22 15:01 51 L 22 103/47 L 90 01/09/22 15:00 52 L 22 90 01/09/22 14:01 52 L 22 109/49 L 93 01/09/22 14:00 51 L 22 92 01/09/22 13:00 52 L 22 91 01/09/22 12:01 51 L 22 102/52 L 93 01/09/22 12:00 50 L 22 91 01/09/22 11:40 50 L 23 92 01/09/22 11:00 49 L 22 92 01/09/22 10:00 46 L 22 91 Laboratory Results 01/09/22 04:41 01/09/22 04:41
[2022-01-10] MEDS: CEFEPIME 2,000 MG in SYRINGE 0 ML IV SCH ×3 (00:02→22:27)
[2022-01-10] MEDS: ARTIFICIAL TEARS OP OINT 3.5 GM TUBE OP SCH ×6 (00:03→20:37)
[2022-01-10] MEDS: fentaNYL citrate 2,500 MCG/250 ML BAG IV SCH ×2 (03:20→15:11)
[2022-01-10] MEDS: TUBE FEEDING WATER FLUSH OG SCH ×6 (03:22→22:32)
[2022-01-10] MEDS: MIDAZOLAM BOLUS FROM BAG IV PRN ×5 (05:16→20:03)
[2022-01-10 05:23] LABS: iSTAT Art Bld Gas pCO2 Correct 56 mmHg (35-46); iSTAT Art Bld Gas pH Corrected 7.361 (7.35-7.45); iSTAT Arterial Blood Gas HCO3 32 meg/L (19-24); iSTAT Arterial Blood Gas pCO2 58 mmHg (35-46); iSTAT Arterial Blood Gas pH 7.35 (7.35-7.45); iSTAT Arterial Blood Gas pO2 35 mmHg (80-95); iSTAT Arterial Blood Gas pO2 C 34; iSTAT Carbon Dioxide 34 mmol/L (24-31); iSTAT Hematocrit 38 % (42-52); iSTAT Hemoglobin 12.9 g/dl (14.0-18.0); iSTAT Potassium 4.6 mmol/L (3.3-5.0); iSTAT Site L Radial; iSTAT Sodium 137 mmol/L (135-144)
[2022-01-10 05:23] LABS: iSTAT Art Bld Gas pCO2 Correct 57 mmHg (35-46); iSTAT Art Bld Gas pH Corrected 7.371 (7.35-7.45); iSTAT Arterial Blood Gas HCO3 33 meg/L (19-24); iSTAT Arterial Blood Gas pCO2 58 mmHg (35-46); iSTAT Arterial Blood Gas pH 7.36 (7.35-7.45); iSTAT Arterial Blood Gas pO2 50 mmHg (80-95); iSTAT Arterial Blood Gas pO2 C 49; iSTAT Carbon Dioxide 35 mmol/L (24-31); iSTAT FiO2 70 %; iSTAT Hematocrit 37 % (42-52); iSTAT Hemoglobin 12.6 g/dl (14.0-18.0); iSTAT Potassium 4.6 mmol/L (3.3-5.0); iSTAT Site L Radial; iSTAT Sodium 138 mmol/L (135-144)
[2022-01-10 05:55] LABS: Basophils # (auto) 0.02 K/uL (0-0.2); Basophils % (auto) 0.2 %; Eosinophils # (auto) 0.07 K/uL (0-0.5); Eosinophils % (auto) 0.7 %; Hematocrit (blood only) 38.7 % (42-52); Hemoglobin 12.3 g/dL (14.0-18.0); Immature Granulocytes % (auto) 1.1 %; Lymphocytes # (auto) 0.98 K/uL (1.2-3.4); Lymphocytes % (auto) 10.3 %; Mean Corpuscular Hemoglobin 30.8 pg (25-34); Mean Corpuscular Hgb Conc 31.8 g/dL (32-36); Mean Corpuscular Volume 96.8 fL (80-100); Mean Platelet Volume 10.6 fL (7.4-10.4); Monocytes % (auto) 6.3 %; Neutrophils # (auto) 7.75 K/uL (1.4-6.5); Neutrophils % (auto) 81.4 %; Platelet Count 268 K/uL (130-400); RDW Coefficient of Variation 15.6 % (11.5-14.5); RDW Standard Deviation 54.8 fL (36.4-46.3); White Blood Count 9.52 K/uL (4.8-10.8)
[2022-01-10 06:22] LABS: Calcium 8.7 mg/dl (8.5-10.1); Creatinine Clr Calc Pharmacy 154.2 ml/min; Est GFR (African American) 113.2 ml/min; Est GFR (Non-African American) 97.7 ml/min; Magnesium 1.9 mg/dl (1.7-2.4); Phosphorus 3.5 mg/dl (2.5-4.9); Potassium 4.3 mmol/L (3.5-5.1)
[2022-01-10] MEDS: KETAMINE HCL / NSS 500 MG/500 ML BAG IV SCH ×3 (07:46→20:58)
--- NOTE | 2022-01-10 08:16 | Nephrology Progress Note ---
Date of Service January 10, 2022 Assessment & Plan (1) PRIYANKA (acute kidney injury): Plan: Patient with history of ischemic ATN from contrast-induced nephropathy and sepsis. Patient is now making urine w/ post ATN polyuria/diuresis >> << also on 40 mgIV lasix daily as of 01/08; I=O past 24 hrs. Patient remains intubated on mechanical ventilation. He is needing aggressive sedation to tolerate ETT. Electrolytes are stable and no indication for dialysis today. -Monitor renal function with daily BMP -Continue Lasix as needed to keep him net negative daily -cont FW flushes -remove dialysis catheter Will sign off; pls call if ? Recommend nephrology f/u w/in 2-4 wks after hospital d/c d/t history of dialysis dependence and risk for recurrent/future renal issues (2) Cellulitis of left lower extremity: Plan: Patient is IV antibiotics per ICU team. Renally dose antibiotics for current GFR. Admission and Anticipated Discharge Date Admission Date: December 31, 2021 Subjective on ketamine; remains intubated Review of Systems Review of Systems: Unobtainable due to endotracheal tube Physical Exam Constitutional: well developed, well nourished and + mechanically ventilated; no acute distress Eyes: EOM intact bilaterally ENMT: Ears: no external ear abnormality Nose: no external nose abnormality Mouth: + dry oral mucous membranes Neck: no nuchal rigidity Respiratory: normal respiratory effort Auscultation: + diminished lung sounds Cardiovascular: Rate/Rhythm: regular rate and regular rhythm Extremities: + edema (2+) Gastrointestinal (Abdomen): Inspection/Auscultation: normal bowel sounds Percussion/Palpation: abdomen soft; abdomen nontender Musculoskeletal: Extremities: strength 5/5 throughout Skin: no rashes, warm and dry Results & Data ([facility]) Vital Signs (Past 12 Hours) Vital Signs Temp Pulse Resp BP Pulse Ox 01/10/22 07:20 49 L 22 93 01/10/22 06:11 36.6 C 01/10/22 06:01 52 L 22 127/77 96 01/10/22 06:00 53 L 22 93 01/10/22 05:30 61 22 93 01/10/22 05:01 51 L 22 127/63 92 01/10/22 05:00 56 L 22 93 01/10/22 04:30 48 L 22 93 01/10/22 04:01 52 L 22 117/78 92 01/10/22 04:00 52 L 22 92 01/10/22 03:50 49 L 22 94 01/10/22 03:30 49 L 22 91 01/10/22 03:01 46 L 22 143/78 H 91 01/10/22 03:00 45 L 22 91 01/10/22 02:30 46 L 22 90 01/10/22 02:01 48 L 22 127/67 89 L 01/10/22 02:00 46 L 22 90 01/10/22 01:30 44 L 22 90 01/10/22 01:01 36.6 C 44 L 22 121/69 90 01/10/22 01:00 41 L 22 90 01/10/22 00:30 43 L 22 90 01/10/22 00:01 45 L 22 120/71 91 01/10/22 00:00 45 L 22 92 01/09/22 23:59 49 L 01/09/22 23:30 45 L 22 92 01/09/22 23:01 45 L 19 115/58 L 92 01/09/22 23:00 45 L 22 92 01/09/22 22:47 22 01/09/22 22:30 47 L 22 92 01/09/22 22:01 49 L 22 117/57 L 93 01/09/22 22:00 49 L 22 92 01/09/22 21:30 49 L 22 92 01/09/22 21:01 50 L 22 123/67 92 01/09/22 21:00 50 L 22 92 01/09/22 20:30 49 L 22 91 Laboratory Results 01/10/22 05:38 01/10/22 05:38
[2022-01-10] MEDS: DOCUSATE SODIUM/SENNA 50/8.6MG TAB PO SCH ×2 (08:59→20:26)
[2022-01-10] MEDS: ATORVASTATIN 20 MG TAB PO SCH (08:59)
[2022-01-10] MEDS: PANTOprazole 40 MG in SYRINGE 0 ML IV SCH ×2 (09:00→20:38)
[2022-01-10] MEDS: ENOXAPARIN INJ 40 MG/0.4 ML SYR SQ SCH ×2 (09:00→20:39)
[2022-01-10] MEDS: FUROSEMIDE 40 MG/4 ML VIAL IV SCH (09:00)
[2022-01-10] MEDS: predniSONE 10 MG TABLET PO SCH (09:01)
[2022-01-10] MEDS: POLYETHYLENE (MIRALAX) 17 GM PACK PO SCH (09:01)
[2022-01-10] MEDS: ASPIRIN 81 MG CHEW PO SCH (09:03)
--- NOTE | 2022-01-10 09:10 | XRay Report ---
XR chest 1V portable CLINICAL HISTORY: f/u COMPARISON STUDY: Chest radiograph January 09, 2022. Chest CT December 31, 2021. FINDINGS: Tip of endotracheal tube is 3 cm above the abigail. Right internal jugular catheter remains in place. Tip of nasogastric tube is at least within the body of the stomach. There is no pneumothora x. Near complete of the left lung is now noted. This has progressed. There may be mild volume loss wi thin left hemithorax. Pulmonary edema within the right lung is noted. IMPRESSION: 1. Near complete opacification of the left lung which has significantly progressed since prior exam. This could be due to mucous plugging. This finding will be called/faxed to the ordering provider. 2. Mild pulmonary edema. ACT 112: Negative or not required by law. Electronically signed by: Hudson Alex M.D. 01/10/2022 9:09 AM
--- NOTE | 2022-01-10 09:26 | Critical Care Progress Note ---
Date of Service January 10, 2022 Assessment & Plan (1) Acute hypercapnic respiratory failure: (2) Morbid obesity: (3) New onset atrial fibrillation: (4) PRIYANKA (acute kidney injury): (5) Hypervolemia: (6) Bradycardia with 41-50 beats per minute: Plan: 56-year-old with a past medical history of morbid obesity, hypertension, SARAH on CPAP abuse presenting to the hospital due to sepsis, cellulitis now presenting to the ICU due to acute hypoxemic and hypercapnic respiratory failure. Neurologic: Continue Versed and fentanyl to maintain RASS of -1. -Patient has large volume of distribution is likely accumulating metabolites, Precedex contraindicated secondary to bradycardia we will consider additional ketamine infusion for sedation Pulmonary: -ARDS. element of CHF/volume overload, diuresis per nephrology Discontinued amiodarone due to concerns of pulmonary toxicity. - Predinose 30 mg x 5 days then 20 mg x 5 days, then 10 mg x 5 days, then x 5 days. -Mucoid impaction of bronchi - plan for bronchoscopy today. Cardiovascular: Hypotension: Resolved hold antihypertensives. Paroxysmal atrial fibrillation: Currently normal sinus rhythm -Echo was a limited study but LVEF was normal. Right ventricular systolic function normal as well. Troponin not elevated. Gastrointestinal: NPO. OG tube placed. Continue tube feeds. Continue pantoprazole. Continue docusate, senna and MiraLAX daily. LFTs unremarkable. Constipation: Last BM 01/02 -Increasing Senokot and lactulose 60 mils x1, glycerin suppository x1 Renal: Acute renal failure likely due to ischemic ATN improved with dialysis. Nephrology on board -40 mg Lasix daily for edema Infectious disease: Patient with extensive cellulitis of the lower extremity. Blood cultures negative. Urine cultures unremarkable. Antibiotics escalated to cefepime 01/04: Day 5/7. MRSA screen negative. Continue doxycycline: Day 8, continue for 10 days. Hematologic: Hemoglobin stable. Continue to monitor. Continue heparin infusion at this time. DVT prophylaxis: 40 twice daily secondary to obesity -Patient normal sinus rhythm at this time, No strong indication for systemic anticoagulation Endocrine: Maintain euglycemia. TSH checked 01/01 within normal limits Lines and tubes: Right tunneled HD catheter placed in the IJ 01/02/2022. Peripheral IVs in place. Rutledge catheter in place. ET tube placed 01/03 VTE prophylaxis: Heparin infusion CODE STATUS: Full code Disposition: ICU Patient was discussed in multidisciplinary rounds Admission and Anticipated Discharge Date Admission Date: December 31, 2021 Supervising Physician Co-Signing Physician Notes I have personally spent 50 minutes of critical care time in the direct management of this patient. This is a life/limb threatening event. This includes time spent evaluating patient, direct bedside care, chart review, placing orders, interpretation of diagnostic studies, discussion with consultants, patient, and/or family members regarding treatment decisions, as well as other required patient management activities. This time is exclusive of all separately billable procedures, and teaching time and separate from and in addition to any other critical care service time. Subjective No overnight events, left lung whiteout today, plan for bronchoscopy Review of Systems Review of Systems: Unobtainable due to endotracheal tube Physical Exam Physical Exam: General: Sedated. nontoxic. Does move all 4 extremities with moderate to deep stimulation Skin: Warm, dry, Head: Atraumatic Ears, nose, mouth and throat: airway obscured by endotracheal tube Cardiovascular: Normal peripheral perfusion Respiratory: Ventilator settings reviewed Gastrointestinal: Non distended Musculoskeletal: No deformity Results & Data Results & Data ([facility]) Vital Signs (Past 12 Hours) Vital Signs Temp Pulse Resp BP Pulse Ox 01/10/22 07:20 49 L 22 93 01/10/22 06:11 36.6 C 01/10/22 06:01 52 L 22 127/77 96 01/10/22 06:00 53 L 22 93 01/10/22 05:30 61 22 93 01/10/22 05:01 51 L 22 127/63 92 01/10/22 05:00 56 L 22 93 01/10/22 04:30 48 L 22 93 01/10/22 04:01 52 L 22 117/78 92 01/10/22 04:00 52 L 22 92 01/10/22 03:50 49 L 22 94 01/10/22 03:30 49 L 22 91 01/10/22 03:01 46 L 22 143/78 H 91 01/10/22 03:00 45 L 22 91 01/10/22 02:30 46 L 22 90 01/10/22 02:01 48 L 22 127/67 89 L 01/10/22 02:00 46 L 22 90 01/10/22 01:30 44 L 22 90 01/10/22 01:01 36.6 C 44 L 22 121/69 90 01/10/22 01:00 41 L 22 90 01/10/22 00:30 43 L 22 90 01/10/22 00:01 45 L 22 120/71 91 01/10/22 00:00 45 L 22 92 01/09/22 23:59 49 L 01/09/22 23:30 45 L 22 92 01/09/22 23:01 45 L 19 115/58 L 92 01/09/22 23:00 45 L 22 92 01/09/22 22:47 22 01/09/22 22:30 47 L 22 92 01/09/22 22:01 49 L 22 117/57 L 93 01/09/22 22:00 49 L 22 92 01/09/22 21:30 49 L 22 92 Critical Care Results & Data Vital Signs (Past 12 Hours) Vital Signs Temp Pulse Resp BP Pulse Ox 01/10/22 07:20 49 L 22 93 01/10/22 06:11 36.6 C 01/10/22 06:01 52 L 22 127/77 96 01/10/22 06:00 53 L 22 93 01/10/22 05:30 61 22 93 01/10/22 05:01 51 L 22 127/63 92 01/10/22 05:00 56 L 22 93 01/10/22 04:30 48 L 22 93 01/10/22 04:01 52 L 22 117/78 92 01/10/22 04:00 52 L 22 92 01/10/22 03:50 49 L 22 94 01/10/22 03:30 49 L 22 91 01/10/22 03:01 46 L 22 143/78 H 91 01/10/22 03:00 45 L 22 91 01/10/22 02:30 46 L 22 90 01/10/22 02:01 48 L 22 127/67 89 L 01/10/22 02:00 46 L 22 90 01/10/22 01:30 44 L 22 90 01/10/22 01:01 36.6 C 44 L 22 121/69 90 01/10/22 01:00 41 L 22 90 01/10/22 00:30 43 L 22 90 01/10/22 00:01 45 L 22 120/71 91 01/10/22 00:00 45 L 22 92 01/09/22 23:59 49 L 01/09/22 23:30 45 L 22 92 01/09/22 23:01 45 L 19 115/58 L 92 01/09/22 23:00 45 L 22 92 01/09/22 22:47 22 01/09/22 22:30 47 L 22 92 01/09/22 22:01 49 L 22 117/57 L 93 01/09/22 22:00 49 L 22 92 Lab & Micro Results (Past 24 Hours) RBC 4.00 M/uL (4.7-6.1) L 01/10/22 WBC 9.52 K/uL (4.8-10.8) 01/10/22 Hgb 12.3 g/dL (14.0-18.0) L 01/10/22 Hct 38.7 % (42-52) L 01/10/22 MCV 96.8 fL (80-100) 01/10/22 MCH 30.8 pg (25-34) 01/10/22 MCHC 31.8 g/dL (32-36) L 01/10/22 RDW Standard Deviation 54.8 fL (36.4-46.3) H 01/10/22 RDW Coefficient of Variation 15.6 % (11.5-14.5) H 01/10/22 Plt Count 268 K/uL (130-400) 01/10/22 MPV 10.6 fL (7.4-10.4) H 01/10/22 Neutrophils (%) (Auto) 81.4 % 01/10/22 Lymphocytes (%) (Auto) 10.3 % 01/10/22 Monocytes # (Auto) 0.60 K/uL (0.11-0.59) H 01/10/22 Eosinophils # (Auto) 0.07 K/uL (0-0.5) 01/10/22 Immature Granulocyte % (Auto) 1.1 % 01/10/22 Neutrophils # (Auto) 7.75 K/uL (1.4-6.5) H 01/10/22 Lymphocytes # (Auto) 0.98 K/uL (1.2-3.4) L 01/10/22 Monocytes # (Auto) 0.60 K/uL (0.11-0.59) H 01/10/22 Eosinophils # (Auto) 0.07 K/uL (0-0.5) 01/10/22 Basophils # (Auto) 0.02 K/uL (0-0.2) 01/10/22 Immature Granulocyte # (Auto) 0.10 K/uL (0.00-0.02) H 01/10/22 Na 138 mmol/L (136-145) 01/10/22 K 4.3 mmol/L (3.5-5.1) 01/10/22 Cl 104 mmol/L (98-107) 01/10/22 CO2 30 mmol/L (21-32) 01/10/22 Anion Gap 4 (3-11) 01/10/22 BUN 34 mg/dl (6-23) H 01/10/22 Creatinine 0.83 mg/dl (0.6-1.4) 01/10/22 Estimated GFR ( Amer) 113.2 ml/min 01/10/22 Estimated GFR (Non-Af Amer) 97.7 ml/min 01/10/22 BUN/Creatinine Ratio 41.0 (10-20) H 01/10/22 Glu 90 mg/dl (70-99(Fasting)) 01/10/22 Ca 8.7 mg/dl (8.5-10.1) 01/10/22 Phosphorus Level 3.5 mg/dl (2.5-4.9) 01/10/22 Mg 1.9 mg/dl (1.7-2.4) 01/10/22 05:38 01/10/22 Calcium Level 8.7 mg/dl (8.5-10.1) 01/10/22 05:38 01/10/22 Jameel Test NA 01/10/22 05:07 01/10/22 Microbiology 01/07/22 Unknown Gram Stain - Final Sputum,Vent Suction Sputum Culture - Final No growth Diagnostic Findings (Past 24 Hours) Chest X-Ray 01/10/22 07:00 XR chest 1V portable CLINICAL HISTORY: f/u COMPARISON STUDY: Chest radiograph January 09, 2022. Chest CT December 31, 2021. FINDINGS: Tip of endotracheal tube is 3 cm above the abigail. Right internal jugular catheter remains in place. Tip of nasogastric tube is at least within the body of the stomach. There is no pneumothorax. Near complete of the left lung is now noted. This has progressed. There may be mild volume loss within left hemithorax. Pulmonary edema within the right lung is noted. IMPRESSION: 1. Near complete opacification of the left lung which has significantly progressed since prior exam. This could be due to mucous plugging. This finding will be called/faxed to the ordering provider. 2. Mild pulmonary edema. ACT 112: Negative or not required by law. Electronically signed by: Hudson Alex M.D. 01/10/2022 9:09 AM I & O Totals 24 Hours 01/09/22 01/10/22 01/11/22 06:59 06:59 06:59 Intake Total 2437.642 / 2437.642 2886.609 / 2886.609 29.695 / 29.695 Output Total 4975 / 4975 2950 / 2950 Balance -2537.358 / -2537.358 -63.391 / -63.391 29.695 / 29.695 Cumulative 12/31/21 11:11 thru 01/10/22 07:31 Intake Total 56628.397 Output Total 03113 Balance 4284.397 RT Ventilator Mngmt (Last Documented) Ventilator Ordered Settings Ventilator Support Mode Assist Control 01/10/22 07:20 Respiratory Rate 22 01/10/22 07:20 Ventilator Tidal Volume 410 01/10/22 07:20 Setting Minute Ventilation 9.0 01/10/22 07:20 Positive End Expiratory 12 01/10/22 07:20 Pressure Fraction of Inspired Oxygen 70 01/10/22 07:20 Machine Comment PaO2 50, increased PEEP per 01/10/22 05:31 ARDSnet Protocol Ventilator - PT Measurements Respiratory Rate 22 Exhaled Tidal Volume 412 Minute Ventilation 9.0 Peak Inspiratory Airway 35 Pressure Plateau Pressure 28.2 Respiratory Cycle Inspiratory: 1:2.9 Expiratory Ratio Inspiratory Phase Time 0.70 End-Tidal CO2 43 Static Lung Compliance 25.43 Dynamic Lung Compliance 17.91 Normal Static Lung Compliance 45.00 Patient Measurements Comment Ti changed due to long expiratory phase/ air trapping noted on vent waveform. Coding Level of Care Code Critical Care 1st 30-74 mins Diagnoses Acute hypercapnic respiratory failure J96.02 Morbid obesity E66.01 New onset atrial fibrillation I48.91 PRIYANKA (acute kidney injury) N17.9 Hypervolemia E87.70 Bradycardia with 41-50 beats per minute R00.1
[2022-01-10] MEDS ORDERED: GLYCERIN ADULT 12 SUPP/BOX SUPP PR ONE (09:42)
[2022-01-10] MEDS ORDERED: LACTULOSE SYRUP 20 GM/30 ML UDC PO STA (09:51)
--- NOTE | 2022-01-10 10:31 | XRay Report ---
XR chest 1V portable HISTORY: 56 years-old Male s/p bronch acute respiratory failure COMPARISON: Chest radiograph 01/10/2022 at 6:58 AM TECHNIQUE: Portable AP view of the chest FINDINGS: The cardiac silhouette is enlarged. Endotracheal tube overlies the midline, 2.5 cm superior to the ca lynne. Enteric tube courses below the diaphragm into the stomach. Unchanged positioning of the right I J central venous catheter. Questioned left apical pneumothorax, 8 mm of possible pleural separation. There is improved aeration of the left lung. Pulmonary vascular congestion with interstitial coarsening. Layering pleural effusi ons with bibasilar and left midlung consolidation. Left suprahilar opacity may represent atelectatic lung. Degenerative changes of the shoulders and spine. IMPRESSION: 1. Lines and tubes as above. 2. Improved aeration of the left lung status post bronchoscopy. There is a questioned small left apic al pneumothorax. Follow-up recommended. 3. Cardiomegaly with pulmonary edema, layering pleural effusions and bibasilar predominant consolidat ion. ACT 112: Negative or not required by law. The above report was generated using voice recognition software. It may contain grammatical, syntax o r spelling errors. Electronically signed by: Simón Woods M.D. 01/10/2022 10:29 AM
[2022-01-10] MEDS: MIDAZOLAM HCL 125 MG/250 ML BAG IV SCH ×2 (10:51→10:57)
[2022-01-10] MEDS: DOXYCYCLINE HYCLATE 100 MG in DEXTROSE 5% 100 ML IV SCH ×2 (10:59→22:31)
[2022-01-10] MEDS ORDERED: Nursing to Pharmacy Communication SCH (12:30)
[2022-01-10] MEDS: PEPTAMEN INTENSE VHP 1.0 CAL 1,000 ML BAG OG SCH (14:45)
--- NOTE | 2022-01-10 16:24 | Hospitalist Progress Note ---
Date of Service January 10, 2022 Assessment & Plan (1) Acute hypercapnic respiratory failure: Plan: 56-year-old male with PMH of morbid obesity, prediabetes, SARAH on CPAP, nocturnal hypoxemia, tobacco abuse presented to the ED 12/31 for evaluation of left leg redness upto midthigh and low-grade fever a/w development of few blisters in left anterior navarrete that subsequently opened. No purulence noted at presentation per HnP. Pt reported SOB w/ minimal exertion. Upon presentation to ED, he was hypoxic on RA at 70% and required 6L NC O2 then. Of note, pt treated for RLE cellulitis 09/2021 w/ cephalexin. Pt was recently evaluated by cardio for HANSON, negative dobutamine stress test. Pt was started on lasix 20 mg daily but dcd d/t subsequent urinary incontinence. Was treated for UTI twice w/ cipro and macrobid. He is being managed for the following: #. Acute hypoxic hypercapnic respiratory failure #. ARDS Smoker with morbid obesity, reported shortness of breath with minimal exertion for the past few months, underwent dobutamine stress echo that was negative. Upon presentation, patient was 70% on room air, and re 6 L via oxy mask initially At presentation, LLE Doppler negative for DVT, CTA chest with no evidence of PE, CXR chest with large confluent alveolar opacity at the right lung base suggestive of atelectasis versus pneumonia versus mass. Follow-up chest x-rays progressively worsening leading to complete opacification of the left hemithorax by 01/05. 01/05 status post bronchoscopy, impacted secretions in the left mainstream bronchus which were aspirated clear. Washout of LLL with 60 cc of saline performed. Follow-up with [facility] [place] culture/cell count. Cytology neg for malignancy. 01/10 s/p bronchoscopy for mucoid impaction of bronchi Concern for volume overload after IVF for sepsis resuscitation on the background of Suspected obesity hypoventilation syndrome. Now intubated and in ICU, underwent hemodialysis for acute hypervolemia- last one 01/04, being diuresed now. Management per ICU - Pt on prednisone taper. GI prophylaxis. #. Sepsis POA #. Cellulitis of left lower extremity At admission, met sepsis criteria with WBC 16 K, tachycardia. Pro-Mark 1.26. LLE Doppler negative for DVT at presentation. Cellulitis w/ worsened blistering and drainage after compression stockings applied ---> improving Continue with antibiotics, currently on Cefepime D7 and doxycycline D10. #. New onset A. fib Cardiology consulted and started heparin drip and amiodarone. Patient had rapid ventricular response.Trop not elevated. TSH wnl. 01/04 ECHO limited, LV size and fxn grossly normal. Placed on iv amio, then transitioned to PO amio which was stopped 01/05. Amio stopped out of concern for pulmonary toxicity - per black top roller. Hep drip stopped 01/07 as Pt on NSR. Not a candidate for DOAC given morbid obesity. c/w telemetry. Currently NSR. #. PRIYANKA Patient had contrast on top of likely ATN from sepsis. Temporary dialysis started for acute hypokalemia. TDC placed by vascular on 01/02. BUN remains elevated, creatinine normal. Daily BMP, nephrology on board, appreciate recommendation. #. Other chronic medical conditions: HTN, sleep apnea, morbid obesity with BMI 60-69.9, smoking Blood pressure improving. Resume as able. Of note, Lisinopril had been discontinued due to hyperkalemia by cardiology, however, was resumed on 12/29 by PCP. Patient currently intubated/mechanically ventilated, when able CPAP as per home settings. For obesity, patient follows with [facility] nutrition and weight management. Case Packer on importance of weight loss and smoking cessation when able. Patient smokes 1 packs/day, per prior attending declined nicotine patch. #. DVT prophylaxis: Enoxaparin Full Code Dispo-remains in ICU Admission and Anticipated Discharge Date Admission Date: December 31, 2021 Subjective Patient seen and examined at bedside as a follow-up of sepsis, currently cellulitis, new onset A. fib, PRIYANKA and acute hypercapnic respiratory failure. Patient was lying in bed, intubated/mechanically ventilated, on fentanyl/ketamine/midazolam/tube feed. ROS n/a due to intubated/sedated status. Physical Exam Physical Exam: GENERAL: Morbid obesity, intubated, opens eyes on calling, calm HEENT: No pallor, no icterus. Pupils equal, round and reactive to light. Oral mucosa moist. NECK: No JVD, no neck masses. HEART: S1 and S2 heard. Bradycardia. No murmur, no gallop. RESPIRATORY SYSTEM: Normal AP diameter. No accessory muscle use. No wheezing, no crackles. Decreased breath sounds (L>R). ABDOMEN: Soft, bowel sounds present, no facial grimacing noted on deep palpation, no distention. CENTRAL NERVOUS SYSTEM: No facial droop. Speech is clear. Obeys simple commands. Moves extremities. EXTREMITIES: LLE with erythema up to mid thigh --> improving, BLE 1+ edema. UC w/ light yellow urine collection noted. Results & Data Results & Data ([facility]) Vital Signs (Past 12 Hours) Vital Signs Temp Pulse Resp BP Pulse Ox 01/10/22 15:26 54 L 22 91 01/10/22 10:46 48 L 22 93 01/10/22 07:20 49 L 22 93 01/10/22 06:11 36.6 C 01/10/22 06:01 52 L 22 127/77 96 01/10/22 06:00 53 L 22 93 01/10/22 05:30 61 22 93 01/10/22 05:01 51 L 22 127/63 92 01/10/22 05:00 56 L 22 93 01/10/22 04:30 48 L 22 93
[2022-01-11] MEDS: MIDAZOLAM HCL 125 MG/250 ML BAG IV SCH ×3 (00:37→21:03)
[2022-01-11] MEDS: ARTIFICIAL TEARS OP OINT 3.5 GM TUBE OP SCH ×6 (01:50→20:37)
[2022-01-11] MEDS: KETAMINE HCL / NSS 500 MG/500 ML BAG IV SCH ×3 (02:43→14:08)
[2022-01-11] MEDS: fentaNYL citrate 2,500 MCG/250 ML BAG IV SCH ×6 (03:32→19:01)
[2022-01-11] MEDS: TUBE FEEDING WATER FLUSH OG SCH ×6 (04:15→23:55)
[2022-01-11] MEDS: MIDAZOLAM BOLUS FROM BAG IV PRN ×3 (04:40→22:26)
[2022-01-11 05:11] LABS: iSTAT Allen Test Pass; iSTAT Art Bld Gas pCO2 Correct 43 mmHg (35-46); iSTAT Art Bld Gas pH Corrected 7.448 (7.35-7.45); iSTAT Arterial Blood Gas HCO3 30 meg/L (19-24); iSTAT Arterial Blood Gas pCO2 45 mmHg (35-46); iSTAT Arterial Blood Gas pH 7.44 (7.35-7.45); iSTAT Arterial Blood Gas pO2 58 mmHg (80-95); iSTAT Arterial Blood Gas pO2 C 55; iSTAT Carbon Dioxide 31 mmol/L (24-31); iSTAT FiO2 40 %; iSTAT Hematocrit 36 % (42-52); iSTAT Hemoglobin 12.2 g/dl (14.0-18.0); iSTAT Potassium 4.3 mmol/L (3.3-5.0); iSTAT Site R Radial; iSTAT Sodium 134 mmol/L (135-144)
[2022-01-11] MEDS: PEPTAMEN INTENSE VHP 1.0 CAL 1,000 ML BAG OG SCH (06:24)
[2022-01-11 06:31] LABS: Basophils # (auto) 0.02 K/uL (0-0.2); Basophils % (auto) 0.2 %; Eosinophils # (auto) 0.13 K/uL (0-0.5); Eosinophils % (auto) 1.6 %; Hematocrit (blood only) 40.3 % (42-52); Hemoglobin 12.4 g/dL (14.0-18.0); Immature Granulocytes # (auto) 0.07 K/uL (0.00-0.02); Immature Granulocytes % (auto) 0.9 %; Lymphocytes # (auto) 1.16 K/uL (1.2-3.4); Lymphocytes % (auto) 14.3 %; Mean Corpuscular Hemoglobin 29.5 pg (25-34); Mean Corpuscular Hgb Conc 30.8 g/dL (32-36); Mean Platelet Volume 10.6 fL (7.4-10.4); Monocytes # (auto) 0.58 K/uL (0.11-0.59); Monocytes % (auto) 7.1 %; Neutrophils # (auto) 6.17 K/uL (1.4-6.5); Neutrophils % (auto) 75.9 %; Platelet Count 242 K/uL (130-400); RDW Coefficient of Variation 15.5 % (11.5-14.5); RDW Standard Deviation 54.4 fL (36.4-46.3); White Blood Count 8.13 K/uL (4.8-10.8)
[2022-01-11 06:45] LABS: Calcium 9.2 mg/dl (8.5-10.1); Creatinine Clr Calc Pharmacy 157.3 ml/min; Est GFR (African American) 114.3 ml/min; Est GFR (Non-African American) 98.7 ml/min; Phosphorus 3.9 mg/dl (2.5-4.9); Potassium 4.5 mmol/L (3.5-5.1)
--- NOTE | 2022-01-11 07:12 | XRay Report ---
XR chest 1V portable HISTORY: 56 years-old Male Resp failure acute respiratory failure COMPARISON: Chest radiograph 01/10/2022 TECHNIQUE: Semierect AP view of the chest FINDINGS: Endotracheal tube overlies the midline, 2.3 cm superior to the abigail. Right IJ central venous cathet er distal tip is noted in the expected location of the inferior SVC. Enteric tube courses below the d iaphragm with distal tip outside the [id number]. There is no pneumothorax. Pulmonary vascular congestion with interstitial coarsening, stable to mildl y progressed. Layering pleural effusions with bibasilar and left midlung consolidation. No significan t change from the prior study. Bones appear grossly intact. IMPRESSION: 1. Lines and tubes as above. 2. Cardiomegaly with stable to mildly progressed pulmonary edema. 3. Pleural effusions with bibasilar and left midlung consolidation. 4. The previously questioned small left apical pneumothorax is not appreciated on today's study. ACT 112: Negative or not required by law. The above report was generated using voice recognition software. It may contain grammatical, syntax o r spelling errors. Electronically signed by: Simón Woods M.D. 01/11/2022 7:10 AM
[2022-01-11] MEDS: FUROSEMIDE 40 MG/4 ML VIAL IV SCH (08:44)
[2022-01-11] MEDS: DOCUSATE SODIUM/SENNA 50/8.6MG TAB PO SCH ×2 (08:44→20:35)
[2022-01-11] MEDS: PANTOprazole 40 MG in SYRINGE 0 ML IV SCH ×2 (08:44→20:37)
[2022-01-11] MEDS: ENOXAPARIN INJ 40 MG/0.4 ML SYR SQ SCH ×2 (08:45→20:36)
[2022-01-11] MEDS: ATORVASTATIN 20 MG TAB PO SCH (08:45)
[2022-01-11] MEDS: POLYETHYLENE (MIRALAX) 17 GM PACK PO SCH (08:45)
[2022-01-11] MEDS: predniSONE 10 MG TABLET PO SCH (08:45)
[2022-01-11] MEDS: ASPIRIN 81 MG CHEW PO SCH (08:50)
--- NOTE | 2022-01-11 09:40 | Critical Care Progress Note ---
Date of Service January 11, 2022 Assessment & Plan (1) Acute hypercapnic respiratory failure: (2) Morbid obesity: (3) New onset atrial fibrillation: (4) PRIYANKA (acute kidney injury): (5) Hypervolemia: (6) Bradycardia with 41-50 beats per minute: Plan: 56-year-old with a past medical history of morbid obesity, hypertension, SARAH on CPAP abuse presenting to the hospital due to sepsis, cellulitis now presenting to the ICU due to acute hypoxemic and hypercapnic respiratory failure. Neurologic: Continue Versed and fentanyl to maintain RASS of -1. -Patient has large volume of distribution is likely accumulating metabolites, Precedex contraindicated secondary to bradycardia - 1 mg BID ativan PO - 10 mg Oxycodone q6hr schedule - Attempt to decrease IV sedatives further - ketamine infusion has allowed us to decrease sedative requirement Pulmonary: -ARDS. element of CHF/volume overload, diuresis per nephrology Discontinued amiodarone due to concerns of pulmonary toxicity. - Predinose 30 mg x 5 days then 20 mg x 5 days, then 10 mg x 5 days, then x 5 days. -Mucoid impaction of bronchi - Cardiovascular: Hypotension: Resolved hold antihypertensives. Paroxysmal atrial fibrillation: Currently normal sinus rhythm -Echo was a limited study but LVEF was normal. Right ventricular systolic function normal as well. Troponin not elevated. Gastrointestinal: NPO. OG tube placed. Continue tube feeds. Continue pantoprazole. Continue docusate, senna and MiraLAX daily. LFTs unremarkable. Constipation: Last BM 01/10 Renal: Acute renal failure: resolved - Additional dose of lasix today Infectious disease: Patient with extensive cellulitis of the lower extremity. Blood cultures negative. Urine cultures unremarkable. Antibiotics escalated to cefepime 01/04: Day 7/7. MRSA screen negative. Continue doxycycline: Day 10/10 days. Hematologic: Hemoglobin stable. Continue to monitor. Continue heparin infusion at this time. DVT prophylaxis: 40 twice daily secondary to obesity -Patient normal sinus rhythm at this time, No strong indication for systemic anticoagulation Endocrine: Maintain euglycemia. TSH checked 01/01 within normal limits Lines and tubes: Right tunneled HD catheter placed in the IJ 01/02/2022. Peripheral IVs in place. Rutledge catheter in place. ET tube placed 01/03 VTE prophylaxis: Heparin infusion CODE STATUS: Full code Disposition: ICU Patient was discussed in multidisciplinary rounds Admission and Anticipated Discharge Date Admission Date: December 31, 2021 Supervising Physician Co-Signing Physician Notes I have personally spent 40 minutes of critical care time in the direct management of this patient. This is a life/limb threatening event. This includes time spent evaluating patient, direct bedside care, chart review, placing orders, interpretation of diagnostic studies, discussion with consu ltants, patient, and/or family members regarding treatment decisions, as well as other required patient management activities. This time is exclusive of all separately billable procedures, and teaching time and separate from and in addition to any other critical care service time. Subjective No overnight events Physical Exam Physical Exam: General: Sedated. nontoxic. Does move all 4 extremities with moderate to deep stimulation Skin: Warm, dry, Head: Atraumatic Ears, nose, mouth and throat: airway obscured by endotracheal tube Cardiovascular: Normal peripheral perfusion Respiratory: Ventilator settings reviewed Gastrointestinal: Non distended Musculoskeletal: Improving area of left lower extremity with regards to cellulitis, decreased redness. Results & Data Results & Data ([facility]) Vital Signs (Past 12 Hours) Vital Signs Temp Pulse Resp BP Pulse Ox 01/11/22 07:07 50 L 23 89 L 01/11/22 06:00 50 L 22 94 01/11/22 05:41 50 L 22 103/59 L 93 01/11/22 05:36 49 L 22 103/65 91 01/11/22 05:31 50 L 19 109/65 94 01/11/22 05:30 49 L 22 94 01/11/22 05:26 52 L 22 115/68 95 01/11/22 05:21 57 L 19 125/69 86 L 01/11/22 05:16 53 L 19 111/61 87 L 01/11/22 05:11 52 L 22 110/56 L 88 L 01/11/22 05:06 53 L 22 111/59 L 89 L 01/11/22 05:01 53 L 29 H 104/68 93 01/11/22 05:00 48 L 22 94 01/11/22 04:56 51 L 22 106/59 L 89 L 01/11/22 04:46 54 L 22 116/61 89 L 01/11/22 04:41 60 22 114/73 89 L 01/11/22 04:36 58 L 22 124/72 89 L 01/11/22 04:31 59 L 22 118/69 88 L 01/11/22 04:30 52 L 22 89 L 01/11/22 04:27 59 L 22 121/69 87 L 01/11/22 04:22 56 L 22 93/59 L 90 01/11/22 04:21 36.6 C 01/11/22 04:16 50 L 22 114/66 89 L 01/11/22 04:11 49 L 22 111/62 91 01/11/22 04:06 36.6 C 49 L 22 111/62 90 01/11/22 04:00 48 L 22 114/62 91 01/11/22 03:56 48 L 22 107/56 L 92 01/11/22 03:51 48 L 22 111/58 L 91 01/11/22 03:46 49 L 19 109/57 L 90 01/11/22 03:41 49 L 22 114/58 L 91 01/11/22 03:36 52 L 22 106/56 L 90 01/11/22 03:31 49 L 19 109/49 L 90 01/11/22 03:30 49 L 22 92 01/11/22 03:26 49 L 22 106/50 L 92 01/11/22 03:21 49 L 22 105/57 L 92 01/11/22 03:16 49 L 19 103/52 L 92 01/11/22 03:11 47 L 22 107/53 L 92 01/11/22 03:06 48 L 22 108/56 L 92 01/11/22 03:01 49 L 19 104/56 L 93 01/11/22 03:00 49 L 22 93 01/11/22 02:56 50 L 22 105/55 L 93 01/11/22 02:51 49 L 22 104/55 L 92 01/11/22 02:46 50 L 19 103/56 L 93 01/11/22 02:41 49 L 22 106/55 L 91 01/11/22 02:36 49 L 22 101/54 L 92 01/11/22 02:31 48 L 19 103/55 L 93 01/11/22 02:30 48 L 22 92 01/11/22 02:26 48 L 22 106/59 L 92 01/11/22 02:20 47 L 22 104/57 L 93 01/11/22 02:16 48 L 22 93/57 L 93 01/11/22 02:11 49 L 22 109/59 L 92 01/11/22 02:06 114/59 L 01/10/22 23:59 47 L 01/10/22 23:50 45 L 22 94 01/10/22 21:35 36.8 C Critical Care Results & Data Vital Signs (Past 12 Hours) Vital Signs Temp Pulse Resp BP Pulse Ox 01/11/22 07:07 50 L 23 89 L 01/11/22 06:00 50 L 22 94 01/11/22 05:41 50 L 22 103/59 L 93 01/11/22 05:36 49 L 22 103/65 91 01/11/22 05:31 50 L 19 109/65 94 01/11/22 05:30 49 L 22 94 01/11/22 05:26 52 L 22 115/68 95 01/11/22 05:21 57 L 19 125/69 86 L 01/11/22 05:16 53 L 19 111/61 87 L 01/11/22 05:11 52 L 22 110/56 L 88 L 01/11/22 05:06 53 L 22 111/59 L 89 L 01/11/22 05:01 53 L 29 H 104/68 93 01/11/22 05:00 48 L 22 94 01/11/22 04:56 51 L 22 106/59 L 89 L 01/11/22 04:46 54 L 22 116/61 89 L 01/11/22 04:41 60 22 114/73 89 L 01/11/22 04:36 58 L 22 124/72 89 L 01/11/22 04:31 59 L 22 118/69 88 L 01/11/22 04:30 52 L 22 89 L 01/11/22 04:27 59 L 22 121/69 87 L 01/11/22 04:22 56 L 22 93/59 L 90 01/11/22 04:21 36.6 C 01/11/22 04:16 50 L 22 114/66 89 L 01/11/22 04:11 49 L 22 111/62 91 01/11/22 04:06 36.6 C 49 L 22 111/62 90 01/11/22 04:00 48 L 22 114/62 91 01/11/22 03:56 48 L 22 107/56 L 92 01/11/22 03:51 48 L 22 111/58 L 91 01/11/22 03:46 49 L 19 109/57 L 90 01/11/22 03:41 49 L 22 114/58 L 91 01/11/22 03:36 52 L 22 106/56 L 90 01/11/22 03:31 49 L 19 109/49 L 90 01/11/22 03:30 49 L 22 92 01/11/22 03:26 49 L 22 106/50 L 92 01/11/22 03:21 49 L 22 105/57 L 92 01/11/22 03:16 49 L 19 103/52 L 92 01/11/22 03:11 47 L 22 107/53 L 92 01/11/22 03:06 48 L 22 108/56 L 92 01/11/22 03:01 49 L 19 104/56 L 93 01/11/22 03:00 49 L 22 93 01/11/22 02:56 50 L 22 105/55 L 93 01/11/22 02:51 49 L 22 104/55 L 92 01/11/22 02:46 50 L 19 103/56 L 93 01/11/22 02:41 49 L 22 106/55 L 91 01/11/22 02:36 49 L 22 101/54 L 92 01/11/22 02:31 48 L 19 103/55 L 93 01/11/22 02:30 48 L 22 92 01/11/22 02:26 48 L 22 106/59 L 92 01/11/22 02:20 47 L 22 104/57 L 93 01/11/22 02:16 48 L 22 93/57 L 93 01/11/22 02:11 49 L 22 109/59 L 92 01/11/22 02:06 114/59 L 01/10/22 23:59 47 L 01/10/22 23:50 45 L 22 94 01/10/22 21:35 36.8 C Lab & Micro Results (Past 24 Hours) RBC 4.20 M/uL (4.7-6.1) L 01/11/22 WBC 8.13 K/uL (4.8-10.8) 01/11/22 Hgb 12.4 g/dL (14.0-18.0) L 01/11/22 Hct 40.3 % (42-52) L 01/11/22 MCV 96.0 fL (80-100) 01/11/22 MCH 29.5 pg (25-34) 01/11/22 MCHC 30.8 g/dL (32-36) L 01/11/22 RDW Standard Deviation 54.4 fL (36.4-46.3) H 01/11/22 RDW Coefficient of Variation 15.5 % (11.5-14.5) H 01/11/22 Plt Count 242 K/uL (130-400) 01/11/22 MPV 10.6 fL (7.4-10.4) H 01/11/22 Neutrophils (%) (Auto) 75.9 % 01/11/22 Lymphocytes (%) (Auto) 14.3 % 01/11/22 Monocytes # (Auto) 0.58 K/uL (0.11-0.59) 01/11/22 Eosinophils # (Auto) 0.13 K/uL (0-0.5) 01/11/22 Immature Granulocyte % (Auto) 0.9 % 01/11/22 Neutrophils # (Auto) 6.17 K/uL (1.4-6.5) 01/11/22 Lymphocytes # (Auto) 1.16 K/uL (1.2-3.4) L 01/11/22 Monocytes # (Auto) 0.58 K/uL (0.11-0.59) 01/11/22 Eosinophils # (Auto) 0.13 K/uL (0-0.5) 01/11/22 Basophils # (Auto) 0.02 K/uL (0-0.2) 01/11/22 Immature Granulocyte # (Auto) 0.07 K/uL (0.00-0.02) H 01/11/22 Na 138 mmol/L (136-145) 01/11/22 K 4.5 mmol/L (3.5-5.1) 01/11/22 Cl 102 mmol/L (98-107) 01/11/22 CO2 32 mmol/L (21-32) 01/11/22 Anion Gap 4 (3-11) 01/11/22 BUN 34 mg/dl (6-23) H 01/11/22 Creatinine 0.81 mg/dl (0.6-1.4) 01/11/22 Estimated GFR ( Amer) 114.3 ml/min 01/11/22 Estimated GFR (Non-Af Amer) 98.7 ml/min 01/11/22 BUN/Creatinine Ratio 42.0 (10-20) H 01/11/22 Glu 93 mg/dl (70-99(Fasting)) 01/11/22 Ca 9.2 mg/dl (8.5-10.1) 01/11/22 Phosphorus Level 3.9 mg/dl (2.5-4.9) 01/11/22 Mg 2.0 mg/dl (1.7-2.4) 01/11/22 06:17 01/11/22 Calcium Level 9.2 mg/dl (8.5-10.1) 01/11/22 06:17 01/11/22 Jameel Test Pass 01/11/22 04:57 01/11/22 Diagnostic Findings (Past 24 Hours) Chest X-Ray 01/10/22 10:05 XR chest 1V portable HISTORY: 56 years-old Male s/p bronch acute respiratory failure COMPARISON: Chest radiograph 01/10/2022 at 6:58 AM TECHNIQUE: Portable AP view of the chest FINDINGS: The cardiac silhouette is enlarged. Endotracheal tube overlies the midline, 2.5 cm superior to the abigail. Enteric tube courses below the diaphragm into the stomach. Unchanged positioning of the right IJ central venous catheter. Questioned left apical pneumothorax, 8 mm of possible pleural separation. There is improved aeration of the left lung. Pulmonary vascular congestion with interstitial coarsening. Layering pleural effusions with bibasilar and left midlung consolidation. Left suprahilar opacity may represent atelectatic lung. Degenerative changes of the shoulders and spine. IMPRESSION: 1. Lines and tubes as above. 2. Improved aeration of the left lung status post bronchoscopy. There is a questioned small left apical pneumothorax. Follow-up recommended. 3. Cardiomegaly with pulmonary edema, layering pleural effusions and bibasilar predominant consolidation. ACT 112: Negative or not required by law. The above report was generated using voice recognition software. It may contain grammatical, syntax or spelling errors. Electronically signed by: Simón Woods M.D. 01/10/2022 10:29 AM Chest X-Ray 01/11/22 07:00 XR chest 1V portable HISTORY: 56 years-old Male Resp failure acute respiratory failure COMPARISON: Chest radiograph 01/10/2022 TECHNIQUE: Semierect AP view of the chest FINDINGS: Endotracheal tube overlies the midline, 2.3 cm superior to the abigail. Right IJ central venous catheter distal tip is noted in the expected location of the inferior SVC. Enteric tube courses below the diaphragm with distal tip outside the [id number]. There is no pneumothorax. Pulmonary vascular congestion with interstitial coarsening, stable to mildly progressed. Layering pleural effusions with bibasilar and left midlung consolidation. No significant change from the prior study. Bones appear grossly intact. IMPRESSION: 1. Lines and tubes as above. 2. Cardiomegaly with stable to mildly progressed pulmonary edema. 3. Pleural effusions with bibasilar and left midlung consolidation. 4. The previously questioned small left apical pneumothorax is not appreciated on today's study. ACT 112: Negative or not required by law. The above report was generated using voice recognition software. It may contain grammatical, syntax or spelling errors. Electronically signed by: Simón Woods M.D. 01/11/2022 7:10 AM I & O Totals 24 Hours 01/10/22 01/11/22 01/12/22 06:59 06:59 06:59 Intake Total 2886.609 / 2886.609 3475.077 / 3475.077 500 / 500 Output Total 2950 / 2950 4100 / 4100 275 / 275 Balance -63.391 / -63.391 -624.923 / -624.923 225 / 225 Cumulative 12/31/21 11:11 thru 01/11/22 08:04 Intake Total 33473.779 Output Total 36577 Balance 3844.779 RT Ventilator Mngmt (Last Documented) Ventilator Ordered Settings Ventilator Support Mode Assist Control 01/11/22 07:07 Respiratory Rate 23 01/11/22 07:07 Ventilator Tidal Volume 410 01/11/22 07:07 Setting Minute Ventilation 9.0 01/11/22 07:07 Positive End Expiratory 12 01/11/22 07:07 Pressure Fraction of Inspired Oxygen 60 01/11/22 07:07 Peak Inspiratory Flow 47 01/11/22 07:07 Machine Comment weaned peep to 10 fi02 to 55% 01/11/22 07:07 Ventilator - PT Measurements Respiratory Rate 23 Exhaled Tidal Volume 410 Minute Ventilation 9.0 Peak Inspiratory Airway 32 Pressure Plateau Pressure 25 Respiratory Cycle Inspiratory: 1:2.9 Expiratory Ratio Inspiratory Phase Time 0.70 End-Tidal CO2 40 Static Lung Compliance 31.54 Dynamic Lung Compliance 20.50 Normal Static Lung Compliance 46.00 Patient Measurements Comment FiO2 increased to 60% based off ABG results. Rn made aware. Patient desaturated to 84% when suctioned. Coding Level of Care Code Critical Care 1st 30-74 mins Diagnoses Acute hypercapnic respiratory failure J96.02 Morbid obesity E66.01 New onset atrial fibrillation I48.91 PRIYANKA (acute kidney injury) N17.9 Hypervolemia E87.70 Bradycardia with 41-50 beats per minute R00.1
[2022-01-11] MEDS: DOXYCYCLINE HYCLATE 100 MG in DEXTROSE 5% 100 ML IV SCH ×2 (12:20→23:55)
[2022-01-11] MEDS: CEFEPIME 2,000 MG in SYRINGE 0 ML IV SCH (12:21)
[2022-01-11] MEDS: LORazepam 1 MG TAB PO SCH ×2 (12:21→20:35)
[2022-01-11] MEDS: oxyCODONE HCL IR 5 MG TAB (IMMEDIATE RELEASE) PO SCH ×2 (12:21→18:07)
[2022-01-11] MEDS: KETAMINE HCL IV SCH ×3 (12:40→23:45)
[2022-01-11] MEDS: SODIUM CHLORIDE 0.9% IV SCH ×3 (12:40→23:45)
[2022-01-11] MEDS ORDERED: FUROSEMIDE 40 MG/4 ML VIAL IV SCH (14:00)
--- NOTE | 2022-01-11 16:25 | Hospitalist Progress Note ---
Date of Service January 11, 2022 Assessment & Plan (1) Acute hypercapnic respiratory failure: Plan: 56-year-old male with PMH of morbid obesity, prediabetes, SARAH on CPAP, nocturnal hypoxemia, tobacco abuse presented to the ED 12/31 for evaluation of left leg redness upto midthigh and low-grade fever a/w development of few blisters in left anterior navarrete that subsequently opened. No purulence noted at presentation per HnP. Pt reported SOB w/ minimal exertion. Upon presentation to ED, he was hypoxic on RA at 70% and required 6L NC O2 then. Of note, pt treated for RLE cellulitis 09/2021 w/ cephalexin. Pt was recently evaluated by cardio for HANSON, negative dobutamine stress test. Pt was started on lasix 20 mg daily but dcd d/t subsequent urinary incontinence. Was treated for UTI twice w/ cipro and macrobid. He is being managed for the following: #. Acute hypoxic hypercapnic respiratory failure #. ARDS Smoker with morbid obesity, reported shortness of breath with minimal exertion for the past few months, underwent dobutamine stress echo that was negative. Upon presentation, patient was 70% on room air, and re 6 L via oxy mask initially At presentation, LLE Doppler negative for DVT, CTA chest with no evidence of PE, CXR chest with large confluent alveolar opacity at the right lung base suggestive of atelectasis versus pneumonia versus mass. Follow-up chest x-rays progressively worsening leading to complete opacification of the left hemithorax by 01/05. 01/05 status post bronchoscopy, impacted secretions in the left mainstream bronchus which were aspirated clear. Washout of LLL with 60 cc of saline performed. Cytology neg for malignancy. 01/10 s/p bronchoscopy for mucoid impaction of bronchi Concern for volume overload after IVF for sepsis resuscitation on the background of Suspected obesity hypoventilation syndrome. Now intubated and in ICU, underwent hemodialysis for acute hypervolemia- last one 01/04, being diuresed now. Management per ICU - Pt on prednisone taper. GI prophylaxis. #. Sepsis POA #. Cellulitis of left lower extremity At admission, met sepsis criteria with WBC 16 K, tachycardia. Pro-Mark 1.26. LLE Doppler negative for DVT at presentation. Cellulitis w/ worsened blistering and drainage after compression stockings applied ---> improving Continue with antibiotics, currently on Cefepime and doxycycline #. New onset A. fib Cardiology consulted and started heparin drip and amiodarone. Patient had rapid ventricular response.Trop not elevated. TSH wnl. 01/04 ECHO limited, LV size and fxn grossly normal. Placed on iv amio, then transitioned to PO amio which was stopped 01/05. Amio stopped out of concern for pulmonary toxicity - per integration analyst. Hep drip stopped 01/07 as Pt on NSR. c/w telemetry. Currently NSR. #. PRIYANKA Patient had contrast on top of likely ATN from sepsis. Temporary dialysis started for acute hypokalemia. TDC placed by vascular on 01/02. BUN remains elevated, creatinine normal. Daily BMP, nephrology on board, appreciate recommendation. #. Other chronic medical conditions: HTN, sleep apnea, morbid obesity with BMI 60-69.9, smoking Blood pressure improving. Resume as able. Of note, Lisinopril had been discontinued due to hyperkalemia by cardiology, however, was resumed on 12/29 by PCP. Patient currently intubated/mechanically ventilated, when able CPAP as per home settings. For obesity, patient follows with [facility] nutrition and weight management. Process Lead on importance of weight loss and smoking cessation when able. Patient smokes 1 packs/day, per prior attending declined nicotine patch. #. DVT prophylaxis: Enoxaparin Full Code Dispo-remains in ICU Admission and Anticipated Discharge Date Admission Date: December 31, 2021 Subjective Patient seen and examined at bedside as a follow-up of sepsis, currently cellulitis, new onset A. fib, PRIYANKA and acute hypercapnic respiratory failure. Patient was lying in bed, intubated/mechanically ventilated, on fentanyl/ketamine/midazolam/tube feed. ROS n/a due to intubated/sedated status. Physical Exam Physical Exam: GENERAL: Morbid obesity, intubated, opens eyes on calling name, calm HEENT: No pallor, no icterus. Pupils equal, round and reactive to light. Oral mucosa moist. NECK: No JVD, no neck masses. HEART: S1 and S2 heard. Bradycardia. No murmur, no gallop. RESPIRATORY SYSTEM: Normal AP diameter. No accessory muscle use. No wheezing, no crackles. Decreased breath sounds (L>R). ABDOMEN: Soft, bowel sounds present, no facial grimacing noted on deep palpation, no distention. CENTRAL NERVOUS SYSTEM: No facial droop. Speech is clear. Obeys simple commands. Moves extremities. EXTREMITIES: LLE with erythema up to mid thigh --> improving, BLE 1+ edema. UC w/ light yellow urine collection noted. Results & Data Results & Data ([facility]) Vital Signs (Past 12 Hours) Vital Signs Pulse Resp BP Pulse Ox 01/11/22 15:09 61 26 H 92 01/11/22 11:18 69 21 88 L 01/11/22 07:07 50 L 23 89 L 01/11/22 06:00 50 L 22 94 01/11/22 05:41 50 L 22 103/59 L 93 01/11/22 05:36 49 L 22 103/65 91 01/11/22 05:31 50 L 19 109/65 94 01/11/22 05:30 49 L 22 94 01/11/22 05:26 52 L 22 115/68 95 01/11/22 05:21 57 L 19 125/69 86 L 01/11/22 05:16 53 L 19 111/61 87 L 01/11/22 05:11 52 L 22 110/56 L 88 L 01/11/22 05:06 53 L 22 111/59 L 89 L 01/11/22 05:01 53 L 29 H 104/68 93 01/11/22 05:00 48 L 22 94 01/11/22 04:56 51 L 22 106/59 L 89 L 01/11/22 04:46 54 L 22 116/61 89 L 01/11/22 04:41 60 22 114/73 89 L 01/11/22 04:36 58 L 22 124/72 89 L 01/11/22 04:31 59 L 22 118/69 88 L 01/11/22 04:30 52 L 22 89 L 01/11/22 04:27 59 L 22 121/69 87 L
[2022-01-12] MEDS: MIDAZOLAM BOLUS FROM BAG IV PRN ×2 (00:25→05:00)
[2022-01-12] MEDS: oxyCODONE HCL IR 5 MG TAB (IMMEDIATE RELEASE) PO SCH ×2 (00:54→06:03)
[2022-01-12] MEDS: ARTIFICIAL TEARS OP OINT 3.5 GM TUBE OP SCH ×3 (00:54→07:34)
[2022-01-12] MEDS: TUBE FEEDING WATER FLUSH OG SCH ×3 (04:00→09:30)
[2022-01-12] MEDS: SODIUM CHLORIDE 0.9% IV SCH ×3 (04:00→09:37)
[2022-01-12] MEDS: KETAMINE HCL IV SCH ×3 (04:00→09:37)
[2022-01-12 04:03] LABS: iSTAT Allen Test Pass; iSTAT Art Bld Gas pCO2 Correct 60 mmHg (35-46); iSTAT Art Bld Gas pH Corrected 7.389 (7.35-7.45); iSTAT Arterial Blood Gas HCO3 36 meg/L (19-24); iSTAT Arterial Blood Gas pCO2 62 mmHg (35-46); iSTAT Arterial Blood Gas pH 7.38 (7.35-7.45); iSTAT Arterial Blood Gas pO2 65 mmHg (80-95); iSTAT Arterial Blood Gas pO2 C 61; iSTAT Carbon Dioxide 38 mmol/L (24-31); iSTAT FiO2 55 %; iSTAT Hematocrit 41 % (42-52); iSTAT Hemoglobin 13.9 g/dl (14.0-18.0); iSTAT Site L Radial; iSTAT Sodium 136 mmol/L (135-144)
[2022-01-12 05:15] LABS: Basophils # (auto) 0.03 K/uL (0-0.2); Basophils % (auto) 0.3 %; Eosinophils # (auto) 0.12 K/uL (0-0.5); Eosinophils % (auto) 1.1 %; Hematocrit (blood only) 41.1 % (42-52); Hemoglobin 13.1 g/dL (14.0-18.0); Immature Granulocytes # (auto) 0.08 K/uL (0.00-0.02); Immature Granulocytes % (auto) 0.7 %; Lymphocytes # (auto) 1.07 K/uL (1.2-3.4); Lymphocytes % (auto) 9.6 %; Mean Corpuscular Hemoglobin 29.8 pg (25-34); Mean Corpuscular Hgb Conc 31.9 g/dL (32-36); Mean Corpuscular Volume 93.4 fL (80-100); Mean Platelet Volume 10.7 fL (7.4-10.4); Monocytes # (auto) 0.89 K/uL (0.11-0.59); Neutrophils # (auto) 8.94 K/uL (1.4-6.5); Neutrophils % (auto) 80.3 %; Platelet Count 271 K/uL (130-400); RDW Standard Deviation 50.8 fL (36.4-46.3); White Blood Count 11.13 K/uL (4.8-10.8)
[2022-01-12 05:33] LABS: BUN Creatinine Ratio 49.2 (10-20); Calcium 9.6 mg/dl (8.5-10.1); Creatinine Clr Calc Pharmacy 208.9 ml/min; Est GFR (African American) 128.5 ml/min; Est GFR (Non-African American) 110.9 ml/min; Magnesium 1.8 mg/dl (1.7-2.4); Phosphorus 3.7 mg/dl (2.5-4.9); Potassium 4.1 mmol/L (3.5-5.1)
--- NOTE | 2022-01-12 07:03 | XRay Report ---
XR chest 1V portable CLINICAL HISTORY: Respiratory failure. COMPARISON STUDY: Chest radiograph January 11, 2022. FINDINGS: Exam is compromised by suboptimal penetration. Tip of endotracheal tube is approximately 3. 6 cm above the abigail. Tip of nasogastric tube is within the stomach. There is no pneumothorax. Inter stitial thickening suggestive of pulmonary edema persists. Asymmetric left lung airspace opacity is n oted with diminished aeration. Small moderate left and small right pleural effusions are present. IMPRESSION: 1. Satisfactory position of lines and tubes. 2. No significant change in extensive left lung airspace opacity. 3. Interstitial thickening suggestive of pulmonary edema. 4. Small to moderate left and small right pleural effusions. ACT 112: Negative or not required by law. Electronically signed by: Hudson Alex M.D. 01/12/2022 7:02 AM
[2022-01-12] MEDS: MIDAZOLAM HCL 125 MG/250 ML BAG IV SCH ×2 (07:06→09:36)
[2022-01-12] MEDS: ATORVASTATIN 20 MG TAB PO SCH (07:32)
[2022-01-12] MEDS: POLYETHYLENE (MIRALAX) 17 GM PACK PO SCH (07:33)
[2022-01-12] MEDS: predniSONE 10 MG TABLET PO SCH (07:33)
[2022-01-12] MEDS: LORazepam 1 MG TAB PO SCH (07:33)
[2022-01-12] MEDS: ASPIRIN 81 MG CHEW PO SCH (07:33)
[2022-01-12] MEDS: DOCUSATE SODIUM/SENNA 50/8.6MG TAB PO SCH (07:33)
[2022-01-12] MEDS: PANTOprazole 40 MG in SYRINGE 0 ML IV SCH ×2 (07:34→21:34)
[2022-01-12] MEDS: ENOXAPARIN INJ 40 MG/0.4 ML SYR SQ SCH ×2 (07:34→21:33)
[2022-01-12] MEDS: FUROSEMIDE 40 MG/4 ML VIAL IV SCH (07:34)
--- NOTE | 2022-01-12 08:41 | Critical Care Progress Note ---
Date of Service January 12, 2022 Assessment & Plan (1) Acute hypercapnic respiratory failure: (2) Morbid obesity: (3) New onset atrial fibrillation: (4) PRIYANKA (acute kidney injury): (5) Hypervolemia: (6) Bradycardia with 41-50 beats per minute: Plan: 56-year-old with a past medical history of morbid obesity, hypertension, SARAH on CPAP abuse presenting to the hospital due to sepsis, cellulitis now presenting to the ICU due to acute hypoxemic and hypercapnic respiratory failure. Neurologic: Discontinue intravenous sedatives and opioids - 1 mg BID ativan PO on hold - 10 mg Oxycodone q6hr schedule on hold Pulmonary: Respiratory failure: Extubated 01/12 -ARDS improving. Discontinued amiodarone due to concerns of pulmonary toxicity. - Predinose 30 mg x 5 days then 20 mg x 5 days, then 10 mg x 5 days, then x 5 days. -Mucoid impaction of bronchi - Cardiovascular: Hypotension: Resolved hold antihypertensives. Paroxysmal atrial fibrillation: Currently normal sinus rhythm -Echo was a limited study but LVEF was normal. Right ventricular systolic function normal as well. Gastrointestinal: NPO. speech consult Continue pantoprazole. On hold: docusate, senna and MiraLAX daily. Constipation: Last BM 01/10 Renal: Acute renal failure: resolved - Additional dose of lasix today Infectious disease: Patient with extensive cellulitis of the lower extremity. Blood cultures negative. Urine cultures unremarkable. - Finished cefepime x 7 days, doxycycline x 10 days. Hematologic: Hemoglobin stable. Continue to monitor. Continue heparin infusion at this time. DVT prophylaxis: 40 twice daily secondary to obesity -Patient normal sinus rhythm at this time, No strong indication for systemic anticoagulation Endocrine: Maintain euglycemia. TSH checked 01/01 within normal limits Lines and tubes: Right tunneled HD catheter placed in the IJ 01/02/2022. Peripheral IVs in place. Rutledge catheter in place. VTE prophylaxis: Heparin infusion CODE STATUS: Full code Physical therapy and Occupational Therapy consulted Disposition: ICU Admission and Anticipated Discharge Date Admission Date: December 31, 2021 Supervising Physician Co-Signing Physician Notes I have personally spent 45 minutes of critical care time in the direct management of this patient. This is a life/limb threatening event. This includes time spent evaluating patient, direct bedside care, chart review, placing orders, interpretation of diagnostic studies, discussion with consultan ts, patient, and/or family members regarding treatment decisions, as well as other required patient management activities. This time is exclusive of all separately billable procedures, and teaching time and separate from and in addition to any other critical care service time. Subjective Patient's oxygen ventilator requirements are decreased, 10 of PEEP and FiO2 of 40% which are the best to date. He is also able to follow some simple commands as we have adjusted his sedatives Review of Systems Review of Systems: Unobtainable due to endotracheal tube Physical Exam Physical Exam: General: Sedated, however able to follow some simple commands nontoxic. Skin: Warm, dry, Head: Atraumatic Ears, nose, mouth and throat: airway obscured by endotracheal tube Cardiovascular: Normal peripheral perfusion Respiratory: Ventilator settings reviewed Gastrointestinal: Non distended Musculoskeletal: Left lower extremity improved compared to previous examinations Results & Data Results & Data ([facility]) Vital Signs (Past 12 Hours) Vital Signs Pulse Resp BP Pulse Ox 01/12/22 07:24 65 25 H 92 01/12/22 05:41 60 21 133/61 88 L 01/12/22 05:01 89 23 180/82 H 90 01/12/22 04:01 75 28 H 159/78 H 92 01/12/22 03:48 69 23 94 01/12/22 03:31 61 22 148/76 H 93 01/12/22 03:01 59 L 19 142/77 H 94 01/12/22 02:31 73 22 161/83 H 94 01/12/22 02:01 62 19 144/80 H 94 01/12/22 01:31 57 L 23 125/66 90 01/12/22 01:01 56 L 22 117/61 93 01/12/22 00:31 74 27 H 135/70 94 01/12/22 00:01 84 24 151/85 H 94 01/11/22 23:59 88 01/11/22 23:40 65 23 94 01/11/22 23:31 75 19 163/85 H 97 01/11/22 23:01 95 H 26 H 148/81 H 97 01/11/22 22:36 84 23 171/82 H 96 01/11/22 22:01 93 H 26 H 163/86 H 92 01/11/22 21:31 90 27 H 161/83 H 87 L 07/01/22 21:01 67 22 145/65 H 93 01/11/22 20:46 72 26 H 155/75 H 93 Critical Care Results & Data Vital Signs (Past 12 Hours) Vital Signs Pulse Resp BP Pulse Ox 01/12/22 07:24 65 25 H 92 01/12/22 05:41 60 21 133/61 88 L 01/12/22 05:01 89 23 180/82 H 90 01/12/22 04:01 75 28 H 159/78 H 92 01/12/22 03:48 69 23 94 01/12/22 03:31 61 22 148/76 H 93 01/12/22 03:01 59 L 19 142/77 H 94 01/12/22 02:31 73 22 161/83 H 94 01/12/22 02:01 62 19 144/80 H 94 01/12/22 01:31 57 L 23 125/66 90 01/12/22 01:01 56 L 22 117/61 93 01/12/22 00:31 74 27 H 135/70 94 01/12/22 00:01 84 24 151/85 H 94 01/11/22 23:59 88 01/11/22 23:40 65 23 94 01/11/22 23:31 75 19 163/85 H 97 01/11/22 23:01 95 H 26 H 148/81 H 97 01/11/22 22:36 84 23 171/82 H 96 01/11/22 22:01 93 H 26 H 163/86 H 92 01/11/22 21:31 90 27 H 161/83 H 87 L 01/11/22 21:01 67 22 145/65 H 93 Lab & Micro Results (Past 24 Hours) RBC 4.40 M/uL (4.7-6.1) L 01/12/22 WBC 11.13 K/uL (4.8-10.8) H 01/12/22 Hgb 13.1 g/dL (14.0-18.0) L 01/12/22 Hct 41.1 % (42-52) L 01/12/22 MCV 93.4 fL (80-100) 01/12/22 MCH 29.8 pg (25-34) 01/12/22 MCHC 31.9 g/dL (32-36) L 01/12/22 RDW Standard Deviation 50.8 fL (36.4-46.3) H 01/12/22 RDW Coefficient of Variation 15.0 % (11.5-14.5) H 01/12/22 Plt Count 271 K/uL (130-400) 01/12/22 MPV 10.7 fL (7.4-10.4) H 01/12/22 Neutrophils (%) (Auto) 80.3 % 01/12/22 Lymphocytes (%) (Auto) 9.6 % 01/12/22 Monocytes # (Auto) 0.89 K/uL (0.11-0.59) H 01/12/22 Eosinophils # (Auto) 0.12 K/uL (0-0.5) 01/12/22 Immature Granulocyte % (Auto) 0.7 % 01/12/22 Neutrophils # (Auto) 8.94 K/uL (1.4-6.5) H 01/12/22 Lymphocytes # (Auto) 1.07 K/uL (1.2-3.4) L 01/12/22 Monocytes # (Auto) 0.89 K/uL (0.11-0.59) H 01/12/22 Eosinophils # (Auto) 0.12 K/uL (0-0.5) 01/12/22 Basophils # (Auto) 0.03 K/uL (0-0.2) 01/12/22 Immature Granulocyte # (Auto) 0.08 K/uL (0.00-0.02) H 01/12/22 Na 136 mmol/L (136-145) 01/12/22 K 4.1 mmol/L (3.5-5.1) 01/12/22 Cl 98 mmol/L (98-107) 01/12/22 CO2 33 mmol/L (21-32) H 01/12/22 Anion Gap 5 (3-11) 01/12/22 BUN 30 mg/dl (6-23) H 01/12/22 Creatinine 0.61 mg/dl (0.6-1.4) 01/12/22 Estimated GFR ( Amer) 128.5 ml/min 01/12/22 Estimated GFR (Non-Af Amer) 110.9 ml/min 01/12/22 BUN/Creatinine Ratio 49.2 (10-20) H 01/12/22 Glu 102 mg/dl (70-99(Fasting)) H 01/12/22 Ca 9.6 mg/dl (8.5-10.1) 01/12/22 Phosphorus Level 3.7 mg/dl (2.5-4.9) 01/12/22 Mg 1.8 mg/dl (1.7-2.4) 01/12/22 04:48 01/12/22 Calcium Level 9.6 mg/dl (8.5-10.1) 01/12/22 04:48 01/12/22 Jameel Test Pass 01/12/22 03:46 01/12/22 Diagnostic Findings (Past 24 Hours) Chest X-Ray 01/12/22 07:00 XR chest 1V portable CLINICAL HISTORY: Respiratory failure. COMPARISON STUDY: Chest radiograph January 11, 2022. FINDINGS: Exam is compromised by suboptimal penetration. Tip of endotracheal tube is approximately 3.6 cm above the abigail. Tip of nasogastric tube is within the stomach. There is no pneumothorax. Interstitial thickening suggestive of pulmonary edema persists. Asymmetric left lung airspace opacity is noted with diminished aeration. Small moderate left and small right pleural effusions are present. IMPRESSION: 1. Satisfactory position of lines and tubes. 2. No significant change in extensive left lung airspace opacity. 3. Interstitial thickening suggestive of pulmonary edema. 4. Small to moderate left and small right pleural effusions. ACT 112: Negative or not required by law. Electronically signed by: Hudson Alex M.D. 01/12/2022 7:02 AM I & O Totals 24 Hours 01/11/22 01/12/22 01/13/22 06:59 06:59 06:59 Intake Total 3475.077 / 3475.077 4059.067 / 4059.067 436.984 / 436.984 Output Total 4100 / 4100 6500 / 6500 Balance -624.923 / -624.923 -2440.933 / -2440.933 436.984 / 436.984 Cumulative 12/31/21 11:11 thru 01/12/22 07:21 Intake Total 59137.830 Output Total 41415 Balance 1625.830 RT Ventilator Mngmt (Last Documented) Ventilator Ordered Settings Ventilator Support Mode SIMV 01/12/22 07:24 Respiratory Rate 25 01/12/22 07:24 Ventilator Tidal Volume 425 01/12/22 07:24 Setting Minute Ventilation 10.5 01/12/22 07:24 Ventilator Positive Pressure 10 01/12/22 07:24 Support Setting Positive End Expiratory 10 01/12/22 07:24 Pressure Fraction of Inspired Oxygen 45 01/12/22 07:24 Peak Inspiratory Flow 47 01/11/22 15:09 Machine Comment weaned peep back to 10 RN aware 01/11/22 15:09 Ventilator - PT Measurements Respiratory Rate 25 Exhaled Tidal Volume 453 Minute Ventilation 10.5 Peak Inspiratory Airway 27 Pressure Plateau Pressure 20.8 Respiratory Cycle Inspiratory: 1:2.6 Expiratory Ratio Inspiratory Phase Time 0.75 End-Tidal CO2 50 Static Lung Compliance 51.14 Dynamic Lung Compliance 26.65 Normal Static Lung Compliance 47.00 Patient Measurements Comment Patient switched to SIMV due to dysnchrony with the ventilator and high peak pressures, will plan to get morning ABG. RN and [employer] aware. Patient suctioned-patient biting down on ETT and is visibly uncomfortable. Coding Level of Care Code Critical Care 1st 30-74 mins Diagnoses Acute hypercapnic respiratory failure J96.02 Morbid obesity E66.01 New onset atrial fibrillation I48.91 PRIYANKA (acute kidney injury) N17.9 Hypervolemia E87.70 Bradycardia with 41-50 beats per minute R00.1
[2022-01-12] MEDS: MAGNESIUM SULFATE / D5W 1 GM/100 ML BAG IV SCH ×2 (09:03→10:49)
[2022-01-12] MEDS: fentaNYL citrate 2,500 MCG/250 ML BAG IV SCH (09:37)
--- NOTE | 2022-01-12 15:10 | Hospitalist Progress Note ---
Date of Service January 12, 2022 Assessment & Plan (1) Acute hypercapnic respiratory failure: Plan: 56-year-old male with PMH of morbid obesity, prediabetes, SARAH on CPAP, nocturnal hypoxemia, tobacco abuse presented to the ED 12/31 for evaluation of left leg redness upto midthigh and low-grade fever a/w development of few blisters in left anterior navarrete that subsequently opened. No purulence noted at presentation per HnP. Pt reported SOB w/ minimal exertion. Upon presentation to ED, he was hypoxic on RA at 70% and required 6L NC O2 then. Of note, pt treated for RLE cellulitis 09/2021 w/ cephalexin. Pt was recently evaluated by cardio for HANSON, negative dobutamine stress test. Pt was started on lasix 20 mg daily but dcd d/t subsequent urinary incontinence. Was treated for UTI twice w/ cipro and macrobid. He is being managed for the following: #. Acute hypoxic hypercapnic respiratory failure #. ARDS Smoker with morbid obesity, reported shortness of breath with minimal exertion for the past few months, underwent dobutamine stress echo that was negative. Upon presentation, patient was 70% on room air, and re 6 L via oxy mask initially At presentation, LLE Doppler negative for DVT, CTA chest with no evidence of PE, CXR chest with large confluent alveolar opacity at the right lung base suggestive of atelectasis versus pneumonia versus mass. Follow-up chest x-rays progressively worsening leading to complete opacification of the left hemithorax by 01/05. 01/05 status post bronchoscopy, impacted secretions in the left mainstream bronchus which were aspirated clear. Washout of LLL with 60 cc of saline performed. Cytology neg for malignancy. 01/10 s/p bronchoscopy for mucoid impaction of bronchi Concern for volume overload after IVF for sepsis resuscitation on the background of Suspected obesity hypoventilation syndrome --> Extubated 7/ AM to OM, currently on 6 L NC O2, 01/12 CXR w/ Pul edema Underwent hemodialysis for acute hypervolemia- last one 01/04, being diuresed now. Management per ICU - Pt on prednisone taper. GI prophylaxis. #. Sepsis POA #. Cellulitis of left lower extremity At admission, met sepsis criteria with WBC 16 K, tachycardia. Pro-Mark 1.26. LLE Doppler negative for DVT at presentation. Cellulitis w/ worsened blistering and drainage after compression stockings applied ---> improving Continue with antibiotics, s/p Cefepime 7 d and doxycycline 10 days #. New onset A. fib Cardiology consulted and started heparin drip and amiodarone. Patient had rapid ventricular response.Trop not elevated. TSH wnl. 01/04 ECHO limited, LV size and fxn grossly normal. Placed on iv amio, then transitioned to PO amio which was stopped 01/05. Amio stopped out of concern for pulmonary toxicity - per assurance officer. Hep drip stopped 01/07 as Pt on NSR. c/w telemetry. Currently NSR. #. PRIYANKA Patient had contrast on top of likely ATN from sepsis. Temporary dialysis started for acute hypokalemia. TDC placed by vascular on 01/02. Creatinine normal. Daily BMP, Pt being diuresed #. Other chronic medical conditions: HTN, sleep apnea, morbid obesity with BMI 60-69.9, smoking Blood pressure improving. Resume as able. Of note, Lisinopril had been discontinued due to hyperkalemia by cardiology, however, was resumed on 12/29 by PCP. Patient currently intubated/mechanically ventilated, when able CPAP as per home settings. For obesity, patient follows with [facility] nutrition and weight management. [employer] Consultant on importance of weight loss and smoking cessation when able. Patient smokes 1 packs/day, per prior attending declined nicotine patch. #. DVT prophylaxis: Enoxaparin Full Code Dispo-remains in ICU Admission and Anticipated Discharge Date Admission Date: December 31, 2021 Subjective Patient seen and examined at bedside as a follow-up of sepsis, currently cellulitis, new onset A. fib, PRIYANKA and acute hypercapnic respiratory failure. Patient was lying in bed, on 6 L nasal cannula oxygen, was extubated today morning at 8 AM to oxygen mask, no new acute events overnight per RN, patient appears comfortable, alert and follows commands, denies headache/dizziness/chest pain/belly pain/discomfort. Physical Exam Physical Exam: GENERAL: Alert and awake, NAD, on 6 L nasal cannula oxygen HEENT: No pallor, no icterus. Pupils equal, round and reactive to light. Oral mucosa moist. NECK: No JVD, no neck masses. HEART: S1 and S2 heard. Bradycardia. No murmur, no gallop. RESPIRATORY SYSTEM: Normal AP diameter. No accessory muscle use. No wheezing, b/b crackles. Decreased breath sounds (L>R). ABDOMEN: Soft, bowel sounds present, no facial grimacing noted on deep palpation, no distention. CENTRAL NERVOUS SYSTEM: No facial droop. Speech is clear. Obeys simple commands. Moves extremities. EXTREMITIES: LLE with erythema up to mid thigh --> improving, BLE 1+ edema. UC w/ light yellow urine collection noted. Results & Data Results & Data ([facility]) Vital Signs (Past 12 Hours) Vital Signs Temp Pulse Resp BP Pulse Ox 01/12/22 11:31 65 01/12/22 11:01 36.6 C 101 H 21 145/87 H 90 01/12/22 11:00 92 H 23 91 01/12/22 10:31 74 21 142/65 H 92 01/12/22 10:01 153/73 H 01/12/22 10:00 84 26 H 91 01/12/22 09:31 82 26 H 128/58 L 92 01/12/22 09:01 86 27 H 151/72 H 94 01/12/22 09:00 90 27 H 94 01/12/22 08:31 87 26 H 142/75 H 96 01/12/22 08:01 89 22 142/78 H 94 01/12/22 08:00 75 14 92 01/12/22 07:31 85 27 H 187/87 H 90 01/12/22 07:24 65 25 H 92 01/12/22 07:01 83 29 H 174/83 H 91 01/12/22 07:00 83 23 92 01/12/22 06:45 61 22 89 L 01/12/22 05:41 60 21 133/61 88 L 01/12/22 05:01 89 23 180/82 H 90 01/12/22 04:01 75 28 H 159/78 H 92 01/12/22 03:48 69 23 94 01/12/22 03:31 61 22 148/76 H 93 01/12/22 03:01 59 L 19 142/77 H 94
[2022-01-12] MEDS ORDERED: FUROSEMIDE 40 MG/4 ML VIAL IV ONE (16:00)
[2022-01-13 05:47] LABS: Basophils # (auto) 0.02 K/uL (0-0.2); Basophils % (auto) 0.2 %; Eosinophils # (auto) 0.13 K/uL (0-0.5); Eosinophils % (auto) 1.5 %; Hematocrit (blood only) 44.6 % (42-52); Hemoglobin 13.7 g/dL (14.0-18.0); Immature Granulocytes # (auto) 0.05 K/uL (0.00-0.02); Immature Granulocytes % (auto) 0.6 %; Lymphocytes # (auto) 1.46 K/uL (1.2-3.4); Lymphocytes % (auto) 16.3 %; Mean Corpuscular Hemoglobin 28.7 pg (25-34); Mean Corpuscular Hgb Conc 30.7 g/dL (32-36); Mean Corpuscular Volume 93.5 fL (80-100); Mean Platelet Volume 10.5 fL (7.4-10.4); Monocytes # (auto) 0.91 K/uL (0.11-0.59); Monocytes % (auto) 10.2 %; Neutrophils # (auto) 6.36 K/uL (1.4-6.5); Neutrophils % (auto) 71.2 %; Platelet Count 289 K/uL (130-400); RDW Coefficient of Variation 15.2 % (11.5-14.5); RDW Standard Deviation 51.8 fL (36.4-46.3); Red Blood Count 4.77 M/uL (4.7-6.1); White Blood Count 8.93 K/uL (4.8-10.8)
[2022-01-13 05:48] LABS: BUN Creatinine Ratio 56.5 (10-20); Calcium 9.9 mg/dl (8.5-10.1); Est GFR (African American) 144.3 ml/min; Est GFR (Non-African American) 124.5 ml/min; Magnesium 2.1 mg/dl (1.7-2.4); Phosphorus 3.2 mg/dl (2.5-4.9); Potassium 4.4 mmol/L (3.5-5.1)
--- NOTE | 2022-01-13 07:23 | XRay Report ---
XR chest 1V portable CLINICAL HISTORY: f/u COMPARISON STUDY: Chest radiograph January 12, 2022. FINDINGS: Endotracheal and nasogastric tubes have been removed. Right internal jugular introducer has been removed. There is an azygos fissure. Cardiomegaly is again noted. There is no pneumothorax. Int erstitial thickening has improved. Left lung aeration has markedly improved. Bibasilar opacities are noted with small bilateral pleural effusions. IMPRESSION: 1. Interval removal of lines and tubes. 2. Significant improvement in left lung aeration with decrease in airspace opacity. 3. Cardiomegaly. Pulmonary vascular congestion, improved since prior exam. 4. Small bilateral pleural effusions with associated bibasilar opacities. ACT 112: Negative or not required by law. Electronically signed by: Hudson Alex M.D. 01/13/2022 7:22 AM
[2022-01-13] MEDS: ENOXAPARIN INJ 40 MG/0.4 ML SYR SQ SCH ×2 (07:26→20:52)
[2022-01-13] MEDS: predniSONE 10 MG TABLET PO SCH (07:26)
[2022-01-13] MEDS: PANTOprazole 40 MG in SYRINGE 0 ML IV SCH (07:26)
[2022-01-13] MEDS: FUROSEMIDE 40 MG/4 ML VIAL IV SCH (09:52)
--- NOTE | 2022-01-13 09:58 | Critical Care Progress Note ---
Date of Service January 13, 2022 Assessment & Plan (1) Acute hypercapnic respiratory failure: (2) PRIYANKA (acute kidney injury): (3) Morbid obesity: (4) New onset atrial fibrillation: (5) Sleep apnea: Plan: 56-year-old with a past medical history of morbid obesity, hypertension, SARAH on CPAP abuse presenting to the hospital due to sepsis, cellulitis now presenting to the ICU due to acute hypoxemic and hypercapnic respiratory failure. Neurologic: Discontinue all sedatives and opioids Pulmonary: Respiratory failure: Extubated 01/12 -ARDS improving. Discontinued amiodarone due to concerns of pulmonary toxicity. - Predinose 30 mg x 5 days then 20 mg x 5 days, then 10 mg x 5 days, then x 5 days. -Mucoid impaction of bronchi - Cardiovascular: Hypotension: Resolved hold antihypertensives. Paroxysmal atrial fibrillation: Currently normal sinus rhythm -Echo was a limited study but LVEF was normal. Right ventricular systolic function normal as well. Gastrointestinal: NPO. speech consult stop pantoprazole. On hold: docusate, senna and MiraLAX daily. Constipation: Last BM 01/10 Renal: Acute renal failure: resolved - Daily lasix Infectious disease: Patient with extensive cellulitis of the lower extremity. Blood cultures negative. Urine cultures unremarkable. - Finished cefepime x 7 days, doxycycline x 10 days. Hematologic: Hemoglobin stable. Continue to monitor. DVT prophylaxis: 40 twice daily secondary to obesity -Patient normal sinus rhythm at this time, No strong indication for systemic anticoagulation Endocrine: Maintain euglycemia. TSH checked 01/01 within normal limits Lines and tubes: Right HD catheter placed 01/02/2022, d/c'ed 01/12/2022. Peripheral IVs in place. Rutledge catheter d/c today. VTE prophylaxis: Lovenox 40mg BID for obesity CODE STATUS: Full code Physical therapy and Occupational Therapy consulted - NPO until cleared by speech for meds and diet Disposition: Stable for downgrade from ICU Admission and Anticipated Discharge Date Admission Date: December 31, 2021 Subjective Feels improved. Desiring to get Rutledge out Physical Exam Physical Exam: General: Alert oriented Skin: Warm, dry, Head: Atraumatic Ears, nose, mouth and throat: Airway patent speaking in full sentences Cardiovascular: Normal peripheral perfusion Respiratory: No respiratory distress Gastrointestinal: Non distended Musculoskeletal: Decreased edema to bilateral lower extremities Results & Data Results & Data ([facility]) Vital Signs (Past 12 Hours) Vital Signs Pulse Resp BP Pulse Ox 01/13/22 07:50 70 01/13/22 06:01 70 21 142/68 H 95 01/13/22 05:31 73 23 142/86 H 96 01/13/22 05:01 79 23 151/102 H 94 01/13/22 04:31 67 22 156/87 H 96 01/13/22 04:01 65 20 147/72 H 96 01/13/22 03:31 75 23 151/91 H 96 01/13/22 03:01 69 21 155/79 H 95 01/13/22 02:31 66 21 149/71 H 96 01/13/22 02:01 70 19 137/81 96 01/13/22 01:31 72 17 159/83 H 94 01/13/22 01:01 69 21 128/79 96 01/13/22 00:31 68 21 160/76 H 96 01/13/22 00:01 73 17 148/90 H 95 01/12/22 23:59 68 01/12/22 23:31 67 21 137/84 95 01/12/22 23:01 66 22 144/73 H 95 01/12/22 22:31 71 22 150/82 H 96 01/12/22 22:01 65 22 146/75 H 96 Critical Care Results & Data Vital Signs (Past 12 Hours) Vital Signs Pulse Resp BP Pulse Ox 01/13/22 10:01 154/84 H 01/13/22 10:00 72 23 94 01/13/22 09:46 75 24 168/87 H 92 01/13/22 09:30 92 H 19 01/13/22 09:01 71 22 150/81 H 95 01/13/22 09:00 71 24 95 01/13/22 08:31 75 25 H 159/82 H 96 01/13/22 08:30 73 20 96 01/13/22 08:01 69 19 143/79 H 97 01/13/22 08:00 72 23 97 01/13/22 07:50 70 01/13/22 07:31 71 23 150/80 H 95 01/13/22 07:30 72 25 H 97 01/13/22 07:01 70 20 158/76 H 95 01/13/22 07:00 68 21 95 01/13/22 06:45 67 21 96 01/13/22 06:01 70 21 142/68 H 95 01/13/22 05:31 73 23 142/86 H 96 01/13/22 05:01 79 23 151/102 H 94 01/13/22 04:31 67 22 156/87 H 96 01/13/22 04:01 65 20 147/72 H 96 01/13/22 03:31 75 23 151/91 H 96 01/13/22 03:01 69 21 155/79 H 95 01/13/22 02:31 66 21 149/71 H 96 01/13/22 02:01 70 19 137/81 96 01/13/22 01:31 72 17 159/83 H 94 01/13/22 01:01 69 21 128/79 96 01/13/22 00:31 68 21 160/76 H 96 01/13/22 00:01 73 17 148/90 H 95 01/12/22 23:59 68 01/12/22 23:31 67 21 137/84 95 01/12/22 23:01 66 22 144/73 H 95 01/12/22 22:31 71 22 150/82 H 96 Lab & Micro Results (Past 24 Hours) RBC 4.77 M/uL (4.7-6.1) 01/13/22 WBC 8.93 K/uL (4.8-10.8) 01/13/22 Hgb 13.7 g/dL (14.0-18.0) L 01/13/22 Hct 44.6 % (42-52) 01/13/22 MCV 93.5 fL (80-100) 01/13/22 MCH 28.7 pg (25-34) 01/13/22 MCHC 30.7 g/dL (32-36) L 01/13/22 RDW Standard Deviation 51.8 fL (36.4-46.3) H 01/13/22 RDW Coefficient of Variation 15.2 % (11.5-14.5) H 01/13/22 Plt Count 289 K/uL (130-400) 01/13/22 MPV 10.5 fL (7.4-10.4) H 01/13/22 Neutrophils (%) (Auto) 71.2 % 01/13/22 Lymphocytes (%) (Auto) 16.3 % 01/13/22 Monocytes # (Auto) 0.91 K/uL (0.11-0.59) H 01/13/22 Eosinophils # (Auto) 0.13 K/uL (0-0.5) 01/13/22 Immature Granulocyte % (Auto) 0.6 % 01/13/22 Neutrophils # (Auto) 6.36 K/uL (1.4-6.5) 01/13/22 Lymphocytes # (Auto) 1.46 K/uL (1.2-3.4) 01/13/22 Monocytes # (Auto) 0.91 K/uL (0.11-0.59) H 01/13/22 Eosinophils # (Auto) 0.13 K/uL (0-0.5) 01/13/22 Basophils # (Auto) 0.02 K/uL (0-0.2) 01/13/22 Immature Granulocyte # (Auto) 0.05 K/uL (0.00-0.02) H 01/13/22 Na 139 mmol/L (136-145) 01/13/22 K 4.4 mmol/L (3.5-5.1) 01/13/22 Cl 96 mmol/L (98-107) L 01/13/22 CO2 36 mmol/L (21-32) H 01/13/22 Anion Gap 7 (3-11) 01/13/22 BUN 26 mg/dl (6-23) H 01/13/22 Creatinine 0.46 mg/dl (0.6-1.4) L 01/13/22 Estimated GFR ( Amer) 144.3 ml/min 01/13/22 Estimated GFR (Non-Af Amer) 124.5 ml/min 01/13/22 BUN/Creatinine Ratio 56.5 (10-20) H 01/13/22 Glu 93 mg/dl (70-99(Fasting)) 01/13/22 Ca 9.9 mg/dl (8.5-10.1) 01/13/22 Phosphorus Level 3.2 mg/dl (2.5-4.9) 01/13/22 Mg 2.1 mg/dl (1.7-2.4) 01/13/22 05:10 01/13/22 Calcium Level 9.9 mg/dl (8.5-10.1) 01/13/22 05:10 01/13/22 Diagnostic Findings (Past 24 Hours) Chest X-Ray 01/13/22 07:00 XR chest 1V portable CLINICAL HISTORY: f/u COMPARISON STUDY: Chest radiograph January 12, 2022. FINDINGS: Endotracheal and nasogastric tubes have been removed. Right internal jugular introducer has been removed. There is an azygos fissure. Cardiomegaly is again noted. There is no pneumothorax. Interstitial thickening has improved. Left lung aeration has markedly improved. Bibasilar opacities are noted with small bilateral pleural effusions. IMPRESSION: 1. Interval removal of lines and tubes. 2. Significant improvement in left lung aeration with decrease in airspace opacity. 3. Cardiomegaly. Pulmonary vascular congestion, improved since prior exam. 4. Small bilateral pleural effusions with associated bibasilar opacities. ACT 112: Negative or not required by law. Electronically signed by: Hudson Alex M.D. 01/13/2022 7:22 AM I & O Totals 24 Hours 01/12/22 01/13/22 01/14/22 06:59 06:59 06:59 Intake Total 4059.067 / 4059.067 673.790 / 673.790 Output Total 6500 / 6500 5950 / 5950 Balance -2440.933 / -2440.933 -5276.210 / -5276.210 Cumulative 12/31/21 11:11 thru 01/13/22 05:47 Intake Total 45759.636 Output Total 10467 Balance -4087.364 RT Ventilator Mngmt (Last Documented) Ventilator Ordered Settings Ventilator Support Mode SIMV 01/12/22 07:24 Respiratory Rate 23 01/13/22 10:00 Ventilator Tidal Volume 425 01/12/22 07:24 Setting Minute Ventilation 10.5 01/12/22 07:24 Ventilator Positive Pressure 10 01/12/22 07:24 Support Setting Positive End Expiratory 10 01/12/22 07:24 Pressure Fraction of Inspired Oxygen 45 01/12/22 07:24 Peak Inspiratory Flow 47 01/11/22 15:09 Machine Comment weaned peep back to 10 RN aware 01/11/22 15:09 Ventilator - PT Measurements Respiratory Rate 23 Exhaled Tidal Volume 453 Minute Ventilation 10.5 Peak Inspiratory Airway 27 Pressure Plateau Pressure 20.8 Respiratory Cycle Inspiratory: 1:2.6 Expiratory Ratio Inspiratory Phase Time 0.75 End-Tidal CO2 55 Static Lung Compliance 51.14 Dynamic Lung Compliance 26.65 Normal Static Lung Compliance 47.00 Patient Measurements Comment Patient switched to SIMV due to dysnchrony with the ventilator and high peak pressures, will plan to get morning ABG. RN and RN POSTPARTUM aware. Patient suctioned-patient biting down on ETT and is visibly uncomfortable. Coding Level of Care Code 91994 Subseq Hosp Care Lvl 3 Diagnoses Acute hypercapnic respiratory failure J96.02 PRIYANKA (acute kidney injury) N17.9 Morbid obesity E66.01 New onset atrial fibrillation I48.91 Sleep apnea G47.30
--- NOTE | 2022-01-13 16:09 | Hospitalist Progress Note ---
Date of Service January 13, 2022 Assessment & Plan (1) Acute hypercapnic respiratory failure: Plan: 56-year-old male with PMH of morbid obesity, prediabetes, SARAH on CPAP, nocturnal hypoxemia, tobacco abuse presented to the ED 12/31 for evaluation of left leg redness upto midthigh and low-grade fever a/w development of few blisters in left anterior navarrete that subsequently opened. No purulence noted at presentation per HnP. Pt reported SOB w/ minimal exertion. Upon presentation to ED, he was hypoxic on RA at 70% and required 6L NC O2 then. Of note, pt treated for RLE cellulitis 09/2021 w/ cephalexin. Pt was recently evaluated by cardio for HANSON, negative dobutamine stress test. Pt was started on lasix 20 mg daily but dcd d/t subsequent urinary incontinence. Was treated for UTI twice w/ cipro and macrobid. He is being managed for the following: #. Acute hypoxic hypercapnic respiratory failure #. ARDS Smoker with morbid obesity, reported shortness of breath with minimal exertion for the past few months, underwent dobutamine stress echo that was negative. Upon presentation, patient was 70% on room air, and re 6 L via oxy mask initially At presentation, LLE Doppler negative for DVT, CTA chest with no evidence of PE, CXR chest with large confluent alveolar opacity at the right lung base suggestive of atelectasis versus pneumonia versus mass. Follow-up chest x-rays progressively worsening leading to complete opacification of the left hemithorax by 01/05. 01/05 status post bronchoscopy, impacted secretions in the left mainstream bronchus which were aspirated clear. Washout of LLL with 60 cc of saline performed. Cytology neg for malignancy. 01/10 s/p bronchoscopy for mucoid impaction of bronchi. Concern for volume overload after IVF for sepsis resuscitation on the background of Suspected obesity hypoventilation syndrome --> Extubated 7/2 AM to OM, currently on 6 L NC O2, 01/13 CXR w/ improvement in Pul edema Underwent hemodialysis for acute hypervolemia- last one 01/04, being diuresed now. Pt on prednisone taper. #. Sepsis POA #. Cellulitis of left lower extremity At admission, met sepsis criteria with WBC 16 K, tachycardia. Pro-Mark 1.26. LLE Doppler negative for DVT at presentation. Cellulitis w/ worsened blistering and drainage after compression stockings applied ---> improving s/p Cefepime 7 d and doxycycline 10 days Wound care #. New onset A. fib Cardiology consulted and started heparin drip and amiodarone. Patient had rapid ventricular response.Trop not elevated. TSH wnl. 01/04 ECHO limited, LV size and fxn grossly normal. Placed on iv amio, then transitioned to PO amio which was stopped 01/05. Amio stopped out of concern for pulmonary toxicity - per client care representative. Hep drip stopped 01/07 as Pt on NSR. c/w telemetry. Currently NSR. d/w cardio prior to DC for anticoagulation. #. PRIYANKA Patient had contrast on top of likely ATN from sepsis. Temporary dialysis started for acute hypokalemia. TDC placed by vascular on 01/02. Creatinine normal. Daily BMP, Pt being diuresed #. Other chronic medical conditions: HTN, sleep apnea, morbid obesity with BMI 60-69.9, smoking Blood pressure improving. Resume as able. Of note, Lisinopril had been discontinued due to hyperkalemia by cardiology, however, was resumed on 12/29 by PCP. Patient currently intubated/mechanically ventilated, when able CPAP as per home settings. For obesity, patient follows with [facility] nutrition and weight management. Finishing Room Operator on importance of weight loss and smoking cessation when able. Patient smokes 1 packs/day, per prior attending declined nicotine patch. #. DVT prophylaxis: Enoxaparin Full Code Dispo-PCU, PT/OT, CM to asssit w/ dc planning, expect dc in next 2-3 days. Admission and Anticipated Discharge Date Admission Date: December 31, 2021 Subjective Patient seen and examined at bedside as a follow-up of sepsis, currently cellulitis, new onset A. fib, PRIYANKA and acute hypercapnic respiratory failure. Patient was lying in recliner, on 6 L nasal cannula oxygen, was extubated 01/12 at 8 AM to oxygen mask, no new acute events overnight per RN, patient appears comfortable, more alert today, per RN is eating ok/no new issues overnight/worked well w/ PT. Patient denies headache/dizziness/chest pain/belly pain/discomfort. Physical Exam Physical Exam: GENERAL: Alert and Ox2, NAD, on 6 L nasal cannula oxygen, Morbidly obese HEENT: No pallor, no icterus. Pupils equal, round and reactive to light. Oral mucosa moist. NECK: No JVD, no neck masses. HEART: S1 and S2 heard. Bradycardia. No murmur, no gallop. RESPIRATORY SYSTEM: Normal AP diameter. No accessory muscle use. No wheezing, improving lung sounds, occasional scattered crackles. ABDOMEN: Soft, bowel sounds present, no facial grimacing noted on deep palpation, no distention. CENTRAL NERVOUS SYSTEM: No facial droop. Speech is clear. Obeys simple commands. Moves extremities. EXTREMITIES: LLE with erythema up to mid thigh --> has improved significantly, BLE 1+ edema. UC w/ light yellow urine collection noted. Results & Data Results & Data ([facility]) Vital Signs (Past 12 Hours) Vital Signs Temp Pulse Pulse Resp BP BP Pulse Ox 01/13/22 14:28 66 01/13/22 14:17 37.1 C 88 18 149/80 H 93 01/13/22 13:27 01/13/22 11:33 67 01/13/22 11:30 67 22 94 01/13/22 11:01 67 22 99/65 L 94 01/13/22 11:00 66 21 95 01/13/22 10:31 69 22 151/84 H 94 01/13/22 10:30 73 22 94 01/13/22 10:01 154/84 H 01/13/22 10:00 72 23 94 01/13/22 09:46 75 24 168/87 H 92 01/13/22 09:30 92 H 19 01/13/22 09:01 71 22 150/81 H 95 01/13/22 09:00 71 24 95 01/13/22 08:31 75 25 H 159/82 H 96 01/13/22 08:30 73 20 96 01/13/22 08:01 69 19 143/79 H 97 01/13/22 08:00 72 23 97 01/13/22 07:50 70 01/13/22 07:31 71 23 150/80 H 95 01/13/22 07:30 72 25 H 97 01/13/22 07:01 70 20 158/76 H 95 01/13/22 07:00 68 21 95 01/13/22 06:45 67 21 96 01/13/22 06:01 70 21 142/68 H 95 01/13/22 05:31 73 23 142/86 H 96 01/13/22 05:01 79 23 151/102 H 94 01/13/22 04:31 67 22 156/87 H 96 Pulse Ox Pulse Ox Pulse Ox 01/13/22 14:28 01/13/22 14:17 01/13/22 13:27 96 96 83 L 01/13/22 11:33 01/13/22 11:30 01/13/22 11:01 01/13/22 11:00 01/13/22 10:31 01/13/22 10:30 01/13/22 10:01 01/13/22 10:00 01/13/22 09:46 01/13/22 09:30 01/13/22 09:01 01/13/22 09:00 01/13/22 08:31 01/13/22 08:30 01/13/22 08:01 01/13/22 08:00 01/13/22 07:50 01/13/22 07:31 01/13/22 07:30 01/13/22 07:01 01/13/22 07:00 01/13/22 06:45 01/13/22 06:01 01/13/22 05:31 01/13/22 05:01 01/13/22 04:31
[2022-01-13] MEDS: DOCUSATE SODIUM/SENNA 50/8.6MG TAB PO SCH (20:52)
[2022-01-13] MEDS: FINASTERIDE 5 MG TAB PO SCH (20:52)
[2022-01-13] MEDS: TAMSULOSIN HCL 0.4 MG CAP PO SCH (20:52)
[2022-01-14 06:37] LABS: Hematocrit (blood only) 44.6 % (42-52); Hemoglobin 13.7 g/dL (14.0-18.0); Mean Corpuscular Hemoglobin 29.2 pg (25-34); Mean Corpuscular Hgb Conc 30.7 g/dL (32-36); Mean Corpuscular Volume 95.1 fL (80-100); Mean Platelet Volume 10.4 fL (7.4-10.4); Platelet Count 287 K/uL (130-400); RDW Coefficient of Variation 15.2 % (11.5-14.5); RDW Standard Deviation 52.4 fL (36.4-46.3); Red Blood Count 4.69 M/uL (4.7-6.1); White Blood Count 7.97 K/uL (4.8-10.8)
[2022-01-14 07:00] LABS: Calcium 9.6 mg/dl (8.5-10.1); Magnesium 2.1 mg/dl (1.7-2.4); Potassium 4.2 mmol/L (3.5-5.1)
[2022-01-14 08:09] LABS: BUN Creatinine Ratio 39.4 (10-20); Creatinine Clr Calc Pharmacy 163.8 ml/min; Est GFR (African American) 120.7 ml/min; Est GFR (Non-African American) 104.2 ml/min
[2022-01-14] MEDS: ENOXAPARIN INJ 40 MG/0.4 ML SYR SQ SCH ×2 (08:35→21:22)
[2022-01-14] MEDS: predniSONE 20 MG TAB PO SCH (08:35)
[2022-01-14] MEDS: ASPIRIN 81 MG ECTAB PO SCH (08:35)
[2022-01-14] MEDS: FUROSEMIDE 40 MG/4 ML VIAL IV SCH (08:36)
[2022-01-14] MEDS: DOCUSATE SODIUM/SENNA 50/8.6MG TAB PO SCH ×2 (08:59→21:22)
[2022-01-14] MEDS: ATORVASTATIN 20 MG TAB PO SCH (11:35)
--- NOTE | 2022-01-14 12:49 | Cardiology Progress Note ---
Date of Service January 14, 2022 Assessment & Plan (1) New onset atrial fibrillation: Plan: Today is hospital day 14. Patient treated for severe sepsis due to lower extremity cellulitis, developed acute renal failure felt to be related to sepsis and contrast nephropathy prompting need for transient dialysis and temporary right internal jugular dialysis catheter, both of which have since been discontinued. Patient initially seen in cardiology consultation 01/01/2022 for atrial fibrillation. That evening, rapid ventricular response noted prompting addition of IV amiodarone but the time he was reassessed on 01/02/2022 2 he was back in sinus rhythm. Amiodarone was subsequently discontinued. He had been treated briefly with unfractioned heparin, also subsequently discontinued. [id number] score 1-2 for history of hypertension, and possibly second risk factor for history of heart failure with preserved EF, but typically this risk factor is reserved for congestive heart failure in the setting of reduced ejection fraction. As noted patient has a history of colonoscopy in 2019 with diverticular disease and multiple polyps.. BMI of ~60 , therefore felt not to be a candidate for direct oral anticoagulant, and my colleagues had concerns with regards to the patient's candidacy for ongoing future treatment Coumadin due to issues with adherence. At present, patient had an isolated episode of atrial fibrillation, seemingly less than 24 hours, that took place in the setting of severe sepsis and I would recommend continuing his present treatment including aspirin, furosemide for chronic fluid retention, and Lovenox DVT prophylaxis dose 40 mg subcutaneous twice daily. Patient declares himself with additional atrial fibrillation in the future, the benefits/risks of ongoing anticoagulation will be reassessed, but at present, feel it is most prudent to continue observation off of anticoagulation. Admission and Anticipated Discharge Date Admission Date: December 31, 2021 Subjective Patient seen in cardiology reassessment per the request of Dr Ron for the evaluation of atrial fibrillation. Patient seen in room 203. He is sitting in the bedside chair. No cardiac complaints. Telemetry reveals sinus rhythm in the 70s. No recent atrial fibrillation episodes. Physical Exam Constitutional: + morbidly obese Respiratory: normal respiratory effort, lungs clear to auscultation Cardiovascular: Rate/Rhythm: regular rate and regular rhythm Heart Sounds: no murmur Extremities: no edema (Chronic venous stasis changes noted) Neurologic: PERRL, EOMI, accommodation nl, no face palsy, no dysarthria Results & Data ([facility]) Vital Signs (Past 12 Hours) Vital Signs Temp Pulse Pulse Resp BP Pulse Ox 01/14/22 10:55 36.5 C 79 18 151/81 H 96 01/14/22 07:13 36.6 C 67 18 152/76 H 95 01/14/22 07:00 67 01/14/22 04:00 37.0 C 67 23 147/74 H 90 Laboratory Results CBC 01/14/22 Range/Units 06:01 WBC 7.97 (4.8-10.8) K/uL RBC 4.69 L (4.7-6.1) M/uL Hgb 13.7 L (14.0-18.0) g/dL Hct 44.6 (42-52) % Plt Count 287 (130-400) K/uL Comprehensive Metabolic Panel 01/14/22 Range/Units 06:01 Sodium 140 (136-145) mmol/L Potassium 4.2 (3.5-5.1) mmol/L Chloride 97 L (98-107) mmol/L Carbon Dioxide 35 H (21-32) mmol/L BUN 28 H (6-23) mg/dl Creatinine 0.71 (0.6-1.4) mg/dl Glucose 107 H (70-99(Fasting)) mg/dl Calcium 9.6 (8.5-10.1) mg/dl Intake and Output 01/13/22 01/14/22 01/14/22 22:59 06:59 14:59 Intake Total 200 / 850 200 / 850 Output Total 500 / 500 Balance 200 / 350 -300 / 350 Intake: Oral 200 / 850 200 / 850 Output: Urine Amount (Catheter) 500 / 500 External 500 / 500 Other: # Unmeasured Voids 1 Weight 160 kg Weight Measurement Method Built in [facility]
--- NOTE | 2022-01-14 18:34 | Hospitalist Progress Note ---
Date of Service January 14, 2022 Assessment & Plan (1) Acute hypercapnic respiratory failure: Plan: 56-year-old male with PMH of morbid obesity, prediabetes, SARAH on CPAP, nocturnal hypoxemia, tobacco abuse presented to the ED 12/31 for evaluation of left leg redness upto midthigh and low-grade fever a/w development of few blisters in left anterior navarrete that subsequently opened. No purulence noted at presentation per HnP. Pt reported SOB w/ minimal exertion. Upon presentation to ED, he was hypoxic on RA at 70% and required 6L NC O2 then. Of note, pt treated for RLE cellulitis 09/2021 w/ cephalexin. Pt was recently evaluated by cardio for HANSON, negative dobutamine stress test. Pt was started on lasix 20 mg daily but dcd d/t subsequent urinary incontinence. Was treated for UTI twice w/ cipro and macrobid. He is being managed for the followin56 year old male with tobacco abuse, morbid obesity who presented with shortness of breath with minimal exertion for the past few months and had OP stress test which was negative. Upon presentation, patient met sepsis criteria with WBC 16 K, tachycardia. Pro-Mark 1.26 and was started on ABx for LLE cellulitis. He was hypoxic with 70% on room air, and re 6 L via oxy mask initially. LLE Doppler negative for DVT, CTA chest with no evidence of PE, CXR chest with large confluent alveolar opacity at the right lung base suggestive of atelectasis versus pneumonia versus mass. Follow-up chest x-rays progressively worsening leading to complete opacification of the left hemithorax by 01/05. 01/05 status post bronchoscopy, impacted secretions in the left mainstream bronchus which were aspirated clear. Washout of LLL with 60 cc of saline performed. Cytology neg for malignancy. 01/10 s/p bronchoscopy for mucoid impaction of bronchi. Concern for volume overload after IVF for sepsis resuscitation on the background of Suspected obesity hypoventilation syndrome as well as ARDS--> Extubated 7/2 AM to oxymask, then on NC and now on room air today. 01/13 CXR w/ improvement in Pul edema Underwent hemodialysis for acute hypervolemia- last one 01/04, being diuresed now. Also on prednisone taper. #. Acute hypoxic hypercapnic respiratory failure- Seems resolved, now on room air. Currently on iv lasix- will change to po likely tomorrow. #. ARDS- on prednisone taper per pulm (Predinose 30 mg x 5 days then 20 mg x 5 days, then 10 mg x 5 days, then x 5 days). Improving. Amio started this admission was discontinued due to concern for lung toxicity # Sepsis on admission with LLE cellulitis- resolved. S/p antibiotic course Cefepime 7 d and doxycycline 10 days #. Paroxysmal A. fib- during this admission in setting of severe sepsis- resolved and now has been on NSR. S/p amio and heparin drip but currently none - Discussed with cardio who did not recommend anticoagulation currently due to being transient in setting of stressor, low CHADS2 VASc score, morbid obesity and concern for adherence issues. Will need reassessment in future if this recurs - continue telemetry #. PRIYANKA- resolved. PRIYANKA due to sepsis and ATN and s/p HD # MOrbid obesity- BMI 58.7. Weight loss recommended # SARAH- continue CPAP # Tobacco abuse- smoked 2ppd for about 30 years. He quit prior to admission and is not planning to resume at all. Congratulated. #. HTN- BP stable- Of note, Lisinopril had been discontinued due to hyperkalemia by cardiology, however, was resumed on 12/29 by PCP. Will monitor off of it # BPH- on proscar and flomax #. DVT prophylaxis: sq lovenox Dispo- PT recommended rehab. Pending availability- CM following Admission and Anticipated Discharge Date Admission Date: December 31, 2021 Subjective He is feeling better. Denies any chest pain, shortness of breath, N/V. Physical Exam Physical Exam: General: Morbidly obese, sitting in chair, on NC HEENT: EOMI, JAMIA, MMM Chest: Clear breath sounds bilaterally, no wheezes or crackles CVS: Regular rate and rhythm, normal heart sounds, no murmur Abdomen: Soft, non tender, not distended, normal bowel sounds Neuro: Awake, alert, oriented, conversing well, non focal Extremities: Chronic venous stasis changes- no active cellulitis or purulence noted Results & Data Results & Data ([facility]) Vital Signs (Past 12 Hours) Vital Signs Temp Pulse Pulse Resp BP Pulse Ox 01/14/22 16:55 36.6 C 83 18 134/68 96 01/14/22 10:55 36.5 C 79 18 151/81 H 96 01/14/22 07:13 36.6 C 67 18 152/76 H 95 01/14/22 07:00 67 Laboratory Results Short CBC 01/14/22 Range/Units 06:01 WBC 7.97 (4.8-10.8) K/uL Hgb 13.7 L (14.0-18.0) g/dL Hct 44.6 (42-52) % Plt Count 287 (130-400) K/uL BMP 01/14/22 06:01 Sodium 140 Potassium 4.2 Chloride 97 L Carbon Dioxide 35 H BUN 28 H Creatinine 0.71 Glucose 107 H Calcium 9.6 Medications Administered Current Inpatient Medications Acetaminophen (Acetaminophen 325 Mg Tab) 650 mg PO Q4H PRN PRN Reason: pain/fever Stop: 01/30/22 18:35 Last Admin: 12/31/21 23:49 Dose: 650 mg Documented by: Aspirin (Aspirin 81 Mg Ectab) 81 mg PO DAILY HERMAN Stop: 02/13/22 08:59 Last Admin: 01/14/22 08:35 Dose: 81 mg Documented by: Atorvastatin Calcium (Atorvastatin 20 Mg Tab) 20 mg PO QAM HERMAN Stop: 01/31/22 08:59 Last Admin: 01/14/22 11:35 Dose: 20 mg Documented by: Enoxaparin Sodium (Enoxaparin Inj 40 Mg/0.4 Ml Syr) 40 mg SQ BID HERMAN Stop: 02/06/22 10:59 Last Admin: 01/14/22 08:35 Dose: 40 mg Documented by: Finasteride (Finasteride 5 Mg Tab) 5 mg PO QPM HERMAN Stop: 01/30/22 20:59 Last Admin: 01/13/22 20:52 Dose: 5 mg Documented by: Furosemide (Furosemide 40 Mg/4 Ml Vial) 40 mg IV DAILY HERMAN Stop: 02/07/22 10:14 Last Admin: 01/14/22 08:36 Dose: 40 mg Documented by: Polyethylene Glycol (Polyethylene (Miralax) 17 Gm Pack) 17 gm PO DAILY HERMAN Stop: 02/03/22 08:59 Last Admin: 01/12/22 07:33 Dose: 17 gm Documented by: Prednisone (Prednisone 20 Mg Tab) 20 mg PO QAM HERMAN Stop: 01/18/22 09:01 Last Admin: 01/14/22 08:35 Dose: 20 mg Documented by: Prednisone (Prednisone 10 Mg Tablet) 10 mg PO QAM [facility] Stop: 01/23/22 09:01 Senna/Docusate Sodium (Docusate Sodium/Senna 50/8.6mg Tab) 2 tab PO BID HERMAN Stop: 02/07/22 20:59 Last Admin: 01/14/22 08:59 Dose: Not Given Documented by: Tamsulosin HCl (Tamsulosin Hcl 0.4 Mg Cap) 0.4 mg PO QPM HERMAN Stop: 01/30/22 20:59 Last Admin: 01/13/22 20:52 Dose: 0.4 mg Documented by:
[2022-01-14] MEDS: FINASTERIDE 5 MG TAB PO SCH (21:22)
[2022-01-14] MEDS: TAMSULOSIN HCL 0.4 MG CAP PO SCH (21:22)
[2022-01-15 07:39] LABS: Hematocrit (blood only) 46.8 % (42-52); Hemoglobin 14.6 g/dL (14.0-18.0); Mean Corpuscular Hemoglobin 29.3 pg (25-34); Mean Corpuscular Hgb Conc 31.2 g/dL (32-36); Mean Platelet Volume 10.6 fL (7.4-10.4); Platelet Count 283 K/uL (130-400); RDW Coefficient of Variation 15.2 % (11.5-14.5); Red Blood Count 4.98 M/uL (4.7-6.1); White Blood Count 9.62 K/uL (4.8-10.8)
[2022-01-15 08:14] LABS: BUN Creatinine Ratio 40.8 (10-20); C Reactive Protein 2.43 mg/dl (0-0.5); Calcium 10.1 mg/dl (8.5-10.1); Est GFR (African American) 117.4 ml/min; Est GFR (Non-African American) 101.3 ml/min; Magnesium 2.2 mg/dl (1.7-2.4)
[2022-01-15] MEDS: FUROSEMIDE 40 MG/4 ML VIAL IV SCH (08:43)
[2022-01-15] MEDS: predniSONE 20 MG TAB PO SCH (08:43)
[2022-01-15] MEDS: ATORVASTATIN 20 MG TAB PO SCH (08:43)
[2022-01-15] MEDS: DOCUSATE SODIUM/SENNA 50/8.6MG TAB PO SCH ×2 (08:44→21:13)
[2022-01-15] MEDS: ENOXAPARIN INJ 40 MG/0.4 ML SYR SQ SCH ×2 (08:44→21:13)
[2022-01-15] MEDS: ASPIRIN 81 MG ECTAB PO SCH (08:44)
--- NOTE | 2022-01-15 11:07 | Hospitalist Progress Note ---
Date of Service January 15, 2022 Assessment & Plan (1) Acute hypercapnic respiratory failure: Plan: 56-year-old male with PMH of morbid obesity, prediabetes, SARAH on CPAP, nocturnal hypoxemia, tobacco abuse presented to the ED 12/31 for evaluation of left leg redness upto midthigh and low-grade fever a/w development of few blisters in left anterior navarrete that subsequently opened. No purulence noted at presentation per HnP. Pt reported SOB w/ minimal exertion. Upon presentation to ED, he was hypoxic on RA at 70% and required 6L NC O2 then. Of note, pt treated for RLE cellulitis 09/2021 w/ cephalexin. Pt was recently evaluated by cardio for HANSON, negative dobutamine stress test. Pt was started on lasix 20 mg daily but dcd d/t subsequent urinary incontinence. Was treated for UTI twice w/ cipro and macrobid. He is being managed for the followin56 year old male with tobacco abuse, morbid obesity who presented with shortness of breath with minimal exertion for the past few months and had OP stress test which was negative. Upon presentation, patient met sepsis criteria with WBC 16 K, tachycardia. Pro-Mark 1.26 and was started on ABx for LLE cellulitis. He was hypoxic with 70% on room air, and re 6 L via oxy mask initially. LLE Doppler negative for DVT, CTA chest with no evidence of PE, CXR chest with large confluent alveolar opacity at the right lung base suggestive of atelectasis versus pneumonia versus mass. Follow-up chest x-rays progressively worsening leading to complete opacification of the left hemithorax by 01/05. 01/05 status post bronchoscopy, impacted secretions in the left mainstream bronchus which were aspirated clear. Washout of LLL with 60 cc of saline performed. Cytology neg for malignancy. 01/10 s/p bronchoscopy for mucoid impaction of bronchi. Concern for volume overload after IVF for sepsis resuscitation on the background of Suspected obesity hypoventilation syndrome as well as ARDS--> Extubated 7/2 AM to oxymask, then on NC and now on room air today. 01/13 CXR w/ improvement in Pul edema Underwent hemodialysis for acute hypervolemia- last one 01/04, being diuresed now. Also on prednisone taper. #. Acute hypoxic hypercapnic respiratory failure- still on 5-6 L NC. Wean down as tolerated. IS, flutter valve. Continue iv lasix for now- will monitor labs and volume status and change to po when indicated #. ARDS- on prednisone taper per pulm (Predinose 30 mg x 5 days then 20 mg x 5 days, then 10 mg x 5 days, then x 5 days). Improving. Amio started this admission was discontinued due to concern for lung toxicity # Sepsis on admission with LLE cellulitis- resolved. S/p antibiotic course Cefepime 7 d and doxycycline 10 days #. Paroxysmal A. fib- during this admission in setting of severe sepsis- resolved and now has been on NSR. S/p amio and heparin drip but currently none - Discussed with cardio who did not recommend anticoagulation currently due to being transient in setting of stressor, low CHADS2 VASc score, morbid obesity and concern for adherence issues. Will need reassessment in future if this recurs - continue telemetry #. PRIYANKA- resolved. PRIYANKA due to sepsis and ATN and s/p HD # Morbid obesity- BMI 58.7. Weight loss recommended # SARAH- continue CPAP # Tobacco abuse- smoked 2ppd for about 30 years. He quit prior to admission and is not planning to resume at all. Congratulated. #. HTN- BP stable, not on any meds currently- Of note, Lisinopril had been discontinued due to hyperkalemia by cardiology, however, was resumed on 12/29 by PCP. Will monitor off of it # BPH- on proscar and flomax #. DVT prophylaxis: sq lovenox Dispo- Still on 5-6 L NC, weaning down oxygen as tolerated, goal saturation >90%. PT recommended rehab. CM following Admission and Anticipated Discharge Date Admission Date: December 31, 2021 Subjective Feels okay. No new issues. No fever, chills, chest pain, shortness of breath. States ambulated with walker to the door and felt okay. Physical Exam Physical Exam: General: Morbidly obese, sitting in chair, on NC HEENT: EOMI, JAMIA, MMM Chest: Clear breath sounds bilaterally, no wheezes or crackles CVS: Regular rate and rhythm, normal heart sounds, no murmur Abdomen: Soft, non tender, not distended, normal bowel sounds Neuro: Awake, alert, oriented, conversing well, non focal Extremities: Chronic venous stasis changes- no active cellulitis or purulence noted Results & Data Results & Data ([facility]) Vital Signs (Past 12 Hours) Vital Signs Temp Pulse Pulse Resp BP Pulse Ox 01/15/22 06:58 36.8 C 71 20 121/67 93 01/15/22 03:00 36.9 C 67 20 119/74 91 01/15/22 00:43 68 94 01/14/22 23:59 73 Laboratory Results Short CBC 01/15/22 Range/Units 06:46 WBC 9.62 (4.8-10.8) K/uL Hgb 14.6 (14.0-18.0) g/dL Hct 46.8 (42-52) % Plt Count 283 (130-400) K/uL BMP 01/15/22 06:46 Sodium 139 Potassium 4.0 Chloride 97 L Carbon Dioxide 33 H BUN 31 H Creatinine 0.76 Glucose 101 H Calcium 10.1 Medications Administered Current Inpatient Medications Acetaminophen (Acetaminophen 325 Mg Tab) 650 mg PO Q4H PRN PRN Reason: pain/fever Stop: 01/30/22 18:35 Last Admin: 12/31/21 23:49 Dose: 650 mg Documented by: Aspirin (Aspirin 81 Mg Ectab) 81 mg PO DAILY HERMAN Stop: 02/13/22 08:59 Last Admin: 01/15/22 08:44 Dose: 81 mg Documented by: Atorvastatin Calcium (Atorvastatin 20 Mg Tab) 20 mg PO QAM HERMAN Stop: 01/31/22 08:59 Last Admin: 01/15/22 08:43 Dose: 20 mg Documented by: Enoxaparin Sodium (Enoxaparin Inj 40 Mg/0.4 Ml Syr) 40 mg SQ BID HERMAN Stop: 02/06/22 10:59 Last Admin: 01/15/22 08:44 Dose: 40 mg Documented by: Finasteride (Finasteride 5 Mg Tab) 5 mg PO QPM HERMAN Stop: 01/30/22 20:59 Last Admin: 01/14/22 21:22 Dose: 5 mg Documented by: Furosemide (Furosemide 40 Mg/4 Ml Vial) 40 mg IV DAILY HERMAN Stop: 02/07/22 10:14 Last Admin: 01/15/22 08:43 Dose: 40 mg Documented by: Polyethylene Glycol (Polyethylene (Miralax) 17 Gm Pack) 17 gm PO DAILY HERMAN Stop: 02/03/22 08:59 Last Admin: 01/12/22 07:33 Dose: 17 gm Documented by: Prednisone (Prednisone 20 Mg Tab) 20 mg PO QAM HERMAN Stop: 01/18/22 09:01 Last Admin: 01/15/22 08:43 Dose: 20 mg Documented by: Prednisone (Prednisone 10 Mg Tablet) 10 mg PO QAM [facility] Stop: 01/23/22 09:01 Senna/Docusate Sodium (Docusate Sodium/Senna 50/8.6mg Tab) 2 tab PO BID HERMAN Stop: 02/07/22 20:59 Last Admin: 01/15/22 08:44 Dose: Not Given Documented by: Tamsulosin HCl (Tamsulosin Hcl 0.4 Mg Cap) 0.4 mg PO QPM HERMAN Stop: 01/30/22 20:59 Last Admin: 01/14/22 21:22 Dose: 0.4 mg Documented by:
--- NOTE | 2022-01-15 16:56 | Cardiology Progress Note ---
Date of Service January 15, 2022 Assessment & Plan (1) New onset atrial fibrillation: Plan: Today is hospital day 15. Patient treated for severe sepsis due to lower extremity cellulitis, developed acute renal failure felt to be related to sepsis and contrast nephropathy prompting need for transient dialysis and temporary right internal jugular dialysis catheter, both of which have since been discontinued. Patient initially seen in cardiology consultation 01/01/2022 for atrial fibrillation. That evening, rapid ventricular response noted prompting addition of IV amiodarone but the time he was reassessed on 01/02/2022 2 he was back in sinus rhythm. Amiodarone was subsequently discontinued. He had been treated briefly with unfractioned heparin, also subsequently discontinued. [id number] score 1-2 for history of hypertension, and possibly second risk factor for history of heart failure with preserved EF, but typically this risk factor is reserved for congestive heart failure in the setting of reduced ejection fraction. As noted patient has a history of colonoscopy in 2019 with diverticular disease and multiple polyps.. BMI of ~60 , therefore felt not to be a candidate for direct oral anticoagulant, and my colleagues had concerns with regards to the patient's candidacy for ongoing future treatment Coumadin due to issues with adherence. At present, patient had an isolated episode of atrial fibrillation, seemingly less than 24 hours, that took place in the setting of severe sepsis and I would recommend continuing his present treatment including aspirin, furosemide for chronic fluid retention, and Lovenox DVT prophylaxis dose 40 mg subcutaneous twice daily. If patient declares himself with additional atrial fibrillation in the future, the benefits/risks of anticoagulation will be reassessed, but at present, feel it is most prudent to continue observation off of anticoagulation. Admission and Anticipated Discharge Date Admission Date: December 31, 2021 Subjective Patient seen in follow-up. Spouse accompanying him in room. He feels well, sitting out of bed in chair. Telemetry reveals sinus rhythm without recurrence of atrial fibrillation. Physical Exam Constitutional: + morbidly obese Respiratory: Lungs clear to auscultation Cardiovascular: Rate/Rhythm: regular rate Extremities: + edema (Trace edema, chronic venous stasis) Results & Data ([facility]) Vital Signs (Past 12 Hours) Vital Signs Temp Pulse Pulse Resp BP Pulse Ox 01/15/22 15:44 36.8 C 76 18 146/84 H 93 01/15/22 15:20 94 01/15/22 11:30 36.6 C 84 18 139/88 96 01/15/22 07:00 64 01/15/22 06:58 36.8 C 71 20 121/67 93
[2022-01-15] MEDS: TAMSULOSIN HCL 0.4 MG CAP PO SCH (21:13)
[2022-01-15] MEDS: FINASTERIDE 5 MG TAB PO SCH (21:13)
[2022-01-16 06:21] LABS: Hematocrit (blood only) 44.4 % (42-52); Hemoglobin 13.6 g/dL (14.0-18.0); Mean Corpuscular Hemoglobin 28.9 pg (25-34); Mean Corpuscular Hgb Conc 30.6 g/dL (32-36); Mean Corpuscular Volume 94.5 fL (80-100); Mean Platelet Volume 10.5 fL (7.4-10.4); Platelet Count 278 K/uL (130-400); RDW Standard Deviation 52.6 fL (36.4-46.3); White Blood Count 8.53 K/uL (4.8-10.8)
[2022-01-16 06:48] LABS: C Reactive Protein 2.16 mg/dl (0-0.5); Calcium 9.8 mg/dl (8.5-10.1); Creatinine Clr Calc Pharmacy 154.8 ml/min; Est GFR (Non-African American) 101.8 ml/min; Potassium 3.7 mmol/L (3.5-5.1)
[2022-01-16] MEDS: ASPIRIN 81 MG ECTAB PO SCH (09:29)
[2022-01-16] MEDS: ATORVASTATIN 20 MG TAB PO SCH (09:29)
[2022-01-16] MEDS: ENOXAPARIN INJ 40 MG/0.4 ML SYR SQ SCH (09:30)
[2022-01-16] MEDS: predniSONE 20 MG TAB PO SCH (09:30)
[2022-01-16] MEDS: FUROSEMIDE 40 MG/4 ML VIAL IV SCH (09:30)
[2022-01-16] MEDS: DOCUSATE SODIUM/SENNA 50/8.6MG TAB PO SCH (09:31)
--- NOTE | 2022-01-16 10:03 | Hospitalist Progress Note ---
Date of Service January 16, 2022 Assessment & Plan Admission and Anticipated Discharge Date Admission Date: December 31, 2021 Results & Data Results & Data ([facility]) Vital Signs (Past 12 Hours) Vital Signs Temp Pulse Pulse Resp BP Pulse Ox 01/16/22 09:29 85 127/79 01/16/22 08:00 36.8 C 69 79 18 134/70 94 01/16/22 03:00 37.0 C 63 20 132/74 93 01/15/22 23:00 36.9 C 64 20 136/78 94
--- NOTE | 2022-01-16 12:47 | Cardiology Progress Note ---
Date of Service January 16, 2022 Assessment & Plan (1) New onset atrial fibrillation: Plan: Today is hospital day 16. Patient treated for severe sepsis due to lower extremity cellulitis, developed acute renal failure felt to be related to sepsis and contrast nephropathy prompting need for transient dialysis and temporary right internal jugular dialysis catheter, both of which have since been discontinued. Patient initially seen in cardiology consultation 01/01/2022 for atrial fibrillation. That evening, rapid ventricular response noted prompting addition of IV amiodarone but the time he was reassessed on 01/02/2022 2 he was back in sinus rhythm. Amiodarone was subsequently discontinued. He had been treated briefly with unfractioned heparin, also subsequently discontinued. [id number] score 1-2 for history of hypertension, and possibly second risk factor for history of heart failure with preserved EF, but typically this risk factor is reserved for congestive heart failure in the setting of reduced ejection fraction. As noted patient has a history of colonoscopy in 2019 with diverticular disease and multiple polyps. BMI of ~60 , therefore felt not to be a candidate for direct oral anticoagulant, and my concerns with regards to the patient's candidacy for ongoing future treatment Coumadin due to issues with adherence. At present, patient had an isolated episode of atrial fibrillation, seemingly less than 24 hours, that took place in the setting of severe sepsis and I would recommend continuing his present treatment including aspirin, furosemide for chronic fluid retention, and Lovenox DVT prophylaxis dose 40 mg subcutaneous twice daily. If patient declares himself with additional atrial fibrillation in the future, the benefits/risks of anticoagulation will be reassessed, but at present, feel it is most prudent to continue observation off of anticoagulation. Admission and Anticipated Discharge Date Admission Date: December 31, 2021 Subjective Pt seen in cardiology follow up. Walked in unit with respiratory therapy for ambulatory pulse oximetry assessment, using well chair for support. Not sure what pt's baseline is , but certainly very deconditioned per my impression of observing him walk. Physical Exam Constitutional: + morbidly obese Respiratory: normal respiratory effort, lungs clear to auscultation Cardiovascular: Rate/Rhythm: regular rate and regular rhythm Heart Sounds: no murmur Extremities: + edema (Trace edema, chronic venous stasis) Neurologic: PERRL, EOMI, accommodation nl, no face palsy, no dysarthria Results & Data ([facility]) Vital Signs (Past 12 Hours) Vital Signs Temp Pulse Pulse Pulse Pulse Pulse Pulse 01/16/22 12:06 36.6 C 74 01/16/22 11:36 107 H 101 H 105 H 101 H 01/16/22 09:29 85 01/16/22 08:00 36.8 C 69 79 01/16/22 03:00 37.0 C 63 Pulse Resp Resp Resp Resp Resp Resp 01/16/22 12:06 18 01/16/22 11:36 74 24 24 24 20 18 01/16/22 09:29 01/16/22 08:00 18 01/16/22 03:00 20 BP Pulse Ox Pulse Ox Pulse Ox Pulse Ox Pulse Ox Pulse Ox 01/16/22 12:06 150/95 H 91 01/16/22 11:36 86 L 92 85 L 90 92 01/16/22 09:29 127/79 01/16/22 08:00 134/70 94 01/16/22 03:00 132/74 93
--- NOTE | 2022-01-16 13:30 | Discharge Summary ---
Date of Service January 16, 2022 Admission HPI Per Admitting Provider 56-year-old male with PMH of morbid obesity, prediabetes, SARAH on CPAP, nocturnal hypoxemia, tobacco abuse, and other problems listed below who presents the ED for evaluation of left leg redness and fever. Patient's is at the bedside who provides much of the history. States that yesterday she noted the patient's navarrtee to be mildly red. Patient also had a low-grade fever. He had taken some Advil and the fever resolved. This morning, the redness extended up to the thigh and it was very warm to touch. Patient also again had a low-grade fever. Patient was then brought to the ED for further evaluation. Patient developed a couple of small blisters on his left anterior navarrete that subsequently opened. No purulent drainage reported. Patient reports shortness of breath with minimal exertion. No chest pain or palpitations. Denies lightheadedness, dizziness, diaphoresis, syncopal events. No abdominal pain, nausea, vomiting, diarrhea. Has been having some urinary issues which will be discussed below. Upon arrival to the ED, patient was found to be hypoxic on room air at 70%, currently requiring oxygen mask at 6 L. CTA chest negative for pulmonary embolism and signs of pneumonia or volume overload. L LE Doppler negative for DVT. Labs show WBC 16 K, procalcitonin 1.26. HS trop mildly elevated 27.5. EKG without acute ST changes. Patient was given IV cefepime, IV Vanco, IVF. Recent medical history: Patient treated for RLE cellulitis 09/2021 with a course of cephalexin. Patient also evaluated by cardiology for complaints of dyspnea on exertion. Underwent dobutamine stress test that was negative for inducible ischemia. Was noted to have mild hyperkalemia and lisinopril was reduced from 20 mg to 10 mg daily and eventually discontinued due to persistent mild hyperkalemia. Patient was also started on Lasix 20 mg daily however developed urinary incontinence and this was subsequently discontinued. Patient treated for UTI twice with courses of Cipro and Macrobid. Urine culture from 11/22/2021 grew Aerococcus urinate and urine culture from 12/14/2021 had no growth. Due to complaints of urinary hesitancy, patient was started on tamsulosin and was referred to urology. Patient felt that his urinary symptoms correlated with the time that the lisinopril was discontinued, therefore PCP resumed lisinopril on 12/29/2021. Admission Exam Per Admitting Provider Constitutional: WD/WN, vitals as above + morbidly obese Eyes: PERRL, conjunctivae normal, anicteric sclerae ENMT: external ear and nose normal, oropharynx normal Respiratory: normal respiratory effort; no respiratory distress Auscultation: + diminished lung sounds Cardiovascular: Rate/Rhythm: regular rhythm and + tachycardic Vessels: normal peripheral pulses Extremities: + edema (+2 edema BLE) Gastrointestinal (Abdomen): normal bowel sounds, soft, nontender, no hepatosplenomegaly Musculoskeletal: no cyanosis or clubbing, extremities motor strength 5/5 Skin: no rashes, warm and dry LLE erythema extending from left foot up to the mid thigh, leg warm to touch, a few small scabs noted to left anterior navarrete, no drainage noted Neurologic: PERRL, EOMI, accommodation nl, no face palsy, no dysarthria Psychiatric: A+Ox3, euthymic affect Principal Diagnosis Acute hypoxic hypercapnic respiratory failure, ARDS, hypervolemia, Paroxysmal Afib, Sepsi with LLE cellulitis Discharge Exam General: Morbidly obese, sitting comfortably in chair, on NC HEENT: EOMI, JAMIA, MMM Chest: Clear breath sounds bilaterally, no wheezes or crackles CVS: Regular rate and rhythm, normal heart sounds, no murmur Abdomen: Soft, non tender, not distended, normal bowel sounds Neuro: Awake, alert, oriented, conversing well, non focal Extremities: Chronic venous stasis changes- no active cellulitis or purulence noted, trace edema. Discharge Data Allergies Allergy/AdvReac Type Severity Reaction Status Date / Time No Known Allergies Allergy Unknown NONE Verified 12/31/21 16:17 Consultations 12/31/21 16:02 ED Decision to Admit Stat 01/01/22 11:45 Consult Cardiology Routine 01/02/22 09:29 Consult Nephrology Routine 01/02/22 10:44 Consult Vascular Surgery Routine 01/03/22 06:26 Consult Electron Beam Welder Setter Routine Procedures Performed Operation Date: 01/02/22 13:35 Actual Procedures p Insertion Temporary Dialysis Catheter Right Internal Jugular Approach, Ultrasound Localization of Right Internal Jugular Vein, Fluoroscopy for Positioning(Right) - Sherman Acevedo MD Ordered Studies 12/31/21 11:34 US venous doppler LE LT Stat 12/31/21 11:54 CT angio chest PE protocol Stat 01/02/22 14:56 EV cvc insert non tunnel Routine Hospital Course (1) Acute hypercapnic respiratory failure: 56 year old male with tobacco abuse, morbid obesity who presented with isaiah rtness of breath with minimal exertion for the past few months and had OP stress test which was negative. Upon presentation, patient met sepsis criteria with WBC 16 K, tachycardia. Pro-Mark 1.26 and was started on ABx for LLE cellulitis. He was hypoxic with 70% on room air, and required 6 L via oxy mask initially. LLE Doppler negative for DVT, CTA chest with no evidence of PE, CXR chest with large confluent alveolar opacity at the right lung base suggestive of atelectasis versus pneumonia versus mass. Follow-up chest x-rays progressively worsening leading to complete opacification of the left hemithorax by 01/05. 01/05 status post bronchoscopy, impacted secretions in the left mainstream bronchus which were aspirated clear. Washout of LLL with 60 cc of saline performed. Cytology neg for malignancy. 01/10 s/p bronchoscopy for mucoid impaction of bronchi. There was concern for volume overload after IVF for sepsis resuscitation on the background of Suspected obesity hypoventilation syndrome as well as ARDS--> Extubated 7/2 AM to oxymask, then on NC. Underwent hemodialysis for acute hypervolemia- last one 01/04, and then continued on iv lasix 40 mg daily with good response and being discharged on po lasix. He is also on prednisone taper per pulmonology for suspected ARDS. He continues to improve and now down to 2 L. 2 step oxygen evaluation was performed and he is being arranged home oxygen. PT/OT recommended home PT but he declined. Talked to his who agrees stating she is there for help any time. He is anxious to get discharged today. He is comfortable and stable to discharge home. Hospital problems- #. Acute hypoxic hypercapnic respiratory failure- improving, now down to 2 L NC. 2 step oxygen evaluation completed- being discharged on home oxygen with follow up with PCP to further wean down as tolerated. Continue IS, flutter valve. Continue po lasix. Goal saturation >90%. Continue CPAP at night. #. ARDS- on prednisone taper per pulm- now down to 20 mg for 2 more days, then 10 mg x 5 days, then 5 mg x 5 days). Improving. Amio started this admission was discontinued due to concern for lung toxicity # Sepsis on admission with LLE cellulitis- resolved. S/p antibiotic course Cefepime 7 d and doxycycline 10 days. No further need for ABx currently. #. Paroxysmal A. fib- during this admission in setting of severe sepsis- resolved and now has been on NSR. S/p amio and heparin drip but currently none - Discussed with cardio who did not recommend anticoagulation currently due to being transient in setting of stressor, low CHADS2 VASc score, morbid obesity and concern for adherence issues. Will need reassessment in future if this recurs. #. PRIYANKA- resolved. PRIYANKA due to sepsis and ATN and s/p HD # Morbid obesity- BMI 58.7. Weight loss recommended # SARAH- continue CPAP # Tobacco abuse- smoked 2ppd for about 30 years. He quit prior to admission and is not planning to resume at all. Congratulated. #. HTN- BP now trending up. Upon chart review, his amlodipine was discontinued due to leg swelling and his lisinopril was held due to hyperkalemia. Now that he is on lasix and potassium is trending down, we will resume his lisinopril that will balance. Recommend repeat BMP in a week and follow up with PCP for further adjustment of his BP meds. # BPH- on proscar and flomax Total Time Total Time Spent Total Time Spent (In Minutes): 50 Discharge Plan Discharge Items Patient Disposition: Home - Self-Care Reason For Visit: LEFT LEG CELLULITIS Discharge Diagnosis: Acute hypoxic respiratory failure, ARDS, left leg cellulitis Activity: Resume your previous activity Non-emergency contact: Primary Care Provider Call non-emergency contact if: you have any medication questions, your symptoms worsen, you have a fever, your wound has increased drainage and your wound pain has increased Follow-up/Referrals: Naz Merchant MD, PhD [Physician] - (Date & Time 01/25/2022 2:40 PM Provider [facility] Oscar Gutierrez DO [Primary Care Provider] - (Date & Time 01/21/2022 11:20 AM Provider Oscar Gutierrez DO Department [facility] ) Diet: Heart Healthy Add Attending Provider Instructions: Continue prednisone taper as prescribed starting tomorrow- 2 tab daily for 2 days, then 1 tab daily for 5 days, then half tab daily for 5 days and then stop Continue lasix daily to keep the lungs dry and help with the swelling Continue oxygen- wean down as tolerated- follow up with the family doctor for the same. Goal oxygen level is >90%. You can get a pulse oximeter to monitor your oxygen levels.. Local wound care of the leg- if increased redness, pain or pus/discharge or fever/chills, please seek medical care Follow up with the family doctor and lung doctor Recommend repeat blood work (BMP) in a week to monitor kidney function and electrolytes. Pending Studies at Discharge: No Stand-Alone Forms: My [facility], Smoking Cessation Medications and DC Order Prescriptions: New prednisone 10 mg Tablet 10 mg PO UD Qty: 12 RF: 0 furosemide [Lasix] 40 mg tablet 40 mg PO DAILY Qty: 30 RF: 0 Continued lisinopril 20 mg tablet 20 mg PO QAM RF: 0 atorvastatin 20 mg tablet 20 mg PO QAM RF: 0 aspirin [Aspir-Low] 81 mg Tablet,Delayed Release (Dr/Ec) 81 mg PO DAILY RF: 0 tamsulosin 0.4 mg capsule 0.4 mg PO QPM RF: 0 finasteride 5 mg Tablet 5 mg PO QPM RF: 0 Discontinued amlodipine 5 mg Tablet 5 mg PO QAM RF: 0 Discharge Orders: Discharge Order (Routine); Ordered 01/16/22 Ordered By: Brendan Ron Admission Data Admit Date/Time: 12/31/21 16:53 Attending Provider: Brendan Ron Admit Provider: Roxana Guthrie Primary Care Provider: Oscar Gutierrez Other Providers: Roxana Guthrie ; Ahsan Zavala ; Sherman Acevedo ; Juan Sheppard
[2022-01-19] MEDS ORDERED: predniSONE 10 MG TABLET PO SCH (09:00)
[2022-01-24] MEDS ORDERED: predniSONE 5 MG TAB PO SCH (09:00)
== END 2022-01-16 17:59 | disposition home or self-care (01) | DRG 870 ==
LOC: ED 11:11 → SUATTDRO 16:53 → 2N 16:53 → 2E 01-01 15:27 → 1E 01-03 06:49 → 2E 01-13 14:27